=== PATIENT | female | born 1935 | race Caucasian/White ===

== ENCOUNTER 2016-10-23 17:04 | Inpatient (IN) | payer OTHER, BC ==
[~2016-10-23] VITALS: Ht 170.2 cm; Wt 78.0 kg
[~2016-10-23 17:04] MED LIST: ASPCH81 PO; LEVO50TA6 PO; LISI-729 PO; LPR100 PO; LPT40 PO; MULT-190 PO; POLYSOL4 OP; TRIA37.5 PO; WARF2TAB8 PO
[2016-10-23] MEDS ORDERED: SODIUM CHLORIDE 0.9% 1000ML 1,000 ML IV SCH (17:12)
--- NOTE | 2016-10-23 17:23 | EMERGENCY ROOM VISIT NOTE ---
History Report prepared by Ginny: Isaias Melton Under the Supervision of: Dr. Ha Sanchez D.O. First contact with patient: 17:05 Chief Complaint: NEURO SYMPTOMS Stated Complaint: POSS. STROKE/ LF SIDED WEAKNESS History of Present Illness The patient is a 81 year old female who presents to the Emergency Room with complaints of an episode of neuro symptoms beginning about 2 hours ago. Per EMS , she tried to get up to use the bathroom when she began to have left sided tingling and weakness in her left arm and left leg. She has a history of TIA, the last 1 year ago, and she is currently on Warfarin. Per the patient, she denies having any headache, chest pain, or shortness of breath. She had a cough about 15 days ago which resolved on its own. She reports having a history of strokes, and that her left sided weakness is new. The patient notes she is reported to have a lesion behind the cornea of her right eye. She has been unable to walk at the onset of her symptoms, but is now able to. She has a history of 2 valve replacements, atrial fibrillation, CHF, hypertension, and high cholesterol. Source of History: patient, EMS Onset: about 2 hours ago Position: other (left sided of body) Quality: tingling, other (neuro symptoms; eakness) Timing: other (episode) Associated Symptoms: + weakness (left sided), No SOB, No chest pain, No cough, No headache Review of Systems See HPI for pertinent positives & negatives. A total of 10 systems reviewed and were otherwise negative. Past Medical & Surgical Medical Problems: (1) Atrial Fibrillation (2) Cerebrovascular accident (CVA) (3) Chronic atrial fibrillation with RVR (4) Congestive Heart Failure Nos (5) Demand ischemia of myocardium (6) Hyperlipidemia Nec/Nos (7) Hypertension Nos (8) TIA (transient ischemic attack) Surgical Problems: (1) Mitral valve replaced (2) Status post heart valve replacement with mechanical valve Family History FHx: heart disease Social History Smoking Status: Never Smoker Alcohol Use: none Drug Use: none Marital Status: Housing Status: lives with family Occupation Status: retired Current/Historical Medications Scheduled Aspirin (Aspirin Chewable), 81 MG PO Q2D Atorvastatin (Atorvastatin Calcium), 40 MG PO QPM B Complex W/ C (Vitamin B Complex-C), 1 TAB PO DAILY Levothyroxine Sodium (Levothyroxine Sodium), 50 MCG PO DAILY Lisinopril (Prinivil), 5 MG PO BID Metoprolol Tartrate (Metoprolol Tartrate), 100 MG PO BID Ocuvite Preservision (Ocuvite Preservision), 1 TAB PO prn Polyethylene Glycol-Propylene (Systane), 1 DROPS OP prn Triamterene/Hctz (Dyazide 37.5MG/25MG), 1 TAB PO 2XWK Warfarin Sod (Jantoven), 2 MG PO QPM Allergies Coded Allergies: Codeine (Verified Allergy, Intermediate, RASH, 10/23/16) Physical Exam Vital Signs Date Time Temp Pulse Resp B/P Pulse Ox O2 Delivery O2 Flow Rate FiO2 10/23/16 19:04 66 20 171/90 96 Room Air 10/23/16 17:25 64 10/23/16 17:20 97 Room Air 10/23/16 17:07 36.5 72 12 173/84 97 Room Air Physical Exam GENERAL: Patient is awake alert, mildly anxious but appears to be in no pain. EYES: The conjunctivae are clear. The pupils are round and reactive. EARS, NOSE, MOUTH AND THROAT: The nose is without any evidence of any deformity. Mucous membranes are moist tongue is midline NECK: No bruit noted on auscultation. RESPIRATORY: Normal respiratory effort is noted there is no evidence of wheezing rhonchi or rales CARDIOVASCULAR: Regular rate and rhythm on auscultation. Metallic click noted on auscultation. GASTROINTESTINAL: The abdomen is soft. Bowel sounds are present in all quadrants. Abdomen is nontender MUSCULOSKELETAL/EXTREMITIES: There is no evidence of gross deformity full range of motion is noted in the hips and shoulders SKIN: Trace pedal edema bilaterally. NEUROLOGIC: Patient is awake alert and oriented x3. No drift in upper extremities. Patient is able to hold each leg off the bed for greater than 5 seconds, but strength is diminished in left leg mildly to confrontation. Patient is able to ambulate to bathroom with minimal assistance. Medical Decision & Procedures ER Provider Diagnostic Interpretation: Radiology results as stated below per my review and radiologist interpretation: HEAD CT NONCONTRAST Findings: The paranasal sinuses and mastoid air cells are clear. Moderate atrophy. Mild chronic small vessel change. No new or interval finding. No acute intracranial hemorrhage. Impression: Atrophy and chronic small vessel change of aging. No acute process. Electronically signed by: Ke Hdz M.D. 10/23/2016 5:53 PM Dictated Date/Time: 10/23/2016 5:52 PM CHEST ONE VIEW PORTABLE FINDINGS: Mild stable cardiomegaly. Mild prominence pulmonary vasculature. Platelike atelectasis left base considered chronic. IMPRESSION: Mild pulmonary venous congestion Electronically signed by: Ke Hdz M.D. 10/23/2016 5:29 PM Dictated Date/Time: 10/23/2016 5:29 PM Laboratory Results 10/23/16 18:35 Red Blood Count 3.92, Mean Corpuscular Volume 91.6, Mean Corpuscular Hemoglobin 31.1, Mean Corpuscular Hemoglobin Concent 34.0, Mean Platelet Volume 13.3, Neutrophils (%) (Auto) 72.9, Lymphocytes (%) (Auto) 15.5, Monocytes (%) (Auto) 7.9, Eosinophils (%) (Auto) 3.2, Basophils (%) (Auto) 0.3, Neutrophils # (Auto) 4.34, Lymphocytes # (Auto) 0.92, Monocytes # (Auto) 0.47, Eosinophils # (Auto) 0.19, Basophils # (Auto) 0.02 10/23/16 18:35 Test 10/23/16 17:20 10/23/16 18:35 Urine Color YELLOW Urine Appearance CLOUDY (CLEAR) Urine pH 8.0 (4.5-7.5) Urine Specific [place] 1.007 (1.000-1.030) Urine Protein NEG (NEG) Urine Glucose (UA) NEG (NEG) Urine Ketones NEG (NEG) Urine Occult Blood NEG (NEG) Urine Nitrite NEG (NEG) Urine Bilirubin NEG (NEG) Urine Urobilinogen NEG (NEG) Urine Leukocyte Esterase SMALL (NEG) Urine WBC (Auto) 5-10 /hpf (0-5) Urine RBC (Auto) 10-30 /hpf (0-4) Urine Hyaline Casts (Auto) 1-5 /lpf (0-5) Urine Epithelial Cells (Auto) 5-10 /lpf (0-5) Urine Bacteria (Auto) 1+ (NEG) Urine Opiates Screen NEG (NEG) Urine Methadone, Qualitative NEG (NEG) Urine Barbiturates NEG (NEG) Urine Phencyclidine (PCP) Level NEG (NEG) Ur Amphetamine/Methamphetamine NEG (NEG) MDMA (Ecstasy) Screen NEG (NEG) Urine Benzodiazepines Screen NEG (NEG) Urine Cocaine Metabolite NEG (NEG) Urine Marijuana (THC) NEG (NEG) White Blood Count 5.95 K/uL (4.8-10.8) Red Blood Count 3.92 M/uL (4.2-5.4) Hemoglobin 12.2 g/dL (12.0-16.0) Hematocrit 35.9 % (37-47) Mean Corpuscular Volume 91.6 fL (80-100) Mean Corpuscular Hemoglobin 31.1 pg (25-34) Mean Corpuscular Hemoglobin Concent 34.0 g/dl (32-36) Platelet Count 127 K/uL (130-400) Mean Platelet Volume 13.3 fL (7.4-10.4) Neutrophils (%) (Auto) 72.9 % Lymphocytes (%) (Auto) 15.5 % Monocytes (%) (Auto) 7.9 % Eosinophils (%) (Auto) 3.2 % Basophils (%) (Auto) 0.3 % Neutrophils # (Auto) 4.34 K/uL (1.4-6.5) Lymphocytes # (Auto) 0.92 K/uL (1.2-3.4) Monocytes # (Auto) 0.47 K/uL (0.11-0.59) Eosinophils # (Auto) 0.19 K/uL (0-0.5) Basophils # (Auto) 0.02 K/uL (0-0.2) RDW Standard Deviation 48.3 fL (36.4-46.3) RDW Coefficient of Variation 14.4 % (11.5-14.5) Immature Granulocyte % (Auto) 0.2 % Immature Granulocyte # (Auto) 0.01 K/uL (0.00-0.02) Platelet Estimate DECREASED Red Blood Cell Morphology Unremarkable Prothrombin Time 40.6 SECONDS (9.0-12.0) Prothromb Time International Ratio 3.6 (0.9-1.1) Activated Partial Thromboplast Time 43.2 SECONDS (21.0-31.0) Partial Thromboplastin Ratio 1.7 Anion Gap 11.0 mmol/L (3-11) Est Creatinine Clear Calc Drug Dose 43.0 ml/min Estimated GFR () 54.5 Estimated GFR (Non- 47.0 BUN/Creatinine Ratio 12.9 (10-20) Calcium Level 9.1 mg/dl (8.5-10.1) Total Creatine Kinase 77 U/L (26-192) Creatine Kinase MB 1.2 ng/ml (0.5-3.6) Creatine Kinase MB Ratio 1.6 (0-3.0) Troponin I 0.336 ng/ml (0-0.045) Laboratory results per my review. Medications Administered Medications (Trade) Dose Ordered Sig/Elsi Route Start Time Stop Time Status Last Admin Dose Admin Sodium Chloride (Nss 1000ml) 1,000 ml @ 50 mls/hr Q20H IV 10/23/16 17:12 11/22/16 17:11 10/23/16 17:23 50 MLS/HR ECG Indication: other (neuro symptoms) Rate (beats per minute): 60 Rhythm: normal sinus Findings: LBBB, no ectopy Comparison ECG Date: July 12, 2016 Change: no significant change ED Course 1705: The patient was evaluated in room B3B. A complete history and physical examination were performed. 1711: Ordered NSS 1,000 ml @ 50 mls/hr IV. 1914: I discussed the patient's case with Dr. Humphrey. The patient will be evaluated for further management. Medical Decision Differential diagnosis: Etiologies such as metabolic, infection, hypo/hyperglycemia, electrolyte abnormalities, cardiac sources, intracerebral event, toxicologic, neurologic, as well as others were entertained. Nursing notes reviewed. The patient is an 81-year-old female who presented to the emergency department for an evaluation of left-sided weakness. The patient has a history of a valve replacement surgery in the past. She is currently taking Coumadin. Her symptoms began within 3 hours of her arrival in the emergency department but she is taking Coumadin and her symptoms were quickly resolving so she was not made a stroke alert initially. The patient did not appear to have any acute changes on CT. Her INR was therapeutic and would be a contraindication to TPA at this time. The patient's condition continued to improve. She was able to ambulate but still had complained of weakness in her left leg. I discussed the patient's laboratory and radiographic studies with her. I also discussed her case with the on-call [facility] hospitalist group. They've agreed to evaluate the patient in the emergency apartment for further management and disposition. Consults Time Called: 1909 Consulting Physician: Dr. Humphrey, [facility] [place] Returned Call: 1914 I discussed the patient's case with Dr. Humphrey. The patient will be evaluated for further management. 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 I confirm that the note above accurately reflects all work, treatment, procedures, and medical decision making performed by me. Departure Information Dispostion Being Evaluated By Hospitalist Referrals Mary Hardwick M.D. (PCP) Patient Instructions [facility] Problem Qualifiers
--- NOTE | 2016-10-23 17:31 | DIAGNOSTIC IMAGING REPORT ---
CHEST ONE VIEW PORTABLE CLINICAL HISTORY: Stroke dyspnea COMPARISON STUDY: 07/11/2016 FINDINGS: Mild stable cardiomegaly. Mild prominence pulmonary vasculature. Platelike atelectasis left base considered chronic. IMPRESSION: Mild pulmonary venous congestion Electronically signed by: Ke Hdz M.D. 10/23/2016 5:29 PM Dictated Date/Time: 10/23/2016 5:29 PM
--- NOTE | 2016-10-23 17:54 | DIAGNOSTIC IMAGING REPORT ---
HEAD CT NONCONTRAST CT DOSE: 537.48 mGy.cm HISTORY: Mental status change Stroke TECHNIQUE: Multiaxial CT images of the head were performed without the use of intravenous contrast. Comparison: 06/29/2015 Findings: The paranasal sinuses and mastoid air cells are clear. Moderate atrophy. Mild chronic small vessel change. No new or interval finding. No acute intracranial hemorrhage. Impression: Atrophy and chronic small vessel change of aging. No acute process. Electronically signed by: Ke Hdz M.D. 10/23/2016 5:53 PM Dictated Date/Time: 10/23/2016 5:52 PM
[2016-10-23 18:00] LABS: URINE APPEARANCE CLOUDY (CLEAR); URINE BILIRUBIN NEG (NEG); URINE COLOR YELLOW; URINE NITRITE NEG (NEG); URINE SPECIFIC GRAVITY 1.007 (1.000-1.030); UROBILINOGEN NEG (NEG)
[2016-10-23] MEDS ORDERED: ASPCH81X PO (18:03)
[2016-10-23] MEDS ORDERED: B COCAP3 PO (18:05)
[2016-10-23 18:07] LABS: MANUAL MICROSCOPIC REQUIRED? NO; REVIEW REQ? NO
[2016-10-23 18:24] LABS: BENZODIAZEPINE, URINE NEG (NEG); COCAINE,URINE NEG (NEG); PHENCYCLIDINE, URINE NEG (NEG)
[2016-10-23 19:03] LABS: PARTIAL THROMBOPLASTIN RATIO 1.7; PROTHROMBIN TIME (PATIENT) 40.6 SECONDS (9.0-12.0)
[2016-10-23 19:07] LABS: BUN/CREATININE RATIO 12.9 (10-20); CALCIUM 9.1 mg/dl (8.5-10.1); CREATININE 1.1 mg/dl (0.60-1.20); POTASSIUM 4.2 mmol/L (3.5-5.1)
[2016-10-23 19:09] LABS: INR 3.6 (0.9-1.1)
[2016-10-23 19:14] LABS: HEMATOCRIT 35.9 % (37-47); MEAN CELL VOLUME 91.6 fL (80-100); MEAN CORPUSCULAR HEMOGLOBIN 31.1 pg (25-34); MEAN PLATELET VOLUME 13.3 fL (7.4-10.4); PLATELET COUNT 127 K/uL (130-400); RED BLOOD COUNT 3.92 M/uL (4.2-5.4); WHITE BLOOD COUNT 5.95 K/uL (4.8-10.8)
[2016-10-23 19:15] LABS: BASO % 0.3 %; BASO ABS # 0.02 K/uL (0-0.2); COMPLETE YES; EOS % 3.2 %; IG% 0.2 %; LYMPH % 15.5 %; LYMPH ABS # 0.92 K/uL (1.2-3.4); MONO % 7.9 %; NEUT % 72.9 %; PLT ESTIMATE DECREASED
[2016-10-23 19:35] LABS: CKMB/CK RATIO 1.6 (0-3.0)
--- NOTE | 2016-10-23 20:27 | Medical Student: [facility] ---
Med Student History & Physical Date & Time of Service: Oct 23, 2016 at 19:47 Chief Complaint: Left Sided Weakness Primary Care Physician: Mary Hardwick M.D. History of Present Illness Source: patient, family 81y/o female with a history of TIA and mechanical heart valve replacement x2 on Warfarin was at her home this morning and was getting up to walk, when she describes not being able to move her left foot forward. She states that she felt like she was physically unable to move her left leg. Additionally, the patient had left arm weakness. This inability to move lasted about 20 minutes, but began to slightly improve following this period of time. She was able to call her daughter and talk to her during this time. The patient denies any SOB, Chest pain, lightheadedness, dizziness, fever/chills, increased visual problems , difficulty concentrating, facial droop, or slurred speech at any point today. The patient was brought to the hospital where she continues to have left leg and arm weakness and states that she feels like her left arm is not attached to her body. Per family and the patient, the patient has had increased weakness for a couple months now, where she has been more tired and has been having more difficulty walking around. Additionally, she states that she has been having balance problems for a few months now. The patient recently had a cough and was feeling sick earlier this month, but has not had any symptoms for the past few days. Past Medical/Surgical History Medical Problems: (1) Atrial fibrillation 2. CHF 3. HTN 4. High cholesterol 5. Hypothyroid Surgical History 1. Mitral valve and aortic valve replaced Family History heart disease Social History Smoking Status: Never Smoker Alcohol Use: none Drug Use: none Marital Status: Housing status: lives alone Occupational Status: retired Immunizations History of Influenza Vaccine: Yes Influenza Vaccine Date: Jul 09, 2010 History of Tetanus Vaccine?: No History of Pneumococcal: Yes Pneumococcal Date: Jul 09, 2010 History of Hepatitis B Vaccine: No Allergies Coded Allergies: Codeine (Verified Allergy, Intermediate, RASH, 10/23/16) Medications Aspirin (Aspirin Chewable), 81 MG PO Q2D Atorvastatin (Atorvastatin Calcium), 40 MG PO QPM B Complex W/ C (Vitamin B Complex-C), 1 TAB PO DAILY Levothyroxine Sodium (Levothyroxine Sodium), 50 MCG PO DAILY Lisinopril (Prinivil), 5 MG PO BID Metoprolol Tartrate (Metoprolol Tartrate), 100 MG PO BID Ocuvite Preservision (Ocuvite Preservision), 1 TAB PO prn Polyethylene Glycol-Propylene (Systane), 1 DROPS OP prn Triamterene/Hctz (Dyazide 37.5MG/25MG), 1 TAB PO 2XWK Warfarin Sod (Jantoven), 2 MG PO QPM Review of Systems Constitutional: + weakness, No chills, No fever, No sweats Eyes: No discharge, No redness, No worsening of vision ENT: No hearing loss, No nasal symptoms, No sore throat Respiratory: No cough, No dyspnea at rest, No dyspnea on exertion, No shortness of breath, No sputum, No wheezing Cardiovascular: No chest pain, No edema, No palpitations Abdomen: No constipation, No diarrhea, No nausea, No pain, No vomiting Musculoskeletal: + problem reported (back pain), No calf pain, No swelling Neurologic: + balance problems, + weakness, No memory loss, No vertigo Integumentary: No itch, No new/changing skin lesions, No rash Physical Exam Vital Signs (24 Hours) Date Time Temp Pulse Resp B/P Pulse Ox O2 Delivery O2 Flow Rate FiO2 10/23/16 19:04 66 20 171/90 96 Room Air 10/23/16 17:25 64 10/23/16 17:20 97 Room Air 10/23/16 17:07 36.5 72 12 173/84 97 Room Air General Appearance: WD/WN, no apparent distress Head: normocephalic, atraumatic Eyes: normal inspection, EOMI ENT: normal ENT inspection, hearing grossly normal Neck: supple, trachea midline Respiratory/Chest: chest non-tender, lungs clear, no respiratory distress, no accessory muscle use, + decreased breath sounds Cardiovascular: regular rate, rhythm, no edema, no gallop, no murmur Abdomen/GI: normal bowel sounds, non tender, soft Back: normal inspection, no muscle spasm Extremities/Musculoskelatal: normal inspection, no pedal edema, non-tender 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, alert, normal mood/affect, oriented x 3, + pertinent finding (5/5 strength right upper and lower extremity , 4/5 strength right upper and lower extremity) Skin: normal color, warm/dry, no rash Diagnostics Laboratory Results Results Past 24 Hours Test 10/23/16 17:20 10/23/16 18:35 Range/Units Urine Color YELLOW Urine Appearance CLOUDY CLEAR Urine pH 8.0 4.5-7.5 Urine Specific [place] 1.007 1.000-1.030 Urine Protein NEG NEG Urine Glucose (UA) NEG NEG Urine Ketones NEG NEG Urine Occult Blood NEG NEG Urine Nitrite NEG NEG Urine Bilirubin NEG NEG Urine Urobilinogen NEG NEG Urine Leukocyte Esterase SMALL NEG Urine WBC (Auto) 5-10 0-5 /hpf Urine RBC (Auto) 10-30 0-4 /hpf Urine Hyaline Casts (Auto) 1-5 0-5 /lpf Urine Epithelial Cells (Auto) 5-10 0-5 /lpf Urine Bacteria (Auto) 1+ NEG Urine Opiates Screen NEG NEG Urine Methadone, Qualitative NEG NEG Urine Barbiturates NEG NEG Urine Phencyclidine (PCP) Level NEG NEG Ur Amphetamine/Methamphetamine NEG NEG MDMA (Ecstasy) Screen NEG NEG Urine Benzodiazepines Screen NEG NEG Urine Cocaine Metabolite NEG NEG Urine Marijuana (THC) NEG NEG White Blood Count 5.95 4.8-10.8 K/uL Red Blood Count 3.92 4.2-5.4 M/uL Hemoglobin 12.2 12.0-16.0 g/dL Hematocrit 35.9 37-47 % Mean Corpuscular Volume 91.6 80-100 fL Mean Corpuscular Hemoglobin 31.1 25-34 pg Mean Corpuscular Hemoglobin Concent 34.0 32-36 g/dl Platelet Count 127 130-400 K/uL Mean Platelet Volume 13.3 7.4-10.4 fL Neutrophils (%) (Auto) 72.9 % Lymphocytes (%) (Auto) 15.5 % Monocytes (%) (Auto) 7.9 % Eosinophils (%) (Auto) 3.2 % Basophils (%) (Auto) 0.3 % Neutrophils # (Auto) 4.34 1.4-6.5 K/uL Lymphocytes # (Auto) 0.92 1.2-3.4 K/uL Monocytes # (Auto) 0.47 0.11-0.59 K/uL Eosinophils # (Auto) 0.19 0-0.5 K/uL Basophils # (Auto) 0.02 0-0.2 K/uL RDW Standard Deviation 48.3 36.4-46.3 fL RDW Coefficient of Variation 14.4 11.5-14.5 % Immature Granulocyte % (Auto) 0.2 % Immature Granulocyte # (Auto) 0.01 0.00-0.02 K/uL Platelet Estimate DECREASED Red Blood Cell Morphology Unremarkable Prothrombin Time 40.6 9.0-12.0 SECONDS Prothromb Time International Ratio 3.6 0.9-1.1 Activated Partial Thromboplast Time 43.2 21.0-31.0 SECONDS Partial Thromboplastin Ratio 1.7 Sodium Level 142 136-145 mmol/L Potassium Level 4.2 3.5-5.1 mmol/L Chloride Level 108 98-107 mmol/L Carbon Dioxide Level 23 21-32 mmol/L Anion Gap 11.0 3-11 mmol/L Blood Urea Nitrogen 14 7-18 mg/dl Creatinine 1.10 0.60-1.20 mg/dl Est Creatinine Clear Calc Drug Dose 43.0 ml/min Estimated GFR () 54.5 Estimated GFR (Non- 47.0 BUN/Creatinine Ratio 12.9 10-20 Random Glucose 111 70-99 mg/dl Calcium Level 9.1 8.5-10.1 mg/dl Total Creatine Kinase 77 26-192 U/L Creatine Kinase MB 1.2 0.5-3.6 ng/ml Creatine Kinase MB Ratio 1.6 0-3.0 Troponin I 0.336 0-0.045 ng/ml Diagnostic Radiology CXR: IMPRESSION: Mild pulmonary venous congestion HEAD CT: Impression: Atrophy and chronic small vessel change of aging. No acute process. EKG 67bpm, LBBB. Compared to previous ecg, increased pr interval. Impression Assessment and Plan 81y/o female with a history of TIA and mechanical heart valve replacements with continued weakness of left arm and left leg. The initial CT was negative for acute process. Will further attempt to rule out CVA with CT angiogram of brain. Consider Brain MRI but will confirm ability to perform this test given the patients history of heart valve replacement. Given the patient's history of mechanical heart valve replacement, consider endocarditis as a potential etiology causing clots leading to stroke. Will order blood cultures as well as consider a MICHAEL to further examine. Cardiology and neurology will be consulted. Left sided weakness/potential stroke- CTA of brain has been ordered. Deny/ Confirm ability to perform an MRI. Neurology has been consulted. Continue to monitor the patient's symptoms. Mechanical Heart Valves- Cardiology has been consulted. Echo has been ordered. Blood cultures will be drawn. INR slightly supratherapeutic at 3.6 (target goal for mitral valve replacement is 2.5-3.5). Atrial Fibrillation- INR slightly supratherapeutic at 3.6 (target goal for mitral valve replacement is 2.5-3.5). Continue to monitor INR and administer Warfarin 2mg PO QPM. CHF/HTN- Administer Triamterene/HCTZ 1 TAB PO 2xweek, Lisinopril 5mg PO BID, Metoprolol Tartrate 100mg PO BID, and ASA 81mg PO Q2D High cholesterol- Administer Atorvastatin 40mg PO QPM. Hypothyroid- Administer Levothyroxine 50mcg PO daily. Vitamin Supplementation- Administer Vitamin B complex 1 tab PO daily and Multivitamin 1 tab PO prn.
[2016-10-23] MEDS ORDERED: METOPROLOL TARTRATE 1 MG/ML VIAL IV PRN (21:00)
[2016-10-23] MEDS ORDERED: METOPROLOL TARTRATE 100 MG TAB PO SCH (21:00)
[2016-10-23] MEDS ORDERED: ZOLPIDEM TARTRATE 5 MG TAB PO PRN (21:00)
[2016-10-23] MEDS ORDERED: ACETAMINOPHEN IV 100 ML IV PRN (21:00)
[2016-10-23] MEDS ORDERED: ONDANSETRON INJ 2 MG/ML 2 ML VIAL IV PRN (21:00)
[2016-10-23] MEDS ORDERED: NITROGLYCERIN 0.4 MG SL PER TAB CHARGE SL PRN (21:00)
[2016-10-23] MEDS ORDERED: CEROVITE ADV FORMULA TAB PO PRN (21:00)
[2016-10-23 23:00] LABS: CKMB/CK RATIO 3.1 (0-3.0)
[2016-10-24] VITALS (8 sets, daily range): BP systolic 106–162; BP diastolic 65–89; PULSE 58–65; TEMP 36.4–36.7; O2SAT 94–100; Ht 170.2 cm; Wt 78.0 kg
[2016-10-24] MEDS: METOPROLOL TARTRATE 100 MG TAB PO SCH ×3 (01:54→20:35)
[2016-10-24] MEDS: SYSTANE~ORDER AWAITING ACTION SCH ×4 (01:55→22:23)
[2016-10-24] MEDS: ATORVASTATIN 40 MG TAB PO SCH ×2 (01:55→20:35)
[2016-10-24] MEDS ORDERED: MAGNEVIST IV PRN (02:00)
--- NOTE | 2016-10-24 03:39 | History and Physical ---
History & Physical Date & Time of Service: Oct 24, 2016 at 03:23 Chief Complaint: Elevated Troponin, Tia Primary Care Physician: Mary Hardwick M.D. History of Present Illness Source: patient, family The patient is knee 1-year-old female presents emergency department with complaint of left arm and leg weakness and tingling that began prior to arrival. She has a previous history of TIA about one year ago, and is on warfarin chronically due to mechanical aortic and mitral valves and atrial fibrillation. She did have some improvement in her symptoms, but did still have some left-sided weakness. Past Medical/Surgical History Medical Problems: (1) Cerebrovascular accident (CVA) Status: Resolved Surgical Problems: (1) Mitral valve replaced Status: Resolved (2) Status post heart valve replacement with mechanical valve Status: Resolved Family History FHx: heart disease Social History Smoking Status: Never Smoker Alcohol Use: none Drug Use: none Marital Status: Housing status: lives alone Occupational Status: retired Immunizations History of Influenza Vaccine: Yes Influenza Vaccine Date: Jul 09, 2010 History of Tetanus Vaccine?: No History of Pneumococcal: Yes Pneumococcal Date: Jul 09, 2010 History of Hepatitis B Vaccine: No Multi-Drug Resistant Organisms History of MDRO: No Allergies Coded Allergies: Codeine (Verified Allergy, Intermediate, RASH, 10/23/16) Home Medications Scheduled Aspirin (Aspirin Chewable), 81 MG PO Q2D Atorvastatin (Atorvastatin Calcium), 40 MG PO QPM B Complex W/ C (Vitamin B Complex-C), 1 TAB PO DAILY Levothyroxine Sodium (Levothyroxine Sodium), 50 MCG PO DAILY Lisinopril (Prinivil), 5 MG PO BID Metoprolol Tartrate (Metoprolol Tartrate), 100 MG PO BID Ocuvite Preservision (Ocuvite Preservision), 1 TAB PO prn Polyethylene Glycol-Propylene (Systane), 1 DROPS OP prn Triamterene/Hctz (Dyazide 37.5MG/25MG), 1 TAB PO 2XWK Warfarin Sod (Jantoven), 2 MG PO QPM Review of Systems The patient denies chest pain, palpitations, shortness of breath, cough, lower extremity swelling, vision change, hearing change, sore throat, fevers, chills, sweats, weight change, fatigue, nausea, vomiting, abdominal pain, pelvic pain, blood in urine or stool, dysuria, urinary frequency or urgency, lightheadedness , dizziness, headache, memory loss, rash, abnormal bruising or bleeding, generalized weakness, arthralgias or myalgias, back or neck pain, night sweats, or allergy symptoms. The review of systems is otherwise negative other than for that already noted above, and at least 10 systems have been reviewed. Physical Exam Vital Signs Date Time Temp Pulse Resp B/P Pulse Ox O2 Delivery O2 Flow Rate FiO2 10/24/16 02:32 36.7 61 16 162/89 95 Room Air 10/23/16 23:08 65 20 164/69 95 Room Air 10/23/16 21:23 61 20 153/68 95 Room Air 10/23/16 19:04 66 20 171/90 96 Room Air 10/23/16 17:25 64 10/23/16 17:20 97 Room Air 10/23/16 17:07 36.5 72 12 173/84 97 Room Air The patient is awake, well-developed and adequately nourished, alert and oriented 3, normocephalic and atraumatic, lying in bed and in no acute distress. HEENT--PERRL, EOMI, mucous membranes and oropharynx dry. Neck--supple, no JVD or bruits, thyroid normal, trachea midline, no adenopathy. Heart--normal S1 and S2, no extra beats, no murmurs, rubs or gallops. Lungs--clear bilaterally with good air movement, no respiratory distress, no accessory muscle use. Abdomen--normal bowel sounds and soft, nontender and nondistended, no hernias or masses, no organomegaly. Extremities--no cyanosis, clubbing or edema. There are good distal pulses b/l. Dermatologic--normal skin turgor, normal color, warm and dry, no abnormal lymph nodes, no rash. Neurologic--cranial nerves II through XII grossly intact, left upper and lower extremity with strength 4+ out of 5, with normal sensation. Psychiatric--normal affect. Diagnostics Laboratory Results Results Past 24 Hours Test 10/23/16 17:20 10/23/16 18:35 10/23/16 22:00 Range/Units Urine Color YELLOW Urine Appearance CLOUDY CLEAR Urine pH 8.0 4.5-7.5 Urine Specific [place] 1.007 1.000-1.030 Urine Protein NEG NEG Urine Glucose (UA) NEG NEG Urine Ketones NEG NEG Urine Occult Blood NEG NEG Urine Nitrite NEG NEG Urine Bilirubin NEG NEG Urine Urobilinogen NEG NEG Urine Leukocyte Esterase SMALL NEG Urine WBC (Auto) 5-10 0-5 /hpf Urine RBC (Auto) 10-30 0-4 /hpf Urine Hyaline Casts (Auto) 1-5 0-5 /lpf Urine Epithelial Cells (Auto) 5-10 0-5 /lpf Urine Bacteria (Auto) 1+ NEG Urine Opiates Screen NEG NEG Urine Methadone, Qualitative NEG NEG Urine Barbiturates NEG NEG Urine Phencyclidine (PCP) Level NEG NEG Ur Amphetamine/Methamphetamine NEG NEG MDMA (Ecstasy) Screen NEG NEG Urine Benzodiazepines Screen NEG NEG Urine Cocaine Metabolite NEG NEG Urine Marijuana (THC) NEG NEG White Blood Count 5.95 4.8-10.8 K/uL Red Blood Count 3.92 4.2-5.4 M/uL Hemoglobin 12.2 12.0-16.0 g/dL Hematocrit 35.9 37-47 % Mean Corpuscular Volume 91.6 80-100 fL Mean Corpuscular Hemoglobin 31.1 25-34 pg Mean Corpuscular Hemoglobin Concent 34.0 32-36 g/dl Platelet Count 127 130-400 K/uL Mean Platelet Volume 13.3 7.4-10.4 fL Neutrophils (%) (Auto) 72.9 % Lymphocytes (%) (Auto) 15.5 % Monocytes (%) (Auto) 7.9 % Eosinophils (%) (Auto) 3.2 % Basophils (%) (Auto) 0.3 % Neutrophils # (Auto) 4.34 1.4-6.5 K/uL Lymphocytes # (Auto) 0.92 1.2-3.4 K/uL Monocytes # (Auto) 0.47 0.11-0.59 K/uL Eosinophils # (Auto) 0.19 0-0.5 K/uL Basophils # (Auto) 0.02 0-0.2 K/uL RDW Standard Deviation 48.3 36.4-46.3 fL RDW Coefficient of Variation 14.4 11.5-14.5 % Immature Granulocyte % (Auto) 0.2 % Immature Granulocyte # (Auto) 0.01 0.00-0.02 K/uL Platelet Estimate DECREASED Red Blood Cell Morphology Unremarkable Prothrombin Time 40.6 9.0-12.0 SECONDS Prothromb Time International Ratio 3.6 0.9-1.1 Activated Partial Thromboplast Time 43.2 21.0-31.0 SECONDS Partial Thromboplastin Ratio 1.7 Sodium Level 142 136-145 mmol/L Potassium Level 4.2 3.5-5.1 mmol/L Chloride Level 108 98-107 mmol/L Carbon Dioxide Level 23 21-32 mmol/L Anion Gap 11.0 3-11 mmol/L Blood Urea Nitrogen 14 7-18 mg/dl Creatinine 1.10 0.60-1.20 mg/dl Est Creatinine Clear Calc Drug Dose 43.0 ml/min Estimated GFR () 54.5 Estimated GFR (Non- 47.0 BUN/Creatinine Ratio 12.9 10-20 Random Glucose 111 70-99 mg/dl Calcium Level 9.1 8.5-10.1 mg/dl Total Creatine Kinase 77 29 26-192 U/L Creatine Kinase MB 1.2 0.9 0.5-3.6 ng/ml Creatine Kinase MB Ratio 1.6 3.1 0-3.0 Troponin I 0.336 0.280 0-0.045 ng/ml Total Bilirubin 0.5 0.2-1 mg/dl Direct Bilirubin 0.1 0-0.2 mg/dl Aspartate Amino Transf (AST/SGOT) 39 15-37 U/L Alanine Aminotransferase (ALT/SGPT) 26 12-78 U/L Alkaline Phosphatase 131 45-117 U/L Total Protein 7.4 6.4-8.2 gm/dl Albumin 3.4 3.4-5.0 gm/dl Diagnostic Radiology Patient Name: BRANDY AZUL Unit Number: [id number] Dictated: 10/23/161751 Transcribed: 10/23/161751 MS Printed Date/Time: [~ rep prt dt]/[~ rep prt tm] [~ rep ct labl] - [~ rep ct ivnm] [facility] [place] [place] [address] Dictated: 10/23/161751 Transcribed: 10/23/161751 MS Printed Date/Time: [~ rep prt dt]/[~ rep prt tm] [~ rep ct labl] - [~ rep ct ivnm] [~ rep ct add3]] HEAD CT NONCONTRAST CT DOSE: 537.48 mGy.cm HISTORY: Mental status change Stroke TECHNIQUE: Multiaxial CT images of the head were performed without the use of intravenous contrast. Comparison: 06/29/2015 Findings: The paranasal sinuses and mastoid air cells are clear. Moderate atrophy. Mild chronic small vessel change. No new or interval finding. No acute intracranial hemorrhage. Impression: Atrophy and chronic small vessel change of aging. No acute process. Electronically signed by: Ke Hdz M.D. 10/23/2016 5:53 PM Dictated Date/Time: 10/23/2016 5:52 PM The status of this report is Signed. Draft = Not yet reviewed or approved by Radiologist. Signed = Reviewed and approved by Radiologist. <AttendingPhy></AttendingPhy> <FamilyPhy>Mary Hardwick M.D.</FamilyPhy > <PrimaryPhy>Mary Hardwick M.D.</PrimaryPhy> <UnitNumber>[id number]</ UnitNumber> <VisitNumber>[id number]</VisitNumber> <PatientName>BRANDY AZUL</ PatientName> <DateOfBirth>1935</DateOfBirth> <Location>[facility]</Location> < ServiceDate>10/23/16</ServiceDate> <MNE>ESINDI</MNE> <OrderingPhy>Ha Sanchez D.O.</OrderingPhy> <OrderingPhyMNE>f rep ord dr diaz</OrderingPhyMNE> <DictatingPhyMNE>f rep dict dr diaz</DictatingPhyMNE> <CCListMNE>f rep ct mne</ CCListMNE> <AdmittingPhyMNE>f pt admit dr diaz</AdmittingPhyMNE> <AttendingPhyMNE >f pt attend dr diaz</AttendingPhyMNE> <ConsultingPhyMNE>f pt consult dr diaz</ConsultingPhyMNE> <FamilyPhyMNE>f pt fam dr diaz</FamilyPhyMNE> <OtherPhyMNE>f pt other dr diaz</OtherPhyMNE> < PrimaryPhyMNE>f pt prim care dr diaz</PrimaryPhyMNE> <ReferringPhyMNE>f pt referring dr diaz</ReferringPhyMNE> Patient Name: BRANDY AZUL Unit Number: [id number] Dictated: 10/23/161728 Transcribed: 10/23/161728 MS Printed Date/Time: [~ rep prt dt]/[~ rep prt tm] [~ rep ct labl] - [~ rep ct ivnm] [facility] Radiology Department [place] [id number] Dictated: 10/23/161728 Transcribed: 10/23/161728 MS Printed Date/Time: [~ rep prt dt]/[~ rep prt tm] [~ rep ct labl] - [~ rep ct ivnm] [~ rep ct add3]] CHEST ONE VIEW PORTABLE CLINICAL HISTORY: Stroke dyspnea COMPARISON STUDY: 07/11/2016 FINDINGS: Mild stable cardiomegaly. Mild prominence pulmonary vasculature. Platelike atelectasis left base considered chronic. IMPRESSION: Mild pulmonary venous congestion Electronically signed by: Ke Hdz M.D. 10/23/2016 5:29 PM Dictated Date/Time: 10/23/2016 5:29 PM The status of this report is Signed. Draft = Not yet reviewed or approved by Radiologist. Signed = Reviewed and approved by Radiologist. <AttendingPhy></AttendingPhy> <FamilyPhy>Mary Hardwick M.D.</FamilyPhy > <PrimaryPhy>Mary Hardwick M.D.</PrimaryPhy> <UnitNumber>[id number]</ UnitNumber> <VisitNumber>[id number]</VisitNumber> <PatientName>BRANDY AZUL</ PatientName> <DateOfBirth>1935</DateOfBirth> <Location>[facility]</Location> < ServiceDate>10/23/16</ServiceDate> <MNE>ESINDI</MNE> <OrderingPhy>Ha Sanchez D.O.</OrderingPhy> <OrderingPhyMNE>f rep ord dr diaz</OrderingPhyMNE> <DictatingPhyMNE>f rep dict dr diaz</DictatingPhyMNE> <CCListMNE>f rep ct joe</ CCListMNE> <AdmittingPhyMNE>f pt admit dr diaz</AdmittingPhyMNE> <AttendingPhyMNE >f pt attend dr diaz</AttendingPhyMNE> <ConsultingPhyMNE>f pt consult dr diaz</ConsultingPhyMNE> <FamilyPhyMNE>f pt fam dr diaz</FamilyPhyMNE> <OtherPhyMNE>f pt other dr diaz</OtherPhyMNE> < PrimaryPhyMNE>f pt prim care dr diaz</PrimaryPhyMNE> <ReferringPhyMNE>f pt referring dr diaz</ReferringPhyMNE> EKG EKG shows normal sinus rhythm at 67 bpm, left bundle branch block, no acute ST- T changes. Impression Assessment and Plan TIA versus CVA, with improving left arm and left leg weakness, with resolved tingling--CT of the head does not show any acute finding,. We'll order an MRI of the brain combo, MRA of the head without contrast, and MRA of the neck combo. She is therapeutic on her warfarin dosing, with an INR 3.6. We'll continue aspirin 81 mg by mouth every 2 days. Atrial fibrillation/status post aortic and mitral mechanical valves/hypertension /elevated troponin of 0.336--she will be admitted to the telemetry unit, for serial cardiac enzymes, cardiac rhythm monitoring and a 2-D echocardiogram with Dopplers. Continue metoprolol tartrate 100 mg by mouth twice a day starting in the a.m. tomorrow, and hold triamterene hydrochlorothiazide and lisinopril 5 mg by mouth twice a day. Her INR is therapeutic at 3.6, and will resume warfarin at 2 mg by mouth daily starting tomorrow. We'll place her on Lopressor 5 mg IV every 4 hours when necessary systolic blood pressure greater than 160. We would typically allow for permissive hypertension however, her elevated troponin may also suggest an ischemic cardiac event. Therefore, we will select an in between systolic blood pressure target of 150-160. Of note, with her INR being therapeutic to mildly supratherapeutic, if she has had a CVA, and MRA of the head and neck are normal, she may require a MICHAEL. Hypothyroidism--continue levothyroxine sodium 50 g by mouth daily. Hypercholesterolemia--continue atorvastatin 40 mg by mouth every afternoon. We'll consult cardiology and neurology for their opinions. Level of Care Telemetry Advanced Directives Existing Advance Directive: No Existing Living Will: No Existing Power of Aircraft Maintenance Engineer: No Resuscitation Status FULL RESUSCITATION VTE Prophylaxis VTE Risk Assessment Done? Y/N: Yes Risk Level: Moderate Given or contraindicated: Warfarin (Coumadin)
[2016-10-24 05:33] LABS: MEAN CORPUSCULAR HGB CONC 32.9 g/dl (32-36)
[2016-10-24 05:44] LABS: HEMATOCRIT 38.3 % (37-47); MEAN CELL VOLUME 91.4 fL (80-100); MEAN CORPUSCULAR HEMOGLOBIN 30.1 pg (25-34); RED BLOOD COUNT 4.19 M/uL (4.2-5.4); WHITE BLOOD COUNT 7.77 K/uL (4.8-10.8)
[2016-10-24 05:46] LABS: INR 3.1 (0.9-1.1); PROTHROMBIN TIME (PATIENT) 34.8 SECONDS (9.0-12.0)
[2016-10-24 05:53] LABS: MEAN PLATELET VOLUME 13.3 fL (7.4-10.4); PLATELET COUNT 146 K/uL (130-400)
[2016-10-24 05:57] LABS: BUN/CREATININE RATIO 14.3 (10-20); CALCIUM 8.7 mg/dl (8.5-10.1); MAGNESIUM 2.2 mg/dl (1.8-2.4); POTASSIUM 3.7 mmol/L (3.5-5.1)
[2016-10-24 06:02] LABS: BASO % 0.5 %; BASO ABS # 0.04 K/uL (0-0.2); COMPLETE YES; IG% 0.3 %; LYMPH % 16.9 %; LYMPH ABS # 1.31 K/uL (1.2-3.4); MONO % 8.8 %; NEUT % 70.5 %; PLT ESTIMATE DECREASED
[2016-10-24 06:04] LABS: CKMB/CK RATIO 1.8 (0-3.0)
[2016-10-24] MEDS: LEVOTHYROXINE 50 MCG TAB PO SCH (06:15)
--- NOTE | 2016-10-24 07:21 | DIAGNOSTIC IMAGING REPORT ---
MRI OF THE BRAIN WITHOUT AND WITH IV CONTRAST CLINICAL HISTORY: Left-sided weakness. Possible stroke. COMPARISON STUDY: MRI the brain June 30, [address] October 23, 2016. TECHNIQUE: Utilizing a 1.5 Agnes magnet and dedicated coil, multiplanar, multiecho imaging of the brain was performed pre and postcontrast administration. IV administration of 20 mL of Magnevist contrast was uneventful. FINDINGS: There is a 1.2 cm focus of restricted diffusion within the periventricular white matter of the right frontal lobe shown on axial image 15. No additional acute infarcts are present. There are multiple old lacunar infarcts within the bilateral cerebellar hemispheres, the brainstem and the periventricular right frontal lobe. Ventricular system is stable. Basilar cisterns are patent. There are no extra-axial collections. There are no intracranial masses or areas of pathologic enhancement. Calvarial signal is maintained. Orbits and sinuses are unremarkable. IMPRESSION: 1. Small acute infarct within the periventricular right frontal lobe. 2. No intracranial masses or pathologic enhancement. 3. 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 Electronically signed by: Gildardo Malik M.D. 10/24/2016 7:20 AM Dictated Date/Time: 10/24/2016 7:13 AM
--- NOTE | 2016-10-24 07:25 | DIAGNOSTIC IMAGING REPORT ---
MRA OF THE NECK WITH AND WITHOUT CONTRAST CLINICAL HISTORY: Left-sided weakness. COMPARISON STUDY: Carotid ultrasound June 29, 2015. TECHNIQUE: Unenhanced and contrast-enhanced MRA of the neck was performed. Injection of 20 mL of Magnevist IV was uneventful. NASCET criteria were utilized to estimate the degree of carotid stenosis. FINDINGS: The bilateral common carotid and internal carotid arteries are patent. There is mild irregularity due to atherosclerosis within the proximal right internal carotid artery without significant stenosis. There is no dissection within the bilateral common carotid or internal carotid arteries. Both vertebral arteries are diminutive. This represents a chronic finding. The anterior circulation supplies a large portion the posterior fossa, as depicted on MRA of the intracranial circulation. IMPRESSION: 1. No significant stenosis within the bilateral common carotid and internal carotid arteries. 2. Diminutive bilateral vertebral arteries. Electronically signed by: Gildardo Malik M.D. 10/24/2016 7:24 AM Dictated Date/Time: 10/24/2016 7:20 AM
--- NOTE | 2016-10-24 07:32 | DIAGNOSTIC IMAGING REPORT ---
MR ANGIOGRAM OF THE BRAIN CLINICAL HISTORY: Transient ischemic attack. COMPARISON STUDY: MRI of the brain performed concurrently on 10/23/2016. MR angiogram of the brain dated 11/26/2007. TECHNIQUE: 3-D [id number] MR angiography of the intracranial circulation is performed. 3-D tumble views are created and assessed. IV contrast was not administered for this examination. FINDINGS: There are large posterior communicating arteries with origin of the posterior cerebral arteries bilaterally. The posterior cerebral arteries are patent. No significant flow is identified within the basilar artery, and this is unchanged from previous. The vertebral arteries are diminutive and both appear to terminate as the PICA. The internal carotid arteries are widely patent bilaterally, as are the anterior and middle cerebral arteries. There is no aneurysm or high-grade stenosis identified. IMPRESSION: 1. There are large posterior communicating arteries with origin of both posterior cerebral arteries. These vessels are widely patent. 2. No significant flow is identified within the basilar artery. This is similar to the 2007 examination and could be on a congenital basis or may represent chronic occlusion. The vertebral arteries are diminutive and appear to terminate as the PICA bilaterally. 3. The anterior circulation is normal in appearance. There is no aneurysm or high-grade stenosis identified. Electronically signed by: Eric Ross M.D. 10/24/2016 7:30 AM Dictated Date/Time: 10/24/2016 7:26 AM
--- NOTE | 2016-10-24 09:01 | Neurology Consultation ---
Neurology Consultation Date of Consultation: Oct 24, 2016. Attending Physician: Anders Humphrey M.D. Primary Care Physician: Mary Hardwick M.D. Reason for Consultation: Patient is an 81-year-old, who was asked to see at the request of Dr. Humphrey, for neurologic consultation regarding TIA versus stroke. History of Present Illness Source: patient, caregiver, hospital records I first saw this patient in June 2015. At that time she had had the acute onset of a right partial, painless, pupil sparing, third nerve palsy with acute vertigo. MRI showed 2 punctate lesions on opposite sides of the head consistent with embolic phenomenon. She also had a small enhancing lesion behind her right globe. She was on Coumadin because of atrial fibrillation and aspirin was added 81 mg daily. She has been on that since and was doing well until recently. Patient has a history of atrial fibrillation and 2 valves replaced, congestive heart failure, hypertension, dyslipidemia, hypothyroidism. Yesterday the patient was up reading and noted blurry vision around 1600 hours. She sat there for about 45 minutes there when she got up she noted that her left side was weak and tingling. She could not walk and was dragging her left foot. She arrived in the emergency room on August 22 at 1/7/07 hours with a temperature is 36.5, pulse 72, history 12, blood pressure 170 through 64, and O2 saturation 97%. She had left-sided weakness CT scan of the head showed no acute changes but showed old atrophy and small vessel ischemia chest x-ray was unremarkable. Since her symptoms were improving in the emergency room as well as the fact that she was already on Coumadin, she was felt not to be a TPA candidate. MRI of the brain showed a small right periventricular, posterior frontal, acute stroke. There was old small vessel ischemic disease and atrophy noted also. MR angiography of the neck was unremarkable with no significant stenoses. 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 She has good collateral circulation otherwise. Laboratory studies including chem profile and CBC were unremarkable. This morning, she feels a little bit better fact that she couldn't move her left hand a little better and can stand and pivot better. She has no headache or pain in the limbs. She does have some neck and low back pain. There is some no dizziness or double vision. She has no right-sided symptoms. 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 Her first of Kearney's disease. Social History Patient never smoked cigarettes. She does not drink alcohol. 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 Smoking Status: Never smoker Smokeless Tobacco Use: No Alcohol Use: none Drug Use: none Marital Status: Housing Status: lives with family Occupation Status: retired Allergies Coded Allergies: Codeine (Verified Allergy, Intermediate, RASH, 10/23/16) Current Inpatient Medications Current Inpatient Medications Medications (Trade) Dose Ordered Sig/Elsi Route Start Time Stop Time Status Last Admin Dose Admin Acetaminophen (Tylenol Tab) 650 mg Q4H PRN PO 10/23/16 21:00 11/22/16 20:59 Zolpidem Tartrate (Ambien Tab) 5 mg HSZ PRN PO 10/23/16 21:00 11/22/16 20:59 Nitroglycerin 0.4 mg 0.4 mg UD PRN SL 10/23/16 21:00 11/22/16 20:59 Acetaminophen (Ofirmev Iv) 100 ml @ 400 mls/hr Q8H PRN IV 10/23/16 21:00 11/22/16 20:59 Ondansetron HCl (Zofran Inj) 4 mg Q6H PRN IV 10/23/16 21:00 11/22/16 20:59 Aspirin (Ecotrin Tab) 81 mg Q2D@0900 PO 10/24/16 09:00 11/23/16 08:59 Atorvastatin Calcium (Lipitor Tab) 40 mg QPM PO 10/23/16 21:00 11/22/16 20:59 10/24/16 01:55 40 MG Levothyroxine Sodium (Synthroid Tab) 50 mcg DAILYBB PO 10/24/16 06:30 11/23/16 06:59 10/24/16 06:15 50 MCG Multivitamins/ Minerals (Multivitamin W/ Minerals Tab) 1 tab DAILY PRN PO 10/23/16 21:00 11/22/16 20:59 Warfarin Sodium (Coumadin Tab) 2 mg DAILY@1600 PO 10/24/16 16:00 11/23/16 15:59 Miscellaneous Information (Order Awaiting Action) 1 ea QS N/A 10/24/16 00:00 11/23/16 00:00 Vitamin B Complex (Vitamin B Complex) 1 tab QAM PO 10/24/16 09:00 11/23/16 08:59 Metoprolol Tartrate (Lopressor Tab) 100 mg BID PO 10/24/16 00:30 11/23/16 00:29 10/24/16 01:54 100 MG Metoprolol Tartrate (Lopressor Iv) 5 mg Q4 PRN IV 10/23/16 21:00 11/22/16 20:59 Gadopentetate Dimeglumine (Magnevist) 20 ml UD PRN IV 10/24/16 02:00 10/28/16 01:59 Review of Systems Constitutional: + fatigue, + weakness Eyes: No diplopia, No worsening of vision ENT: No hearing loss, No tinnitus Respiratory: No cough, No shortness of breath Cardiovascular: No chest pain, No palpitations Abdomen: No nausea, No pain Musculoskeletal: + joint pain, No muscle pain Genitourinary - Female: No dysuria, No urinary incontinence Neurologic: + balance problems, + numbness/tingling, + weakness, No memory loss , No vertigo Psychiatric: No anxiety, No depression symptoms Endocrine: + fatigue Hematologic / Lymphatic: + abnormal bleeding/bruising Integumentary: No rash Allergic / Immunologic: No hives Physical Exam Vital Signs (Past 24 Hrs): Date Time Temp Pulse Resp B/P Pulse Ox O2 Delivery O2 Flow Rate FiO2 10/24/16 08:02 36.4 58 16 127/77 95 Room Air 10/24/16 05:17 36.5 59 16 106/65 94 Room Air 10/24/16 04:00 Room Air 10/24/16 02:32 36.7 61 16 162/89 95 Room Air 10/23/16 23:08 65 20 164/69 95 Room Air 10/23/16 21:23 61 20 153/68 95 Room Air 10/23/16 19:04 66 20 171/90 96 Room Air 10/23/16 17:25 64 10/23/16 17:20 97 Room Air 10/23/16 17:07 36.5 72 12 173/84 97 Room Air The patient is right-handed. The patient is awake and alert. Speech is without obvious aphasia or dysarthria. Mentation and thought processes are reasonable with orientation and normal fund of knowledge. Mood and affect are normal and appropriate. Appearance and grooming are normal. The discs are sharp with positive venous pulsations. Pupils are 4mm bilaterally and reactive to light. Extraocular eye muscles are intact without nystagmus. Visual acuity and visual pinon seem normal grossly to confrontation. There are no deficits to sensation of the face bilaterally. Corneal reflexes are positive bilaterally. There is a mild left facial droop at the corner of the mouth. It can move some. Hearing seems intact grossly to voice and finger rub. Palate moves well without asymmetry. There is normal sternocleidomastoid and trapezius strength bilaterally. Tongue is midline with good strength bilaterally. Neck has a limited range of motion and discomfort. There are no cervical bruits. There are no cranial or ocular bruits. Heart is without murmur. Cervical, thoracic, and lumbar spine are tender to palpation. She has upper spine kyphosis Gait is is not tested but stance sitting in a wheelchair is reasonable With outstretched arms there is drift on the left.. There are no resting, postural, or action tremors. There is no ataxia with [id number] testing. There is decreased facility in the left hand.. There are no abnormal involuntary movements noted. Motor strength is 5/5 diffusely in the right arm and right leg both proximally and distally. Left upper extremity is 4/5 diffusely. Left leg is 4/5 but not quite as weak as the arm. The limbs have good tone without rigidity or spasticity, and there is no atrophy noted. Muscle bulk is normal, there is no tenderness, no myotonia noted to percussion, and no fasciculations seen. Sensory examination is intact to pin and touch throughout all four limbs. Reflexes are 1/4 in the biceps, triceps, brachioradialis, and quadriceps tendons bilaterally. Achilles tendon reflexes are absent bilaterally. Toes are downgoing with plantar stimulation bilaterally. Peripheral pulses are present and of normal quality distally in all four limbs. There is no peripheral edema noted. Laboratory Results Past 24 Hours: 10/24/16 05:09 Red Blood Count 4.19, Mean Corpuscular Volume 91.4, Mean Corpuscular Hemoglobin 30.1, Mean Corpuscular Hemoglobin Concent 32.9, Mean Platelet Volume 13.3, Neutrophils (%) (Auto) 70.5, Lymphocytes (%) (Auto) 16.9, Monocytes (%) (Auto) 8.8, Eosinophils (%) (Auto) 3.0, Basophils (%) (Auto) 0.5, Neutrophils # (Auto) 5.49, Lymphocytes # (Auto) 1.31, Monocytes # (Auto) 0.68, Eosinophils # (Auto) 0.23, Basophils # (Auto) 0.04 10/24/16 05:09 Test 10/23/16 17:20 10/23/16 18:35 10/23/16 22:00 10/24/16 05:09 Urine Color YELLOW Urine Appearance CLOUDY (CLEAR) Urine pH 8.0 (4.5-7.5) Urine Specific [place] 1.007 (1.000-1.030) Urine Protein NEG (NEG) Urine Glucose (UA) NEG (NEG) Urine Ketones NEG (NEG) Urine Occult Blood NEG (NEG) Urine Nitrite NEG (NEG) Urine Bilirubin NEG (NEG) Urine Urobilinogen NEG (NEG) Urine Leukocyte Esterase SMALL (NEG) Urine WBC (Auto) 5-10 /hpf (0-5) Urine RBC (Auto) 10-30 /hpf (0-4) Urine Hyaline Casts (Auto) 1-5 /lpf (0-5) Urine Epithelial Cells (Auto) 5-10 /lpf (0-5) Urine Bacteria (Auto) 1+ (NEG) Urine Opiates Screen NEG (NEG) Urine Methadone, Qualitative NEG (NEG) Urine Barbiturates NEG (NEG) Urine Phencyclidine (PCP) Level NEG (NEG) Ur Amphetamine/Methamphetamine NEG (NEG) MDMA (Ecstasy) Screen NEG (NEG) Urine Benzodiazepines Screen NEG (NEG) Urine Cocaine Metabolite NEG (NEG) Urine Marijuana (THC) NEG (NEG) Red Blood Cell Morphology Unremarkable Activated Partial Thromboplast Time 43.2 SECONDS (21.0-31.0) Partial Thromboplastin Ratio 1.7 Total Bilirubin 0.5 mg/dl (0.2-1) Direct Bilirubin 0.1 mg/dl (0-0.2) Aspartate Amino Transf (AST/SGOT) 39 U/L (15-37) Alanine Aminotransferase (ALT/SGPT) 26 U/L (12-78) Alkaline Phosphatase 131 U/L (45-117) Total Protein 7.4 gm/dl (6.4-8.2) Albumin 3.4 gm/dl (3.4-5.0) White Blood Count 7.77 K/uL (4.8-10.8) Red Blood Count 4.19 M/uL (4.2-5.4) Hemoglobin 12.6 g/dL (12.0-16.0) Hematocrit 38.3 % (37-47) Mean Corpuscular Volume 91.4 fL (80-100) Mean Corpuscular Hemoglobin 30.1 pg (25-34) Mean Corpuscular Hemoglobin Concent 32.9 g/dl (32-36) Platelet Count 146 K/uL (130-400) Mean Platelet Volume 13.3 fL (7.4-10.4) Neutrophils (%) (Auto) 70.5 % Lymphocytes (%) (Auto) 16.9 % Monocytes (%) (Auto) 8.8 % Eosinophils (%) (Auto) 3.0 % Basophils (%) (Auto) 0.5 % Neutrophils # (Auto) 5.49 K/uL (1.4-6.5) Lymphocytes # (Auto) 1.31 K/uL (1.2-3.4) Monocytes # (Auto) 0.68 K/uL (0.11-0.59) Eosinophils # (Auto) 0.23 K/uL (0-0.5) Basophils # (Auto) 0.04 K/uL (0-0.2) RDW Standard Deviation 48.0 fL (36.4-46.3) RDW Coefficient of Variation 14.2 % (11.5-14.5) Immature Granulocyte % (Auto) 0.3 % Immature Granulocyte # (Auto) 0.02 K/uL (0.00-0.02) Platelet Estimate DECREASED Prothrombin Time 34.8 SECONDS (9.0-12.0) Prothromb Time International Ratio 3.1 (0.9-1.1) Anion Gap 7.0 mmol/L (3-11) Est Creatinine Clear Calc Drug Dose 47.6 ml/min Estimated GFR () 61.2 Estimated GFR (Non- 52.8 BUN/Creatinine Ratio 14.3 (10-20) Calcium Level 8.7 mg/dl (8.5-10.1) Magnesium Level 2.2 mg/dl (1.8-2.4) Total Creatine Kinase 90 U/L (26-192) Creatine Kinase MB 1.6 ng/ml (0.5-3.6) Creatine Kinase MB Ratio 1.8 (0-3.0) Troponin I 0.372 ng/ml (0-0.045) Imaging MRI OF THE BRAIN WITHOUT AND WITH IV CONTRAST CLINICAL HISTORY: Left-sided weakness. Possible stroke. COMPARISON STUDY: MRI the brain June 30, [address] October 23, 2016. TECHNIQUE: Utilizing a 1.5 Agnes magnet and dedicated coil, multiplanar, multiecho imaging of the brain was performed pre and postcontrast administration. IV administration of 20 mL of Magnevist contrast was uneventful. FINDINGS: There is a 1.2 cm focus of restricted diffusion within the periventricular white matter of the right frontal lobe shown on axial image 15. No additional acute infarcts are present. There are multiple old lacunar infarcts within the bilateral cerebellar hemispheres, the brainstem and the periventricular right frontal lobe. Ventricular system is stable. Basilar cisterns are patent. There are no extra-axial collections. There are no intracranial masses or areas of pathologic enhancement. Calvarial signal is maintained. Orbits and sinuses are unremarkable. IMPRESSION: 1. Small acute infarct within the periventricular right frontal lobe. 2. No intracranial masses or pathologic enhancement. 3. 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 Electronically signed by: Gildardo Malik M.D. 10/24/2016 7:20 AM Dictated Date/Time: 10/24/2016 7:13 AM MRA OF THE NECK WITH AND WITHOUT CONTRAST CLINICAL HISTORY: Left-sided weakness. COMPARISON STUDY: Carotid ultrasound June 29, 2015. TECHNIQUE: Unenhanced and contrast-enhanced MRA of the neck was performed. Injection of 20 mL of Magnevist IV was uneventful. NASCET criteria were utilized to estimate the degree of carotid stenosis. FINDINGS: The bilateral common carotid and internal carotid arteries are patent. There is mild irregularity due to atherosclerosis within the proximal right internal carotid artery without significant stenosis. There is no dissection within the bilateral common carotid or internal carotid arteries. Both vertebral arteries are diminutive. This represents a chronic finding. The anterior circulation supplies a large portion the posterior fossa, as depicted on MRA of the intracranial circulation. IMPRESSION: 1. No significant stenosis within the bilateral common carotid and internal carotid arteries. 2. Diminutive bilateral vertebral arteries. Electronically signed by: Gildardo Malik M.D. 10/24/2016 7:24 AM Dictated Date/Time: 10/24/2016 7:20 AM MR ANGIOGRAM OF THE BRAIN CLINICAL HISTORY: Transient ischemic attack. COMPARISON STUDY: MRI of the brain performed concurrently on 10/23/2016. MR angiogram of the brain dated 11/26/2007. TECHNIQUE: 3-D [id number] MR angiography of the intracranial circulation is performed. 3-D tumble views are created and assessed. IV contrast was not administered for this examination. FINDINGS: There are large posterior communicating arteries with origin of the posterior cerebral arteries bilaterally. The posterior cerebral arteries are patent. No significant flow is identified within the basilar artery, and this is unchanged from previous. The vertebral arteries are diminutive and both appear to terminate as the PICA. The internal carotid arteries are widely patent bilaterally, as are the anterior and middle cerebral arteries. There is no aneurysm or high-grade stenosis identified. IMPRESSION: 1. There are large posterior communicating arteries with origin of both posterior cerebral arteries. These vessels are widely patent. 2. No significant flow is identified within the basilar artery. This is similar to the 2007 examination and could be on a congenital basis or may represent chronic occlusion. The vertebral arteries are diminutive and appear to terminate as the PICA bilaterally. 3. The anterior circulation is normal in appearance. There is no aneurysm or high-grade stenosis identified. Electronically signed by: Eric Ross M.D. 10/24/2016 7:30 AM Dictated Date/Time: 10/24/2016 7:26 AM Impression 1. Small, acute, posterior frontal periventricular stroke. This is likely from small vessel ischemic disease. Her risk factors for small vessel ischemic disease include hypertension and dyslipidemia. She does have a history of atrial fibrillation on anticoagulation this is likely not embolic. She has left hemiparesis arm greater than leg. There is a slight left facial droop. NIH stroke scale of 3 2. History of embolic stroke in June 2015 with resolved symptomatology from that event 3. Chronic atrial fibrillation on anticoagulation. Multiple compounding factors including congestive heart failure, cardiomegaly, and mitral and aortic valve replacements 4. History of hypertension 5. Mild to moderate chronic cerebral ischemia seen on MRI 6. 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 Physical and occupational therapy 2. Evaluate echocardiogram 3. Continue anticoagulation with optimal INR 4. Since anticoagulation with Coumadin cannot prevent small vessel ischemic disease, I recommend switching her 81 mg aspirin to 75 mg Plavix daily. 5. Control lipids and blood pressure as you are doing.
[2016-10-24] MEDS ORDERED: PERFLUTREN LIPID MICROSPHERE (DEFINITY) IV ONE (09:52)
--- NOTE | 2016-10-24 11:38 | Medical Student: [facility] ---
Med Student History & Physical Date & Time of Service: Oct 24, 2016 at 07:25 Chief Complaint: Elevated Troponin, Tia Primary Care Physician: Mary Hardwick M.D. History of Present Illness Source: patient, hospital records This is an 81 year-old female with history of mini-stroke (2014), Afib, CHF, HTN , high cholesterol, hypothyroidism presented yesterday with left leg and left arm weakness. Patient states that she was reading around 4:00PM yesterday and suddenly developed blurry vision, which resolved with turning the book to the right towards the light. She stayed in that position and continued reading for 45-60min before trying to get up to go to the bathroom. She said that getting up was difficulty and when she walked, she could not lift her left foot and the whole left leg felt weak. Right leg and foot were normal, and she was able to walk and "drag left foot" to make a call to her daughter. She was brought to the hospital. During that time, she does not have any other symptoms including headache, dizziness, vision/hearing changes, N/V, chest pain, SOB, or urinary/ bowel incontinence. In June 2015, patient had a mini-stroke presenting with double vision and right pupil-sparing third nerve palsy. No weakness, numbness/tingling at the time. She recovered completely with double vision resolved afterwards. Patient has a strong history of Afib currently on Aspirin and Warfarin, HTN on lisinopril and metoprolol, and hypercholesterolemia on atorvastatin, and two valves replacements. Today, patient states that she feels about the same. Left hand and left leg are felt as weak as yesterday. left hand is still numb. Patient has neck pain and back pain but contribute that to arthritis and old age. Patient denies headache , dizziness, vision/hearing changes, N/V, chest pain, SOB, or urinary/bowel problems. Past Medical/Surgical History Past medical history AFib Mini-stroke 2014 CHF HTN Hypercholesterolemia Hypothyroidism Surgery Mitral valve and aortic valve replacement Family History Mother - Seizure, HTN ( at age 92) Father - Heart disease ( at age 62) Brother - CHF Uncle - Heart disease, HTN Social History Smoking Status: Never Smoker Smokeless Tobacco Use: No Alcohol Use: none Drug Use: none Marital Status: Housing status: lives alone Occupational Status: retired Immunizations History of Influenza Vaccine: Yes Influenza Vaccine Date: Jul 09, 2010 History of Tetanus Vaccine?: No History of Pneumococcal: Yes Pneumococcal Date: Jul 09, 2010 History of Hepatitis B Vaccine: No Allergies Coded Allergies: Codeine (Verified Allergy, Intermediate, RASH, 10/23/16) Medications Aspirin (Aspirin Chewable), 81 MG PO Q2D Atorvastatin (Atorvastatin Calcium), 40 MG PO QPM B Complex W/ C (Vitamin B Complex-C), 1 TAB PO DAILY Levothyroxine Sodium (Levothyroxine Sodium), 50 MCG PO DAILY Lisinopril (Prinivil), 5 MG PO BID Metoprolol Tartrate (Metoprolol Tartrate), 100 MG PO BID Ocuvite Preservision (Ocuvite Preservision), 1 TAB PO prn Polyethylene Glycol-Propylene (Systane), 1 DROPS OP prn Triamterene/Hctz (Dyazide 37.5MG/25MG), 1 TAB PO 2XWK Warfarin Sod (Jantoven), 2 MG PO QPM Review of Systems Constitutional: No fever Eyes: No worsening of vision ENT: No hearing loss Respiratory: No cough, No shortness of breath Cardiovascular: No chest pain, No edema Abdomen: No nausea, No pain Musculoskeletal: + muscle pain (neck and back) Genitourinary - Female: No dysuria, No urinary frequency Neurologic: + numbness/tingling (left hand), + weakness (left leg and left arm) Physical Exam Vital Signs (24 Hours) Date Time Temp Pulse Resp B/P Pulse Ox O2 Delivery O2 Flow Rate FiO2 10/24/16 05:17 36.5 59 16 106/65 94 Room Air 10/24/16 04:00 Room Air 10/24/16 02:32 36.7 61 16 162/89 95 Room Air 10/23/16 23:08 65 20 164/69 95 Room Air 10/23/16 21:23 61 20 153/68 95 Room Air 10/23/16 19:04 66 20 171/90 96 Room Air 10/23/16 17:25 64 10/23/16 17:20 97 Room Air 10/23/16 17:07 36.5 72 12 173/84 97 Room Air General Appearance: + mild distress Head: atraumatic Eyes: normal inspection, PERRL, EOMI ENT: hearing grossly normal Neck: supple Respiratory/Chest: chest non-tender, lungs clear Cardiovascular: regular rate, rhythm, no edema Extremities/Musculoskelatal: normal inspection, no calf tenderness Neurologic/Psych: alert, normal mood/affect, oriented x 3 Neurological exam Alert and oriented x3 Cranial nerves: CNI: not tested CNII: PERRL, no vision change, visual field is intact CNIII, IV, : no abnormalities in oculomotor movement, normal horizontal and vertical gaze CNV: normal facial sensation to light touch bilaterally CNVII: normal strength in raising eyebrow and closing eye, mild left side droopiness CNVIII: intact CN IX,X: no uvea deviation, normal palate elevation CNXI: normal strength to shoulder shrug bilaterally CNXII: no tongue deviation Sensory: Normal sensation to light touch bilaterally in UE and LE (both distal and proximal) Normal proprioception to finger position bilaterally Normal vibration bilaterally in UE and LE Reflex: 2+ right brachioradialis, right biceps, right triceps, 1+ right knee, 1 + right Achilles. 3+ left biceps, 2+ left brachioradialis, 2+ left triceps, 1+ left knee, 1+ left Achilles Motor Strength UE: Right - biceps 5/5, right triceps 5/5, deltoid 5/5, finger flexors 5/5, left biceps 4-/5. Left - triceps 4-/5, deltoid 4/5, finger flexors 3/5 LE: Right - hip flexors 5/5, knee flexor 5/5, foot flexor 5/5, foot extensor 5/ 5, foot inversion 5/5, foot eversion 5/5. Left - hip flexors 4/5, knee flexor 4- /5, foot flexor 4/5, foot extensor 4/5, foot inversion 4/5, foot eversion 4/5. Diagnostics Laboratory Results Results Past 24 Hours Test 10/23/16 17:20 10/23/16 18:35 10/23/16 22:00 10/24/16 05:09 Range/Units Urine Color YELLOW Urine Appearance CLOUDY CLEAR Urine pH 8.0 4.5-7.5 Urine Specific [place] 1.007 1.000-1.030 Urine Protein NEG NEG Urine Glucose (UA) NEG NEG Urine Ketones NEG NEG Urine Occult Blood NEG NEG Urine Nitrite NEG NEG Urine Bilirubin NEG NEG Urine Urobilinogen NEG NEG Urine Leukocyte Esterase SMALL NEG Urine WBC (Auto) 5-10 0-5 /hpf Urine RBC (Auto) 10-30 0-4 /hpf Urine Hyaline Casts (Auto) 1-5 0-5 /lpf Urine Epithelial Cells (Auto) 5-10 0-5 /lpf Urine Bacteria (Auto) 1+ NEG Urine Opiates Screen NEG NEG Urine Methadone, Qualitative NEG NEG Urine Barbiturates NEG NEG Urine Phencyclidine (PCP) Level NEG NEG Ur Amphetamine/Methamphetamine NEG NEG MDMA (Ecstasy) Screen NEG NEG Urine Benzodiazepines Screen NEG NEG Urine Cocaine Metabolite NEG NEG Urine Marijuana (THC) NEG NEG White Blood Count 5.95 7.77 4.8-10.8 K/uL Red Blood Count 3.92 4.19 4.2-5.4 M/uL Hemoglobin 12.2 12.6 12.0-16.0 g/dL Hematocrit 35.9 38.3 37-47 % Mean Corpuscular Volume 91.6 91.4 80-100 fL Mean Corpuscular Hemoglobin 31.1 30.1 25-34 pg Mean Corpuscular Hemoglobin Concent 34.0 32.9 32-36 g/dl Platelet Count 127 146 130-400 K/uL Mean Platelet Volume 13.3 13.3 7.4-10.4 fL Neutrophils (%) (Auto) 72.9 70.5 % Lymphocytes (%) (Auto) 15.5 16.9 % Monocytes (%) (Auto) 7.9 8.8 % Eosinophils (%) (Auto) 3.2 3.0 % Basophils (%) (Auto) 0.3 0.5 % Neutrophils # (Auto) 4.34 5.49 1.4-6.5 K/uL Lymphocytes # (Auto) 0.92 1.31 1.2-3.4 K/uL Monocytes # (Auto) 0.47 0.68 0.11-0.59 K/uL Eosinophils # (Auto) 0.19 0.23 0-0.5 K/uL Basophils # (Auto) 0.02 0.04 0-0.2 K/uL RDW Standard Deviation 48.3 48.0 36.4-46.3 fL RDW Coefficient of Variation 14.4 14.2 11.5-14.5 % Immature Granulocyte % (Auto) 0.2 0.3 % Immature Granulocyte # (Auto) 0.01 0.02 0.00-0.02 K/uL Platelet Estimate DECREASED DECREASED Red Blood Cell Morphology Unremarkable Prothrombin Time 40.6 34.8 9.0-12.0 SECONDS Prothromb Time International Ratio 3.6 3.1 0.9-1.1 Activated Partial Thromboplast Time 43.2 21.0-31.0 SECONDS Partial Thromboplastin Ratio 1.7 Sodium Level 142 143 136-145 mmol/L Potassium Level 4.2 3.7 3.5-5.1 mmol/L Chloride Level 108 107 98-107 mmol/L Carbon Dioxide Level 23 29 21-32 mmol/L Anion Gap 11.0 7.0 3-11 mmol/L Blood Urea Nitrogen 14 14 7-18 mg/dl Creatinine 1.10 1.00 0.60-1.20 mg/dl Est Creatinine Clear Calc Drug Dose 43.0 47.6 ml/min Estimated GFR () 54.5 61.2 Estimated GFR (Non- 47.0 52.8 BUN/Creatinine Ratio 12.9 14.3 10-20 Random Glucose 111 105 70-99 mg/dl Calcium Level 9.1 8.7 8.5-10.1 mg/dl Total Creatine Kinase 77 29 90 26-192 U/L Creatine Kinase MB 1.2 0.9 1.6 0.5-3.6 ng/ml Creatine Kinase MB Ratio 1.6 3.1 1.8 0-3.0 Troponin I 0.336 0.280 0.372 0-0.045 ng/ml Total Bilirubin 0.5 0.2-1 mg/dl Direct Bilirubin 0.1 0-0.2 mg/dl Aspartate Amino Transf (AST/SGOT) 39 15-37 U/L Alanine Aminotransferase (ALT/SGPT) 26 12-78 U/L Alkaline Phosphatase 131 45-117 U/L Total Protein 7.4 6.4-8.2 gm/dl Albumin 3.4 3.4-5.0 gm/dl Magnesium Level 2.2 1.8-2.4 mg/dl Diagnostic Radiology Head CT - atrophy and small vessel changes Chest X-ray - mild pulmonary venous congestion Brain MRI: Small acute infarct (1.2cm focus) within the periventricular in the right frontal lobe, old lacunar infarcts MRA - no significant stenosis in common carotid and ICA. Impression Assessment and Plan This is an 81 year-old female with history of mini-stroke (2015), Afib, CHF, HTN , high cholesterol, hypothyroidism presented yesterday with left leg and left arm weakness. MRI shows that she has a small acute infarct within the periventricular in the right frontal lobe along with old lacunar infarcts. Patient has an extensive past medical history that put her at risk for developing stroke, such as Afib, HTN, high cholesterol due to cerebrovascular changes. She is currently on Warfarin and aspirin 81mg. Warfarin helps with protecting large blood vessels and preventing embolic stroke. Plavix would help with protecting small blood vessels. Plan 1. Switch from Aspirin to Plavix. Continue Warfarin. Monitor for risk of bleeding and optimal INR. 2. PT/OT 3. Continue monitor for AFib, HTN and cholesterol. Advanced Directives Existing Advance Directive: No Existing Living Will: No Existing Power of Vice President Network Development: No Resuscitation Status FULL RESUSCITATION DVT Prophylaxis warfarin (Coumadin)
--- NOTE | 2016-10-24 12:48 | Cardiology Consultation ---
Cardiology Consultation Date of Consultation: Oct 24, 2016. Requesting Physician: Dr. Humphrey Attending Physician: Dr. Doss Reason for Consultation: TIA, elevated troponin Pt evaluation today including: conversation w/ patient, physical exam, chart review, lab review, review of studies, review of inpatient medication list, conversation w/ attending History of Present Illness Janelle Cloud is an 81-year-old female status post remote mechanical mitral valve replacement (1994), more recent mechanical aortic valve replacement ( April 2014), nonischemic cardiomyopathy (pre-op cath with normal coronaries, EF =25-30%), atrial dysrhythmias (atrial fibrillation/flutter with ablation 2008), and hx of embolic stroke in 06/2105 who presented to the ED yesterday with complaints of left arm and leg weakness. Head CT showed no acute process, however, brain MRI showed a small acute infarct within the periventricular frontal lobe. There was old small vessel ischemic disease and atrophy noted as well. She is chronically anticoagulated with Coumadin for her hx of mechanical mitral and aortic valve replacement as well as her atrial dysrhythmias. Her INR was therapeutic at 3.6 upon initial presentation. Her most recent INR in the clinic on 10/14/16 was also therapeutic at 3.4. ECG shows normal sinus rhythm and left bundle branch block. Her Troponin has been elevated up to 0.372. Her total creatine kinase has been normal. She was seen at bedside this morning. She continues to note left hand and leg weakness. From a cardiovascular standpoint, she has been feeling well. She denies any chest discomfort, other anginal symptoms, or shortness of breath. She further denies orthopnea, PND, edema, palpitations, lightheadedness, dizziness, syncope, presyncope, or abnormal bleeding. Review of systems: As noted in HPI. All other 10 point review of systems otherwise negative. Family History FHx: heart disease Social History Smoking Status: Never Smoker History of Alcohol Use: No Review of Systems Cardiac: + palpitations, + see HPI Allergies Coded Allergies: Codeine (Verified Allergy, Intermediate, RASH, 10/23/16) Medications Current Inpatient Medications Medications (Trade) Dose Ordered Sig/Elsi Route Start Time Stop Time Status Last Admin Dose Admin Acetaminophen (Tylenol Tab) 650 mg Q4H PRN PO 10/23/16 21:00 11/22/16 20:59 Zolpidem Tartrate (Ambien Tab) 5 mg HSZ PRN PO 10/23/16 21:00 11/22/16 20:59 Nitroglycerin 0.4 mg 0.4 mg UD PRN SL 10/23/16 21:00 11/22/16 20:59 Acetaminophen (Ofirmev Iv) 100 ml @ 400 mls/hr Q8H PRN IV 10/23/16 21:00 11/22/16 20:59 Ondansetron HCl (Zofran Inj) 4 mg Q6H PRN IV 10/23/16 21:00 11/22/16 20:59 Aspirin (Ecotrin Tab) 81 mg Q2D@0900 PO 10/24/16 09:00 11/23/16 08:59 Atorvastatin Calcium (Lipitor Tab) 40 mg QPM PO 10/23/16 21:00 11/22/16 20:59 10/24/16 01:55 40 MG Levothyroxine Sodium (Synthroid Tab) 50 mcg DAILYBB PO 10/24/16 06:30 11/23/16 06:59 10/24/16 06:15 50 MCG Multivitamins/ Minerals (Multivitamin W/ Minerals Tab) 1 tab DAILY PRN PO 10/23/16 21:00 11/22/16 20:59 Warfarin Sodium (Coumadin Tab) 2 mg DAILY@1600 PO 10/24/16 16:00 11/23/16 15:59 Miscellaneous Information (Order Awaiting Action) 1 ea QS N/A 10/24/16 00:00 11/23/16 00:00 Vitamin B Complex (Vitamin B Complex) 1 tab QAM PO 10/24/16 09:00 11/23/16 08:59 Metoprolol Tartrate (Lopressor Tab) 100 mg BID PO 10/24/16 00:30 11/23/16 00:29 10/24/16 01:54 100 MG Metoprolol Tartrate (Lopressor Iv) 5 mg Q4 PRN IV 10/23/16 21:00 11/22/16 20:59 Gadopentetate Dime[place]umine (Magnevist) 20 ml UD PRN IV 10/24/16 02:00 10/28/16 01:59 Physical Exam Vital Signs Past 12 Hours Date Time Temp Pulse Resp B/P Pulse Ox O2 Delivery O2 Flow Rate FiO2 10/24/16 12:00 36.5 63 16 138/80 10/24/16 08:02 36.4 58 16 127/77 95 Room Air 10/24/16 05:17 36.5 59 16 106/65 94 Room Air 10/24/16 04:00 Room Air 10/24/16 02:32 36.7 61 16 162/89 95 Room Air Constitutional: Alert, oriented, in no acute distress HEENT: Head is atraumatic and normocephalic. EOMs intact. Sclera anicteric. Face is symmetric. No perioral cyanosis. Mucous membranes moist. Neck: Supple, no JVD Pulmonary: Normal respiratory effort, clear to auscultation bilaterally Cardiac: Regular rate and rhythm, prosthetic S1 and S2, no gallops, no rubs, 2/ 6 apical holosystolic murmur Extremities: No clubbing, cyanosis, or edema. Varicose veins of bilateral lower extremities. Pulses intact. Abdomen: Normal bowel sounds, soft, non-tender, no abdominal mass palpated Skin: Normal skin color, turgor, and pigmentation, no rash. Neurological: Oriented to person, place, and time Data Laboratory Results: Last 24 Hours Test 10/23/16 17:20 10/23/16 18:35 10/23/16 22:00 10/24/16 05:09 Urine Color YELLOW Urine Appearance CLOUDY Urine pH 8.0 Urine Specific [place] 1.007 Urine Protein NEG Urine Glucose (UA) NEG Urine Ketones NEG Urine Occult Blood NEG Urine Nitrite NEG Urine Bilirubin NEG Urine Urobilinogen NEG Urine Leukocyte Esterase SMALL Urine WBC (Auto) 5-10 /hpf Urine RBC (Auto) 10-30 /hpf Urine Hyaline Casts (Auto) 1-5 /lpf Urine Epithelial Cells (Auto) 5-10 /lpf Urine Bacteria (Auto) 1+ Urine Opiates Screen NEG Urine Methadone, Qualitative NEG Urine Barbiturates NEG Urine Phencyclidine (PCP) Level NEG Ur Amphetamine/Methamphetamine NEG MDMA (Ecstasy) Screen NEG Urine Benzodiazepines Screen NEG Urine Cocaine Metabolite NEG Urine Marijuana (THC) NEG White Blood Count 5.95 K/uL 7.77 K/uL Red Blood Count 3.92 M/uL 4.19 M/uL Hemoglobin 12.2 g/dL 12.6 g/dL Hematocrit 35.9 % 38.3 % Mean Corpuscular Volume 91.6 fL 91.4 fL Mean Corpuscular Hemoglobin 31.1 pg 30.1 pg Mean Corpuscular Hemoglobin Concent 34.0 g/dl 32.9 g/dl Platelet Count 127 K/uL 146 K/uL Mean Platelet Volume 13.3 fL 13.3 fL Neutrophils (%) (Auto) 72.9 % 70.5 % Lymphocytes (%) (Auto) 15.5 % 16.9 % Monocytes (%) (Auto) 7.9 % 8.8 % Eosinophils (%) (Auto) 3.2 % 3.0 % Basophils (%) (Auto) 0.3 % 0.5 % Neutrophils # (Auto) 4.34 K/uL 5.49 K/uL Lymphocytes # (Auto) 0.92 K/uL 1.31 K/uL Monocytes # (Auto) 0.47 K/uL 0.68 K/uL Eosinophils # (Auto) 0.19 K/uL 0.23 K/uL Basophils # (Auto) 0.02 K/uL 0.04 K/uL RDW Standard Deviation 48.3 fL 48.0 fL RDW Coefficient of Variation 14.4 % 14.2 % Immature Granulocyte % (Auto) 0.2 % 0.3 % Immature Granulocyte # (Auto) 0.01 K/uL 0.02 K/uL Platelet Estimate DECREASED DECREASED Red Blood Cell Morphology Unremarkable Prothrombin Time 40.6 SECONDS 34.8 SECONDS Prothromb Time International Ratio 3.6 3.1 Activated Partial Thromboplast Time 43.2 SECONDS Partial Thromboplastin Ratio 1.7 Sodium Level 142 mmol/L 143 mmol/L Potassium Level 4.2 mmol/L 3.7 mmol/L Chloride Level 108 mmol/L 107 mmol/L Carbon Dioxide Level 23 mmol/L 29 mmol/L Anion Gap 11.0 mmol/L 7.0 mmol/L Blood Urea Nitrogen 14 mg/dl 14 mg/dl Creatinine 1.10 mg/dl 1.00 mg/dl Est Creatinine Clear Calc Drug Dose 43.0 ml/min 47.6 ml/min Estimated GFR () 54.5 61.2 Estimated GFR (Non- 47.0 52.8 BUN/Creatinine Ratio 12.9 14.3 Random Glucose 111 mg/dl 105 mg/dl Calcium Level 9.1 mg/dl 8.7 mg/dl Total Creatine Kinase 77 U/L 29 U/L 90 U/L Creatine Kinase MB 1.2 ng/ml 0.9 ng/ml 1.6 ng/ml Creatine Kinase MB Ratio 1.6 3.1 1.8 Troponin I 0.336 ng/ml 0.280 ng/ml 0.372 ng/ml Total Bilirubin 0.5 mg/dl Direct Bilirubin 0.1 mg/dl Aspartate Amino Transf (AST/SGOT) 39 U/L Alanine Aminotransferase (ALT/SGPT) 26 U/L Alkaline Phosphatase 131 U/L Total Protein 7.4 gm/dl Albumin 3.4 gm/dl Magnesium Level 2.2 mg/dl EKG: Normal sinus rhythm. Left bundle-branch block. Telemetry reviewed: Sinus rhythm and sinus bradycardia in the 50's. A short run of atrial tachycardia noted. Echocardiogram pending. Assessment & Plan ASSESSMENT/PLAN: 1. Acute stroke: Patient presented with left sided weakness and was found to have a small acute infarct within the periventricular right frontal lobe. She is chronically anticoagulated with Coumadin given her history of mechanical AVR and MVR as well as a history of atrial arrhythmias. Her INR was therapeutic at 3.6 upon initial presentation. Neurology concluded that her event was likely secondary to small vessel ischemic disease rather than embolic etiology. Agree with switching aspirin to Plavix for this reason. Continue statin therapy. Her echocardiogram is still pending. Regardless, she will need to remain on Coumadin with goal INR 2.5-3.5 given her mechanical MVR. 2. Mild Troponin elevation: The etiology is uncertain. She did undergo cardiac cath prior to AVR in 2013, which showed normal coronary arteries. She remains asymptomatic with no anginal symptoms reported. Recommend treating conservatively. 3. Mechanical AVR/MVR: Continue anticoagulation therapy with goal INR 2.5-3.5. 4. Atrial fibrillation/flutter: She has remained in sinus rhythm throughout hospital admission. Continue rate control strategy with beta-ricardo. Continue anticoagulation therapy as noted above. Thank you for allowing us to see this patient in consultation. Patient was discussed Dr. Doss, and the plan was made in collaboration with him.
[2016-10-24 13:46] LABS: CKMB/CK RATIO 1.4 (0-3.0)
[2016-10-24] MEDS ORDERED: PHARMACIST DISCHARGE MED REC CONSULT PRN (15:30)
[2016-10-24] MEDS: ASPIRIN 81 MG ECTAB PO SCH (15:41)
[2016-10-24] MEDS: VITAMIN B COMPLEX TAB PO SCH (15:42)
[2016-10-24] MEDS: WARFARIN SOD 2 MG TAB PO SCH (15:44)
--- NOTE | 2016-10-24 17:54 | Progress Note ---
Subjective Date of Service: Oct 24, 2016. 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 Status: Acute (4) Left-sided weakness Status: Acute (5) Pneumonia Status: Acute (6) Weakness Status: Acute (7) Wide-complex tachycardia Status: Acute Review of Systems Constitutional: + fatigue, + weakness, No chills, No fever, No problem reported , No sweats, No weight loss Eyes: No diplopia, No discharge, No eye pain, No redness, No worsening of vision ENT: No dental problems, No hearing loss, No nasal symptoms, No sore throat, No tinnitus, No trouble swallowing, No unusual epistaxis Respiratory: No cough, No dyspnea at rest, No dyspnea on exertion, No hemoptysis, No shortness of breath, No sputum, No wheezing Cardiac: No PND, No chest pain, No claudication, No edema, No orthopnea, No palpitations Abdomen: No constipation, No diarrhea, No nausea, No pain, No vomiting Musculoskeletal: No calf pain, No joint pain, No muscle pain, No swelling Female : No abnormal vaginal bleeding, No dysuria, No hematuria, No incontinence, No urinary frequency, No vaginal discharge Neurologic: + weakness, No balance problems, No memory loss, No numbness/ tingling, No paralysis, No vertigo Psychiatric: No anhedonism, No anxiety, No depression symptoms, No insomnia, No substance abuse Heme: No abnormal bleeding/bruising, No clotting problems, No night sweats, No swollen lymph nodes Endo: No excessive thirst, No excessive urination, No fatigue Skin: No bleeding, No color change, No itch, No new/changing skin lesions, No rash Objective Vital Signs Date Time Temp Pulse Resp B/P Pulse Ox O2 Delivery O2 Flow Rate FiO2 10/24/16 16:09 36.4 59 18 148/79 100 Room Air 10/24/16 16:00 Room Air 10/24/16 12:00 Room Air 10/24/16 12:00 36.5 63 16 138/80 10/24/16 08:02 36.4 58 16 127/77 95 Room Air 10/24/16 08:00 94 Room Air 10/24/16 05:17 36.5 59 16 106/65 94 Room Air 10/24/16 04:00 Room Air 10/24/16 02:32 36.7 61 16 162/89 95 Room Air 10/23/16 23:08 65 20 164/69 95 Room Air 10/23/16 21:23 61 20 153/68 95 Room Air 10/23/16 19:04 66 20 171/90 96 Room Air Physical Exam General Appearance: WD/WN, no apparent distress, + thin, + pertinent finding ( looks frail, chronically ill-looking) Eyes: normal inspection, PERRL, EOMI, sclerae normal ENT: normal ENT inspection, hearing grossly normal, pharynx normal Neck: supple, no adenopathy, thyroid normal, no JVD, no carotid bruits, trachea midline Respiratory/Chest: chest non-tender, normal breath sounds, no respiratory distress, no accessory muscle use, + decreased breath sounds Cardiovascular: regular rate, rhythm, no edema, no gallop, no JVD, no murmur, + pertinent finding (medical clicks) Abdomen: normal bowel sounds, non tender, soft, no organomegaly, no pulsatile mass Extremities: normal range of motion, non-tender, normal inspection, no pedal edema, no calf tenderness, normal capillary refill, pelvis stable Neurologic/Psychiatric: car spotter II-XII nml as tested, no motor/sensory deficits, alert, normal mood/affect, oriented x 3, + motor weakness (left upper extremity weakness) Skin: normal color, warm/dry, no rash Lymphatic: no adenopathy Laboratory Results Last 24 Hours Test 10/23/16 18:35 10/23/16 22:00 10/24/16 05:09 10/24/16 13:01 White Blood Count 5.95 K/uL 7.77 K/uL Red Blood Count 3.92 M/uL 4.19 M/uL Hemoglobin 12.2 g/dL 12.6 g/dL Hematocrit 35.9 % 38.3 % Mean Corpuscular Volume 91.6 fL 91.4 fL Mean Corpuscular Hemoglobin 31.1 pg 30.1 pg Mean Corpuscular Hemoglobin Concent 34.0 g/dl 32.9 g/dl Platelet Count 127 K/uL 146 K/uL Mean Platelet Volume 13.3 fL 13.3 fL Neutrophils (%) (Auto) 72.9 % 70.5 % Lymphocytes (%) (Auto) 15.5 % 16.9 % Monocytes (%) (Auto) 7.9 % 8.8 % Eosinophils (%) (Auto) 3.2 % 3.0 % Basophils (%) (Auto) 0.3 % 0.5 % Neutrophils # (Auto) 4.34 K/uL 5.49 K/uL Lymphocytes # (Auto) 0.92 K/uL 1.31 K/uL Monocytes # (Auto) 0.47 K/uL 0.68 K/uL Eosinophils # (Auto) 0.19 K/uL 0.23 K/uL Basophils # (Auto) 0.02 K/uL 0.04 K/uL RDW Standard Deviation 48.3 fL 48.0 fL RDW Coefficient of Variation 14.4 % 14.2 % Immature Granulocyte % (Auto) 0.2 % 0.3 % Immature Granulocyte # (Auto) 0.01 K/uL 0.02 K/uL Platelet Estimate DECREASED DECREASED Red Blood Cell Morphology Unremarkable Prothrombin Time 40.6 SECONDS 34.8 SECONDS Prothromb Time International Ratio 3.6 3.1 Activated Partial Thromboplast Time 43.2 SECONDS Partial Thromboplastin Ratio 1.7 Sodium Level 142 mmol/L 143 mmol/L Potassium Level 4.2 mmol/L 3.7 mmol/L Chloride Level 108 mmol/L 107 mmol/L Carbon Dioxide Level 23 mmol/L 29 mmol/L Anion Gap 11.0 mmol/L 7.0 mmol/L Blood Urea Nitrogen 14 mg/dl 14 mg/dl Creatinine 1.10 mg/dl 1.00 mg/dl Est Creatinine Clear Calc Drug Dose 43.0 ml/min 47.6 ml/min Estimated GFR () 54.5 61.2 Estimated GFR (Non- 47.0 52.8 BUN/Creatinine Ratio 12.9 14.3 Random Glucose 111 mg/dl 105 mg/dl Calcium Level 9.1 mg/dl 8.7 mg/dl Total Creatine Kinase 77 U/L 29 U/L 90 U/L 98 U/L Creatine Kinase MB 1.2 ng/ml 0.9 ng/ml 1.6 ng/ml 1.4 ng/ml Creatine Kinase MB Ratio 1.6 3.1 1.8 1.4 Troponin I 0.336 ng/ml 0.280 ng/ml 0.372 ng/ml 0.350 ng/ml Total Bilirubin 0.5 mg/dl Direct Bilirubin 0.1 mg/dl Aspartate Amino Transf (AST/SGOT) 39 U/L Alanine Aminotransferase (ALT/SGPT) 26 U/L Alkaline Phosphatase 131 U/L Total Protein 7.4 gm/dl Albumin 3.4 gm/dl Magnesium Level 2.2 mg/dl Assessment and Plan 81-year-old white female admitted on 10/23/2016 because of acute CVA left arm and left leg weakness, with resolved tingling CT of the head does not show any acute finding: Brain MRI results in Below: 1. Small acute infarct within the periventricular right frontal lobe. 2. No intracranial masses or pathologic enhancement. 3. 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 MRA of the head without contrast, and MRA of the neck combo: Were unremarkable Stroke risk factor modifications: normotensive blood pressure, BP<130/80 Avoid dehydration and hypotension Total cholesterol goal less than 200 and LDL goal less than 100, is checking fasting lipid panel Hemoglobin A1c goal less than 7 (currently at goal), HbA1c level sent Patient is on warfarin dosing, with an INR 3.6. continue aspirin 81 mg by mouth every 2 days. Atrial fibrillation/status post aortic and mitral mechanical valves/hypertension /elevated troponin of 0.336 2-D echocardiogram with Doppler was ordered Continue metoprolol tartrate 100 mg by mouth twice a day s INR will be targeted to the level 2.5-3.5 Cardiology input appreciated Hypothyroidism Hypercholesterolemia continue atorvastatin 40 mg by mouth every afternoon., Daughter report pt has an elevated liver enzyme from statin, PCP decreased to half dose recent GI and DVT prophylaxis discussed with patient about a care plan and daughter in the bedside, answered all the questions Continued [facility] stay due to: multiple IV medications needed Discharge planning: home
--- NOTE | 2016-10-24 19:16 | ECHOCARDIOGRAM REPORT ---
*NOTICE TO RECEIVING LIBERTARIAN AGENCY This information is strictly Confidential and protected under [place] law. [place] law prohibits you from making any further disclosure of this information unless further disclosure is expressly permitted by the written consent of the person to whom it pertains or is authorized by law. A general authorization for the release of medical or other information is not sufficient for this purpose. Hospital accepts no responsibility if the information is made available to any other person, INCLUDING THE PATIENT. Interpretation Summary * Name: BRANDY AZUL Study Date: 10/24/2016 08:28 AM BP: 106/65 mmHg * Patient Location: [facility]\S\N288\S\1 HR: 58 * : 1935 (M/d/yyy) Gender: Female Height: 67 in * Age: 81 yrs Ethnicity: [place] Weight: 170 lb * Ordering Physician: Anders Humphrey * Performed By: Tiffani Connor RDCS * * Reason For Study: Elevated troponin, TIA, Mechanical MV, TAVR * BSA: 1.9 m2 * -- Conclusions -- * 1. Normal LV size. Normal LV wall thickness. * 2. Mildly reduced global LV systolic function. LVEF 40-45%. * 3. Normal RV size, mild RV dysfunction. * 4. Well-seated mechanical aortic valve with expected transvalvular gradients. Mild aortic regurgitation. * 5. Well-seated mechanical mitral valve with normal transvalvular gradients. No MR * 5. Normal estimated PA and RA pressures. * 6. Compared with prior study on 05/12/2014: No significant change. Procedure Details * A complete two-dimensional transthoracic echocardiogram was performed (2D, M-mode, Doppler and color flow Doppler). * A contrast injection of Definity was performed to improve assessment of LV function. * Contrast was injected into an intravenous site in the left arm. * One vial of Definity ultrasound contrast was diluted in normal saline to a total volume of 10 ml. A total of '2' ml of solution was administered during imaging. * Lot # [id number] of Definity utilized for procedure. * Expiration date 1 OCT 24. * The attending nurse who injected the contrast agent was Evangelina Peguero RN. Left Ventricle * The left ventricle is grossly normal size. * There is normal left ventricular wall thickness. * Ejection Fraction = 40-45%. * Septal motion is consistent with post-operative state. Right Ventricle * The right ventricle is grossly normal size. * The right ventricular systolic function is mildly reduced. Atria * The left atrium is moderately dilated. * The right atrium is mildly dilated. * No ASD detected; PFO is not assessed. Mitral Valve * The mitral valve is not well visualized. * No significant mitral valve stenosis. * Significant mitral regurgitation is absent. * There is a mechanical mitral valve. * The prosthetic mitral valve appears to open well. Tricuspid Valve * The tricuspid valve is not well visualized, but is grossly normal. * There is trace tricuspid regurgitation. Aortic Valve * Mild aortic regurgitation. * The prosthetic aortic valve appears to open well. * There is a mechanical aortic valve. Pulmonic Valve * The pulmonary valve is inadequately visualized, but the Doppler data is adequate for interpretation. * There is no pulmonic valvular stenosis. * Mild pulmonic valvular regurgitation. Great Vessels * The aortic root and proximal ascending aorta are normal sized. Pericardium/Pleural * There is no pericardial effusion. Great Vessels * Normal inferior vena cava size and collapsability with sniff indicates a normal right atrial pressure of 3 mmHg MMode 2D Measurements and Calculations IVSd 1.1 cm LVIDd 4.7 cm LVIDs 3.7 cm LVPWd 1.2 cm IVS/LVPW 0.87 FS 20.1 % EDV(Teich) 100.7 ml ESV(Teich) 59.2 ml EF(Teich) 41.2 % EDV(cubed) 101.7 ml ESV(cubed) 51.8 ml EF(cubed) 49.0 % LV mass(C)d 200.1 grams LV mass(C)dI 106.0 grams/m\S\2 CO(Teich) 2.2 l/min CI(Teich) 1.2 l/min/m\S\2 SV(Teich) 41.5 ml SI(Teich) 22.0 ml/m\S\2 CO(cubed) 2.7 l/min CI(cubed) 1.4 l/min/m\S\2 SV(cubed) 49.9 ml SI(cubed) 26.4 ml/m\S\2 LVAd ap4 29.2 cm\S\2 LVLd ap4 7.3 cm EDV(MOD-sp4) 94.7 ml LVAs ap4 21.2 cm\S\2 LVLs ap4 7.1 cm ESV(MOD-sp4) 54.1 ml EF(MOD-sp4) 42.9 % LVAd ap2 32.6 cm\S\2 LVLd ap2 7.6 cm EDV(MOD-sp2) 118.0 ml LVAs ap2 23.5 cm\S\2 LVLs ap2 7.2 cm ESV(MOD-sp2) 66.1 ml EF(MOD-sp2) 44.0 % CO(MOD-sp4) 2.2 l/min CI(MOD-sp4) 1.2 l/min/m\S\2 SV(MOD-sp4) 40.6 ml SI(MOD-sp4) 21.5 ml/m\S\2 CO(MOD-sp2) 2.8 l/min CI(MOD-sp2) 1.5 l/min/m\S\2 SV(MOD-sp2) 51.9 ml SI(MOD-sp2) 27.5 ml/m\S\2 Doppler Measurements and Calculations MV E max grzegorz 119.3 cm/sec MV V2 max 125.6 cm/sec MV max PG 6.3 mmHg MV V2 mean 47.4 cm/sec MV mean PG 1.3 mmHg MV V2 VTI 25.4 cm MV dec time 0.20 sec Ao V2 max 150.2 cm/sec Ao max PG 9.1 mmHg Ao max PG (full) 7.2 mmHg Ao V2 mean 104.3 cm/sec Ao mean PG 4.9 mmHg Ao V2 VTI 26.1 cm LV V1 max PG 1.9 mmHg LV V1 max 68.4 cm/sec PA V2 max 99.1 cm/sec PA max PG 3.9 mmHg PA acc slope 462.2 cm/sec\S\2 PA acc time 0.11 sec PI max grzegorz 180.5 cm/sec PI max PG 13.0 mmHg PI dec slope 88.7 cm/sec\S\2 PI P1/2t 595.8 msec TR max grzegorz 230.8 cm/sec PA pr(Accel) 29.9 mmHg
[2016-10-24] MEDS ORDERED: NURSING DECISION MEDICATION ORDER SCH (20:00)
[2016-10-24] MEDS ORDERED: COUGH DROP (SUGAR FREE) LOZ 24 LOZ/1 BOX PO PRN (20:30)
[2016-10-24] MEDS: ACETAMINOPHEN 325 MG TAB PO PRN (20:36)
[2016-10-25] VITALS (7 sets, daily range): BP systolic 109–167; BP diastolic 60–92; PULSE 56–78; TEMP 36.3–36.6; O2SAT 93–98
[2016-10-25] MEDS: LEVOTHYROXINE 50 MCG TAB PO SCH (06:01)
[2016-10-25 06:45] LABS: HEMATOCRIT 38.2 % (37-47); MEAN CELL VOLUME 89.7 fL (80-100); MEAN CORPUSCULAR HEMOGLOBIN 30.5 pg (25-34); RED BLOOD COUNT 4.26 M/uL (4.2-5.4); WHITE BLOOD COUNT 9.25 K/uL (4.8-10.8)
[2016-10-25 06:50] LABS: INR 2.4 (0.9-1.1); PROTHROMBIN TIME (PATIENT) 26.6 SECONDS (9.0-12.0)
[2016-10-25 07:02] LABS: BUN/CREATININE RATIO 12.9 (10-20); CALCIUM 9.8 mg/dl (8.5-10.1); CREATININE 1.2 mg/dl (0.60-1.20); MAGNESIUM 2.3 mg/dl (1.8-2.4); POTASSIUM 3.9 mmol/L (3.5-5.1)
[2016-10-25 07:07] LABS: CHOLESTEROL/HDL RATIO 2.7
[2016-10-25 07:13] LABS: BASO % 0.2 %; BASO ABS # 0.02 K/uL (0-0.2); COMPLETE YES; EOS % 2.7 %; IG% 0.2 %; LYMPH % 13.1 %; LYMPH ABS # 1.21 K/uL (1.2-3.4); MEAN PLATELET VOLUME 13.2 fL (7.4-10.4); MONO % 6.9 %; NEUT % 76.9 %; PLATELET COUNT 141 K/uL (130-400)
--- NOTE | 2016-10-25 07:43 | Neurology Progress Notes ---
Neurology Progress Note Date of Service Oct 25, 2016. Subjective The patient feels that she is much better today compared to admission. She feels that the left upper extremity is stronger and she can move around better. She has no complaint of headache or pain. She is not dizzy and has no new vision issues. She has no symptoms on the right side. She is swallowing well. Echocardiogram revealed an ejection fraction of 40-45% but otherwise no significant change from the previous study of May 2014. She has mechanical aortic and mitral valves in place. Objective Date Time Temp Pulse Resp B/P Pulse Ox O2 Delivery O2 Flow Rate FiO2 10/25/16 04:00 Room Air 10/25/16 04:00 36.5 56 17 146/74 98 Room Air 10/25/16 00:05 Room Air 10/24/16 23:39 36.5 61 16 128/85 95 Room Air 10/24/16 20:15 Room Air 10/24/16 19:46 36.7 65 18 162/80 97 Room Air 10/24/16 16:09 36.4 59 18 148/79 100 Room Air 10/24/16 16:00 Room Air 10/24/16 12:00 Room Air 10/24/16 12:00 36.5 63 16 138/80 10/24/16 08:02 36.4 58 16 127/77 95 Room Air 10/24/16 08:00 94 Room Air Last 24 Hours Test 10/24/16 13:01 10/25/16 06:20 Total Creatine Kinase 98 U/L Creatine Kinase MB 1.4 ng/ml Creatine Kinase MB Ratio 1.4 Troponin I 0.350 ng/ml White Blood Count 9.25 K/uL Red Blood Count 4.26 M/uL Hemoglobin 13.0 g/dL Hematocrit 38.2 % Mean Corpuscular Volume 89.7 fL Mean Corpuscular Hemoglobin 30.5 pg Mean Corpuscular Hemoglobin Concent 34.0 g/dl Platelet Count 141 K/uL Mean Platelet Volume 13.2 fL Neutrophils (%) (Auto) 76.9 % Lymphocytes (%) (Auto) 13.1 % Monocytes (%) (Auto) 6.9 % Eosinophils (%) (Auto) 2.7 % Basophils (%) (Auto) 0.2 % Neutrophils # (Auto) 7.11 K/uL Lymphocytes # (Auto) 1.21 K/uL Monocytes # (Auto) 0.64 K/uL Eosinophils # (Auto) 0.25 K/uL Basophils # (Auto) 0.02 K/uL RDW Standard Deviation 46.7 fL RDW Coefficient of Variation 14.3 % Immature Granulocyte % (Auto) 0.2 % Immature Granulocyte # (Auto) 0.02 K/uL Prothrombin Time 26.6 SECONDS Prothromb Time International Ratio 2.4 Sodium Level 141 mmol/L Potassium Level 3.9 mmol/L Chloride Level 105 mmol/L Carbon Dioxide Level 26 mmol/L Anion Gap 10.0 mmol/L Blood Urea Nitrogen 16 mg/dl Creatinine 1.20 mg/dl Est Creatinine Clear Calc Drug Dose 39.7 ml/min Estimated GFR () 49.1 Estimated GFR (Non- 42.4 BUN/Creatinine Ratio 12.9 Random Glucose 99 mg/dl Calcium Level 9.8 mg/dl Magnesium Level 2.3 mg/dl Total Bilirubin 0.8 mg/dl Direct Bilirubin 0.1 mg/dl Aspartate Amino Transf (AST/SGOT) 38 U/L Alanine Aminotransferase (ALT/SGPT) 29 U/L Alkaline Phosphatase 146 U/L Total Protein 7.9 gm/dl Albumin 3.6 gm/dl Triglycerides Level 94 mg/dl Cholesterol Level 162 mg/dl HDL Cholesterol 59 mg/dl LDL Cholesterol, Calculated 84 mg/dl VLDL Cholesterol, Calculated 19 mg/dl Cholesterol/HDL Ratio 2.7 Exam: She is awake and alert. Speech is without aphasia or dysarthria. Mood and affect are normal and appropriate. Thought processes seem intact. Extraocular eye muscles are intact without nystagmus. Pupils are 4 mm bilaterally and reactive to light. There is a slight facial droop at the corner of the mouth on the left but she does move it voluntarily. She has drift and clumsiness of the left hand but this is improved compared to 2 days ago. Strength is 4/5 in the arm on the left diffusely and 5/5 in the right arm and leg. The left leg has 5/5 strength proximally and 4/5 strength distally. The leg is not as weak as the arm. Current Inpatient Medications Medications (Trade) Dose Ordered Sig/Elsi Route Start Time Stop Time Status Last Admin Dose Admin Acetaminophen (Tylenol Tab) 650 mg Q4H PRN PO 10/23/16 21:00 11/22/16 20:59 10/24/16 20:36 650 MG Zolpidem Tartrate (Ambien Tab) 5 mg HSZ PRN PO 10/23/16 21:00 11/22/16 20:59 Nitroglycerin 0.4 mg 0.4 mg UD PRN SL 10/23/16 21:00 11/22/16 20:59 Acetaminophen (Ofirmev Iv) 100 ml @ 400 mls/hr Q8H PRN IV 10/23/16 21:00 11/22/16 20:59 Ondansetron HCl (Zofran Inj) 4 mg Q6H PRN IV 10/23/16 21:00 11/22/16 20:59 Aspirin (Ecotrin Tab) 81 mg Q2D@0900 PO 10/24/16 09:00 11/23/16 08:59 10/24/16 15:41 81 MG Atorvastatin Calcium (Lipitor Tab) 40 mg QPM PO 10/23/16 21:00 11/22/16 20:59 10/24/16 20:35 40 MG Levothyroxine Sodium (Synthroid Tab) 50 mcg DAILYBB PO 10/24/16 06:30 11/23/16 06:59 10/25/16 06:01 50 MCG Multivitamins/ Minerals (Multivitamin W/ Minerals Tab) 1 tab DAILY PRN PO 10/23/16 21:00 11/22/16 20:59 Warfarin Sodium (Coumadin Tab) 2 mg DAILY@1600 PO 10/24/16 16:00 11/23/16 15:59 10/24/16 15:44 2 MG Miscellaneous Information (Order Awaiting Action) 1 ea QS N/A 10/24/16 00:00 11/23/16 00:00 Vitamin B Complex (Vitamin B Complex) 1 tab QAM PO 10/24/16 09:00 11/23/16 08:59 10/24/16 15:42 1 TAB Metoprolol Tartrate (Lopressor Tab) 100 mg BID PO 10/24/16 00:30 11/23/16 00:29 10/24/16 20:35 100 MG Metoprolol Tartrate (Lopressor Iv) 5 mg Q4 PRN IV 10/23/16 21:00 11/22/16 20:59 Gadopentetate Dimeglumine (Magnevist) 20 ml UD PRN IV 10/24/16 02:00 10/28/16 01:59 Miscellaneous Information (Pharmacist Discharge Med Rec Consult) 1 ea UD PRN N/A 10/24/16 15:30 11/23/16 15:29 Menthol (Nice María) 1 maría PRN PRN PO 10/24/16 20:30 11/23/16 20:29 Impression 1. Small, acute, posterior frontal periventricular stroke 10-23-2016 . This is likely from small vessel ischemic disease. Her risk factors for small vessel ischemic disease include hypertension and dyslipidemia. She does have a history of atrial fibrillation on anticoagulation, although this stroke this is likely not embolic. She has left hemiparesis arm greater than leg. There is a slight left facial droop. today NIH stroke scale of 2 2. History of embolic stroke in June 2015 with resolved symptomatology from that event 3. Chronic atrial fibrillation on anticoagulation. Multiple compounding factors including congestive heart failure, cardiomegaly, and mitral and aortic valve replacements 4. History of hypertension 5. Mild to moderate chronic cerebral ischemia seen on MRI 6. 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 Physical and occupational therapy, increasing activity as able. She may be a candidate for rehabilitation hospital 2. Continue anticoagulation with optimal INR 3. Initiate clopidogrel 75 mg daily, as she had this stroke on 81 mg aspirin. 4. Discontinue aspirin 5. Control lipids and blood pressure as you are doing. I have no further neurologic testing or treatment recommendations to make at this time Please contact me if I can be of further assistance.
[2016-10-25] MEDS: SYSTANE~ORDER AWAITING ACTION SCH ×2 (07:53→16:00)
[2016-10-25] MEDS: METOPROLOL TARTRATE 100 MG TAB PO SCH ×2 (08:32→21:19)
[2016-10-25] MEDS: VITAMIN B COMPLEX TAB PO SCH (08:33)
[2016-10-25 10:29] LABS: ESTIMATED AVERAGE GLUCOSE 103 mg/dl; HA1C FLAG Normal (Normal)
--- NOTE | 2016-10-25 11:05 | Progress Note ---
Subjective Date of Service: Oct 25, 2016. 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 Status: Acute (4) Left-sided weakness Status: Acute (5) Pneumonia Status: Acute (6) Weakness Status: Acute (7) Wide-complex tachycardia Status: Acute Review of Systems Constitutional: + fatigue, + weakness, No chills, No fever, No problem reported , No sweats, No weight loss Eyes: No diplopia, No discharge, No eye pain, No redness, No worsening of vision ENT: No dental problems, No hearing loss, No nasal symptoms, No sore throat, No tinnitus, No trouble swallowing, No unusual epistaxis Respiratory: No cough, No dyspnea at rest, No dyspnea on exertion, No hemoptysis, No shortness of breath, No sputum, No wheezing Cardiac: No PND, No chest pain, No claudication, No edema, No orthopnea, No palpitations Abdomen: No constipation, No diarrhea, No nausea, No pain, No vomiting Musculoskeletal: No calf pain, No joint pain, No muscle pain, No swelling Female : No abnormal vaginal bleeding, No dysuria, No hematuria, No incontinence, No urinary frequency, No vaginal discharge Neurologic: No balance problems, No memory loss, No numbness/tingling, No paralysis, No vertigo, No weakness Psychiatric: No anhedonism, No anxiety, No depression symptoms, No insomnia, No substance abuse Heme: No abnormal bleeding/bruising, No clotting problems, No night sweats, No swollen lymph nodes Endo: No excessive thirst, No excessive urination, No fatigue Skin: No bleeding, No color change, No itch, No new/changing skin lesions, No rash Objective Vital Signs Date Time Temp Pulse Resp B/P Pulse Ox O2 Delivery O2 Flow Rate FiO2 10/25/16 08:00 98 Room Air 10/25/16 08:00 Room Air 10/25/16 07:44 36.3 57 18 145/92 98 Room Air 10/25/16 04:00 Room Air 10/25/16 04:00 36.5 56 17 146/74 98 Room Air 10/25/16 00:05 Room Air 10/24/16 23:39 36.5 61 16 128/85 95 Room Air 10/24/16 20:15 Room Air 10/24/16 19:46 36.7 65 18 162/80 97 Room Air 10/24/16 16:09 36.4 59 18 148/79 100 Room Air 10/24/16 16:00 Room Air 10/24/16 12:00 Room Air 10/24/16 12:00 36.5 63 16 138/80 Physical Exam General Appearance: WD/WN, no apparent distress, + thin, + pertinent finding ( frail, chronically ill-looking,) Eyes: normal inspection, PERRL, EOMI, sclerae normal ENT: normal ENT inspection, hearing grossly normal, pharynx normal Neck: supple, no adenopathy, thyroid normal, no JVD, no carotid bruits, trachea midline Respiratory/Chest: chest non-tender, normal breath sounds, no respiratory distress, no accessory muscle use, + decreased breath sounds Cardiovascular: regular rate, rhythm, no edema, no gallop, no JVD, no murmur, + pertinent finding (metal click) Abdomen: normal bowel sounds, non tender, soft, no organomegaly, no pulsatile mass Extremities: normal range of motion, non-tender, normal inspection, no pedal edema, no calf tenderness, normal capillary refill, pelvis stable 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, no motor/sensory deficits, alert, normal mood/affect, oriented x 3, + motor weakness (left upper extremity mild weakness, 5-/5) Skin: normal color, warm/dry, no rash Lymphatic: no adenopathy Laboratory Results Last 24 Hours Test 10/24/16 13:01 10/25/16 06:20 Total Creatine Kinase 98 U/L Creatine Kinase MB 1.4 ng/ml Creatine Kinase MB Ratio 1.4 Troponin I 0.350 ng/ml White Blood Count 9.25 K/uL Red Blood Count 4.26 M/uL Hemoglobin 13.0 g/dL Hematocrit 38.2 % Mean Corpuscular Volume 89.7 fL Mean Corpuscular Hemoglobin 30.5 pg Mean Corpuscular Hemoglobin Concent 34.0 g/dl Platelet Count 141 K/uL Mean Platelet Volume 13.2 fL Neutrophils (%) (Auto) 76.9 % Lymphocytes (%) (Auto) 13.1 % Monocytes (%) (Auto) 6.9 % Eosinophils (%) (Auto) 2.7 % Basophils (%) (Auto) 0.2 % Neutrophils # (Auto) 7.11 K/uL Lymphocytes # (Auto) 1.21 K/uL Monocytes # (Auto) 0.64 K/uL Eosinophils # (Auto) 0.25 K/uL Basophils # (Auto) 0.02 K/uL RDW Standard Deviation 46.7 fL RDW Coefficient of Variation 14.3 % Immature Granulocyte % (Auto) 0.2 % Immature Granulocyte # (Auto) 0.02 K/uL Prothrombin Time 26.6 SECONDS Prothromb Time International Ratio 2.4 Sodium Level 141 mmol/L Potassium Level 3.9 mmol/L Chloride Level 105 mmol/L Carbon Dioxide Level 26 mmol/L Anion Gap 10.0 mmol/L Blood Urea Nitrogen 16 mg/dl Creatinine 1.20 mg/dl Est Creatinine Clear Calc Drug Dose 39.7 ml/min Estimated GFR () 49.1 Estimated GFR (Non- 42.4 BUN/Creatinine Ratio 12.9 Random Glucose 99 mg/dl Estimated Average Glucose 103 mg/dl Hemoglobin A1c 5.2 % Calcium Level 9.8 mg/dl Magnesium Level 2.3 mg/dl Total Bilirubin 0.8 mg/dl Direct Bilirubin 0.1 mg/dl Aspartate Amino Transf (AST/SGOT) 38 U/L Alanine Aminotransferase (ALT/SGPT) 29 U/L Alkaline Phosphatase 146 U/L Total Protein 7.9 gm/dl Albumin 3.6 gm/dl Triglycerides Level 94 mg/dl Cholesterol Level 162 mg/dl HDL Cholesterol 59 mg/dl LDL Cholesterol, Calculated 84 mg/dl VLDL Cholesterol, Calculated 19 mg/dl Cholesterol/HDL Ratio 2.7 Assessment and Plan 81-year-old white female admitted on 10/23/2016 because of acute CVA with left arm and left leg weakness, with resolved tingling acute Small acute infarct within the periventricular right frontal lobe: Stable and improving, CT of the head does not show any acute finding: Brain MRI results in Below: 1. Small acute infarct within the periventricular right frontal lobe. 2. No intracranial masses or pathologic enhancement. 3. 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 MRA of the head without contrast, and MRA of the neck combo: Were unremarkable Stroke risk factor modifications: normotensive blood pressure, BP<130/80, we'll continue adjust medication Avoid dehydration and hypotension Total cholesterol goal less than 200 and LDL goal less than 100, currently LDL less than 100, total cholesterol less than 200, will continue current dose of medicine continue atorvastatin 40 mg by mouth every afternoon., Daughter report pt has an elevated liver enzyme from statin, PCP decreased to half dose recently Hemoglobin A1c goal less than 7 (currently at goal), HbA1c was checked less than 7 Neuro has start clopidogrel 75 mg daily, as she had this stroke on 81 mg aspirin , agreed Diet recommendation per speech 1. Regular diet 2. Aspiration precautions, NO straws. Fully upright for meals. 3. Small bites, small sips, alternate solids and liquids. 4. Speech does not plan to follow up directly, but will monitor in the EMR for any changes and follow up as needed. Patient is on warfarin dosing, with an INR 3.6 today is 2.4 Atrial fibrillation/status post aortic and mitral mechanical valves/hypertension /elevated troponin of 0.336 2-D echocardiogram with Doppler was ordered , Continue metoprolol tartrate 100 mg by mouth twice a day s Hypothyroidism Hypercholesterolemia GI and DVT prophylaxis discussed with patient about a care plan and daughter in the bedside, answered all the questions Talked to nurse to make sure PT OT see patient related today Patient reported if needed she is willing to go to the rehabilitation Continued [facility] stay due to: multiple IV medications needed Discharge planning: home
[2016-10-25] MEDS: WARFARIN SOD 2 MG TAB PO SCH (16:22)
[2016-10-25] MEDS: ATORVASTATIN 40 MG TAB PO SCH (21:19)
[2016-10-26] VITALS (7 sets, daily range): BP systolic 120–142; BP diastolic 76–84; PULSE 58–62; TEMP 36.4–36.6; O2SAT 92–95
[2016-10-26] MEDS: LEVOTHYROXINE 50 MCG TAB PO SCH (06:08)
[2016-10-26 06:16] LABS: BASO % 0.4 %; BASO ABS # 0.03 K/uL (0-0.2); COMPLETE YES; EOS % 4.3 %; HEMATOCRIT 40.7 % (37-47); IG% 0.3 %; LYMPH % 23.7 %; LYMPH ABS # 1.65 K/uL (1.2-3.4); MEAN CELL VOLUME 91.7 fL (80-100); MEAN CORPUSCULAR HEMOGLOBIN 30.6 pg (25-34); MEAN CORPUSCULAR HGB CONC 33.4 g/dl (32-36); MEAN PLATELET VOLUME 13.8 fL (7.4-10.4); MONO % 9.1 %; NEUT % 62.2 %; PLATELET COUNT 155 K/uL (130-400); RED BLOOD COUNT 4.44 M/uL (4.2-5.4); WHITE BLOOD COUNT 6.95 K/uL (4.8-10.8)
[2016-10-26 06:36] LABS: INR 2.3 (0.9-1.1)
[2016-10-26 06:53] LABS: BUN/CREATININE RATIO 18.3 (10-20); CALCIUM 9.4 mg/dl (8.5-10.1); CREATININE 1.2 mg/dl (0.60-1.20); MAGNESIUM 2.3 mg/dl (1.8-2.4); POTASSIUM 3.7 mmol/L (3.5-5.1)
[2016-10-26] MEDS: SYSTANE~ORDER AWAITING ACTION SCH ×4 (07:46→23:37)
[2016-10-26] MEDS: METOPROLOL TARTRATE 100 MG TAB PO SCH ×2 (08:06→21:04)
[2016-10-26] MEDS: ASPIRIN 81 MG ECTAB PO SCH (08:06)
[2016-10-26] MEDS: VITAMIN B COMPLEX TAB PO SCH (08:06)
[2016-10-26] MEDS: ACETAMINOPHEN 325 MG TAB PO PRN ×2 (10:09→21:05)
[2016-10-26] MEDS ORDERED: WARFARIN SOD 1 MG TAB PO ONE (11:00)
--- NOTE | 2016-10-26 11:32 | Progress Note ---
Subjective Date of Service: Oct 26, 2016. 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 Status: Acute (4) Left-sided weakness Status: Acute (5) Pneumonia Status: Acute (6) Weakness Status: Acute (7) Wide-complex tachycardia Status: Acute Review of Systems Constitutional: + fatigue, + weakness, No chills, No fever, No problem reported , No sweats, No weight loss Eyes: No diplopia, No discharge, No eye pain, No redness, No worsening of vision ENT: No dental problems, No hearing loss, No nasal symptoms, No sore throat, No tinnitus, No trouble swallowing, No unusual epistaxis Respiratory: No cough, No dyspnea at rest, No dyspnea on exertion, No hemoptysis, No shortness of breath, No sputum, No wheezing Cardiac: No PND, No chest pain, No claudication, No edema, No orthopnea, No palpitations Abdomen: No constipation, No diarrhea, No nausea, No pain, No vomiting Musculoskeletal: No calf pain, No joint pain, No muscle pain, No swelling Female : No abnormal vaginal bleeding, No dysuria, No hematuria, No incontinence, No urinary frequency, No vaginal discharge Neurologic: + weakness (Weakness in left arm mild is not new), No balance problems, No memory loss, No numbness/tingling, No paralysis, No vertigo Psychiatric: No anhedonism, No anxiety, No depression symptoms, No insomnia, No substance abuse Heme: No abnormal bleeding/bruising, No clotting problems, No night sweats, No swollen lymph nodes Endo: No excessive thirst, No excessive urination, No fatigue Skin: No bleeding, No color change, No itch, No new/changing skin lesions, No rash Objective Vital Signs Date Time Temp Pulse Resp B/P Pulse Ox O2 Delivery O2 Flow Rate FiO2 10/26/16 08:15 Room Air 10/26/16 08:15 95 Room Air 10/26/16 07:55 36.5 60 18 125/80 95 Room Air 10/26/16 05:10 36.5 58 20 138/84 95 Room Air 10/26/16 04:00 Room Air 10/26/16 00:23 36.5 62 20 128/83 95 Room Air 10/26/16 00:00 Room Air 10/25/16 21:18 69 145/81 10/25/16 20:00 Room Air 10/25/16 19:51 36.5 78 20 109/60 96 Room Air 10/25/16 16:00 Room Air 10/25/16 15:46 36.6 71 20 153/85 93 Room Air 10/25/16 12:30 Room Air 10/25/16 12:21 36.4 64 18 167/88 97 Room Air Physical Exam General Appearance: WD/WN, no apparent distress, + thin, + pertinent finding ( frail, chronically ill looking,) Eyes: normal inspection, PERRL, EOMI, sclerae normal ENT: normal ENT inspection, hearing grossly normal, pharynx normal Neck: supple, no adenopathy, thyroid normal, no JVD, no carotid bruits, trachea midline Respiratory/Chest: chest non-tender, normal breath sounds, no respiratory distress, no accessory muscle use, + decreased breath sounds Cardiovascular: regular rate, rhythm, no edema, no gallop, no JVD, no murmur Abdomen: normal bowel sounds, non tender, soft, no organomegaly, no pulsatile mass Extremities: normal range of motion, non-tender, normal inspection, no pedal edema, no calf tenderness, normal capillary refill, pelvis stable 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, no motor/sensory deficits, alert, normal mood/affect, oriented x 3, + motor weakness (mild weakness in left arm 5-/5) Skin: normal color, warm/dry, no rash Lymphatic: no adenopathy Laboratory Results Last 24 Hours Test 10/26/16 05:19 White Blood Count 6.95 K/uL Red Blood Count 4.44 M/uL Hemoglobin 13.6 g/dL Hematocrit 40.7 % Mean Corpuscular Volume 91.7 fL Mean Corpuscular Hemoglobin 30.6 pg Mean Corpuscular Hemoglobin Concent 33.4 g/dl Platelet Count 155 K/uL Mean Platelet Volume 13.8 fL Neutrophils (%) (Auto) 62.2 % Lymphocytes (%) (Auto) 23.7 % Monocytes (%) (Auto) 9.1 % Eosinophils (%) (Auto) 4.3 % Basophils (%) (Auto) 0.4 % Neutrophils # (Auto) 4.32 K/uL Lymphocytes # (Auto) 1.65 K/uL Monocytes # (Auto) 0.63 K/uL Eosinophils # (Auto) 0.30 K/uL Basophils # (Auto) 0.03 K/uL RDW Standard Deviation 48.1 fL RDW Coefficient of Variation 14.3 % Immature Granulocyte % (Auto) 0.3 % Immature Granulocyte # (Auto) 0.02 K/uL Prothrombin Time 26.0 SECONDS Prothromb Time International Ratio 2.3 Sodium Level 142 mmol/L Potassium Level 3.7 mmol/L Chloride Level 106 mmol/L Carbon Dioxide Level 26 mmol/L Anion Gap 10.0 mmol/L Blood Urea Nitrogen 22 mg/dl Creatinine 1.20 mg/dl Est Creatinine Clear Calc Drug Dose 39.3 ml/min Estimated GFR () 49.1 Estimated GFR (Non- 42.4 BUN/Creatinine Ratio 18.3 Random Glucose 90 mg/dl Calcium Level 9.4 mg/dl Magnesium Level 2.3 mg/dl Assessment and Plan 81-year-old white female admitted on 10/23/2016 because of acute CVA with left arm and left leg weakness, stable and improving acute Small acute infarct within the periventricular right frontal lobe: Continue Stable and improving, CT of the head does not show any acute finding: Brain MRI results in Below: 1. Small acute infarct within the periventricular right frontal lobe. 2. No intracranial masses or pathologic enhancement. 3. 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 MRA of the head without contrast, and MRA of the neck combo: Were unremarkable Stroke risk factor modifications: normotensive blood pressure, BP<130/80, we'll continue adjust medication Avoid dehydration and hypotension Total cholesterol goal less than 200 and LDL goal less than 100, currently LDL less than 100, total cholesterol less than 200, will continue current dose of medicine continue atorvastatin 40 mg by mouth every afternoon., Daughter report pt has an elevated liver enzyme from statin, PCP decreased to half dose recently Hemoglobin A1c goal less than 7 (currently at goal), HbA1c was checked less than 7 Neuro has start clopidogrel 75 mg daily, as she had this stroke on 81 mg aspirin , agreed Diet recommendation per speech 1. Regular diet 2. Aspiration precautions, NO straws. Fully upright for meals. 3. Small bites, small sips, alternate solids and liquids. 4. Speech does not plan to follow up directly, but will monitor in the EMR for any changes and follow up as needed. Patient is on warfarin dosing, with an INR 2.3, I give additional 1 mg Coumadin today, PT/INR tomorrow, she has mechanical valve need to target PT/INR level 2.5 -3.5 Atrial fibrillation/status post aortic and mitral mechanical valves/hypertension /elevated troponin of 0.336 2-D echocardiogram with Doppler was ordered , Continue metoprolol tartrate 100 mg by mouth twice a day Hypothyroidism Hypercholesterolemia GI and DVT prophylaxis discussed with patient about a care plan and daughter in the bedside, answered all the questions Per recommendation of PT OT patient need acute rehabilitation, Today was sent to [facility] floor, waiting for rehabilitation placement Continued [facility] stay due to: multiple IV medications needed Discharge planning: home
[2016-10-26] MEDS ORDERED: POLYETHYLENE (MIRALAX) 17 GM PACK PO PRN (11:45)
[2016-10-26] MEDS ORDERED: POLYETHYLENE (MIRALAX) 17 GM PACK PO ONE (12:15)
[2016-10-26] MEDS: WARFARIN SOD 2 MG TAB PO SCH (17:51)
[2016-10-26] MEDS: ATORVASTATIN 40 MG TAB PO SCH (21:04)
[2016-10-27] VITALS (8 sets, daily range): BP systolic 99–152; BP diastolic 74–113; PULSE 61–150; TEMP 36.1–36.7; O2SAT 93–100
[2016-10-27 05:56] LABS: INR 2.9 (0.9-1.1); PROTHROMBIN TIME (PATIENT) 32.3 SECONDS (9.0-12.0)
[2016-10-27 06:10] LABS: BUN/CREATININE RATIO 21.3 (10-20); CALCIUM 8.8 mg/dl (8.5-10.1); CREATININE 1.1 mg/dl (0.60-1.20); MAGNESIUM 2.3 mg/dl (1.8-2.4)
[2016-10-27] MEDS: LEVOTHYROXINE 50 MCG TAB PO SCH (06:27)
[2016-10-27] MEDS: SYSTANE~ORDER AWAITING ACTION SCH ×3 (08:00→23:17)
[2016-10-27] MEDS: VITAMIN B COMPLEX TAB PO SCH (08:05)
[2016-10-27] MEDS: METOPROLOL TARTRATE 100 MG TAB PO SCH ×2 (08:10→20:00)
--- NOTE | 2016-10-27 13:31 | Hospitalist Progress Note ---
Hospitalist Progress Note Date of Service Oct 27, 2016. Subjective Pt evaluation today including: conversation w/ patient, physical exam, chart review, lab review, review of studies, review of inpatient medication list Pain: none PO Intake: Fair Voiding: no voiding problems The patient was seen and examined this morning. Pt reports feeling ok. She requires having someone help her up and move around the room so she doesn't fall. The patient is from home, lives alone by herself. is a resident of [facility]. She reports her left hand "feels like its not part of my body". She also notes her leg is working better every day. She continues to work with PT/OT. Pt reports her last BM was last thursday, and feels like she needs to move her bowels; at home uses a fiber agent. All Other Systems: Reviewed and Negative (other than listed in HPI) Objective Vital Signs Date Time Temp Pulse Resp B/P Pulse Ox O2 Delivery O2 Flow Rate FiO2 10/27/16 08:07 36.7 61 16 141/83 93 Room Air 10/27/16 00:00 Room Air 10/26/16 22:55 36.6 60 14 142/79 95 Room Air 10/26/16 20:00 Room Air 10/26/16 16:00 92 Room Air 10/26/16 15:44 36.4 59 18 120/76 92 Room Air Physical Exam General Appearance: WD/WN, no apparent distress, + pertinent finding (flat affect, slow movements, downward cast gaze throughout the exam with minimal eye contact. ) Eyes: PERRL, EOMI ENT: hearing grossly normal, pharynx normal Neck: supple, no JVD Respiratory/Chest: chest non-tender, lungs clear, no respiratory distress, no accessory muscle use Cardiovascular: no murmur, + irregularly irregular, + normal peripheral pulses , + pertinent finding Abdomen: normal bowel sounds, non tender, + pertinent finding (hard and mildly distended) Extremities: non-tender, no pedal edema, no calf tenderness Neurologic/Psychiatric: alert, oriented x 3, + pertinent finding (flat affect. ) Skin: normal color, warm/dry Laboratory Results Last 24 Hours Test 10/27/16 05:25 Prothrombin Time 32.3 SECONDS Prothromb Time International Ratio 2.9 Sodium Level 141 mmol/L Potassium Level 4.0 mmol/L Chloride Level 106 mmol/L Carbon Dioxide Level 24 mmol/L Anion Gap 11.0 mmol/L Blood Urea Nitrogen 23 mg/dl Creatinine 1.10 mg/dl Est Creatinine Clear Calc Drug Dose 42.9 ml/min Estimated GFR () 54.5 Estimated GFR (Non- 47.0 BUN/Creatinine Ratio 21.3 Random Glucose 96 mg/dl Calcium Level 8.8 mg/dl Magnesium Level 2.3 mg/dl Assessment and Plan 81-year-old white female admitted on 10/23/2016 for acute CVA with left arm and left leg weakness, stable and improving Small acute infarct of the periventricular right frontal lobe - Causing left arm and leg weakness. - CT of the head did not show any acute findings - Brain MRI results in Below: 1. Small acute infarct within the periventricular right frontal lobe. 2. No intracranial masses or pathologic enhancement. 3. 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 - MRA of the head without contrast, and MRA of the neck combo: Were unremarkable - Neuro has start clopidogrel 75 mg daily, as she had this stroke on 81 mg aspirin- appreciate neuro recs Stroke risk factor modifications: - normotensive blood pressure, BP<130/80, we'll continue adjust medication - Avoid dehydration and hypotension - Total cholesterol goal less than 200 and LDL goal less than 100, currently LDL less than 100, total cholesterol less than 200, will continue current dose of medicine - continue atorvastatin 40 mg by mouth every afternoon, Daughter report pt has an elevated liver enzyme from statin, PCP decreased to half dose recently - Hemoglobin A1c goal less than 7 - pt is at goal Diet recommendation per speech 1. Regular diet 2. Aspiration precautions, NO straws. Fully upright for meals. 3. Small bites, small sips, alternate solids and liquids. 4. Speech does not plan to follow up directly, but will monitor in the EMR for any changes and follow up as needed. - PT is being seen by PT/OT and will continue for now. PT does not want to go to acute rehab if she's able to go home with home health services. She plans to speak with her daughter regarding this later today. - Patient is on warfarin dosing, with an INR 2.3, I give additional 1 mg Coumadin today, PT/INR tomorrow, she has mechanical valve need to target PT/INR level 2.5-3.5 Atrial fibrillation s/p aortic and mitral mechanical valves hypertension elevated troponin of 0.336 - 2-D echocardiogram with Doppler on 10/24 completed with LV systolic dysfunction , LVEF = 40-45% - Continue metoprolol tartrate 100 mg by mouth twice a day Hypothyroidism - cont levothyroxine Hypercholesterolemia- cont atorvastatin 40 mg BID as above. GI and DVT prophylaxis CODE STATUS: FULL CODE Disposition: From home, PT/OT on board, recommending acute rehab vs home health.
[2016-10-27] MEDS ORDERED: METOPROLOL TARTRATE 50 MG TAB PO STA (16:43)
--- NOTE | 2016-10-27 16:49 | Progress Note ---
Subjective Date of Service: Oct 27, 2016. 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 Status: Acute (4) Left-sided weakness Status: Acute (5) Pneumonia Status: Acute (6) Weakness Status: Acute (7) Wide-complex tachycardia Status: Acute Review of Systems Constitutional: + weakness, No chills, No fever Respiratory: No cough, No shortness of breath Cardiac: No chest pain, No edema Abdomen: No diarrhea, No nausea, No pain, No vomiting Female : No dysuria, No urinary frequency Neurologic: No memory loss, No paralysis Objective Vital Signs Date Time Temp Pulse Resp B/P Pulse Ox O2 Delivery O2 Flow Rate FiO2 10/27/16 08:07 36.7 61 16 141/83 93 Room Air 10/27/16 00:00 Room Air 10/26/16 22:55 36.6 60 14 142/79 95 Room Air 10/26/16 20:00 Room Air 10/26/16 16:00 92 Room Air 10/26/16 15:44 36.4 59 18 120/76 92 Room Air Physical Exam General Appearance: WD/WN, + mild distress Eyes: PERRL, EOMI ENT: hearing grossly normal, pharynx normal Neck: supple, thyroid normal Respiratory/Chest: chest non-tender, lungs clear, normal breath sounds Cardiovascular: + tachycardia, + irregularly irregular Abdomen: normal bowel sounds, non tender, soft Extremities: no pedal edema, no calf tenderness Neurologic/Psychiatric: alert, oriented x 3 Laboratory Results Last 24 Hours Test 10/27/16 05:25 Prothrombin Time 32.3 SECONDS Prothromb Time International Ratio 2.9 Sodium Level 141 mmol/L Potassium Level 4.0 mmol/L Chloride Level 106 mmol/L Carbon Dioxide Level 24 mmol/L Anion Gap 11.0 mmol/L Blood Urea Nitrogen 23 mg/dl Creatinine 1.10 mg/dl Est Creatinine Clear Calc Drug Dose 42.9 ml/min Estimated GFR () 54.5 Estimated GFR (Non- 47.0 BUN/Creatinine Ratio 21.3 Random Glucose 96 mg/dl Calcium Level 8.8 mg/dl Magnesium Level 2.3 mg/dl Assessment and Plan 81-year-old white female admitted on 10/23/2016 because of acute CVA with left hemiparesis( left arm and left leg weakness) CT of the head does not show any acute finding: Brain MRI results Small acute infarct within the periventricular right frontal lobe. Numerous old lacunar infarcts MRA of the head without contrast, and MRA of the neck combo: Were unremarkable Clopidogrel 75 mg daily, as she had this stroke on 81 mg aspirin, atorvastatin 40 mg by mouth Daughter reported to previous doctor that pt has had elevated liver enzyme from statin, PCP decreased to half dose recently regular Diet recommendation per speech Atrial fibrillation/status post aortic and mitral mechanical valves/hypertension /elevated troponin of 0.336 Patient is on warfarin evening has rapid rate, no complaints or awareness of tachycardia, ECG shows wide complex tachy, will move to [facility], use digoxin and prn metorpolol and continue metoprolol tartrate 100 mg by mouth twice a day, continue to have cardiology eval PT OT patient need acute rehabilitation, fall this evening, be aware as is no coumadin, no initial apparent injury Continued [facility] stay due to: multiple IV medications needed Discharge planning: home
[2016-10-27] MEDS: WARFARIN SOD 2 MG TAB PO SCH (17:23)
[2016-10-27 17:59] LABS: HEMATOCRIT 39.4 % (37-47); MEAN CELL VOLUME 89.5 fL (80-100); MEAN CORPUSCULAR HEMOGLOBIN 30.5 pg (25-34); MEAN PLATELET VOLUME 13.2 fL (7.4-10.4); PLATELET COUNT 193 K/uL (130-400); WHITE BLOOD COUNT 10.41 K/uL (4.8-10.8)
[2016-10-27 18:34] LABS: BUN/CREATININE RATIO 14.5 (10-20); CALCIUM 9.2 mg/dl (8.5-10.1); CREATININE 1.6 mg/dl (0.60-1.20); MAGNESIUM 2.3 mg/dl (1.8-2.4); POTASSIUM 4.3 mmol/L (3.5-5.1)
[2016-10-27] MEDS ORDERED: ACETAMINOPHEN 325 MG TAB PO PRN (19:15)
[2016-10-27] MEDS ORDERED: METOPROLOL TARTRATE 1 MG/ML VIAL IV. PRN (19:15)
[2016-10-27] MEDS ORDERED: ONDANSETRON INJ 2 MG/ML 2 ML VIAL IV PRN (19:15)
[2016-10-27] MEDS ORDERED: NITROGLYCERIN 0.4 MG SL PER TAB CHARGE SL PRN (19:15)
[2016-10-27] MEDS ORDERED: SODIUM CHLORIDE 0.9% 1000ML 1,000 ML IV SCH (19:30)
[2016-10-27] MEDS ORDERED: DIGOXIN IV 250 MCG in SYRINGE 9 ML IV ONE (19:45)
[2016-10-27] MEDS: ATORVASTATIN 40 MG TAB PO SCH (20:12)
[2016-10-27] MEDS: ACETAMINOPHEN 325 MG TAB PO PRN (23:24)
[2016-10-28] VITALS (7 sets, daily range): BP systolic 128–151; BP diastolic 71–83; PULSE 64–84; TEMP 36.3–37.1; O2SAT 97–99
[2016-10-28] MEDS: DIGOXIN IV 250 MCG in SYRINGE 9 ML IV SCH ×2 (01:00→15:18)
[2016-10-28] MEDS: LEVOTHYROXINE 50 MCG TAB PO SCH (06:07)
[2016-10-28 07:15] LABS: INR 3.3 (0.9-1.1); PROTHROMBIN TIME (PATIENT) 37.5 SECONDS (9.0-12.0)
[2016-10-28] MEDS: SYSTANE~ORDER AWAITING ACTION SCH ×3 (08:00→23:10)
[2016-10-28] MEDS: METOPROLOL TARTRATE 100 MG TAB PO SCH ×2 (08:09→22:00)
[2016-10-28] MEDS: ASPIRIN 81 MG ECTAB PO SCH (08:09)
[2016-10-28] MEDS: VITAMIN B COMPLEX TAB PO SCH (08:10)
--- NOTE | 2016-10-28 11:24 | Hospitalist Progress Note ---
Hospitalist Progress Note Date of Service Oct 28, 2016. (Jossie Lovett PA-C) Subjective Pt evaluation today including: conversation w/ patient, physical exam, chart review, lab review, review of studies, review of inpatient medication list Pain: None PO Intake: fair Voiding: no voiding problems The patient was seen and examined this morning. Last evening around 7pm the patient had to go to the bathroom, and nursing hadn't come to help her walk yet , so the patient decided that she would try to get up and walk there herself- so this is when she fell due to loss of balance. Pt went into [facility] yesterday after fall, she is also on coumadin for afib/ mechanical valves. She did sustain minor head trauma, but doesn't feel a bump on her head anymore, and today doesn't note any bruising. She converted to NSR around 12:50am today. Denies chest pain, sob, palpitations, abd pain. Pt moved her bowels a little yesterday. She's requesting laxative again today. All Other Systems: Reviewed and Negative (Other than listed in HPI) (Jossie Lovett, SANGEETA) Objective Vital Signs Date Time Temp Pulse Resp B/P Pulse Ox O2 Delivery O2 Flow Rate FiO2 10/28/16 08:26 37.0 69 18 128/71 97 10/28/16 08:00 Room Air 10/28/16 04:04 Room Air 10/28/16 04:01 37.1 67 17 151/77 97 Room Air 10/28/16 01:00 60 10/28/16 00:00 Room Air 10/27/16 23:15 36.6 96 18 146/81 96 Room Air 10/27/16 20:48 36.1 142 20 97 10/27/16 20:12 142 10/27/16 20:05 142 20 99/74 97 Room Air 10/27/16 18:51 150 120/86 97 Room Air 10/27/16 17:29 133 24 123/88 95 Room Air 10/27/16 16:00 100 Room Air 10/27/16 14:58 36.1 121 18 152/113 100 (Jossie Lovett PA-C) Physical Exam General Appearance: WD/WN, no apparent distress Eyes: PERRL, EOMI ENT: hearing grossly normal, pharynx normal Neck: supple, no JVD Respiratory/Chest: chest non-tender, lungs clear, no accessory muscle use Cardiovascular: regular rate, rhythm, + pertinent finding (valve click) Abdomen: non tender, soft, + pertinent finding (hypoactive bowel sounds) Extremities: non-tender, no pedal edema, no calf tenderness, + pertinent finding Neurologic/Psychiatric: alert, oriented x 3, + pertinent finding (Strength of the LLE =4/5, RLE with 4/5. RUE with hand contracture with relaxation. ) Skin: normal color, warm/dry (Jossie Lovett PA-C) Laboratory Results Last 24 Hours Test 10/27/16 17:25 10/28/16 06:55 White Blood Count 10.41 K/uL Red Blood Count 4.40 M/uL Hemoglobin 13.4 g/dL Hematocrit 39.4 % Mean Corpuscular Volume 89.5 fL Mean Corpuscular Hemoglobin 30.5 pg Mean Corpuscular Hemoglobin Concent 34.0 g/dl RDW Standard Deviation 46.9 fL RDW Coefficient of Variation 14.4 % Platelet Count 193 K/uL Mean Platelet Volume 13.2 fL Sodium Level 140 mmol/L Potassium Level 4.3 mmol/L Chloride Level 106 mmol/L Carbon Dioxide Level 23 mmol/L Anion Gap 11.0 mmol/L Blood Urea Nitrogen 23 mg/dl Creatinine 1.60 mg/dl Est Creatinine Clear Calc Drug Dose 29.5 ml/min Estimated GFR () 34.7 Estimated GFR (Non- 29.9 BUN/Creatinine Ratio 14.5 Random Glucose 160 mg/dl Calcium Level 9.2 mg/dl Magnesium Level 2.3 mg/dl Prothrombin Time 37.5 SECONDS Prothromb Time International Ratio 3.3 (Jossie Lovett PA-C) Assessment and Plan 81-year-old white female admitted on 10/23/2016 for acute CVA with left arm and left leg weakness, stable. s/p Fall - pt sustained a fall on 10/27 with minor head trauma and went into [facility] with afib/flutter on the monitor afterwards. She denies feeling palpitations, racing heart yesterday during this episode. EKG showing wide complex tachycardia. She converted into NSR around 12:50 am. The patient is on coumadin for afib and aortic valves. Since being moved to [facility] the patient has not had recurrent sx or changes on monitor. - Cont digoxin and prn metoprolol - continue metoprolol tartrate 100 mg by mouth twice a day - Cards on board - appreciate Small acute infarct of the periventricular right frontal lobe - Causing left arm and leg weakness. - CT of the head did not show any acute findings - Brain MRI results in Below: 1. Small acute infarct within the periventricular right frontal lobe. 2. No intracranial masses or pathologic enhancement. 3. 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 - MRA of the head without contrast, and MRA of the neck combo: Were unremarkable - Neuro has start clopidogrel 75 mg daily, as she had this stroke on 81 mg aspirin- appreciate neuro recs - currently normotensive blood pressure, BP<130/80, - Avoid dehydration and hypotension - Total cholesterol goal less than 200 and LDL goal less than 100, currently LDL less than 100, total cholesterol less than 200, will continue current dose of medicine - continue atorvastatin 40 mg by mouth every afternoon, Daughter report pt has an elevated liver enzyme from statin, PCP decreased to half dose recently - Hemoglobin A1c goal less than 7 - pt is at goal - Passed speech eval cont reg diet with aspiration precautions, no straws - PT is being seen by PT/OT and will continue for now. PT does not want to go to acute rehab if she's able to go home with home health services. Daughter has voluneteered to live with the patient, also has a neighbor who is willing to provide home health services. Will ask CM to assist with d/c planning. Pt [facility] not want [facility] from prior experience. Atrial fibrillation s/p aortic and mitral mechanical valves hypertension elevated troponin of 0.336 trended downward - 2-D echocardiogram with Doppler on 10/24 completed with LV systolic dysfunction , LVEF = 40-45% - Continue metoprolol tartrate 100 mg by mouth twice a day - Patient is on warfarin dosing, with an INR 3.3 - target PT/INR level 2.5-3.5 Hypothyroidism - cont levothyroxine Hypercholesterolemia- cont atorvastatin 40 mg BID as above. GI and DVT prophylaxis CODE STATUS: FULL CODE Disposition: From home, PT/OT on board, pt refusing rehab, will need home health services - pt likely ready for discharge in 1-2 days. (Jossie Lovett, SANGEETA) PA Physician Supervision Note: I interviewed and examined the patient. Discussed with Jossie Lovett PAC and agree with findings and plan as documented in the note. Any exceptions or clarifications are listed here: None This pt is doing well now after converting to nsr, will continue digoxin po and discuss with Cardiology vss now, no issues from fall, did see PT recommending home health will continue B ricardo and dig, will follow cautiously as we approach discharge as family wants pt to return to home and with recent fall in hospital not sure if event CVA now may be from PAF, continue full AC with coumadin Documented By: Miguel Driver (Miguel Driver M.D.)
[2016-10-28] MEDS ORDERED: NURSING VERBAL MED ORDER ONE ×2 (11:30→15:30)
[2016-10-28] MEDS: ACETAMINOPHEN 325 MG TAB PO PRN ×2 (13:06→22:03)
[2016-10-28] MEDS ORDERED: DIGOXIN 0.125 MG TAB PO SCH (16:00)
[2016-10-28] MEDS: WARFARIN SOD 2 MG TAB PO SCH (16:01)
--- NOTE | 2016-10-28 21:21 | Cardiology Follow-Up ---
Subjective Date of Service: Oct 28, 2016. Pt evaluation today including: conversation w/ patient, physical exam, lab review, review of studies, review of inpatient medication list History of Present Illness She had a fall last evening, and then afterwards was tachycardic. Reported to be ventricular tachycardia although I think it was atrial flutter with a rapid heart rate. She does not recall the arrhythmia. Today she has no complaints. Social History Smoking Status: Never Smoker History of Alcohol Use: No Review of Systems Respiratory: No cough, No shortness of breath Cardiac: No chest pain, No edema Medications Cardiovascular: Item Value Date Time Digoxin 0.125 mg 10/28/16 1600 (Lanoxin Tab) DAILY@16/PO 10/28/16 1602 Warfarin Sodium 2 mg 10/24/16 1600 (Coumadin Tab) DAILY@1600/PO 10/28/16 1601 Aspirin 81 mg 10/24/16 0900 (Ecotrin Tab) Q2D@0900/PO 10/28/16 0809 Metoprolol 100 mg 10/24/16 0030 Tartrate BID/PO 10/28/16 0809 (Lopressor Tab) Objective Vital Signs Past 12 Hours Date Time Temp Pulse Resp B/P Pulse Ox O2 Delivery O2 Flow Rate FiO2 10/28/16 20:12 36.3 75 18 148/81 99 Room Air 10/28/16 16:02 72 10/28/16 16:00 Room Air 10/28/16 15:56 36.9 75 18 146/83 98 Room Air 10/28/16 15:18 73 10/28/16 13:48 Room Air 10/28/16 12:00 Room Air 10/28/16 11:25 36.7 84 18 128/80 97 10/28/16 09:15 64 Last Recorded Weight-Kilograms: 78.600 Intake & Output 8-Hour Column 10/27/16 10/28/16 10/28/16 16:00 00:00 08:00 Intake Total 400 ml 1038 ml Output Total 250 ml 175 ml Balance 150 ml 863 ml 24-Hour Column 10/28/16 08:00 Intake Total 1438 ml Output Total 425 ml Balance 1013 ml Physical Exam Constitutional: Level of Distress: NAD Lungs: Auscultation: breath sounds normal Cardiovascular: Heart Auscultation: RRR Extremities: no edema Constitutional: Alert, oriented, in no acute distress HEENT: Head is atraumatic and normocephalic. EOMs intact. Sclera anicteric. Face is symmetric. No perioral cyanosis. Mucous membranes moist. Neck: Supple, no JVD Pulmonary: Normal respiratory effort, clear to auscultation bilaterally Cardiac: Regular rate and rhythm, prosthetic S1 and S2, no gallops, no rubs, 2/ 6 apical holosystolic murmur Extremities: No clubbing, cyanosis, or edema. Varicose veins of bilateral lower extremities. Pulses intact. Abdomen: Normal bowel sounds, soft, non-tender, no abdominal mass palpated Skin: Normal skin color, turgor, and pigmentation, no rash. Neurological: Oriented to person, place, and time Data Laboratory Results: Last 24 Hours Test 10/28/16 06:55 Prothrombin Time 37.5 SECONDS Prothromb Time International Ratio 3.3 EKG: An electrocardiogram from 10/27/2016 at 1908 shows some sort of supraventricular tachycardia at 140 bpm, it could be a reentrant rhythm but I think it is probably atrial flutter with 2-1 AV conduction. Ventricular complex is wide but similar to her intrinsic. Another electrocardiogram done 10/28/2016 at 6:23 AM shows sinus rhythm with a left bundle branch block pattern, QRS is similar to the prior tachycardia. Telemetry reviewed: A rapid supraventricular rhythm is present for about 3-1/2 hours before terminating into sinus rhythm Assessment and Plan #1. Wide complex tachycardia: Her tachycardia morphology is the same as her trend 6, although was read as possibly ventricular tachycardia it looks as though it is supraventricular in origin. Based on subsequent telemetry records it appears that it is some sort of atrial arrhythmia, I suspect atrial flutter although I can't tell from the electrocardiogram. She has a known history of atrial fibrillation and this would be consistent.I would continue with her current treatment and watch her on telemetry for now. #2. Mechanical valves: Her mechanical valves require warfarin anticoagulation which needs to be continued. Thank you for allowing me to participate in her care.
[2016-10-28] MEDS: ATORVASTATIN 40 MG TAB PO SCH (22:00)
[2016-10-29] MEDS ORDERED: DICLOFENAC SOD 1% GEL 100 GM TUBE EXT STA (00:33)
[2016-10-29 03:40] VITALS: BP 166/91; PULSE 76; TEMP 36.5; O2SAT 99
[2016-10-29 04:33] VITALS: BP 157/95
[2016-10-29] MEDS: ACETAMINOPHEN 325 MG TAB PO PRN (06:01)
[2016-10-29] MEDS: LEVOTHYROXINE 50 MCG TAB PO SCH (06:01)
--- NOTE | 2016-10-29 07:33 | Discharge Instructions ---
Discharge Instructions Admission Reason for Admission: Elevated Troponin, Tia Discharge Discharge Diagnosis / Problem: Acute stroke Discharge Goals Goal(s): Decrease discomfort, Improve function, Increase independence Activity Recommendations Activity Limitations: per Instructions/Follow-up section Lifting Limitations: no more than 10 pounds, gradually increase as tolerated Exercise/Sports Limitations: gradually increase as tolerated (continue to do physical therapy with home health services) Shower/Bathe: no limitations (please have caregiver assist you to decrease the risk of fall) Driving or Machine Use: Do NOT drive! . Instructions / Follow-Up Instructions / Follow-Up You were admitted to [facility] with left arm and leg weakness and diagnosed with acute stroke causing these symptoms. - Imaging studies which were completed include MRI of the brain, and were abnormal showing an acute infarct of the periventricular right frontal lobe. - During your stay here you were treated with intravenous fluids, medical management, and watched carefully. While you were in the hospital you sustained a fall due to leg weakness after the stroke, you did not have any trauma from this fall. You were maintained on coumadin for mechanical valves while here. - Cardiology was consulted as you went into afib with rapid ventricular rate and required being monitored on telemetry. You were started on a medication - Digoxin. Please continue taking this as prescribed. Physical therapy recommended that you be discharge to acute rehab but you refused, so home health services have been set up for you. Continue taking all medication as directed, please note the changes made on this list. Follow up with PCP within 1 week. Follow up with neurology within 2-4 weeks. Follow up with cardiology within 1-2 weeks. . Current Hospital Diet Patient's current hospital diet: AHA Diet (Heart Healthy) Discharge Diet Recommended Diet: AHA Diet (Heart Healthy) (sit up when eating, do not use straws, chew your food completely. ) Pending Studies Studies pending at discharge: no Laboratory Results Hemoglobin A1c Test 10/25/16 06:20 Range/Units Estimated Average Glucose 103 mg/dl Hemoglobin A1c 5.2 4.5-5.6 % Lipid Panel Test 10/25/16 06:20 Range/Units Triglycerides Level 94 0-150 mg/dl Cholesterol Level 162 0-200 mg/dl HDL Cholesterol 59 mg/dl Cholesterol/HDL Ratio 2.7 LDL Cholesterol, Calculated 84 mg/dl Medical Emergencies . Who to Call and When: Medical Emergencies: If at any time you feel your situation is an emergency, please call 911 immediately. . Non-Emergent Contact Non-Emergency issues call your: Primary Care Provider Call Non-Emergent contact if: you have a fever, temperature is above 100.5 You develop worsening weakness, slurred speech, confusion, fatigue, chest pain, shortness of breath, lightheadedness or dizziness, or if you have other concerns with your health. . Past History Medical & Surgical History: (1) Cerebrovascular accident (CVA) (2) Chronic atrial fibrillation with RVR (3) Left-sided weakness (4) Hypertension Nos (5) Hyperlipidemia Nec/Nos (6) Elevated troponin . "Provider Documentation" section prepared by Jodie Lovett. VTE Core Measure Inpt VTE Proph given/why not?: Warfarin (Coumadin)
--- NOTE | 2016-10-29 07:47 | Discharge Summary ---
Discharge Summary Date of Service Oct 29, 2016. (Jossie Lovett PA-C) Discharge Summary Admission Date: Oct 23, 2016 at 20:46 Discharge Date: Oct 29, 2016 Discharge Disposition: Home with services Principal Diagnosis: Acute right frontal lobe periventricular stroke Problems/Secondary Diagnoses: Chronic afib, mechanical and aortic valve on coumadin, HTN, hypothyroidism, hyperlipidemia, hx multiple lacunar CVA, hx CHF nos. Immunizations: Have You Had Influenza Vaccine: Yes Influenza Vaccine Date: Jul 09, 2010 History of Tetanus Vaccine?: No History of Pneumococcal: Yes Pneumococcal Date: Jul 09, 2010 History of Hepatitis B Vaccine: No Procedures: HEAD CT NONCONTRAST CT DOSE: 537.48 mGy.cm HISTORY: Mental status change Stroke TECHNIQUE: Multiaxial CT images of the head were performed without the use of intravenous contrast. Comparison: 06/29/2015 Findings: The paranasal sinuses and mastoid air cells are clear. Moderate atrophy. Mild chronic small vessel change. No new or interval finding. No acute intracranial hemorrhage. Impression: Atrophy and chronic small vessel change of aging. No acute process. Electronically signed by: Ke Hdz M.D. 10/23/2016 5:53 PM Dictated Date/Time: 10/23/2016 5:52 PM The status of this report is Signed. CHEST ONE VIEW PORTABLE CLINICAL HISTORY: Stroke dyspnea COMPARISON STUDY: 07/11/2016 FINDINGS: Mild stable cardiomegaly. Mild prominence pulmonary vasculature. Platelike atelectasis left base considered chronic. IMPRESSION: Mild pulmonary venous congestion Electronically signed by: Ke Hdz M.D. 10/23/2016 5:29 PM Dictated Date/Time: 10/23/2016 5:29 PM The status of this report is Signed. MRA OF THE NECK WITH AND WITHOUT CONTRAST CLINICAL HISTORY: Left-sided weakness. COMPARISON STUDY: Carotid ultrasound June 29, 2015. TECHNIQUE: Unenhanced and contrast-enhanced MRA of the neck was performed. Injection of 20 mL of Magnevist IV was uneventful. NASCET criteria were utilized to estimate the degree of carotid stenosis. FINDINGS: The bilateral common carotid and internal carotid arteries are patent. There is mild irregularity due to atherosclerosis within the proximal right internal carotid artery without significant stenosis. There is no dissection within the bilateral common carotid or internal carotid arteries. Both vertebral arteries are diminutive. This represents a chronic finding. The anterior circulation supplies a large portion the posterior fossa, as depicted on MRA of the intracranial circulation. IMPRESSION: 1. No significant stenosis within the bilateral common carotid and internal carotid arteries. 2. Diminutive bilateral vertebral arteries. Electronically signed by: Gildardo Malik M.D. 10/24/2016 7:24 AM Dictated Date/Time: 10/24/2016 7:20 AM The status of this report is Signed. MR ANGIOGRAM OF THE BRAIN CLINICAL HISTORY: Transient ischemic attack. COMPARISON STUDY: MRI of the brain performed concurrently on 10/23/2016. MR angiogram of the brain dated 11/26/2007. TECHNIQUE: 3-D [id number] MR angiography of the intracranial circulation is performed. 3-D tumble views are created and assessed. IV contrast was not administered for this examination. FINDINGS: There are large posterior communicating arteries with origin of the posterior cerebral arteries bilaterally. The posterior cerebral arteries are patent. No significant flow is identified within the basilar artery, and this is unchanged from previous. The vertebral arteries are diminutive and both appear to terminate as the PICA. The internal carotid arteries are widely patent bilaterally, as are the anterior and middle cerebral arteries. There is no aneurysm or high-grade stenosis identified. IMPRESSION: 1. There are large posterior communicating arteries with origin of both posterior cerebral arteries. These vessels are widely patent. 2. No significant flow is identified within the basilar artery. This is similar to the 2007 examination and could be on a congenital basis or may represent chronic occlusion. The vertebral arteries are diminutive and appear to terminate as the PICA bilaterally. 3. The anterior circulation is normal in appearance. There is no aneurysm or high-grade stenosis identified. Electronically signed by: Eric Ross M.D. 10/24/2016 7:30 AM Dictated Date/Time: 10/24/2016 7:26 AM The status of this report is Signed. MRI OF THE BRAIN WITHOUT AND WITH IV CONTRAST CLINICAL HISTORY: Left-sided weakness. Possible stroke. COMPARISON STUDY: MRI the brain June 30, [address] October 23, 2016. TECHNIQUE: Utilizing a 1.5 Agnes magnet and dedicated coil, multiplanar, multiecho imaging of the brain was performed pre and postcontrast administration. IV administration of 20 mL of Magnevist contrast was uneventful. FINDINGS: There is a 1.2 cm focus of restricted diffusion within the periventricular white matter of the right frontal lobe shown on axial image 15. No additional acute infarcts are present. There are multiple old lacunar infarcts within the bilateral cerebellar hemispheres, the brainstem and the periventricular right frontal lobe. Ventricular system is stable. Basilar cisterns are patent. There are no extra-axial collections. There are no intracranial masses or areas of pathologic enhancement. Calvarial signal is maintained. Orbits and sinuses are unremarkable. IMPRESSION: 1. Small acute infarct within the periventricular right frontal lobe. 2. No intracranial masses or pathologic enhancement. 3. 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 Electronically signed by: Gildardo Malik M.D. 10/24/2016 7:20 AM Dictated Date/Time: 10/24/2016 7:13 AM The status of this report is Signed. Consultations: Neurology Cardiology (Jossie Lovett, SANGEETA) Medication Reconciliation New Medications: Digoxin (Digoxin) 0.125 Mg Tab 0.125 MG PO DAILY@16 for 30 Days, #30 TAB Continued Medications: Aspirin (Aspirin Chewable) 81 Mg Chew 81 MG PO Q2D Atorvastatin (Atorvastatin Calcium) 40 Mg Tab 40 MG PO QPM for 30 Days, TAB B Complex W/ C (Vitamin B Complex-C) 1 Cap Cap 1 TAB PO DAILY Levothyroxine Sodium (Levothyroxine Sodium) 50 Mcg Tab 50 MCG PO DAILY Lisinopril (Prinivil) 5 Mg Tab 5 MG PO BID, TAB Metoprolol Tartrate (Metoprolol Tartrate) 100 Mg Tab 100 MG PO BID, #60 TAB Ocuvite Preservision (Ocuvite Preservision) 1 Tab Tab 1 TAB PO prn, TAB Polyethylene Glycol-Propylene (Systane) 1 Malina Malina 1 DROPS OP prn Triamterene/Hctz (Dyazide 37.5MG/25MG) Cap 1 TAB PO 2XWK, CAP THURSDAY AND THURSDAY Warfarin Sod (Jantoven) 2 Mg Tab 2 MG PO QPM, TAB Discharge Exam The patient was seen and examined this morning. Pt reports getting something stuck in her left shoulder last night which was extremely painful, but cannot recall what it was. Nursing reports she had a new IV placed in the right forearm , but this wouldn't explain her complaint. No new reports of falls. Pt denies pain with touch or specific movements. She had a BM last night. Pt denies chest pain or sob, abd pain, n/v/d/c. No fever, chills or sweats. She reports her daughter is planning to see her today. Discussion regarding my recommendation for her to go to acute rehab was held again. She is very adamant that she doesn't want this, and prefers to go home with home health services. Fall risk is high and pt understands this. Review of Systems: Constitutional: No chills, No fatigue, No fever, No sweats Eyes: No diplopia ENT: No problem reported, No trouble swallowing Respiratory: No dyspnea at rest, No dyspnea on exertion, No shortness of breath Cardiovascular: No chest pain, No palpitations Abdomen: No constipation, No diarrhea, No nausea, No pain, No vomiting Musculoskeletal: + joint pain (L shoulder ), No calf pain, No swelling Genitourinary - Female: No dysuria Neurologic: + balance problems, + weakness, No numbness/tingling Endocrine: No fatigue Integumentary: No itch, No rash Physical Exam: General Appearance: WD/WN, no apparent distress, + pertinent finding (has difficulty repositioning herself in bed, slow movements) Eyes: PERRL, EOMI ENT: hearing grossly normal, pharynx normal Neck: supple, no adenopathy, no JVD Respiratory/Chest: chest non-tender, lungs clear, no respiratory distress, no accessory muscle use Cardiovascular: regular rate, rhythm, no murmur, normal peripheral pulses Abdomen / GI: normal bowel sounds, non tender, soft Extremities: no calf tenderness, no pedal edema, normal range of motion Neurologic/Psychiatric: alert, oriented x 3, + pertinent finding (slow clear speech, + weakness of the left LE 4/5, + contracture of left hand at rest. ) Skin: normal color, warm/dry (Jossie Lovett PA-C) Hospital Course H&P per Dr. Anders Humphrey History of Present Illness Source: patient, family The patient is knee 1-year-old female presents emergency department with complaint of left arm and leg weakness and tingling that began prior to arrival. She has a previous history of TIA about one year ago, and is on warfarin chronically due to mechanical aortic and mitral valves and atrial fibrillation. She did have some improvement in her symptoms, but did still have some left-sided weakness. Vital Signs Date Time Temp Pulse Resp B/P Pulse Ox O2 Delivery O2 Flow Rate FiO2 10/24/16 02:32 36.7 61 16 162/89 95 Room Air 10/23/16 23:08 65 20 164/69 95 Room Air 10/23/16 21:23 61 20 153/68 95 Room Air 10/23/16 19:04 66 20 171/90 96 Room Air 10/23/16 17:25 64 10/23/16 17:20 97 Room Air 10/23/16 17:07 36.5 72 12 173/84 97 Room Air The patient is awake, well-developed and adequately nourished, alert and oriented 3, normocephalic and atraumatic, lying in bed and in no acute distress. HEENT--PERRL, EOMI, mucous membranes and oropharynx dry. Neck--supple, no JVD or bruits, thyroid normal, trachea midline, no adenopathy. Heart--normal S1 and S2, no extra beats, no murmurs, rubs or gallops. Lungs--clear bilaterally with good air movement, no respiratory distress, no accessory muscle use. Abdomen--normal bowel sounds and soft, nontender and nondistended, no hernias or masses, no organomegaly. Extremities--no cyanosis, clubbing or edema. There are good distal pulses b/l. Dermatologic--normal skin turgor, normal color, warm and dry, no abnormal lymph nodes, no rash. Neurologic--cranial nerves II through XII grossly intact, left upper and lower extremity with strength 4+ out of 5, with normal sensation. Hospital Course 81-year-old white female admitted on 10/23/2016 for acute CVA with left arm and left leg weakness, found to have a periventricular right frontal lobe acute infact on MRI, CT findings did not identify the stroke. Neurology and cardiology were consulted. Small acute infarct of the periventricular right frontal lobe - Causing left arm and leg weakness. - CT of the head did not show any acute findings - Brain MRI results below: 1. Small acute infarct within the periventricular right frontal lobe. 2. No intracranial masses or pathologic enhancement. 3. 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 - MRA of the head without contrast, and MRA of the neck combo: Were unremarkable - Neuro has start clopidogrel 75 mg daily, as she had this stroke on 81 mg aspirin - currently normotensive blood pressure, BP<130/80, - Avoid dehydration and hypotension - Total cholesterol goal less than 200 and LDL goal less than 100, currently LDL less than 100, total cholesterol less than 200, will continue current dose of medicine - continue atorvastatin 40 mg by mouth every afternoon, Daughter report pt has an elevated liver enzyme from statin, PCP decreased to half dose recently - Hemoglobin A1c goal less than 7 - pt is at goal - Passed speech eval cont reg diet with aspiration precautions, no straws - PT is being seen by PT/OT and will continue for now. Pt [facility] not [facility]. PT did not want to go to acute rehab so she was discharged home with home health services. Pt has been informed of the risks of fall and encouraged to utilized rehab at least short term but she still refuses. Pt's daughter has volunteered to live with the patient, also has a neighbor who is willing to provide home health services. - CM to assist with d/c planning: have planned office of aging to visit the patient in house within next 1-2 days. s/p Fall - pt sustained a fall on 10/27 with minor head trauma and went into [facility] with afib/flutter on the monitor afterwards. She denies feeling palpitations, racing heart yesterday during this episode. EKG showing wide complex tachycardia. IV digoxin was started at that time, she converted into NSR around 12:50 am. The patient is on coumadin for afib and aortic valves. Since being moved to [facility] the patient has not had recurrent sx or changes on monitor. - PO digoxin was continued at time of discharge. - continue metoprolol tartrate 100 mg by mouth twice a day - Cards on board - appreciate Atrial fibrillation s/p aortic and mitral mechanical valves hypertension elevated troponin of 0.336 trended downward Systolic CHF, chronic - 2-D echocardiogram with Doppler on 10/24 completed with LV systolic dysfunction , LVEF = 40-45% - Continue metoprolol tartrate 100 mg by mouth twice a day - Patient is on warfarin dosing, with an INR 3.3 - target PT/INR level 2.5-3.5 Hypothyroidism - cont levothyroxine Hypercholesterolemia- cont atorvastatin 40 mg BID as above. GI and DVT prophylaxis CODE STATUS: FULL CODE Disposition: From home, PT/OT on board, pt refusing rehab, d/c home with health services today. Office of aging to visit patient within 1-2 days. Total Time Spent: Greater than 30 minutes This includes examination of the patient, discharge planning, medication reconciliation, and communication with other providers. (Jossie Lovett PA-C) [place] Physician Supervision Note: I interviewed and examined the patient. Discussed with Jossie Lovett PAC and agree with findings and plan as documented in the note. Any exceptions or clarifications are listed here: None This pt is doing well now after converting to nsr, will continue digoxin po after discussion with Cardiology vss now, no issues from fall, did see PT recommending home health, family is aware and will continue to care will continue B ricardo and digoxin CVA now may be from PAF, continue full AC with coumadin Documented By: Miguel Driver Total Time Spent: Less than 30 minutes (Miguel Driver M.D.) Discharge Instructions Please refer to the electronic Patient Visit Report (Discharge Instructions) for additional information. (Jossie Lovett PA-C) Follow-Up With PCP within 1 week With neurology within 1-2 weeks. Follow up with Cardiology within 1-2 weeks. (Jossie Lovett PA-C)
[2016-10-29] MEDS: SYSTANE~ORDER AWAITING ACTION SCH (08:00)
[2016-10-29 08:35] LABS: BUN/CREATININE RATIO 18.8 (10-20); CALCIUM 8.8 mg/dl (8.5-10.1); POTASSIUM 4.3 mmol/L (3.5-5.1)
[2016-10-29] MEDS: VITAMIN B COMPLEX TAB PO SCH (09:17)
[2016-10-29] MEDS: METOPROLOL TARTRATE 100 MG TAB PO SCH (09:17)
[2016-10-29 09:59] VITALS: BP 157/95; PULSE 76; TEMP 36.5; O2SAT 99
[2016-10-29 10:30] VITALS: BP 139/80; PULSE 59; TEMP 36.2; O2SAT 91
--- NOTE | 2016-10-29 12:09 | Hospitalist Progress Note ---
Hospitalist Progress Note Date of Service Oct 29, 2016. Subjective Pt evaluation today including: conversation w/ patient, physical exam, chart review, lab review, review of studies, review of inpatient medication list Pain: Left shoulder pain PO Intake: Good Voiding: no voiding problems The patient was seen and examined this morning. Pt reports getting something stuck in her left shoulder last night which was extremely painful, but cannot recall what it was. Nursing reports she had a new IV placed in the right forearm , but this wouldn't explain her complaint. No new reports of falls. Pt denies pain with touch or specific movements. She had a BM last night. Pt denies chest pain or sob, abd pain, n/v/d/c. No fever, chills or sweats. She reports her daughter is planning to see her today. Discussion regarding my recommendation for her to go to acute rehab was held again. She is very adamant that she doesn't want this, and prefers to go home with home health services. Fall risk is high and pt understands this. All Other Systems: Reviewed and Negative (other than HPI) Objective Vital Signs Date Time Temp Pulse Resp B/P Pulse Ox O2 Delivery O2 Flow Rate FiO2 10/29/16 10:30 Room Air 10/29/16 10:30 36.2 59 18 139/80 91 Room Air 10/29/16 09:59 36.5 76 18 99 10/29/16 08:00 Room Air 10/29/16 04:33 157/95 10/29/16 04:00 Room Air 10/29/16 03:40 36.5 76 18 166/91 99 Room Air 10/28/16 23:59 Room Air 10/28/16 23:05 36.5 76 18 148/81 98 Room Air 10/28/16 20:12 36.3 75 18 148/81 99 Room Air 10/28/16 20:00 Room Air 10/28/16 16:02 72 10/28/16 16:00 Room Air 10/28/16 15:56 36.9 75 18 146/83 98 Room Air 10/28/16 15:18 73 10/28/16 13:48 Room Air 10/28/16 12:00 Room Air Physical Exam General Appearance: WD/WN, no apparent distress, + pertinent finding ( movements are slow, she has trouble repositioning herself in bed) Eyes: PERRL, EOMI ENT: hearing grossly normal, pharynx normal Neck: supple, no JVD Respiratory/Chest: chest non-tender, lungs clear, no respiratory distress, no accessory muscle use Cardiovascular: regular rate, rhythm, no murmur Abdomen: normal bowel sounds, non tender, soft Extremities: no pedal edema, no calf tenderness, + pertinent finding (Left shoulder is nontender to palpation, no point tenderness, decreased active ROM. ) Neurologic/Psychiatric: alert, oriented x 3, + pertinent finding (slow clear speech, movements are very slow, pt with difficulty moving herself,) Skin: normal color, warm/dry Laboratory Results Last 24 Hours Test 10/29/16 07:50 Sodium Level 142 mmol/L Potassium Level 4.3 mmol/L Chloride Level 110 mmol/L Carbon Dioxide Level 23 mmol/L Anion Gap 9.0 mmol/L Blood Urea Nitrogen 19 mg/dl Creatinine 1.00 mg/dl Est Creatinine Clear Calc Drug Dose 47.5 ml/min Estimated GFR () 61.2 Estimated GFR (Non- 52.8 BUN/Creatinine Ratio 18.8 Random Glucose 94 mg/dl Calcium Level 8.8 mg/dl Assessment and Plan 81-year-old white female admitted on 10/23/2016 for acute CVA with left arm and left leg weakness, found to have a pericentricular right frontal lobe acute infact on MRI, CT findings did not identify the stroke. Neurology and cardiology were consulted. Small acute infarct of the periventricular right frontal lobe - Causing left arm and leg weakness. - CT of the head did not show any acute findings - Brain MRI results below: 1. Small acute infarct within the periventricular right frontal lobe. 2. No intracranial masses or pathologic enhancement. 3. 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 - MRA of the head without contrast, and MRA of the neck combo: Were unremarkable - Neuro has start clopidogrel 75 mg daily, as she had this stroke on 81 mg aspirin - currently normotensive blood pressure, BP<130/80, - Avoid dehydration and hypotension - Total cholesterol goal less than 200 and LDL goal less than 100, currently LDL less than 100, total cholesterol less than 200, will continue current dose of medicine - continue atorvastatin 40 mg by mouth every afternoon, Daughter report pt has an elevated liver enzyme from statin, PCP decreased to half dose recently - Hemoglobin A1c goal less than 7 - pt is at goal - Passed speech eval cont reg diet with aspiration precautions, no straws - PT is being seen by PT/OT and will continue for now. Pt [facility] not [facility]. Plan to have PT re-eval today and determine if she 's safe enough for home health services. Pt has been informed of the risks of fall and encouraged to utilized rehab at least short term but she still refuses. Pt's daughter has volunteered to live with the patient, also has a neighbor who is willing to provide home health services. - CM spoken with and plan to have office of aging go to the patients house if she does goes home. s/p Fall - pt sustained a fall on 10/27 with minor head trauma and went into [facility] with afib/flutter on the monitor afterwards. She denies feeling palpitations, racing heart yesterday during this episode. EKG showing wide complex tachycardia. She converted into NSR around 12:50 am. The patient is on coumadin for afib and aortic valves. Since being moved to [place] the patient has not had recurrent sx or changes on monitor. - Move to med/surg today - Cont digoxin and prn metoprolol - continue metoprolol tartrate 100 mg by mouth twice a day - Cards on board - appreciate Atrial fibrillation s/p aortic and mitral mechanical valves hypertension elevated troponin of 0.336 trended downward Systolic CHF, chronic - 2-D echocardiogram with Doppler on 10/24 completed with LV systolic dysfunction , LVEF = 40-45% - Continue metoprolol tartrate 100 mg by mouth twice a day - Continue digoxin 0.125 mg PO daily - Patient is on warfarin dosing, with an INR 3.3 on 10/28 - target PT/INR level 2.5-3.5 Hypothyroidism - cont levothyroxine Hypercholesterolemia- cont atorvastatin 40 mg BID as above. GI and DVT prophylaxis CODE STATUS: FULL CODE Disposition: From home, PT/OT on board, pt refusing rehab, d/c home with health services likely within 24 hours.
[2016-10-29] MEDS ORDERED: LNX125 PO (12:12)
[2016-10-29 14:04] VITALS: BP 139/80; PULSE 59; TEMP 36.2; O2SAT 91
--- NOTE | 2016-10-29 14:36 | Pharmacy Progress Note ---
Pharmacist Stroke Counseling Date of Service Oct 29, 2016. Scope Pharmacy has been consulted to provide medication discharge counseling for this patient admitted with ischemic stroke as per the Pharmacist Discharge Counseling for Stroke Patients Protocol. Medications on Discharge New Medications: Digoxin (Digoxin) 0.125 Mg Tab 0.125 MG PO DAILY@16 for 30 Days, #30 TAB Continued Medications: Aspirin (Aspirin Chewable) 81 Mg Chew 81 MG PO Q2D Atorvastatin (Atorvastatin Calcium) 40 Mg Tab 40 MG PO QPM for 30 Days, TAB B Complex W/ C (Vitamin B Complex-C) 1 Cap Cap 1 TAB PO DAILY Levothyroxine Sodium (Levothyroxine Sodium) 50 Mcg Tab 50 MCG PO DAILY Lisinopril (Prinivil) 5 Mg Tab 5 MG PO BID, TAB Metoprolol Tartrate (Metoprolol Tartrate) 100 Mg Tab 100 MG PO BID, #60 TAB Ocuvite Preservision (Ocuvite Preservision) 1 Tab Tab 1 TAB PO prn, TAB Polyethylene Glycol-Propylene (Systane) 1 Malina Malina 1 DROPS OP prn Triamterene/Hctz (Dyazide 37.5MG/25MG) Cap 1 TAB PO 2XWK, CAP THURSDAY AND THURSDAY Warfarin Sod (Jantoven) 2 Mg Tab 2 MG PO QPM, TAB Action The above medications, specifically ones for stroke treatment/prophylaxis, have been reviewed in detail with the patient and/or patient quality audit representative(s) prior to discharge. This includes indication, common adverse reactions, drug interactions, and medication administration. Medication counseling has been employed using the teach-back method to ensure understanding. Outcome The patient and patient quality audit representative have demonstrated understanding of the medications. Please note, they are aware that the pharmacist will call them within 72 hours post-discharge to confirm that the appropriate medications are being taken and answer any further medication related questions the patient might have at that time. Contact information Individual to be contacted: Janelle (patient) Phone number: [phone] (OK to leave message per patient) Best time to call: noon Additional comments: - Spoke w Janelle and her daughter (Flor). Flor and her sister Mildred are planning on being with Janelle 30/03 and will also receive help from home services. - Providers are concerned about Janelle's safety at home, particularly with respect to falls, but patient and family have insisted on going home instead of acute rehab - Discussed need to urgently seek care if Janelle were to fall and hit head while on warfarin - Aspirin, warfarin, and atorvastatin are all previous home meds for Janelle. Only new medication is digoxin. - For medication administration, Janelle utilizes the following: - Colored tags on prescription bottles to indicate time of day to take (AM vs PM) - Lists out medications to take daily - Creates a chart to help with every other day, twice weekly, or once every other week medications. - While her method of medication administration seems complicated, Janelle insists that it's a system what works for her. I therefore did not recommend a change at this time but mentioned that if things got overwhelming that a weekly medication box can be useful Thank you for allowing pharmacy to be involved in the care of this patient. Please call [phone] or [phone] with any additional questions
--- NOTE | 2016-10-30 14:26 | Pharmacy Progress Note ---
Pharmacist Post D/C Phone Note Date of phone call: Oct 30, 2016. Individual with whom pharmacist spoke to: Patient, and patient's daughter, Flor. The following questions were reviewed during the phone call with responses listed below each: Can you tell me the medications that you are currently taking as well as when and how you take each medication? - Patient was able to repeat back to me how she takes each of her medications , in addition to taking her aspirin every other day, warfarin in the evening, and triamterene/HCTZ twice weekly. When have you missed any doses of your medications? - She has not missed any doses. What side effects are you having from your medications? - She is not having any side effects. What questions do you have about your medications? - She and her daughter did not have any questions. What problems are you having obtaining your medications? - None- new Rx for Digoxin was ready for patient at the pharmacy yesterday and she picked it up yesterday. When is your next appointment with your primary care doctor? - Thursday 10am Dr Alba at [facility] Additional comments: - Patient said she is doing really well, just had help from her daughter to shower and wash her hair. She was very pleasant to speak with and has a great support system. As per the Pharmacist Discharge Counseling for Stroke Patients Protocol, this phone call has been completed within 72 hours of discharge. Thank you for allowing us to be involved in the care of this patient.
== END 2016-10-29 14:36 | disposition home health service (06) | DRG 65 ==
LOC: ENRESERVTM → ENRESERVDT → CANRESERV → C.EDB 17:04 → EDBD 17:04 → C.MED 20:46 → C.MS4W 10-27 07:32 → C.2T 10-27 21:21 → C.MS2W 10-29 10:46
PROVIDERS: ADMIT Hospitalist; ATTEND Internal Medicine
DX: I63.9 Cerebral infarction, unspecified (principal); G81.94 Hemiplegia, unspecified affecting left nondominant side; I50.22 Chronic systolic (congestive) heart failure; I48.92 Unspecified atrial flutter; I47.2 Ventricular tachycardia; R29.810 Facial weakness; S09.90XA Unspecified injury of head, initial encounter; R78.89 Finding of other specified substances, not normally found in blood; R29.702 NIHSS score 2; I48.2 Chronic atrial fibrillation; E03.9 Hypothyroidism, unspecified; I11.0 Hypertensive heart disease with heart failure; E78.00 Pure hypercholesterolemia, unspecified; Z79.899 Other long term (current) drug therapy; Z79.01 Long term (current) use of anticoagulants; Z79.82 Long term (current) use of aspirin; Z86.73 Personal history of transient ischemic attack (TIA), and cerebral infarction without residual deficits; Z95.2 Presence of prosthetic heart valve; Z82.49 Family history of ischemic heart disease and other diseases of the circulatory system; W18.39XA Other fall on same level, initial encounter; Y93.K1 Activity, walking an animal; Y92.230 Patient room in hospital as the place of occurrence of the external cause; Y99.8 Other external cause status

== ENCOUNTER → 2016-11-06 | Outpatient (CLI) | payer OTHER, BC ==
[~2016-11-06] MED LIST changes: +ACET-1175 PO; -ASPCH81 PO; +ASPCH81X PO; +B COCAP3 PO; +CEPH-571 PO; +CEPH500C2 PO; +DLC5 PO; +FRRG PO; +LNX125 PO; +LPT/20 PO; +LVNIS40 SQ; +LXP10 PO; +MELA1TAB5 PO; +METO100T14 PO; +METO1TAB69 PO; +MRLP17 PO; +PLV75 PO; +VLTG EXT; +WARF1TAB6 PO; +WARF4TAB43 PO; +ZFRI4 IV
== END | disposition home or self-care (01) ==
LOC: C.LABPVFM 11:08
PROVIDERS: ATTEND Nurse Practitioner Family
DX: N39.0 Urinary tract infection, site not specified (principal)

== ENCOUNTER 2017-01-01 18:42 | Emergency (ER) | payer OTHER, BC ==
[~2017-01-01] VITALS: Ht 170.2 cm; Wt 77.1 kg
[~2017-01-01 18:42] MED LIST changes: -ACET-1175 PO; -CEPH-571 PO; -CEPH500C2 PO; -DLC5 PO; -FRRG PO; -LPT/20 PO; -LVNIS40 SQ; -LXP10 PO; -MELA1TAB5 PO; -METO100T14 PO; -METO1TAB69 PO; -MRLP17 PO; -PLV75 PO; -VLTG EXT; -WARF1TAB6 PO; -WARF4TAB43 PO; -ZFRI4 IV
[2017-01-01 18:46] VITALS: TEMP 36.6; Ht 170.2 cm; Wt 77.1 kg
[2017-01-01] MEDS ORDERED: WARF1TAB6 PO (20:19)
[2017-01-01] MEDS ORDERED: MELA1TAB5 PO (20:20)
[2017-01-01 20:44] VITALS: BP 110/74; PULSE 68; O2SAT 96
--- NOTE | 2017-01-01 20:45 | DIAGNOSTIC IMAGING REPORT ---
CT HEAD WITHOUT CONTRAST (CT) CLINICAL HISTORY: Head trauma. Patient on blood thinners. COMPARISON STUDY: 10/23/2016 TECHNIQUE: Axial CT of the brain is performed from the vertex to the skull base. IV contrast was not administered for this examination. CT DOSE: 537.48 mGy.cm FINDINGS: No intra or extra-axial mass lesions are visualized. There is no CT evidence of acute cortical infarction. There is no evidence of midline shift. There is no acute hemorrhage. No calvarial fractures are visualized. There are patchy white matter hypodensities likely on a small vessel basis. There is an old lacunar infarct in the right caudate, and right periventricular frontal white matter. There is no evidence of pathologic ventricular dilatation. There is no evidence of acute sinusitis IMPRESSION: No acute intracranial findings Electronically signed by: Konrad Edgar M.D. 01/01/2017 8:43 PM Dictated Date/Time: 01/01/2017 8:42 PM
--- NOTE | 2017-01-01 21:03 | EMERGENCY ROOM VISIT NOTE ---
ED Visit Note First contact with patient: 18:53 CHIEF COMPLAINT: Head injury HISTORY OF PRESENT ILLNESS: This 81-year-old female patient presented to the emergency department ambulatory after receiving a head injury approximately 3 hours ago. The patient states that she tripped over a throw rug and she was coming inside from the porch. She states that she landed and hit the left side of her head. There was no loss of consciousness. There has been no vomiting. The patient has no complaints at this time, but states she thought she should be evaluated due to anticoagulant use. The patient reports she takes both Coumadin and Plavix due to a stroke. The patient denies confusion, blurred vision, slurred speech, numbness or weakness. The patient denies neck pain. The patient denies bowel or bladder dysfunction. The patient denies any other injuries. REVIEW OF SYSTEMS: A review of systems was performed with positives and pertinent negatives listed in the history of present illness. All other systems were reviewed and are negative. ALLERGIES: Codeine MEDICATIONS: See med list PMH: Stroke, heart disease SOCIAL HISTORY: The patient lives locally by herself. PHYSICAL EXAM: Vital Signs: Reviewed Nurse's notes, vital signs stable. GENERAL: This is an 81-year-old female, in no acute distress, well-developed, well-nourished. NEURO: GCS 15. The patient is alert, oriented to person place and time, and coherent. Normal mini mental status exam. Negative Romberg and pronator drift. Cerebellar function intact. SKIN: There is a small, crusted non-gaping laceration above the left eyebrow. There is no active bleeding. HEAD: Normocephalic. EYES: Pupils are equal round and reactive to light and accommodation. EOMs are full and optic discs and fundi are normal. There is no swelling or discoloration of the tissue surrounding the eyes. EARS: External auditory canals clear without blood. NOSE: Patent without tenderness. No septal hematoma. FACE: No facial bone tenderness. NECK: Supple. There is no cervical spine tenderness. The patient does not have pain with movement of the neck. RADIOGRAPHIC FINDINGS: CT HEAD WITHOUT CONTRAST (CT) CLINICAL HISTORY: Head trauma. Patient on blood thinners. COMPARISON STUDY: 10/23/2016 TECHNIQUE: Axial CT of the brain is performed from the vertex to the skull base. IV contrast was not administered for this examination. CT DOSE: 537.48 mGy.cm FINDINGS: No intra or extra-axial mass lesions are visualized. There is no CT evidence of acute cortical infarction. There is no evidence of midline shift. There is no acute hemorrhage. No calvarial fractures are visualized. There are patchy white matter hypodensities likely on a small vessel basis. There is an old lacunar infarct in the right caudate, and right periventricular frontal white matter. There is no evidence of pathologic ventricular dilatation. There is no evidence of acute sinusitis IMPRESSION: No acute intracranial findings ED COURSE: I examined the patient. A CT scan of the patient's head was performed and showed no acute intracranial findings. The patient was informed of these findings. She has no complaints at this time. I did speak with the patient and her daughter, the daughter agrees to stay with the patient this evening and monitor her for any worsening symptoms. They understand to return immediately if the patient develops any concerning symptoms, otherwise will follow-up with her primary care provider. The patient was independently evaluated by Dr. Ni, ED attending physician, who agreed with my assessment and treatment plan. The patient was discharged home in good condition ambulatory. DIAGNOSIS: Head injury Problem List Medical Problems: (1) Cerebrovascular accident (CVA) Status: Resolved Surgical Problems: (1) Mitral valve replaced Status: Resolved (2) Status post heart valve replacement with mechanical valve Status: Resolved Current/Historical Medications Scheduled Atorvastatin (Atorvastatin Calcium), 40 MG PO QPM B Complex W/ C (Vitamin B Complex-C), 1 TAB PO DAILY Digoxin (Digoxin), 0.125 MG PO DAILY@16 Levothyroxine Sodium (Levothyroxine Sodium), 50 MCG PO DAILY Lisinopril (Prinivil), 5 MG PO BID Melatonin (Kp Melatonin), 1 TAB PO HS Metoprolol Tartrate (Metoprolol Tartrate), 100 MG PO BID Polyethylene Glycol-Propylene (Systane), 1 DROPS OP prn Triamterene/Hctz (Dyazide 37.5MG/25MG), 1 TAB PO 2XWK Warfarin Sod (Jantoven), 2 MG PO 6XWK Warfarin Sod (Jantoven), 1 MG PO THURSDAY Allergies Coded Allergies: Codeine (Verified Allergy, Intermediate, RASH, 01/01/17) Vital Signs Date Time Temp Pulse Resp B/P Pulse Ox O2 Delivery O2 Flow Rate FiO2 01/01/17 20:44 68 20 110/74 96 Room Air 01/01/17 18:46 36.6 56 18 161/85 98 Room Air Departure Information Impression Primary Impression: Closed head injury Dispostion Home / Self-Care Condition GOOD Referrals Mayr Hardwick M.D. (PCP) Patient Instructions My [facility] Additional Instructions You have been treated in the Emergency Department for a Closed Head Injury. CT Scan of your head/brain demonstrated no acute bleeding or other abnormalities. This does not completely rule out the risk for future damage to the brain. For pain control, you can use the following [id number]-[id number] medicines (if >12 yo): - Regular strength (325mg/tab) Tylenol (acetaminophen) 2 tabs every 4-6 hours as needed. Do not exceed 12 tablets in a 24 hour period. Avoid taking more than 4 grams (4000 mg) of Tylenol per day. This includes any other sources of acetaminophen you may take on a regular basis. You should relax in a quiet, dark place for the rest of the day. Avoid any possible triggers including: cigarette smoke, caffeine, nicotine, chocolate, wine, beer, loud noises or music, or bright lights. Call your primary care provider tomorrow to schedule follow-up. Return to the Emergency Department if your current symptoms worsen despite treatment course outlined above, or if you develop any of the following symptoms : intractable pain despite aforementioned treatment course, visual disturbances , loss of vision, unilateral weakness or facial drooping, slurring of speech, loss of coordination, or loss of consciousness. Problem Qualifiers Primary Impression: Closed head injury Encounter type: initial encounter Qualified Codes: S09.90XA - Unspecified injury of head, initial encounter
[2017-03-16] MEDS ORDERED: METO100T44 PO (09:30)
[2017-07-31] MEDS ORDERED: KFL500 PO (09:03)
[2017-07-31] MEDS ORDERED: RXC5 PO (09:03)
[2017-07-31] MEDS ORDERED: ULT50X PO (09:03)
[2017-07-31] MEDS ORDERED: VLTG EXT (09:03)
[2017-07-31] MEDS ORDERED: LVNIS80 SQ (09:03)
== END 2017-01-01 21:10 | disposition home or self-care (01) ==
LOC: C.EDB 18:44 → C.EDC 21:10
DX: S09.90XA Unspecified injury of head, initial encounter (principal); W01.0XXA Fall on same level from slipping, tripping and stumbling without subsequent striking against object, initial encounter; Y92.019 Unspecified place in single-family (private) house as the place of occurrence of the external cause; I51.9 Heart disease, unspecified; Z86.73 Personal history of transient ischemic attack (TIA), and cerebral infarction without residual deficits; Z95.2 Presence of prosthetic heart valve; Z79.899 Other long term (current) drug therapy; Z79.01 Long term (current) use of anticoagulants

== ENCOUNTER → 2017-01-20 | Outpatient (CLI) | payer OTHER, BC ==
[~2017-01-20] MED LIST changes: +ACET-1175 PO; -ASPCH81X PO; +CEPH-571 PO; +CEPH500C2 PO; +DLC5 PO; +FRRG PO; +KFL500 PO; +LPT/20 PO; +LVNIS40 SQ; +LVNIS80 SQ; +LXP10 PO; +MELA1TAB5 PO; +METO100T14 PO; +METO100T44 PO; +MRLP17 PO; +MRLP17X PO; -MULT-190 PO; +PLV75 PO; +RXC5 PO; +TPRSR/100 PO; +ULT50X PO; +VLTG EXT; +WARF1TAB6 PO; +WARF4TAB43 PO; +ZFRI4 IV
[2017-01-20 12:34] LABS: ALT/SGPT 29 U/L (12-78); AST/SGOT 41 U/L (15-37); BLOOD UREA NITROGEN 17 mg/dl (7-18); BUN/CREATININE RATIO 14.1 (10-20); CALCIUM 9.1 mg/dl (8.5-10.1); CARBON DIOXIDE 28 mmol/L (21-32); CHLORIDE 108 mmol/L (98-107); GLUCOSE 101 mg/dl (70-99); MAGNESIUM 2.4 mg/dl (1.8-2.4); POTASSIUM 4.3 mmol/L (3.5-5.1); SODIUM 142 mmol/L (136-145)
--- NOTE | 2017-01-20 12:39 | DIAGNOSTIC IMAGING REPORT ---
RIGHT HIP UNILATERAL 2 VIEWS CLINICAL HISTORY: HIP PAIN R Right COMPARISON: None. DISCUSSION: Mild/moderate degenerative change right hip. No evidence for acetabular protrusion. Main osseous structures are unremarkable. There is no evidence for soft tissue swelling. IMPRESSION: Mild degenerative change. No acute process. Instill note is made of a punctate calcification lateral right soft tissue pelvis. This may be vascular, although a distal right ureteral calculus is not excluded Electronically signed by: Ke Hdz M.D. 01/20/2017 12:38 PM Dictated Date/Time: 01/20/2017 12:37 PM
[2017-01-20 12:43] LABS: ALB/GLOB RATIO 0.9 (0.9-2); ALKALINE PHOSPHATASE 155 U/L (45-117); CHOLESTEROL 156 mg/dl (0-200); CHOLESTEROL/HDL RATIO 2.9; HDL CHOLESTEROL 53 mg/dl; LDL CHOLESTEROL CALCULATED 66 mg/dl; TRIGLYCERIDES 185 mg/dl (0-150); VERY LOW DENSITY LIPOPROT CALC 37 mg/dl
== END | disposition home or self-care (01) ==
LOC: C.LABPVFM 10:07
PROVIDERS: ATTEND Family Medicine
DX: M25.559 Pain in unspecified hip (principal); I48.92 Unspecified atrial flutter; I48.91 Unspecified atrial fibrillation; R06.00 Dyspnea, unspecified; R42 Dizziness and giddiness; R74.8 Abnormal levels of other serum enzymes; E03.9 Hypothyroidism, unspecified

== ENCOUNTER 2017-02-26 02:45 | Emergency (ER) | payer OTHER, BC ==
[~2017-02-26] VITALS: Ht 170.2 cm; Wt 78.6 kg
[~2017-02-26 02:45] MED LIST changes: -ACET-1175 PO; -CEPH-571 PO; -CEPH500C2 PO; -DLC5 PO; -FRRG PO; -KFL500 PO; -LPT/20 PO; -LVNIS40 SQ; -LVNIS80 SQ; -LXP10 PO; -METO100T14 PO; -METO100T44 PO; -MRLP17 PO; -MRLP17X PO; -PLV75 PO; -RXC5 PO; -TPRSR/100 PO; -ULT50X PO; -VLTG EXT; -WARF4TAB43 PO; -ZFRI4 IV
[2017-02-26 02:55] VITALS: TEMP 36.6; Ht 170.2 cm; Wt 78.6 kg
[2017-02-26] MEDS ORDERED: PLV75 PO (03:07)
[2017-02-26] MEDS ORDERED: LPT/20 PO (03:07)
[2017-02-26] MEDS ORDERED: WARF4TAB43 PO (03:09)
--- NOTE | 2017-02-26 03:12 | EMERGENCY ROOM VISIT NOTE ---
History Report prepared by Ginny: Parrish Vasquez Under the Supervision of: Dr. Sandrine Melgar D.O. First contact with patient: 02:48 Chief Complaint: FALL Stated Complaint: FALL History of Present Illness The patient is a 81 year old female who presents to the Emergency Room via EMS with complaints of right sided head injury secondary to a fall occurring about 2 hours ago. She was at baseline earlier today. The patient got up from a chair when she tripped over and fell onto an end table. She complains of a large hematoma and laceration on the right side of the forehead. She also reports nose pain. She currently rates a pain intensity of 6/10. The patient denies loss of consciousness, dizziness, chest pain, shortness of breath, nausea, abdominal pain, back pain, upper/lower extremity pain, or any other complaints. She is on Plavix for a history of a stroke. She is also on Coumadin for a history of valve replacement. The patient's last INR level was 2.3. Source of History: patient Onset: about 2 hours ago Position: head (right sided) Symptom Intensity: 6/10 Quality: other (hematoma and laceration) Associated Symptoms: No LOC, No chest pain, No SOB, No nausea, No abdominal pain, No back pain Review of Systems See HPI for pertinent positives & negatives. A total of 10 systems reviewed and were otherwise negative. Past Medical & Surgical Medical Problems: (1) Atrial Fibrillation (2) Cerebrovascular accident (CVA) (3) Chronic atrial fibrillation with RVR (4) Congestive Heart Failure Nos (5) Demand ischemia of myocardium (6) Hyperlipidemia Nec/Nos (7) Hypertension Nos (8) TIA (transient ischemic attack) Surgical Problems: (1) Mitral valve replaced (2) Status post heart valve replacement with mechanical valve Family History FHx: heart disease Social History Smoking Status: Never Smoker Alcohol Use: none Drug Use: none Marital Status: Housing Status: lives with family Occupation Status: retired Current/Historical Medications Scheduled Atorvastatin (Atorvastatin Calcium), 20 MG PO DAILY B Complex W/ C (Vitamin B Complex-C), 1 TAB PO DAILY Cephalexin (Keflex), 1 CAP PO TID Clopidogrel Bisulfate (Clopidogrel), 75 MG PO DAILY Digoxin (Digoxin), 0.125 MG PO DAILY@16 Levothyroxine Sodium (Levothyroxine Sodium), 50 MCG PO DAILY Lisinopril (Prinivil), 5 MG PO BID Melatonin (Kp Melatonin), 1 TAB PO HS Metoprolol Tartrate (Metoprolol Tartrate), 100 MG PO BID Polyethylene Glycol-Propylene (Systane), 1 DROPS OP prn Triamterene/Hctz (Dyazide 37.5MG/25MG), 1 TAB PO 2XWK Warfarin Sodium (Warfarin Sodium), 2-4 MG PO UD Allergies Coded Allergies: Codeine (Verified Allergy, Intermediate, RASH, 02/26/17) Physical Exam Vital Signs Date Time Temp Pulse Resp B/P (MAP) Pulse Ox O2 Delivery O2 Flow Rate FiO2 02/26/17 06:22 144/61 02/26/17 06:07 60 02/26/17 06:06 61 13 95 Room Air 02/26/17 06:00 144/61 02/26/17 05:36 59 14 95 Room Air 02/26/17 05:31 144/75 02/26/17 05:30 60 15 94 Room Air 02/26/17 05:01 64 18 160/84 94 Room Air 02/26/17 02:58 64 02/26/17 02:55 36.6 68 18 169/81 97 Room Air Physical Exam General: Alert, oriented, and easily following commands. HEENT: Head - normocephalic. Very large hematoma over the right eye with a 3 cm laceration to the forehead. Left pupil reactive to light, could not pry open the right eye. Nose - moist nasal mucosa without evidence of trauma or discharge. Mouth - moist buccal mucosa with no trauma to the teeth or signs of malocclusion. Neck: The neck is supple and there is no pain to palpation over the posterior cervical spine and no obvious step-offs or deformities. There is no JVD or tracheal deviation. Chest: There are no signs of deformities, contusions or abrasions to the chest wall. There is no obvious crepitus or paradoxical chest rise. Heart: Regular, rate, and rhythm. There is a normal S1 and S2 with no murmurs, clicks, or gallops appreciated. Lungs: Clear to auscultation bilaterally with no wheezes, rales, or rhonchi. Abdomen: Soft, completely nontender, nondistended, with good bowel sounds. There is no sign of trauma such as contusions, abrasions or penetrations. There are no palpable pulsatile masses or hepatosplenomegaly. There is no guarding, rigidity, or rebound noted. Pelvis: Stable to rock and compression. Extremities: The patient has contusions noted to both forearms and elbows. Neuro: The patient is awake and alert and easily able to follow commands. Muscle strength is 5 out of 5 in all 4 extremities. Otherwise, neuro exam is unremarkable. GCS: 15. Back: The entire thoracic, lumbar, and sacral spine were palpated. There are no obvious step-offs or deformities noted. There are no obvious signs of trauma such as contusions abrasions penetrations noted to the back. Medical Decision & Procedures ER Provider Diagnostic Interpretation: CT results as stated below per my review and radiologist interpretation: CT C SPINE No evidence of acute fracture or subluxation. Radiologist: Bobbi Deluca MD CT HEAD Compared to CT head 12/29/2016 No ICH, mass effect or edema. No skull fracture. Radiologist: Bobbi Deluca MD CT FACIAL Bilateral nasal bone fractures. Possible fracture of the nasal septum. Mild sinus disease. Radiologist: Bobbi Deluca MD Laboratory Results 02/26/17 03:20 02/26/17 03:20 Test 02/26/17 03:20 Red Blood Count 4.16 M/uL (4.2-5.4) Mean Corpuscular Volume 90.6 fL (80-100) Mean Corpuscular Hemoglobin 28.4 pg (25-34) Mean Corpuscular Hemoglobin Concent 31.3 g/dl (32-36) RDW Standard Deviation 49.2 fL (36.4-46.3) RDW Coefficient of Variation 14.8 % (11.5-14.5) Mean Platelet Volume 13.3 fL (7.4-10.4) Prothrombin Time 32.0 SECONDS (9.0-12.0) Prothromb Time International Ratio 2.9 (0.9-1.1) Activated Partial Thromboplast Time 38.7 SECONDS (21.0-31.0) Partial Thromboplastin Ratio 1.5 Anion Gap 9.0 mmol/L (3-11) Est Creatinine Clear Calc Drug Dose 36.7 ml/min Estimated GFR () 44.6 Estimated GFR (Non- 38.4 BUN/Creatinine Ratio 20.2 (10-20) Calcium Level 8.9 mg/dl (8.5-10.1) Laboratory results per my review. Medications Administered Medications (Trade) Dose Ordered Sig/Elsi Route Start Time Stop Time Status Last Admin Dose Admin Ondansetron HCl (Zofran Inj) 4 mg NOW STAT IV 02/26/17 04:02 02/26/17 04:04 DC 02/26/17 04:02 4 MG Fentanyl Citrate (Fentanyl Inj) 50 mcg NOW STAT IV 02/26/17 04:54 02/26/17 04:55 DC 02/26/17 04:58 50 MCG Sodium Chloride 500 ml @ 999 mls/hr Q31M STAT IV 02/26/17 05:16 02/26/17 05:46 DC 02/26/17 05:16 999 MLS/HR Cephalexin Monohydrate (Keflex Cap) 500 mg NOW ONCE PO 02/26/17 06:00 02/26/17 06:03 DC 02/26/17 06:00 500 MG Procedure Zofran Inj 4 mg IV, Fentanyl Inj 50 mcg IV, Sodium Chloride 500 ml @ 999 mls/hr IV, Keflex Cap 500 mg PO ECG Indication: other (Fall) Rate (beats per minute): 65 Rhythm: normal sinus Findings: 1st degree AV block, LBBB Comparison ECG Date: October 29, 2016 Change: no significant change ED Course 0248: Past medical records reviewed. The patient was evaluated in room B06. A complete history and physical exam was performed. A trauma evaluation was performed. The patient will go for CT scan of her brain, cervical spine, and facial bones. 0400: I reevaluated the patient. She is complaining of nausea and pain. 0402: Zofran Inj 4 mg IV 0454: Fentanyl Inj 50 mcg IV 0516: Sodium Chloride 500 ml @ 999 mls/hr IV 0518: Laceration repair was performed by Isabel Matias PA-C. Refer to her procedure note for further details. 0600: Keflex Cap 500 mg PO. Upon reevaluation, the patient is resting comfortably. I discussed findings and results with her. She verbalized agreement of the treatment plan. She was discharged home. Medical Decision The patient presents to the Emergency Room with complaints of a head injury. Differential diagnosis includes but is not limited to orbital fracture, skull fracture, intracranial hemorrhage, facial hematoma, facial laceration, C-spine fracture. Her labs showed no leucocytosis, mild anemia with hemoglobin of 11.8, INR of 2.9, normal white count, BUN 26, creatinine 1.3, glucose 122. I attest that I have personally reviewed the patient's current medication list. Blood Pressure Screening: Patient was found to have a slightly elevated blood pressure due to circumstances. I do not believe that the patient requires hypertension monitoring. The patient suffered a mechanical fall this morning striking her right face on a table. The patient had no loss of consciousness. She was able to press a medic alert button. She was transported here by EMS. She has a large hematoma to the right side of her forehead and eye. Ice was applied to this. She went for CT scan of her brain, facial bones, and cervical spine as described above. The wound was repaired and the patient was given an oral dose of Keflex. She was encouraged to rest with her head elevated and apply ice to her forehead. The sutures will need removed in 5-7 days. I've asked her to skip her Coumadin dose this morning. The patient will be started on Keflex 3 times a day. I've encouraged her to follow-up with facial surgery. Impression Primary Impression: Nasal bone fracture Additional Impressions: Facial laceration Fall Scribe Attestation The scribe's documentation has been prepared under my direction and personally reviewed by me in its entirety. I confirm that the note above accurately reflects all work, treatment, procedures, and medical decision making performed by me. Departure Information Dispostion Home / Self-Care Prescriptions Cephalexin (KEFLEX) 500 Mg Cap 1 CAP PO TID for 7 Days, #21 CAP Prov: Sandrine Melgar D.O. 02/26/17 Referrals Mary Hardwick M.D. (PCP) Forms HOME CARE DOCUMENTATION FORM, IMPORTANT VISIT INFORMATION Patient Instructions Falls Preventing, Falls Risks Prevent, My [facility] Additional Instructions Rest with your head elevated. Have the sutures removed in 5-7 days. Follow-up with facial surgery. Keflex -1 tab every 8 hours. Use tylenol for pain Ice to the face. Problem Qualifiers Primary Impression: Nasal bone fracture Encounter type: initial encounter Fracture type: closed Qualified Codes: S02.2XXA - Fracture of nasal bones, initial encounter for closed fracture Additional Impressions: Facial laceration Encounter type: initial encounter Qualified Codes: S01.81XA - Laceration without foreign body of other part of head, initial encounter
[2017-02-26] MEDS ORDERED: ONDANSETRON INJ 2 MG/ML 2 ML VIAL IV STA (04:02)
[2017-02-26 04:31] LABS: HEMATOCRIT 37.7 % (37-47); MEAN CELL VOLUME 90.6 fL (80-100); MEAN CORPUSCULAR HEMOGLOBIN 28.4 pg (25-34); MEAN CORPUSCULAR HGB CONC 31.3 g/dl (32-36); MEAN PLATELET VOLUME 13.3 fL (7.4-10.4); PLATELET COUNT 164 K/uL (130-400); RED BLOOD COUNT 4.16 M/uL (4.2-5.4); WHITE BLOOD COUNT 9.13 K/uL (4.8-10.8)
[2017-02-26 04:39] LABS: INR 2.9 (0.9-1.1); PARTIAL THROMBOPLASTIN RATIO 1.5
[2017-02-26] MEDS ORDERED: FENTANYL CITRATE INJ 50 MCG/1 ML 2 ML VIAL IV STA (04:54)
[2017-02-26] MEDS ORDERED: LIDOCAINE/EPINEPHRINE 1% 20 ML VIAL INFIL ONE (05:00)
[2017-02-26 05:02] LABS: BUN/CREATININE RATIO 20.2 (10-20); CALCIUM 8.9 mg/dl (8.5-10.1); CREATININE 1.3 mg/dl (0.60-1.20)
[2017-02-26] MEDS ORDERED: SODIUM CHLORIDE 0.9% 500ML 500 ML IV STA (05:16)
--- NOTE | 2017-02-26 05:49 | EMERGENCY ROOM VISIT NOTE ---
ED Visit Note I was asked by Dr. Melgar to perform laceration repair on this patient. Exam reveals a 3 cm curvilinear laceration to the right forehead. There is a small amount of active bleeding from a small vessel in the middle of the wound. Verbal consent was obtained to perform the procedure. Using sterile technique the wound was cleaned with Betadine. The area was sterilely draped. 2 ml of 1 % buffered lidocaine with epinephrine was used to anesthetize the laceration. Once the patient was anesthetized, the wound was copiously irrigated under pressure with sterile saline. The wound was explored and there were no deep structures injured such as tendons, bone, or significant blood vessels. The laceration was repaired using 7 simple interrupted 5-0 nylon sutures with the wound edges being well approximated. The patient tolerated the procedure well. Hemostasis was achieved. The area was cleaned with sterile saline and dressed with bacitracin ointment.
[2017-02-26] MEDS ORDERED: CEPHALEXIN MONOHYDRATE 250 MG CAP PO ONE (06:00)
[2017-02-26 06:06] VITALS: O2SAT 95
[2017-02-26 06:07] VITALS: PULSE 60
[2017-02-26] MEDS ORDERED: CEPH-571 PO (06:08)
[2017-02-26 06:22] VITALS: BP 144/61
--- NOTE | 2017-02-26 07:02 | DIAGNOSTIC IMAGING REPORT ---
MAXILLOFACIAL CT CT DOSE: HISTORY: Trauma. Pain. eval for trauma - fall TECHNIQUE: Multiaxial CT images of the maxillofacial region were performed and reformatted in the coronal plane without the use of contrast. COMPARISON: None. FINDINGS: Considerable prefrontal soft tissue edema. Right preorbital soft tissue edema. Nondisplaced fracture nasal bones. Considerable edematous change nasal turbinates. The orbital margins appear to be intact. The orbital floor and infraorbital margins are intact. IMPRESSION: 1. Fracture nasal bones. 2. Considerable soft tissue edema. 3. No additional fracture. Electronically signed by: Ke Hdz M.D. 02/26/2017 7:01 AM Dictated Date/Time: 02/26/2017 6:58 AM
--- NOTE | 2017-02-26 07:05 | DIAGNOSTIC IMAGING REPORT ---
HEAD CT NONCONTRAST CT DOSE: 952.60 mGy.cm HISTORY: Trauma eval for trauma - fall TECHNIQUE: Multiaxial CT images of the head were performed without the use of intravenous contrast. Comparison: None. Findings: Fracture nasal bones. Considerable prefrontal and right periorbital soft tissue edema. The calvarium and skull base are intact. The ventricles and sulci are within normal limits. There is no mass, hematoma, midline shift, or acute infarct. Impression: No acute intracranial abnormality. Fracture nasal bones. Extracranial soft tissue edema Electronically signed by: Ke Hdz M.D. 02/26/2017 7:04 AM Dictated Date/Time: 02/26/2017 7:03 AM
--- NOTE | 2017-02-26 07:13 | DIAGNOSTIC IMAGING REPORT ---
CERVICAL SPINE CT CT DOSE: HISTORY: Neck pain. eval for trauma - fall TECHNIQUE: Multiaxial CT images of the cervical spine were performed and reformatted in the sagittal and coronal plane without the use of contrast. COMPARISON: None. FINDINGS: No fractures. No subluxation. Prevertebral soft tissues and the C1-C2 interval are intact. No pneumothorax. IMPRESSION: No fractures within the cervical spine. Electronically signed by: Tony Medina M.D. 02/26/2017 7:12 AM Dictated Date/Time: 02/26/2017 7:09 AM
[2017-03-16] MEDS ORDERED: METO100T44 PO (09:30)
[2017-07-31] MEDS ORDERED: RXC5 PO (09:03)
[2017-07-31] MEDS ORDERED: LVNIS80 SQ (09:03)
[2017-07-31] MEDS ORDERED: ULT50X PO (09:03)
[2017-07-31] MEDS ORDERED: VLTG EXT (09:03)
[2017-07-31] MEDS ORDERED: KFL500 PO (09:03)
== END 2017-02-26 06:36 | disposition home or self-care (01) ==
LOC: EDBD 02:45 → C.EDB 02:47
DX: S02.2XXA Fracture of nasal bones, initial encounter for closed fracture (principal); S01.81XA Laceration without foreign body of other part of head, initial encounter; W18.09XA Striking against other object with subsequent fall, initial encounter; Z79.01 Long term (current) use of anticoagulants; Z86.73 Personal history of transient ischemic attack (TIA), and cerebral infarction without residual deficits; Z95.2 Presence of prosthetic heart valve; I48.2 Chronic atrial fibrillation; I50.9 Heart failure, unspecified; E78.5 Hyperlipidemia, unspecified; I10 Essential (primary) hypertension; Z79.899 Other long term (current) drug therapy; D64.9 Anemia, unspecified

== ENCOUNTER 2017-03-05 14:50 | Inpatient (IN) | payer OTHER, BC ==
[~2017-03-05] VITALS: Ht 170.2 cm; Wt 69.7 kg
[~2017-03-05 14:50] MED LIST changes: +CEPH-571 PO; +LPT/20 PO; -LPT40 PO; +PLV75 PO; -WARF1TAB6 PO; -WARF2TAB8 PO; +WARF4TAB43 PO
[2017-03-05] MEDS: SODIUM CHLORIDE 0.9% 1000ML 1,000 ML IV SCH ×2 (15:06→19:20)
--- NOTE | 2017-03-05 15:28 | DIAGNOSTIC IMAGING REPORT ---
CT SCAN OF THE BRAIN WITHOUT IV CONTRAST CLINICAL HISTORY: Strokelike symptoms. COMPARISON STUDY: CT of the brain dated 02/26/2017. TECHNIQUE: Unenhanced axial CT scan of the brain is performed from the vertex to the skull base. CT DOSE: 537.48 mGy.cm FINDINGS: Brain parenchyma: There are age-related involutional changes noting mild to moderate subcortical and periventricular microangiopathic change. There is asymmetrically increased cerebellar atrophy. A chronic lacunar infarct is seen in the left cerebellar hemisphere. There is no hemorrhage, mass effect, or evidence of acute territorial ischemia by CT criteria. Vazquez-white matter is preserved. No extra-axial fluid collection is seen. Ventricles, sulci, cisterns: Prominent secondary to involutional change. Intracranial vasculature: There is atherosclerotic calcification of the cavernous carotid arteries. Calvarium: The skeletal structures osteopenic. There is no depressed femoral fracture. Soft tissues: A frontal scalp hematoma is again seen. This is decreased in size from 02/26/2017. Sinuses and mastoids: The visualized paranasal sinuses are clear. The mastoid air cells are well pneumatized. Orbits: The bony orbits are grossly intact. IMPRESSION: There is no hemorrhage, mass effect, or evidence of acute territorial ischemia by CT criteria. Electronically signed by: Eric Ross M.D. 03/05/2017 3:26 PM Dictated Date/Time: 03/05/2017 3:22 PM
--- NOTE | 2017-03-05 15:29 | DIAGNOSTIC IMAGING REPORT ---
MAXILLOFACIAL CT CT DOSE: 602.21 mGy.cm HISTORY: Trauma. Pain. TECHNIQUE: Multiaxial CT images of the maxillofacial region were performed and reformatted in the coronal plane without the use of contrast. COMPARISON: 02/26/2017 FINDINGS: Moderate right prefrontal soft tissue edema. This is improved in the prior exam. Orbital margins are intact. Globes are symmetric. Orbital floors are intact. Segment courses appear unremarkable. Nondisplaced fractures of the nasal bones are present. Minimal scattered mucosal thickening in the maxillary sinuses. Orbital floors as well as orbital margins appear to be intact. IMPRESSION: 1. Moderate right prefrontal soft tissue edema slightly improved in the prior exam.. 2. No additional acute bony abnormality. 3. Nonspecific fractures of the nasal bones unchanged in the prior study. Electronically signed by: Ke Hdz M.D. 03/05/2017 3:28 PM Dictated Date/Time: 03/05/2017 3:23 PM
[2017-03-05] MEDS ORDERED: CEPH500C2 PO (15:41)
[2017-03-05] MEDS ORDERED: METO100T14 PO (15:41)
[2017-03-05] MEDS ORDERED: LNX125 PO (15:41)
[2017-03-05] MEDS ORDERED: ACET-1175 PO (15:41)
[2017-03-05 15:49] LABS: BASO % 0.2 %; BASO ABS # 0.02 K/uL (0-0.2); COMPLETE YES; EOS % 0.7 %; HEMATOCRIT 36.5 % (37-47); IG% 0.2 %; LYMPH % 13.7 %; LYMPH ABS # 1.16 K/uL (1.2-3.4); MEAN CELL VOLUME 89.7 fL (80-100); MEAN CORPUSCULAR HEMOGLOBIN 28.7 pg (25-34); MEAN CORPUSCULAR HGB CONC 32.1 g/dl (32-36); MEAN PLATELET VOLUME 12.8 fL (7.4-10.4); MONO % 7.1 %; NEUT % 78.1 %; PLATELET COUNT 171 K/uL (130-400); RED BLOOD COUNT 4.07 M/uL (4.2-5.4); WHITE BLOOD COUNT 8.47 K/uL (4.8-10.8)
--- NOTE | 2017-03-05 15:55 | DIAGNOSTIC IMAGING REPORT ---
CHEST ONE VIEW PORTABLE CLINICAL HISTORY: Stroke mental status change COMPARISON STUDY: 10/23/2016 FINDINGS: Mild stable cardiomegaly. Slight chronic hilar fullness. Prior median sternotomy. Lungs are clear. IMPRESSION: Chronic and postoperative change. No acute process. Electronically signed by: Ke Hdz M.D. 03/05/2017 3:53 PM Dictated Date/Time: 03/05/2017 3:53 PM
[2017-03-05 16:00] LABS: INR 2.7 (0.9-1.1); PARTIAL THROMBOPLASTIN RATIO 1.4; PROTHROMBIN TIME (PATIENT) 30.5 SECONDS (9.0-12.0)
[2017-03-05 16:36] LABS: POTASSIUM 4.1 mmol/L (3.5-5.1)
[2017-03-05 16:55] LABS: CALCIUM 9.5 mg/dl (8.5-10.1); CREATININE 1.2 mg/dl (0.60-1.20)
--- NOTE | 2017-03-05 17:00 | EMERGENCY ROOM VISIT NOTE ---
History Report prepared by Ginny: Greta Valdez Under the Supervision of: Dr. Eddie Ni D.O. First contact with patient: 14:55 Chief Complaint: CVA SYMPTOMS Stated Complaint: POSS. STROKE History of Present Illness The patient is an 81 year old female who presents to the Emergency Room with complaints of constant generalized weakness beginning 3 hours ago at 12pm. The patient states that she was taking a shower today when she began to have double vision and was seeing two things next to each other. She reports that closing one eye improves her double vision and she notes that she still has the double vision now if both of her eyes are open. The patient states that she has had double vision before when she had a TIA. She notes that her symptoms today feel similar to her TIA symptoms and she also notes a history of CVA and reports that she had left sided weakness. The patient complains of blurry vision, difficulty looking to the left, and left arm weakness that is new. She denies any numbness in the arms or legs, trouble speaking, fall, chest pain, shortness of breath, hip pain, knee pain, ankle pain, nausea, vomiting, and diarrhea. The patient reports that she fell 1 week ago and was seen here at the ED. She notes that since her fall she has been doing okay. She notes that after her previous stroke she had rehab and was back to normal with resolution of her symptoms. The patient reports a history of atrial fibrillation and artificial heart valves. She notes that she is on Warfarin and Plavix. The patient's son and law reports that prior to today the patient had no weakness and was able to look in all directions. Source of History: patient, family Onset: 3 hours ago Position: other (global) Quality: other (weakness) Timing: constant Modifying Factors (Relieving): other (closing one eye) Associated Symptoms: + weakness, No chest pain, No SOB, No nausea, No vomiting, No diarrhea, No numbness Note: The patient complains of blurry vision, difficulty looking to the left, and left arm weakness. She denies any trouble speaking, fall, hip pain, knee pain, ankle pain. Review of Systems See HPI for pertinent positives & negatives. A total of 10 systems reviewed and were otherwise negative. Past Medical & Surgical Medical Problems: (1) Atrial Fibrillation (2) Cerebrovascular accident (CVA) (3) Chronic atrial fibrillation with RVR (4) Congestive Heart Failure Nos (5) Demand ischemia of myocardium (6) Diplopia (7) Hyperlipidemia Nec/Nos (8) Hypertension Nos (9) Stroke-like symptoms (10) TIA (transient ischemic attack) Surgical Problems: (1) Mitral valve replaced (2) Status post heart valve replacement with mechanical valve Family History FHx: heart disease Social History Smoking Status: Never Smoker Alcohol Use: none Drug Use: none Marital Status: Housing Status: lives with family Occupation Status: retired Current/Historical Medications Scheduled Atorvastatin (Atorvastatin Calcium), 20 MG PO DAILY B Complex W/ C (Vitamin B Complex-C), 1 TAB PO DAILY Cephalexin Monohydrate (Keflex), 500 MG PO TID Clopidogrel Bisulfate (Clopidogrel), 75 MG PO DAILY Digoxin (Digoxin), 0.125 MG PO Q2D AT 1600 Levothyroxine Sodium (Levothyroxine Sodium), 50 MCG PO QAM Lisinopril (Prinivil), 5 MG PO BID Melatonin (Kp Melatonin), 1 TAB PO HS Metoprolol Tartrate (Lopressor) (Lopressor), 100 MG PO BID Polyethylene Glycol-Propylene (Systane), 1 DROPS OP prn Triamterene/Hctz (Dyazide 37.5MG/25MG), 1 TAB PO 2XWK Warfarin Sodium (Warfarin Sodium), 2 MG PO DAILY Scheduled PRN Acetaminophen (Tylenol), 650 MG PO DIRECTED PRN for Pain or Fever Allergies Coded Allergies: Codeine (Verified Allergy, Intermediate, RASH, 03/05/17) Physical Exam Vital Signs Date Time Temp Pulse Resp B/P (MAP) Pulse Ox O2 Delivery O2 Flow Rate FiO2 03/05/17 17:35 92 16 140/83 95 Room Air 03/05/17 16:54 92 16 150/96 97 Room Air 03/05/17 16:16 76 16 141/119 98 Room Air 03/05/17 15:49 98 Room Air 03/05/17 15:24 96 03/05/17 15:18 37.1 92 18 155/108 98 Room Air Physical Exam GENERAL: Sitting up in bed, disheveled, ill appearing HEAD: Diffuse bruising over forehead, bilateral eyes, healing laceration above right orbit EYE EXAM: normal conjunctiva, PERRL and unable to gaze to the left OROPHARYNX: no exudate, no erythema, lips, buccal mucosa, and tongue normal and mucous membranes are moist NECK: supple, no nuchal rigidity, no adenopathy, non-tender CHEST: Stable to compression anterior and posteriorly LUNGS: Clear to auscultation. Normal chest wall mechanics HEART: systolic ejection murmur with audible click, S1 normal and S2 normal ABDOMEN: abdomen soft, non-tender, normo-active bowel sounds, no masses, no rebound or guarding. BACK: Back is symmetrical on inspection and there is no deformity, no midline tenderness, no CVA tenderness. PELVIS: Stable to compression anterior and posteriorly SKIN: no rashes and no bruising UPPER EXTREMITIES: upper extremities are grossly normal. LOWER EXTREMITIES: Bruising on both knees full active and passive ROM without tenderness NEURO EXAM: Normal sensorium, cranial nerves II-XII intact with the exception of unable to gaze to the left, normal speech, LUE is weaker than the right with grasp and flexion and extension of the elbow. Lower extremities have no weakness. Medical Decision & Procedures ER Provider Diagnostic Interpretation: Radiology results as stated below per my review and the radiologist's interpretation: CT SCAN OF THE BRAIN WITHOUT IV CONTRAST FINDINGS: Brain parenchyma: There are age-related involutional changes noting mild to moderate subcortical and periventricular microangiopathic change. There is asymmetrically increased cerebellar atrophy. A chronic lacunar infarct is seen in the left cerebellar hemisphere. There is no hemorrhage, mass effect, or evidence of acute territorial ischemia by CT criteria. Vazquez-white matter is preserved. No extra-axial fluid collection is seen. Ventricles, sulci, cisterns: Prominent secondary to involutional change. Intracranial vasculature: There is atherosclerotic calcification of the cavernous carotid arteries. Calvarium: The skeletal structures osteopenic. There is no depressed femoral fracture. Soft tissues: A frontal scalp hematoma is again seen. This is decreased in size from 02/26/2017. Sinuses and mastoids: The visualized paranasal sinuses are clear. The mastoid air cells are well pneumatized. Orbits: The bony orbits are grossly intact. IMPRESSION: There is no hemorrhage, mass effect, or evidence of acute territorial ischemia by CT criteria. Electronically signed by: Eric Ross M.D. 03/05/2017 3:26 PM Dictated Date/Time: 03/05/2017 3:[address] FINDINGS: Moderate right prefrontal soft tissue edema. This is improved in the prior exam. Orbital margins are intact. Globes are symmetric. Orbital floors are intact. Segment courses appear unremarkable. Nondisplaced fractures of the nasal bones are present. Minimal scattered mucosal thickening in the maxillary sinuses. Orbital floors as well as orbital margins appear to be intact. IMPRESSION: 1. Moderate right prefrontal soft tissue edema slightly improved in the prior exam.. 2. No additional acute bony abnormality. 3. Nonspecific fractures of the nasal bones unchanged in the prior study. Electronically signed by: Ke Hdz M.D. 03/05/2017 3:28 PM Dictated Date/Time: 03/05/2017 3:23 PM CHEST ONE VIEW PORTABLE FINDINGS: Mild stable cardiomegaly. Slight chronic hilar fullness. Prior median sternotomy. Lungs are clear. IMPRESSION: Chronic and postoperative change. No acute process. Electronically signed by: Ke Hdz M.D. 03/05/2017 3:53 PM Dictated Date/Time: 03/05/2017 3:53 PM Laboratory Results 03/05/17 15:31 Red Blood Count 4.07, Mean Corpuscular Volume 89.7, Mean Corpuscular Hemoglobin 28.7, Mean Corpuscular Hemoglobin Concent 32.1, Mean Platelet Volume 12.8, Neutrophils (%) (Auto) 78.1, Lymphocytes (%) (Auto) 13.7, Monocytes (%) (Auto) 7.1, Eosinophils (%) (Auto) 0.7, Basophils (%) (Auto) 0.2, Neutrophils # (Auto) 6.61, Lymphocytes # (Auto) 1.16, Monocytes # (Auto) 0.60, Eosinophils # (Auto) 0.06, Basophils # (Auto) 0.02 03/05/17 15:31 Test 03/05/17 15:08 03/05/17 15:31 03/05/17 15:34 Bedside Prothrombin Time INR 3.2 (0.9-1.1) White Blood Count 8.47 K/uL (4.8-10.8) Red Blood Count 4.07 M/uL (4.2-5.4) Hemoglobin 11.7 g/dL (12.0-16.0) Hematocrit 36.5 % (37-47) Mean Corpuscular Volume 89.7 fL (80-100) Mean Corpuscular Hemoglobin 28.7 pg (25-34) Mean Corpuscular Hemoglobin Concent 32.1 g/dl (32-36) Platelet Count 171 K/uL (130-400) Mean Platelet Volume 12.8 fL (7.4-10.4) Neutrophils (%) (Auto) 78.1 % Lymphocytes (%) (Auto) 13.7 % Monocytes (%) (Auto) 7.1 % Eosinophils (%) (Auto) 0.7 % Basophils (%) (Auto) 0.2 % Neutrophils # (Auto) 6.61 K/uL (1.4-6.5) Lymphocytes # (Auto) 1.16 K/uL (1.2-3.4) Monocytes # (Auto) 0.60 K/uL (0.11-0.59) Eosinophils # (Auto) 0.06 K/uL (0-0.5) Basophils # (Auto) 0.02 K/uL (0-0.2) RDW Standard Deviation 48.9 fL (36.4-46.3) RDW Coefficient of Variation 15.0 % (11.5-14.5) Immature Granulocyte % (Auto) 0.2 % Immature Granulocyte # (Auto) 0.02 K/uL (0.00-0.02) Prothrombin Time 30.5 SECONDS (9.0-12.0) Prothromb Time International Ratio 2.7 (0.9-1.1) Activated Partial Thromboplast Time 36.7 SECONDS (21.0-31.0) Partial Thromboplastin Ratio 1.4 Anion Gap 10.0 mmol/L (3-11) Est Creatinine Clear Calc Drug Dose 38.9 ml/min Estimated GFR () 49.1 Estimated GFR (Non- 42.4 BUN/Creatinine Ratio 14.9 (10-20) Calcium Level 9.5 mg/dl (8.5-10.1) Total Bilirubin 0.6 mg/dl (0.2-1) Direct Bilirubin 0.2 mg/dl (0-0.2) Aspartate Amino Transf (AST/SGOT) 38 U/L (15-37) Alanine Aminotransferase (ALT/SGPT) 26 U/L (12-78) Alkaline Phosphatase 138 U/L (45-117) Total Creatine Kinase 75 U/L (26-192) Creatine Kinase MB 2.0 ng/ml (0.5-3.6) Creatine Kinase MB Ratio 2.7 (0-3.0) Troponin I 0.355 ng/ml (0-0.045) Total Protein 7.2 gm/dl (6.4-8.2) Albumin 3.7 gm/dl (3.4-5.0) Lipase 232 U/L (73-393) Digoxin Level 0.8 ng/ml (0.8-2.0) Bedside Glucose 101 mg/dl (70-90) Laboratory results per my review. Medications Administered Medications (Trade) Dose Ordered Sig/Elsi Route Start Time Stop Time Status Last Admin Dose Admin Sodium Chloride 1,000 ml @ 50 mls/hr Q20H IV 03/05/17 15:06 03/05/17 19:50 DC 03/05/17 19:20 50 MLS/HR ECG Indication: weakness Rate (beats per minute): 100 Rhythm: atrial fibrillation (RVR) Findings: LBBB, ST depression (Lateral and inferior), other (normal axis) Comparison ECG Date: 26-FEB-2017 Change: Increased ST depressions. ED Course ED COURSE: Vital signs were reviewed and showed hypertensive The patients medical record was reviewed The above diagnostic studies were performed and reviewed. ED treatments and interventions as stated above. 1455: The patient was evaluated in room A3. A complete history and physical examination was performed. 1502: The patient's INR is 2.2. 1506: Sodium Chloride 1000 ml @ 50 mls/hr IV. 1548: I reevaluated the patient and updated her family. 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 1645: I reevaluated the patient and updated the family. 1649: I reviewed the patient's case [place] Villa [place] [facility] [place] will evaluate the patient for further management. 1654: Upon reevaluation, the patient is doing well. I discussed my findings with the patient and she understands and agrees with the treatment plan. Based on the patients age, coexisting illnesses, exam and lab findings the decision to treat as an inpatient was made. The patient remained stable while under my care. The patient will be evaluated for further management. Medical Decision Differential Diagnosis includes but is not limited to ischemic Stroke, hemorrhagic stroke, bells palsy, mass, neoplasm, migraine headache, seizure, subarachnoid hemorrhage, TIA, and transient global amnesia. Blood pressure screening: Patient was found to have an elevated blood pressure was admitted to internal medicine Medication Reconciliation: I attest that I have personally reviewed the patient' s current medication list. Patient is an 81-year-old female who presents the ER for double vision and diffuse weakness associated with weakness of her left upper extremity which started around 12 PM today. She presented at 3 PM. She does take Coumadin and Plavix. INR was therapeutic at 3 as she has a past medical history of multiple CVAs, chronic A. fib and a mechanical aortic valve. With this result stroke alert was not called. She was taken to CT of the head and face show no acute pathology. Extensive bruising of the face secondary to fall last week. EKG does show ST changes. Patient denies chest pain/shortness of breath. Labs remarkable for elevated troponin at 0.355 which consistent with her previous troponins. INR was therapeutic. Patient was updated bedside admitted to internal medicine for stroke. Consults Time Called: 1644 Consulting Physician: Dr. Villa AGUIRRE Returned Call: 1648 I reviewed the patient's case with Dr. Villa AGUIRRE. He will evaluate the patient for further management. Impression Primary Impression: Cerebrovascular accident (CVA) Additional Impressions: Gaze palsy LUE weakness Acute electrocardiogram changes Scribe Attestation The scribe's documentation has been prepared under my direction and personally reviewed by me in its entirety. I confirm that the note above accurately reflects all work, treatment, procedures, and medical decision making performed by me. Departure Information Dispostion Being Evaluated By Hospitalist Referrals Mary Hardwick M.D. (PCP) Patient Instructions My [facility] Stroke History Time Last Known Well 1200 Stroke t-PA Criteria Reviewed Does NOT meet criteria for t-PA Reason t-PA Not Given Treatment not indicated Strict Exclusion Criteria INR greater than 1.7 Problem Qualifiers Primary Impression: Cerebrovascular accident (CVA) CVA mechanism: unspecified Qualified Codes: I63.9 - Cerebral infarction, unspecified
--- NOTE | 2017-03-05 17:02 | History and Physical ---
History & Physical Date & Time of Service: Mar 05, 2017 at 16:59 Chief Complaint: Poss. Stroke Primary Care Physician: Mary Hardwick M.D. History of Present Illness Source: patient This is an 81 yo F with PMHx Chronic afib, mechanical and aortic valve on coumadin, HTN, hypothyroidism, hyperlipidemia, hx multiple lacunar CVA, hx chronic systolic CHF with most recent Echo showing LVEF of 40-45%, who was admitted on 10/23/2016 for acute CVA with left arm and left leg weakness, found to have a periventricular right frontal lobe acute infact on MRI now presenting to the ER for diplopia and blurred vision. She is accompanied by her daughter, Melly, and son-in-law . Pt presents today with new onset of diplopia and blurred vision which started at approximately 12:30 today. This occurred while the patient was getting out of the shower at home. She does report feeling weak earlier this morning when she was up and walking, although she cannot determine if she felt significantly weak on one side versus the other either in her upper or lower extremities. The patient has complaints of photophobia currently. She denies that symptoms such as these occurred prior to her previous strokes. She reports taking all her prior to admission medications routinely. She did have her INR checked last week which she reports that 3.0, at least was told "level was good". The patient denies any sort of nausea, vomiting, abdominal pain. The patient typically ambulates with assistance of a walker, although reports that she fell one week ago. Here in the ER, a CT of the brain was completed which was negative for any acute hemorrhage/stroke. Her initial troponin is positive at 0.355. A maxillofacial CT was completed due to the patient's fall 1 week ago and amount of ecchymosis, showing nonspecific fractures of the nasal bones which are unchanged in the prior study. A chest x-ray was also completed and is negative for any acute findings. Past Medical/Surgical History Medical Problems: (1) Cerebrovascular accident (CVA) Status: Resolved Surgical Problems: (1) Mitral valve replaced Status: Resolved (2) Status post heart valve replacement with mechanical valve Status: Resolved Chronic afib mechanical and aortic valve on coumadin HTN hypothyroidism hyperlipidemia hx multiple lacunar CVA hx chronic systolic CHF with most recent Echo showing LVEF of 40-45%, 10/23/2016 for acute CVA with left arm and left leg weakness, found to have a periventricular right frontal lobe acute infarct on MRI Family History FHx: heart disease Social History Smoking Status: Never Smoker Smokeless Tobacco Use: No Alcohol Use: none Drug Use: none Marital Status: Housing status: lives alone Occupational Status: retired Immunizations History of Influenza Vaccine: Yes Influenza Vaccine Date: Jul 09, 2010 History of Tetanus Vaccine?: No History of Pneumococcal: Yes Pneumococcal Date: Jul 09, 2010 History of Hepatitis B Vaccine: No Multi-Drug Resistant Organisms History of MDRO: No Allergies Coded Allergies: Codeine (Verified Allergy, Intermediate, RASH, 03/05/17) Home Medications Scheduled Atorvastatin (Atorvastatin Calcium), 20 MG PO DAILY B Complex W/ C (Vitamin B Complex-C), 1 TAB PO DAILY Cephalexin Monohydrate (Keflex), 500 MG PO TID Clopidogrel Bisulfate (Clopidogrel), 75 MG PO DAILY Digoxin (Digoxin), 0.125 MG PO Q2D AT 1600 Levothyroxine Sodium (Levothyroxine Sodium), 50 MCG PO QAM Lisinopril (Prinivil), 5 MG PO BID Melatonin (Kp Melatonin), 1 TAB PO HS Metoprolol Tartrate (Lopressor) (Lopressor), 100 MG PO BID Polyethylene Glycol-Propylene (Systane), 1 DROPS OP prn Triamterene/Hctz (Dyazide 37.5MG/25MG), 1 TAB PO 2XWK Warfarin Sodium (Warfarin Sodium), 2 MG PO DAILY Scheduled PRN Acetaminophen (Tylenol), 650 MG PO DIRECTED PRN for Pain or Fever Review of Systems Constitutional: No fever, sweats or chills Eyes: + R sided diplopia, + blurred vision ENT: normal hearing, no trouble swallowing Respiratory: No cough, sputum, dyspnea at rest or on exertion Cardiovascular: No chest pain, tightness or palpitations Abdomen: No pain, nausea, vomiting, diarrhea or constipation Musculoskeletal: No joint pain, calf pain, swelling Neurologic: + weakness with walking which pt states is chronic, No numbness/ tingling, or balance problems Psychiatric: No anxiety or depression Skin: No rash or itch Physical Exam Vital Signs Date Time Temp Pulse Resp B/P (MAP) Pulse Ox O2 Delivery O2 Flow Rate FiO2 03/05/17 16:16 76 16 141/119 98 Room Air 03/05/17 15:49 98 Room Air 03/05/17 15:24 96 03/05/17 15:18 37.1 92 18 155/108 98 Room Air General: awake, alert, no apparent distress Head: Normocephalic, +trauma + ecchymosis overlying the right side of the face involving the forehead ENT: PERRL, EOMI, no pharyngeal exudate, mucous membranes moist Chest: Diminished breath sounds bilaterally, on room air, no adventitious breath sounds Cardiac: Irregularly irregular, +valvular click, no murmur, no JVD, + peripheral pulses, good capillary refill Abdominal: NABS x 4 quadrants, + mild distension, soft, nontender to palpation, no rebound, guarding or tenderness Extremities: + Ecchymosis overlying bilateral knees, no peripheral edema or erythema, calfs nontender to palpation Psych: Normal mood and affect Neuro: AAO x 3, visual pinon are intact bilaterally, + inability to count number of fingers with the R eye alone, has difficulty with rapid alternating movements, able to perform [id number] testing bilaterally, negative pronator drift, strength is equal bilaterally in the upper and lower extremities. Patient does have some left-sided neglect and she does not turn to that side during my interview, speech is slow but clear, no peripheral sensory deficits Diagnostics Laboratory Results Results Past 24 Hours Test 03/05/17 15:06 03/05/17 15:08 03/05/17 15:31 03/05/17 15:34 Range/Units Creatine Kinase MB Ratio 0-3.0 Bedside Prothrombin Time INR 3.2 0.9-1.1 White Blood Count 8.47 4.8-10.8 K/uL Red Blood Count 4.07 4.2-5.4 M/uL Hemoglobin 11.7 12.0-16.0 g/dL Hematocrit 36.5 37-47 % Mean Corpuscular Volume 89.7 80-100 fL Mean Corpuscular Hemoglobin 28.7 25-34 pg Mean Corpuscular Hemoglobin Concent 32.1 32-36 g/dl Platelet Count 171 130-400 K/uL Mean Platelet Volume 12.8 7.4-10.4 fL Neutrophils (%) (Auto) 78.1 % Lymphocytes (%) (Auto) 13.7 % Monocytes (%) (Auto) 7.1 % Eosinophils (%) (Auto) 0.7 % Basophils (%) (Auto) 0.2 % Neutrophils # (Auto) 6.61 1.4-6.5 K/uL Lymphocytes # (Auto) 1.16 1.2-3.4 K/uL Monocytes # (Auto) 0.60 0.11-0.59 K/uL Eosinophils # (Auto) 0.06 0-0.5 K/uL Basophils # (Auto) 0.02 0-0.2 K/uL RDW Standard Deviation 48.9 36.4-46.3 fL RDW Coefficient of Variation 15.0 11.5-14.5 % Immature Granulocyte % (Auto) 0.2 % Immature Granulocyte # (Auto) 0.02 0.00-0.02 K/uL Prothrombin Time 30.5 9.0-12.0 SECONDS Prothromb Time International Ratio 2.7 0.9-1.1 Activated Partial Thromboplast Time 36.7 21.0-31.0 SECONDS Partial Thromboplastin Ratio 1.4 Sodium Level 142 136-145 mmol/L Potassium Level 4.1 3.5-5.1 mmol/L Chloride Level 109 98-107 mmol/L Anion Gap 3-11 mmol/L Creatinine 1.20 0.60-1.20 mg/dl Est Creatinine Clear Calc Drug Dose 38.9 ml/min Estimated GFR () 49.1 Estimated GFR (Non- 42.4 BUN/Creatinine Ratio 10-20 Random Glucose 105 70-99 mg/dl Calcium Level 9.5 8.5-10.1 mg/dl Direct Bilirubin 0.2 0-0.2 mg/dl Aspartate Amino Transf (AST/SGOT) 38 15-37 U/L Lipase 232 73-393 U/L Bedside Glucose 101 70-90 mg/dl Diagnostic Radiology CT SCAN OF THE BRAIN WITHOUT IV CONTRAST CLINICAL HISTORY: Strokelike symptoms. COMPARISON STUDY: CT of the brain dated 02/26/2017. TECHNIQUE: Unenhanced axial CT scan of the brain is performed from the vertex to the skull base. CT DOSE: 537.48 mGy.cm FINDINGS: Brain parenchyma: There are age-related involutional changes noting mild to moderate subcortical and periventricular microangiopathic change. There is asymmetrically increased cerebellar atrophy. A chronic lacunar infarct is seen in the left cerebellar hemisphere. There is no hemorrhage, mass effect, or evidence of acute territorial ischemia by CT criteria. Vazquez-white matter is preserved. No extra-axial fluid collection is seen. Ventricles, sulci, cisterns: Prominent secondary to involutional change. Intracranial vasculature: There is atherosclerotic calcification of the cavernous carotid arteries. Calvarium: The skeletal structures osteopenic. There is no depressed femoral fracture. Soft tissues: A frontal scalp hematoma is again seen. This is decreased in size from 02/26/2017. Sinuses and mastoids: The visualized paranasal sinuses are clear. The mastoid air cells are well pneumatized. Orbits: The bony orbits are grossly intact. IMPRESSION: There is no hemorrhage, mass effect, or evidence of acute territorial ischemia by CT criteria. Electronically signed by: Eric Ross M.D. 03/05/2017 3:26 PM Dictated Date/Time: 03/05/2017 3:22 PM The status of this report is Signed. CHEST ONE VIEW PORTABLE CLINICAL HISTORY: Stroke mental status change COMPARISON STUDY: 10/23/2016 FINDINGS: Mild stable cardiomegaly. Slight chronic hilar fullness. Prior median sternotomy. Lungs are clear. IMPRESSION: Chronic and postoperative change. No acute process. Electronically signed by: Ke Hdz M.D. 03/05/2017 3:53 PM Dictated Date/Time: 03/05/2017 3:53 PM The status of this report is Signed. MAXILLOFACIAL CT CT DOSE: 602.21 mGy.cm HISTORY: Trauma. Pain. TECHNIQUE: Multiaxial CT images of the maxillofacial region were performed and reformatted in the coronal plane without the use of contrast. COMPARISON: 02/26/2017 FINDINGS: Moderate right prefrontal soft tissue edema. This is improved in the prior exam. Orbital margins are intact. Globes are symmetric. Orbital floors are intact. Segment courses appear unremarkable. Nondisplaced fractures of the nasal bones are present. Minimal scattered mucosal thickening in the maxillary sinuses. Orbital floors as well as orbital margins appear to be intact. IMPRESSION: 1. Moderate right prefrontal soft tissue edema slightly improved in the prior exam.. 2. No additional acute bony abnormality. 3. Nonspecific fractures of the nasal bones unchanged in the prior study. Electronically signed by: Ke Hdz M.D. 03/05/2017 3:28 PM Dictated Date/Time: 03/05/2017 3:23 PM The status of this report is Signed. EKG Vent. rate 100 BPM ND interval * ms QRS duration 160 ms QT/QTc 388/500 ms P-R-T axes * 41 -86 Poor data quality, interpretation may be adversely affected Atrial fibrillation Left bundle branch block Abnormal ECG When compared with ECG of 26-FEB-2017 03:20, Atrial fibrillation has replaced Sinus rhythm Vent. rate has increased BY 35 BPM T wave inversion now evident in Inferior leads T wave inversion less evident in Lateral leads Impression Assessment and Plan This is an 81 yo F with PMHx Chronic afib, mechanical and aortic valve on coumadin, HTN, hypothyroidism, hyperlipidemia, hx multiple lacunar CVA, hx chronic systolic CHF with most recent Echo showing LVEF of 40-45%, who was admitted on 10/23/2016 for acute CVA with left arm and left leg weakness, found to have a periventricular right frontal lobe acute infarct on MRI, presenting to the ER for diplopia and blurred vision. TIA/possible stroke - Admit the patient under stroke protocol to telemetry unit - CT of the head was reviewed and is negative for any acute findings - Check MRI of the brain, MRA of the head and neck, no need for carotid Dopplers that she just had this done in October and is on intensive statin therapy. - Neurology consulted, patient has followed with Dr. Bagley in the outpatient setting. - Her initial troponin is positive at 0.355, so will trend 2 more sets - Allow for permissive hypertension: holding lisinopril, will reduce metoprolol tartrate from 100 mg BID to 50 mg BID, continue digoxin 0.125 mg daily - NPO until speech evaluation- poor ability to complete rapid alternating movements and slight left-sided neglect. If the patient passes she can have a soft mechanical diet and advance it as tolerated. - PT/OT evals - Anticoagulated with Plavix and Coumadin, will hold both of these for now. During last admission patient had a stroke while on aspirin therapy. Will allow neurology make recommendations - Greatly appreciated. -Checking a lipid panel and a hemoglobin A1c s/p Fall - The patient has unfortunately fallen several times since her last admission, most recently being one week ago where she sustained a large ecchymotic lesion over the right side of her face. CT of maxillofacial region is also showing prior nasal bone fractures. The patient is known to me from her last admission , the specific recommendations were made for her to go to acute rehabilitation although she adamantly refused. The patient lives at home alone in her own apartment. - PT/OT: I would not recommend that the patient goes home after this admission for her own safety - Analgesia with Tylenol 650 mg Q4H prn Hypertension - Reduce metoprolol tartrate 100 mg by mouth BID to 50 mg BID for now to allow for permissive hypertension, can be re-increased if nothing found on MRI and otherwise stable - Cardiology consulted- follows with Dr. Guevara as an outpatient Atrial fibrillation - s/p aortic and mitral mechanical valves - Patient INR equal to 2.7, will hold warfarin and Plavix for now and await neuro recs Chronic systolic CHF - 2-D echocardiogram with Doppler on 10/24 completed with LV systolic dysfunction , LVEF = 40-45% - metoprolol and digoxin as above, holding lisinopril Hypothyroidism - cont levothyroxine Hypercholesterolemia - cont atorvastatin 40 mg BID DVT prophylaxis: Teds, SCDs, no chemical anticoagulation CODE STATUS: DO NOT RESUSCITATE Disposition: Patient from home, lives alone, await PT/OT evaluation, CM to assist with discharge planning, likely will need placement but pt may refuse. PA Physician Supervision Note: I interviewed and examined the patient. Discussed with Jossie Lovett PAC and agree with findings and plan as documented in the note. Any exceptions or clarifications are listed here: None This patient is here with profound weakness double vision and more weakness in the right side, she'll be brought in with the stroke protocol her initial CT is negative Her vital signs are stable. She is marked facial bruising from recent fall at home Her heart is irregular but rate controlled Her lungs are clear To me she has bilateral weakness still difficult to tell which side is worse regarding her leg she can lift them against gravity but not much more than that 81-year-old female with recent stroke on aspirin changed to Plavix now with worsening weakness Plans. Perform MRI MRA to evaluate for additional stroke concern would be that preventive medication to use after this potential Plavix failure, will also use for other metabolic encephalopathy problems such as urinary tract infection present on admission, neurology consultation undertaken. Documented By: Miguel Driver Level of Care Telemetry Resuscitation Status DO NOT RESUSCITATE VTE Prophylaxis VTE Risk Assessment Done? Y/N: Yes Risk Level: Very Low Given or contraindicated: Other Anticoagulation, T.E.D. Stockings, SCD's
[2017-03-05 17:26] LABS: BUN/CREATININE RATIO 14.9 (10-20)
[2017-03-05] MEDS ORDERED: PHARMACIST DISCHARGE MED REC CONSULT PRN (17:30)
[2017-03-05] MEDS ORDERED: POLYETHYLENE (MIRALAX) 17 GM PACK PO PRN (17:30)
[2017-03-05] MEDS ORDERED: ONDANSETRON INJ 2 MG/ML 2 ML VIAL IV PRN (17:30)
[2017-03-05 17:31] LABS: CKMB/CK RATIO 2.7 (0-3.0)
[2017-03-05 19:00] VITALS: BP 123/77; PULSE 68; TEMP 36.9; O2SAT 94
[2017-03-05 20:00] VITALS: O2SAT 95
[2017-03-05 20:30] VITALS: BP 123/77; PULSE 68; TEMP 36.9; O2SAT 95; Ht 170.2 cm; Wt 69.7 kg
[2017-03-05] MEDS: ATORVASTATIN 40 MG TAB PO SCH (21:15)
[2017-03-05] MEDS: METOPROLOL TARTRATE 50 MG TAB PO SCH (21:15)
[2017-03-05 23:19] VITALS: BP 130/73; PULSE 56; TEMP 36.9; O2SAT 95
[2017-03-05 23:59] VITALS: O2SAT 96
[2017-03-06] VITALS (10 sets, daily range): BP systolic 129–167; BP diastolic 68–94; PULSE 54–132; TEMP 36.4–37; O2SAT 93–100
[2017-03-06] MEDS: ACETAMINOPHEN 325 MG TAB PO PRN (03:43)
[2017-03-06] MEDS ORDERED: GADAVIST IV PRN (04:15)
[2017-03-06] MEDS: LEVOTHYROXINE 50 MCG TAB PO SCH (05:37)
[2017-03-06 06:08] LABS: ESTIMATED AVERAGE GLUCOSE 114 mg/dl; HA1C FLAG Normal (Normal)
--- NOTE | 2017-03-06 07:11 | DIAGNOSTIC IMAGING REPORT ---
Brain MRA HISTORY: Mental status change Stroke - Attention to [place] TECHNIQUE: 3-D [id number] MRA of the brain was performed without contrast. COMPARISON STUDY: None. FINDINGS: Visualized intracranial internal carotid arteries, distal vertebral arteries, and basilar artery are widely patent. There is no significant stenosis, occlusion, or aneurysm seen within the bilateral ACAs, MCAs, or softwood faller. IMPRESSION: No significant stenosis, occlusion, or aneurysm within the [place]. Electronically signed by: Ke Hdz M.D. 03/06/2017 7:10 AM Dictated Date/Time: 03/06/2017 7:04 AM
--- NOTE | 2017-03-06 07:15 | DIAGNOSTIC IMAGING REPORT ---
NECK MRA HISTORY: Mental status change Stroke TECHNIQUE: [id number] and gadolinium-enhanced MRA of the neck was performed both before and after the intravenous administration of contrast. All measurements were calculated based on NASCET criteria. COMPARISON STUDY: None. FINDINGS: The aortic arch and proximal great vessels are widely patent. , Mass effect exam due to patient motion. Repeat images appear to be low-level diagnostic in terms caliber. Mild plaque dimension of the carotid bifurcations. No evidence for major stenotic process. No evidence for major stenotic process of the vertebral basilar system. IMPRESSION: Minimal/mild plaque dimension bilaterally. No major stenotic process. Somewhat limited exam due to patient motion Electronically signed by: Ke Hdz M.D. 03/06/2017 7:13 AM Dictated Date/Time: 03/06/2017 7:10 AM
--- NOTE | 2017-03-06 07:24 | DIAGNOSTIC IMAGING REPORT ---
Brain MRI WITH AND WITHOUT CONTRAST HISTORY: Fall. Double vision. Weakness. Stroke TECHNIQUE: Multiplanar multisequence MRI of the brain was performed both before and after the intravenous administration of contrast. COMPARISON STUDY: Head CT 03/05/2017. Brain MRI 10/23/2016. FINDINGS: Questionable punctate focus of restricted diffusion seen within the posterior aspect of the heide is likely artifactual. No definite restricted diffusion to suggest acute infarction read the midline structures are intact. The major vascular flow voids at the skull base are maintained. No fluid levels within the paranasal sinuses. Right frontal scalp hematoma. Old lacunar infarcts seen within the bilateral basal ganglia, heide, and cerebellar hemispheres. There is no mass, hematoma, or midline shift. Periventricular white matter T2 hyperintensity is nonspecific but suggestive of microvascular ischemic change. This is not significantly changed. Hyperostosis frontalis is again noted. No abnormal enhancement. IMPRESSION: No acute intracranial abnormality. Old infarcts as described above. Small right frontal scalp hematoma. Electronically signed by: Tony Medina M.D. 03/06/2017 7:23 AM Dictated Date/Time: 03/06/2017 7:16 AM
[2017-03-06 07:37] LABS: BASO % 0.4 %; BASO ABS # 0.03 K/uL (0-0.2); COMPLETE YES; EOS % 2.4 %; HEMATOCRIT 38.1 % (37-47); IG% 0.3 %; LYMPH % 15.7 %; LYMPH ABS # 1.22 K/uL (1.2-3.4); MEAN CELL VOLUME 89.6 fL (80-100); MEAN CORPUSCULAR HEMOGLOBIN 28.5 pg (25-34); MEAN CORPUSCULAR HGB CONC 31.8 g/dl (32-36); MEAN PLATELET VOLUME 12.7 fL (7.4-10.4); NEUT % 73.2 %; PLATELET COUNT 163 K/uL (130-400); RED BLOOD COUNT 4.25 M/uL (4.2-5.4); WHITE BLOOD COUNT 7.78 K/uL (4.8-10.8)
[2017-03-06] MEDS: METOPROLOL TARTRATE 50 MG TAB PO SCH (07:54)
[2017-03-06] MEDS: ATORVASTATIN 40 MG TAB PO SCH (07:54)
[2017-03-06 08:11] LABS: BUN/CREATININE RATIO 13.5 (10-20); CREATININE 1.1 mg/dl (0.60-1.20); POTASSIUM 3.8 mmol/L (3.5-5.1)
[2017-03-06 08:26] LABS: CHOLESTEROL/HDL RATIO 3.3
[2017-03-06] MEDS ORDERED: ATORVASTATIN 20 MG TAB PO SCH (09:00)
--- NOTE | 2017-03-06 10:20 | Neurology Consultation ---
Neurology Consultation Date of Consultation: Mar 06, 2017. Attending Physician: Ericka Bryant M.D. Primary Care Physician: Mary Hardwick M.D. Reason for Consultation: Consultation for stroke like symptoms History of Present Illness Source: patient, hospital records This is a 81-year-old female who presents with complaints of worsening generalized weakness and blurred vision/diplopia. Patient has had a history of numerous strokes in the past including bilateral basal ganglia, pontine stroke, and cerebellar. History taking is somewhat difficult with the patient, but she reports that she has been feeling weak on and off for the last 2 years. She also reports that she's been having double vision since her last stroke. She reports tripping and falling when going to bed about a week ago. She denies any new weakness or visual changes with this event. She then reports that she went to go bath and was having generalized weakness getting in and out of the tub. At that point she presented to the emergency room for evaluation. Did not obtain any history of new focal neurological deficits. No specific illnesses. No urinary complaints. Patient was seen in October for a new ischemic lacunar stroke. At that time she had left hemiplegia. Digoxin level was within normal limits Troponin is mildly elevated 0.3. Hemoglobin A1c 5.6 Total cholesterol 144, LDL 65, HDL 43, triglycerides 180 MRA of head and neck was unremarkable MRI of the brain report and images were reviewed by myself and noted old strokes but no new strokes. 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 fib on Coumadin, hypothyroidism, dyslipidemia Social History Patient reports that she is independent in activities of daily living. She is no longer driving. Smoking Status: Never smoker Smokeless Tobacco Use: No Alcohol Use: none Drug Use: none Marital Status: Housing Status: lives with family Occupation Status: retired Allergies Coded Allergies: Codeine (Verified Allergy, Intermediate, RASH, 03/05/17) Current Inpatient Medications Current Inpatient Medications Medications (Trade) Dose Ordered Sig/Elsi Route Start Time Stop Time Status Last Admin Dose Admin Miscellaneous Information (Pharmacist Discharge Med Rec Consult) 1 ea UD PRN N/A 03/05/17 17:30 04/04/17 17:29 Acetaminophen (Tylenol Tab) 650 mg Q4H PRN PO 03/05/17 17:30 04/04/17 17:29 03/06/17 03:43 650 MG Ondansetron HCl (Zofran Inj) 4 mg Q6H PRN IV 03/05/17 17:30 04/04/17 17:29 Polyethylene (Miralax Powder Packet) 17 gm DAILY PRN PO 03/05/17 17:30 04/04/17 17:29 Digoxin (Lanoxin Tab) 0.125 mg Q2D@1600 PO 03/06/17 16:00 04/05/17 15:59 Levothyroxine Sodium (Synthroid Tab) 50 mcg DAILYBB PO 03/06/17 06:00 04/05/17 05:59 03/06/17 05:37 50 MCG Metoprolol Tartrate (Lopressor Tab) 50 mg BID PO 03/05/17 21:00 04/04/17 20:59 03/06/17 07:54 50 MG Atorvastatin Calcium (Lipitor Tab) 40 mg BID PO 03/05/17 21:00 04/05/17 08:59 03/06/17 07:54 40 MG Gadobutrol (Gadavist) 7.5 mmol UD PRN IV 03/06/17 04:15 03/10/17 04:14 Review of Systems Complete ROS otherwise normal except for the above noted in HPI Physical Exam Vital Signs (Past 24 Hrs): Date Time Temp Pulse Resp B/P (MAP) Pulse Ox O2 Delivery O2 Flow Rate FiO2 03/06/17 08:22 36.8 59 20 160/78 (105) 96 Room Air 03/06/17 08:10 Room Air 03/06/17 08:03 36.8 59 18 96 Room Air 03/06/17 04:10 36.7 54 20 137/78 (97) 96 Room Air 03/06/17 04:00 96 Room Air 03/05/17 23:59 96 Room Air 03/05/17 23:19 36.9 56 20 130/73 (92) 95 Room Air 03/05/17 20:30 36.9 68 20 123/77 95 Room Air 03/05/17 20:00 95 Room Air 03/05/17 19:00 62 16 95 03/05/17 19:00 36.9 68 20 123/77 (92) 94 Room Air 03/05/17 17:35 92 16 140/83 95 Room Air 03/05/17 16:54 92 16 150/96 97 Room Air 03/05/17 16:16 76 16 141/119 98 Room Air 03/05/17 15:49 98 Room Air 03/05/17 15:24 96 03/05/17 15:18 37.1 92 18 155/108 98 Room Air Gen.: Patient is alert and sitting in bed, in no acute distress. HEENT: Normocephalic, no scleral icterus. Extensive facial bruising Heart: Regular rate and rhythm Extremities: No gross deformities or rashes noted Neurological examination: Mental status: Patient is alert and oriented to person and place. Attention and concentration normal for the situation. Able to give her own history. Speech is fluent without any dysarthria or aphasia noted Cranial nerve: Funduscopic examination was difficult to visualize. No papilledema. Pupils equally round and reactive to light. Extraocular muscles intact without nystagmus with the exception of the patient had difficulty abducting her right eye. No facial asymmetry noted. Facial sensation intact. Tongue is midline. Good palatal elevation. Good shoulder shrug bilaterally. Hearing grossly intact to voice. Strength: 5/5 both proximal and distally in all extremities with the exception of 4+/5 in left upper and lower extremity more proximal compared to distal. There is no arm drift. Tone is normal. Sensation: Grossly intact to light touch in all extremities. No sensory extinction Deep tendon reflexes: +1 in bilateral biceps, brachioradialis and patellar. Coordination: Patient had good finger to nose without dysmetria Station within the bed was normal Laboratory Results Past 24 Hours: 03/06/17 07:08 Red Blood Count 4.25, Mean Corpuscular Volume 89.6, Mean Corpuscular Hemoglobin 28.5, Mean Corpuscular Hemoglobin Concent 31.8, Mean Platelet Volume 12.7, Neutrophils (%) (Auto) 73.2, Lymphocytes (%) (Auto) 15.7, Monocytes (%) (Auto) 8.0, Eosinophils (%) (Auto) 2.4, Basophils (%) (Auto) 0.4, Neutrophils # (Auto) 5.70, Lymphocytes # (Auto) 1.22, Monocytes # (Auto) 0.62, Eosinophils # (Auto) 0.19, Basophils # (Auto) 0.03 03/06/17 07:08 Test 03/05/17 15:08 03/05/17 15:31 03/05/17 15:34 03/06/17 07:08 Bedside Prothrombin Time INR 3.2 (0.9-1.1) Prothrombin Time 30.5 SECONDS (9.0-12.0) Prothromb Time International Ratio 2.7 (0.9-1.1) Activated Partial Thromboplast Time 36.7 SECONDS (21.0-31.0) Partial Thromboplastin Ratio 1.4 Estimated Average Glucose 114 mg/dl Hemoglobin A1c 5.6 % (4.5-5.6) Total Bilirubin 0.6 mg/dl (0.2-1) Direct Bilirubin 0.2 mg/dl (0-0.2) Aspartate Amino Transf (AST/SGOT) 38 U/L (15-37) Alanine Aminotransferase (ALT/SGPT) 26 U/L (12-78) Alkaline Phosphatase 138 U/L (45-117) Total Creatine Kinase 75 U/L (26-192) Creatine Kinase MB 2.0 ng/ml (0.5-3.6) Creatine Kinase MB Ratio 2.7 (0-3.0) Total Protein 7.2 gm/dl (6.4-8.2) Albumin 3.7 gm/dl (3.4-5.0) Lipase 232 U/L (73-393) Digoxin Level 0.8 ng/ml (0.8-2.0) Bedside Glucose 101 mg/dl (70-90) White Blood Count 7.78 K/uL (4.8-10.8) Red Blood Count 4.25 M/uL (4.2-5.4) Hemoglobin 12.1 g/dL (12.0-16.0) Hematocrit 38.1 % (37-47) Mean Corpuscular Volume 89.6 fL (80-100) Mean Corpuscular Hemoglobin 28.5 pg (25-34) Mean Corpuscular Hemoglobin Concent 31.8 g/dl (32-36) Platelet Count 163 K/uL (130-400) Mean Platelet Volume 12.7 fL (7.4-10.4) Neutrophils (%) (Auto) 73.2 % Lymphocytes (%) (Auto) 15.7 % Monocytes (%) (Auto) 8.0 % Eosinophils (%) (Auto) 2.4 % Basophils (%) (Auto) 0.4 % Neutrophils # (Auto) 5.70 K/uL (1.4-6.5) Lymphocytes # (Auto) 1.22 K/uL (1.2-3.4) Monocytes # (Auto) 0.62 K/uL (0.11-0.59) Eosinophils # (Auto) 0.19 K/uL (0-0.5) Basophils # (Auto) 0.03 K/uL (0-0.2) RDW Standard Deviation 48.9 fL (36.4-46.3) RDW Coefficient of Variation 15.0 % (11.5-14.5) Immature Granulocyte % (Auto) 0.3 % Immature Granulocyte # (Auto) 0.02 K/uL (0.00-0.02) Anion Gap 7.0 mmol/L (3-11) Est Creatinine Clear Calc Drug Dose 39.0 ml/min Estimated GFR () 54.5 Estimated GFR (Non- 47.0 BUN/Creatinine Ratio 13.5 (10-20) Calcium Level 9.0 mg/dl (8.5-10.1) Troponin I 0.382 ng/ml (0-0.045) Triglycerides Level 180 mg/dl (0-150) Cholesterol Level 144 mg/dl (0-200) HDL Cholesterol 43 mg/dl LDL Cholesterol, Calculated 65 mg/dl VLDL Cholesterol, Calculated 36 mg/dl Cholesterol/HDL Ratio 3.3 Imaging As noted above in history of present illness Impression This is a 81-year-old female with ongoing diplopia and blurred vision. Patient reports that this is encouraging since her last stroke. In addition acute on chronic worsening generalized weakness. She patient reports this is been going on for the last 2 years. In addition the patient had a recent trip and fall with facial injury. She denies any syncopal event. No clear concussion symptoms. Plan Since the patient does not appear to have new acute stroke, and no additional neurological workup needed. No changes to her current medications. I would recommend considering getting a UA to rule out urinary tract infection as a cause for her complaints of worsening generalized weakness. 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 Would also recommend her PT/OT evaluation and treatment for discharge planning Thank you for allowing me to participate in this patient's care. If there is any questions or concerns, feel free to call/patient.
--- NOTE | 2017-03-06 10:24 | Cardiology Consultation ---
Cardiology Consultation Date of Consultation: Mar 06, 2017. Requesting Physician: Jodie Lovett PA-C Attending Physician: Dr. De La Cruz Pt evaluation today including: conversation w/ patient, physical exam, chart review, lab review, review of studies, review of inpatient medication list, conversation w/ attending History of Present Illness Janelle Cloud is an 81-year-old female status post remote mechanical mitral valve replacement (1994), more recent mechanical aortic valve replacement ( April 2014), nonischemic cardiomyopathy (pre-op cath with normal coronaries, EF 40-45%), atrial dysrhythmias (atrial fibrillation/flutter with ablation 2008) , and hx of embolic stroke in 06/2015 and 10/2016 who presented to the ED yesterday with complaints of new onset diplopia and blurred vision. Patient also noted numbness of her right hand. Her imaging studies including head/ maxillofacial CT, brain MRI, and head/neck MRA have been unrevealing thus far. She was in atrial fibrillation with controlled ventricular response rate on arrival, and she has gone in and out of the arrhythmia throughout the admission. While in sinus, her rate is in the 50s. Her Troponin has been mildly elevated with a peak of 0.382 this admission, but this has been a chronic finding for her. Chest x-ray shows no acute process. Her INR was 3.0 on and was 3.2 on arrival yesterday. Patient seen at bedside this morning. She reports that she is very tired/ fatigued and notes generalized weakness. She continues to note diplopia. She denies chest pain or other anginal type symptoms. She denies shortness of breath , orthopnea, PND, or edema. She denies palpitations, syncope, or presyncope. She denies abnormal bleeding such as melena, hematochezia, or hematuria. Of note, the patient sustained a mechanical fall on 02/26/2017. She was evaluated in the ED and CT scan showed fractured nasal bones. She was found to have a large hematoma over her right eye and a laceration of her forehead, which was sutured. Review of Systems: As noted in HPI. All other ROS otherwise negative. Family History FHx: heart disease Social History Smoking Status: Never Smoker History of Alcohol Use: No Allergies Coded Allergies: Codeine (Verified Allergy, Intermediate, RASH, 03/05/17) Medications Current Inpatient Medications Medications (Trade) Dose Ordered Sig/Elsi Route Start Time Stop Time Status Last Admin Dose Admin Miscellaneous Information (Pharmacist Discharge Med Rec Consult) 1 ea UD PRN N/A 03/05/17 17:30 04/04/17 17:29 Acetaminophen (Tylenol Tab) 650 mg Q4H PRN PO 03/05/17 17:30 04/04/17 17:29 03/06/17 03:43 650 MG Ondansetron HCl (Zofran Inj) 4 mg Q6H PRN IV 03/05/17 17:30 04/04/17 17:29 Polyethylene (Miralax Powder Packet) 17 gm DAILY PRN PO 03/05/17 17:30 04/04/17 17:29 Digoxin (Lanoxin Tab) 0.125 mg Q2D@1600 PO 03/06/17 16:00 04/05/17 15:59 Levothyroxine Sodium (Synthroid Tab) 50 mcg DAILYBB PO 03/06/17 06:00 04/05/17 05:59 03/06/17 05:37 50 MCG Metoprolol Tartrate (Lopressor Tab) 50 mg BID PO 03/05/17 21:00 04/04/17 20:59 03/06/17 07:54 50 MG Atorvastatin Calcium (Lipitor Tab) 40 mg BID PO 03/05/17 21:00 04/05/17 08:59 03/06/17 07:54 40 MG Gadobutrol (Gadavist) 7.5 mmol UD PRN IV 03/06/17 04:15 03/10/17 04:14 Physical Exam Vital Signs Past 12 Hours Date Time Temp Pulse Resp B/P (MAP) Pulse Ox O2 Delivery O2 Flow Rate FiO2 03/06/17 08:22 36.8 59 20 160/78 (105) 96 Room Air 03/06/17 08:10 Room Air 03/06/17 08:03 36.8 59 18 96 Room Air 03/06/17 04:10 36.7 54 20 137/78 (97) 96 Room Air 03/06/17 04:00 96 Room Air 03/05/17 23:59 96 Room Air 03/05/17 23:19 36.9 56 20 130/73 (92) 95 Room Air Constitutional: Alert, oriented, in no acute distress HEENT: Ecchymosis of the right side of the face and forehead. Healing laceration of the right eye. EOMs intact. Sclera anicteric. Face is symmetric. No perioral cyanosis. Mucous membranes moist. Neck: Supple, no JVD Pulmonary: Normal respiratory effort, diminished breath sounds bilaterally Cardiac: Regular rate and rhythm, prosthetic S1 and S2, no gallops, no rubs, no obvious murmur Extremities: No clubbing, cyanosis, or edema. Varicose veins of bilateral lower extremities. Pulses intact. Abdomen: Normal bowel sounds, soft, non-tender, no abdominal mass palpated Skin: Normal skin color, turgor, and pigmentation, no rash. Neurological: Oriented to person, place, and time Data Laboratory Results: Last 24 Hours Test 03/05/17 15:08 03/05/17 15:31 03/05/17 15:34 03/05/17 23:55 Bedside Prothrombin Time INR 3.2 White Blood Count 8.47 K/uL Red Blood Count 4.07 M/uL Hemoglobin 11.7 g/dL Hematocrit 36.5 % Mean Corpuscular Volume 89.7 fL Mean Corpuscular Hemoglobin 28.7 pg Mean Corpuscular Hemoglobin Concent 32.1 g/dl Platelet Count 171 K/uL Mean Platelet Volume 12.8 fL Neutrophils (%) (Auto) 78.1 % Lymphocytes (%) (Auto) 13.7 % Monocytes (%) (Auto) 7.1 % Eosinophils (%) (Auto) 0.7 % Basophils (%) (Auto) 0.2 % Neutrophils # (Auto) 6.61 K/uL Lymphocytes # (Auto) 1.16 K/uL Monocytes # (Auto) 0.60 K/uL Eosinophils # (Auto) 0.06 K/uL Basophils # (Auto) 0.02 K/uL RDW Standard Deviation 48.9 fL RDW Coefficient of Variation 15.0 % Immature Granulocyte % (Auto) 0.2 % Immature Granulocyte # (Auto) 0.02 K/uL Prothrombin Time 30.5 SECONDS Prothromb Time International Ratio 2.7 Activated Partial Thromboplast Time 36.7 SECONDS Partial Thromboplastin Ratio 1.4 Sodium Level 142 mmol/L Potassium Level 4.1 mmol/L Chloride Level 109 mmol/L Carbon Dioxide Level 23 mmol/L Anion Gap 10.0 mmol/L Blood Urea Nitrogen 18 mg/dl Creatinine 1.20 mg/dl Est Creatinine Clear Calc Drug Dose 38.9 ml/min Estimated GFR () 49.1 Estimated GFR (Non- 42.4 BUN/Creatinine Ratio 14.9 Random Glucose 105 mg/dl Estimated Average Glucose 114 mg/dl Hemoglobin A1c 5.6 % Calcium Level 9.5 mg/dl Total Bilirubin 0.6 mg/dl Direct Bilirubin 0.2 mg/dl Aspartate Amino Transf (AST/SGOT) 38 U/L Alanine Aminotransferase (ALT/SGPT) 26 U/L Alkaline Phosphatase 138 U/L Total Creatine Kinase 75 U/L Creatine Kinase MB 2.0 ng/ml Creatine Kinase MB Ratio 2.7 Troponin I 0.355 ng/ml 0.365 ng/ml Total Protein 7.2 gm/dl Albumin 3.7 gm/dl Lipase 232 U/L Digoxin Level 0.8 ng/ml Bedside Glucose 101 mg/dl Test 03/06/17 07:08 White Blood Count 7.78 K/uL Red Blood Count 4.25 M/uL Hemoglobin 12.1 g/dL Hematocrit 38.1 % Mean Corpuscular Volume 89.6 fL Mean Corpuscular Hemoglobin 28.5 pg Mean Corpuscular Hemoglobin Concent 31.8 g/dl Platelet Count 163 K/uL Mean Platelet Volume 12.7 fL Neutrophils (%) (Auto) 73.2 % Lymphocytes (%) (Auto) 15.7 % Monocytes (%) (Auto) 8.0 % Eosinophils (%) (Auto) 2.4 % Basophils (%) (Auto) 0.4 % Neutrophils # (Auto) 5.70 K/uL Lymphocytes # (Auto) 1.22 K/uL Monocytes # (Auto) 0.62 K/uL Eosinophils # (Auto) 0.19 K/uL Basophils # (Auto) 0.03 K/uL RDW Standard Deviation 48.9 fL RDW Coefficient of Variation 15.0 % Immature Granulocyte % (Auto) 0.3 % Immature Granulocyte # (Auto) 0.02 K/uL Sodium Level 141 mmol/L Potassium Level 3.8 mmol/L Chloride Level 110 mmol/L Carbon Dioxide Level 24 mmol/L Anion Gap 7.0 mmol/L Blood Urea Nitrogen 15 mg/dl Creatinine 1.10 mg/dl Est Creatinine Clear Calc Drug Dose 39.0 ml/min Estimated GFR () 54.5 Estimated GFR (Non- 47.0 BUN/Creatinine Ratio 13.5 Random Glucose 94 mg/dl Calcium Level 9.0 mg/dl Troponin I 0.382 ng/ml Triglycerides Level 180 mg/dl Cholesterol Level 144 mg/dl HDL Cholesterol 43 mg/dl LDL Cholesterol, Calculated 65 mg/dl VLDL Cholesterol, Calculated 36 mg/dl Cholesterol/HDL Ratio 3.3 EKG 03/05/2017: Atrial fibrillation with a ventricular response rate of 100 bpm. Left bundle branch block. EKG 03/06/2017: Sinus bradycardia with first degree AV block at 59 bpm. Left bundle branch block. Telemetry reviewed: Paroxysmal atrial fibrillation with rates in the low 100s. While in sinus, her heart rate is in the 50s. Echo 10/24/2016: 1. Normal LV size. Normal LV wall thickness. 2. Mildly reduced global LV systolic function. LVEF 40-45%. 3. Normal RV size, mild RV dysfunction. 4. Well-seated mechanical aortic valve with expected transvalvular gradients. Mild aortic regurgitation. 5. Well-seated mechanical mitral valve with normal transvalvular gradients. No MR 5. Normal estimated PA and RA pressures. 6. Compared with prior study on 05/12/2014: No significant change. Assessment & Plan ASSESSMENT/PLAN: 1. Possible stroke: Patient presented with blurred vision and diplopia. Neurological evaluation unremarkable thus far. She is chronically anticoagulated with Coumadin given her history of mechanical AVR/MVR as her atrial arrhythmias and prior CVAs. Her INR was therapeutic at 3.2 upon initial presentation. During her admission for a CVA in October of this year, her aspirin was switched to Plavix, and she has been maintained on the Plavix since that time. Recommend restarting these agents once safe from a neurological standpoint. Continue high intensity statin therapy. 2. Mild Troponin elevation: This is a chronic finding for her. She did undergo cardiac cath prior to AVR in 2013, which showed normal coronary arteries. She remains asymptomatic with no anginal symptoms reported. Recommend treating conservatively. 3. Mechanical AVR/MVR: Echo in October 2016 showed well-seated valves with expected transvalvular gradients. Restart Coumadin with goal INR 2.5-3.5 once safe from a neurological standpoint. 4. Atrial fibrillation/flutter: She has had paroxysmal atrial fibrillation during this admission, but her rate is controlled in the low 100s while in a fib. Her rate in sinus is also controlled in the 50s. She remains asymptomatic. Continue rate control strategy with metoprolol tartrate 50 mg BID and Digoxin 125 mcg every other day. Her Digoxin level was acceptable at 0.8. Restart anticoagulation therapy once safe from neurological standpoint as noted above. 5. Cardiomyopathy: Mildly reduced LV systolic function by echo in October 2016. She appears euvolemic on examination today. Continue current medical therapy. Thank you for allowing us to see this patient in consultation. The patient was discussed with Dr. De La Cruz, and the plan was made in collaboration with him.
[2017-03-06 11:57] LABS: URINE APPEARANCE CLEAR (CLEAR); URINE BILIRUBIN NEG (NEG); URINE COLOR YELLOW; URINE NITRITE NEG (NEG); URINE SPECIFIC GRAVITY 1.014 (1.000-1.030); UROBILINOGEN NEG (NEG)
[2017-03-06 11:59] LABS: MANUAL MICROSCOPIC REQUIRED? NO; REVIEW REQ? NO
--- NOTE | 2017-03-06 12:42 | Clinical Documentation Query ---
CLINICAL DOCUMENTATION QUERY Dr. BABCOCK, In your clinical opinion is this patient being managed for: ( ) Vision disturbance-- sequelae of previous CVA ( ) Other explanation of clinical findings (Please Explain) ( x ) Unable to determine (Please Define) ( ) Need to Discuss ( ) Not Agree The medical record reflects the following clinical findings, treatment, and risk factors. Clinical Indicators: 81 yo female presenting with vision changes and increasing weakness. Pt with recent (Oct 2016) hx of CVA. Neurology consult indicates pt has been having diplopia since her prior CVA. Treatment: MRI brain, MRA head, CT head, neurology consult Risk Factors: age, prior CVA, A fib, Please clarify and document your clinical opinion in the progress notes and discharge summary. Terms such as "probable", "suspected", "likely", "questionable", "possible", or "still to be ruled out" are acceptable. IF IN AGREEMENT, YOU MUST DOCUMENT ABOVE DIAGNOSTIC STATEMENT IN DAILY PROGRESS NOTES AND DISCHARGE SUMMARY. This document is not part of the patient's record. Thank You, Esperanza Chaudhary, RIGO [phone]
[2017-03-06] MEDS ORDERED: ESCITALOPRAM OXALATE 10 MG TAB PO ONE (14:15)
--- NOTE | 2017-03-06 15:33 | Hospitalist Progress Note ---
Hospitalist Progress Note Date of Service Mar 06, 2017. Subjective continues to have double vision. daughter at bed side- reports patient has been very tired through the day. doesn 't participates into different activities. concerned about her being depressed. has been on medication in past for depression. lives with her - has dementia. no headache. no fever Constitutional: No fever Respiratory: No shortness of breath Cardiovascular: No chest pain Abdomen: No pain, No nausea Objective Vital Signs Date Time Temp Pulse Resp B/P (MAP) Pulse Ox O2 Delivery O2 Flow Rate FiO2 03/06/17 12:10 Room Air 03/06/17 11:06 36.4 59 18 159/68 (98) 100 Room Air 03/06/17 08:22 36.8 59 20 160/78 (105) 96 Room Air 03/06/17 08:10 Room Air 03/06/17 08:03 36.8 59 18 96 Room Air 03/06/17 04:10 36.7 54 20 137/78 (97) 96 Room Air 03/06/17 04:00 96 Room Air 03/05/17 23:59 96 Room Air 03/05/17 23:19 36.9 56 20 130/73 (92) 95 Room Air 03/05/17 20:30 36.9 68 20 123/77 95 Room Air 03/05/17 20:00 95 Room Air 03/05/17 19:00 62 16 95 03/05/17 19:00 36.9 68 20 123/77 (92) 94 Room Air 03/05/17 17:35 92 16 140/83 95 Room Air 03/05/17 16:54 92 16 150/96 97 Room Air 03/05/17 16:16 76 16 141/119 98 Room Air 03/05/17 15:49 98 Room Air Physical Exam General Appearance: no apparent distress ENT: + pertinent finding (head - ecchymosis across the right face. ) Respiratory/Chest: lungs clear, no respiratory distress Cardiovascular: regular rate, rhythm, + pertinent finding (mechanical valve sound +) Abdomen: soft Neurologic/Psychiatric: alert, oriented x 3 Skin: warm/dry Laboratory Results Last 24 Hours Test 03/05/17 15:31 03/05/17 15:34 03/05/17 23:55 03/06/17 07:08 White Blood Count 8.47 K/uL 7.78 K/uL Red Blood Count 4.07 M/uL 4.25 M/uL Hemoglobin 11.7 g/dL 12.1 g/dL Hematocrit 36.5 % 38.1 % Mean Corpuscular Volume 89.7 fL 89.6 fL Mean Corpuscular Hemoglobin 28.7 pg 28.5 pg Mean Corpuscular Hemoglobin Concent 32.1 g/dl 31.8 g/dl Platelet Count 171 K/uL 163 K/uL Mean Platelet Volume 12.8 fL 12.7 fL Neutrophils (%) (Auto) 78.1 % 73.2 % Lymphocytes (%) (Auto) 13.7 % 15.7 % Monocytes (%) (Auto) 7.1 % 8.0 % Eosinophils (%) (Auto) 0.7 % 2.4 % Basophils (%) (Auto) 0.2 % 0.4 % Neutrophils # (Auto) 6.61 K/uL 5.70 K/uL Lymphocytes # (Auto) 1.16 K/uL 1.22 K/uL Monocytes # (Auto) 0.60 K/uL 0.62 K/uL Eosinophils # (Auto) 0.06 K/uL 0.19 K/uL Basophils # (Auto) 0.02 K/uL 0.03 K/uL RDW Standard Deviation 48.9 fL 48.9 fL RDW Coefficient of Variation 15.0 % 15.0 % Immature Granulocyte % (Auto) 0.2 % 0.3 % Immature Granulocyte # (Auto) 0.02 K/uL 0.02 K/uL Prothrombin Time 30.5 SECONDS Prothromb Time International Ratio 2.7 Activated Partial Thromboplast Time 36.7 SECONDS Partial Thromboplastin Ratio 1.4 Sodium Level 142 mmol/L 141 mmol/L Potassium Level 4.1 mmol/L 3.8 mmol/L Chloride Level 109 mmol/L 110 mmol/L Carbon Dioxide Level 23 mmol/L 24 mmol/L Anion Gap 10.0 mmol/L 7.0 mmol/L Blood Urea Nitrogen 18 mg/dl 15 mg/dl Creatinine 1.20 mg/dl 1.10 mg/dl Est Creatinine Clear Calc Drug Dose 38.9 ml/min 39.0 ml/min Estimated GFR () 49.1 54.5 Estimated GFR (Non- 42.4 47.0 BUN/Creatinine Ratio 14.9 13.5 Random Glucose 105 mg/dl 94 mg/dl Estimated Average Glucose 114 mg/dl Hemoglobin A1c 5.6 % Calcium Level 9.5 mg/dl 9.0 mg/dl Total Bilirubin 0.6 mg/dl Direct Bilirubin 0.2 mg/dl Aspartate Amino Transf (AST/SGOT) 38 U/L Alanine Aminotransferase (ALT/SGPT) 26 U/L Alkaline Phosphatase 138 U/L Total Creatine Kinase 75 U/L Creatine Kinase MB 2.0 ng/ml Creatine Kinase MB Ratio 2.7 Troponin I 0.355 ng/ml 0.365 ng/ml 0.382 ng/ml Total Protein 7.2 gm/dl Albumin 3.7 gm/dl Lipase 232 U/L Digoxin Level 0.8 ng/ml Bedside Glucose 101 mg/dl Triglycerides Level 180 mg/dl Cholesterol Level 144 mg/dl HDL Cholesterol 43 mg/dl LDL Cholesterol, Calculated 65 mg/dl VLDL Cholesterol, Calculated 36 mg/dl Cholesterol/HDL Ratio 3.3 Test 03/06/17 10:30 Urine Color YELLOW Urine Appearance CLEAR Urine pH 7.0 Urine Specific [place] 1.014 Urine Protein NEG Urine Glucose (UA) NEG Urine Ketones NEG Urine Occult Blood NEG Urine Nitrite NEG Urine Bilirubin NEG Urine Urobilinogen NEG Urine Leukocyte Esterase TRACE Urine WBC (Auto) 1-5 /hpf Urine RBC (Auto) 0-4 /hpf Urine Hyaline Casts (Auto) 0 /lpf Urine Epithelial Cells (Auto) 10-20 /lpf Urine Bacteria (Auto) NEG Assessment and Plan 81 yo F with PMHx Chronic afib, mechanical and aortic valve on coumadin, HTN, hypothyroidism, hyperlipidemia, hx multiple lacunar CVA, hx chronic systolic CHF with most recent Echo showing LVEF of 40-45%, who was admitted on 2016 for acute CVA with left arm and left leg weakness, found to have a periventricular right frontal lobe acute infarct on MRI, presenting to the ER for diplopia and blurred vision. Diplopia and blurred vision after fall and facial injury - CT, MRI, MRA - negative - Neurology recommends no further work up. To arrange prism glasses on discharge. - PT/OT evals - Resume Plavix and Coumadin. During last admission patient had a stroke while on aspirin therapy. Mild Troponin elevation - Likely nonspecific. Unchanged with 3 sets Sinus pause on monitor - decrease b ricardo. cardiology consult. Monitor on Tele s/p Fall - The patient has unfortunately fallen several times since her last admission, most recently being one week ago where she sustained a large ecchymotic lesion over the right side of her face. CT of maxillofacial region is also showing prior nasal bone fractures. The patient is known to me from her last admission , the specific recommendations were made for her to go to acute rehabilitation although she adamantly refused. The patient lives at home alone in her own apartment. - PT/OT - Analgesia with Tylenol 650 mg Q4H prn Depression - has been on meds in past - will start lexapro - melatonin at night s/p Mechanical MVR/AVR - Warfarin with INR goal 2.5-3.5 Atrial fibrillation - Currently in sinus - s/p aortic and mitral mechanical valves - continue coumadin Chronic systolic CHF - 2-D echocardiogram with Doppler on 10/24 completed with LV systolic dysfunction , LVEF = 40-45% - metoprolol and digoxin as above, holding lisinopril Hypertension - Metoprolol Hypothyroidism - cont levothyroxine Hypercholesterolemia - cont atorvastatin 40 mg BID DVT prophylaxis: Coumadin DNR Needs placement
[2017-03-06] MEDS: WARFARIN SOD 2 MG TAB PO SCH (16:16)
[2017-03-06] MEDS: DIGOXIN 0.125 MG TAB PO SCH (16:17)
[2017-03-06] MEDS ORDERED: METOPROLOL TARTRATE 1 MG/ML VIAL ONE (18:22)
[2017-03-06] MEDS ORDERED: NURSING VERBAL MED ORDER ONE (18:45)
[2017-03-06] MEDS ORDERED: METOPROLOL TARTRATE 1 MG/ML VIAL IV ONE (19:00)
[2017-03-06] MEDS: METOPROLOL TARTRATE 25 MG TAB PO SCH (21:23)
[2017-03-07 04:00] VITALS: O2SAT 97
[2017-03-07 04:03] VITALS: BP 154/85; PULSE 96; TEMP 36.7; O2SAT 96
[2017-03-07] MEDS: LEVOTHYROXINE 50 MCG TAB PO SCH (05:40)
[2017-03-07 06:09] LABS: BASO % 0.2 %; BASO ABS # 0.02 K/uL (0-0.2); COMPLETE YES; HEMATOCRIT 36.1 % (37-47); IG% 0.1 %; LYMPH % 13.8 %; LYMPH ABS # 1.34 K/uL (1.2-3.4); MEAN CELL VOLUME 88.5 fL (80-100); MEAN CORPUSCULAR HEMOGLOBIN 28.7 pg (25-34); MEAN CORPUSCULAR HGB CONC 32.4 g/dl (32-36); MEAN PLATELET VOLUME 12.8 fL (7.4-10.4); MONO % 6.1 %; NEUT % 78.8 %; PLATELET COUNT 189 K/uL (130-400); RED BLOOD COUNT 4.08 M/uL (4.2-5.4); WHITE BLOOD COUNT 9.71 K/uL (4.8-10.8)
[2017-03-07 06:22] LABS: BUN/CREATININE RATIO 16.3 (10-20); CALCIUM 8.9 mg/dl (8.5-10.1)
[2017-03-07 07:19] VITALS: BP 149/79; PULSE 99; TEMP 36.8; O2SAT 95
[2017-03-07] MEDS: ATORVASTATIN 40 MG TAB PO SCH (07:29)
[2017-03-07] MEDS: ESCITALOPRAM OXALATE 10 MG TAB PO SCH (07:30)
[2017-03-07] MEDS: METOPROLOL TARTRATE 25 MG TAB PO SCH ×2 (07:30→21:50)
[2017-03-07] MEDS: CLOPIDOGREL BISULFATE 75 MG TAB PO SCH (07:30)
[2017-03-07 11:33] VITALS: BP 151/73; PULSE 69; TEMP 36.5; O2SAT 94
--- NOTE | 2017-03-07 12:45 | Hospitalist Progress Note ---
Hospitalist Progress Note Date of Service Mar 07, 2017. Subjective "I feel good today" denies any concerns. Constitutional: No fever Respiratory: No shortness of breath Cardiovascular: No chest pain Abdomen: No pain Objective Vital Signs Date Time Temp Pulse Resp B/P (MAP) Pulse Ox O2 Delivery O2 Flow Rate FiO2 03/07/17 11:33 36.5 69 16 151/73 (99) 94 Room Air 03/07/17 08:00 Room Air 03/07/17 07:19 36.8 99 16 149/79 (102) 95 Room Air 03/07/17 04:03 36.7 96 19 154/85 (108) 96 Room Air 03/07/17 04:00 97 Room Air 03/06/17 23:49 36.7 102 18 131/89 (103) 93 Room Air 03/06/17 23:05 Room Air 03/06/17 20:35 36.9 107 18 145/90 (108) 95 Room Air 03/06/17 20:00 Room Air 03/06/17 18:50 135 197/64 03/06/17 18:20 37.0 132 24 167/94 (118) 97 Room Air 03/06/17 16:17 96 03/06/17 16:00 Room Air 03/06/17 15:29 36.7 58 18 138/80 (99) 95 Room Air 03/06/17 14:50 76 97 Physical Exam General Appearance: no apparent distress (sitting chair) Respiratory/Chest: lungs clear, no respiratory distress Cardiovascular: regular rate, rhythm, + pertinent finding (mechanical valve sound +) Abdomen: soft Neurologic/Psychiatric: alert Skin: warm/dry Laboratory Results Last 24 Hours Test 03/07/17 05:12 White Blood Count 9.71 K/uL Red Blood Count 4.08 M/uL Hemoglobin 11.7 g/dL Hematocrit 36.1 % Mean Corpuscular Volume 88.5 fL Mean Corpuscular Hemoglobin 28.7 pg Mean Corpuscular Hemoglobin Concent 32.4 g/dl Platelet Count 189 K/uL Mean Platelet Volume 12.8 fL Neutrophils (%) (Auto) 78.8 % Lymphocytes (%) (Auto) 13.8 % Monocytes (%) (Auto) 6.1 % Eosinophils (%) (Auto) 1.0 % Basophils (%) (Auto) 0.2 % Neutrophils # (Auto) 7.65 K/uL Lymphocytes # (Auto) 1.34 K/uL Monocytes # (Auto) 0.59 K/uL Eosinophils # (Auto) 0.10 K/uL Basophils # (Auto) 0.02 K/uL RDW Standard Deviation 47.5 fL RDW Coefficient of Variation 14.8 % Immature Granulocyte % (Auto) 0.1 % Immature Granulocyte # (Auto) 0.01 K/uL Sodium Level 140 mmol/L Potassium Level 4.0 mmol/L Chloride Level 110 mmol/L Carbon Dioxide Level 22 mmol/L Anion Gap 8.0 mmol/L Blood Urea Nitrogen 16 mg/dl Creatinine 1.00 mg/dl Est Creatinine Clear Calc Drug Dose 42.9 ml/min Estimated GFR () 61.2 Estimated GFR (Non- 52.8 BUN/Creatinine Ratio 16.3 Random Glucose 120 mg/dl Calcium Level 8.9 mg/dl Chemistry Specimen Hemolysis Assessment and Plan 81 yo F with PMHx Chronic afib, mechanical and aortic valve on coumadin, HTN, hypothyroidism, hyperlipidemia, hx multiple lacunar CVA, hx chronic systolic CHF with most recent Echo showing LVEF of 40-45%, who was admitted on 2016 for acute CVA with left arm and left leg weakness, found to have a periventricular right frontal lobe acute infarct on MRI, presenting to the ER for diplopia and blurred vision. Diplopia and blurred vision after fall and facial injury - CT, MRI, MRA - negative - Neurology recommends no further work up. To arrange prism glasses on discharge. - PT/OT evals - Continue Plavix and Coumadin. During last admission patient had a stroke while on aspirin therapy. Mild Troponin elevation - Likely nonspecific. Unchanged with 3 sets Sinus pause on monitor - decreased b ricardo. cardiology consult. Monitor on Tele s/p Fall - The patient has unfortunately fallen several times since her last admission, most recently being one week ago where she sustained a large ecchymotic lesion over the right side of her face. CT of maxillofacial region is also showing prior nasal bone fractures. The patient is known to me from her last admission , the specific recommendations were made for her to go to acute rehabilitation although she adamantly refused. The patient lives at home alone in her own apartment. - PT/OT - Analgesia with Tylenol 650 mg Q4H prn Depression - has been on meds in past - started on lexapro - melatonin at night s/p Mechanical MVR/AVR - Warfarin with INR goal 2.5-3.5 Atrial fibrillation - Currently in sinus - s/p aortic and mitral mechanical valves - continue coumadin Chronic systolic CHF - 2-D echocardiogram with Doppler on 10/24 completed with LV systolic dysfunction , LVEF = 40-45% - metoprolol and digoxin as above, holding lisinopril Hypertension - Metoprolol Hypothyroidism - cont levothyroxine Hypercholesterolemia - cont atorvastatin 40 mg BID DVT prophylaxis: Coumadin DNR Needs placement
[2017-03-07 13:56] LABS: INR 2.2 (0.9-1.1); PROTHROMBIN TIME (PATIENT) 24.8 SECONDS (9.0-12.0)
[2017-03-07 15:25] VITALS: BP 154/84; PULSE 76; TEMP 36.5; O2SAT 97
[2017-03-07] MEDS: WARFARIN SOD 2 MG TAB PO SCH (16:19)
[2017-03-07 19:56] VITALS: BP 145/79; PULSE 99; TEMP 36.8; O2SAT 95
[2017-03-07] MEDS ORDERED: NURSING VERBAL MED ORDER ONE ×2 (22:30→23:45)
[2017-03-07 22:57] LABS: POTASSIUM 3.7 mmol/L (3.5-5.1)
[2017-03-07 22:59] LABS: MAGNESIUM 2.2 mg/dl (1.8-2.4)
[2017-03-07] MEDS ORDERED: POTASSIUM CHLORIDE 20 MEQ TABCR PO ONE (23:45)
[2017-03-08] VITALS (7 sets, daily range): BP systolic 133–166; BP diastolic 65–90; PULSE 63–99; TEMP 36.3–36.9; O2SAT 95–100
[2017-03-08] MEDS: LEVOTHYROXINE 50 MCG TAB PO SCH (06:00)
[2017-03-08 06:12] LABS: BASO % 0.2 %; BASO ABS # 0.02 K/uL (0-0.2); COMPLETE YES; EOS % 1.4 %; HEMATOCRIT 37.7 % (37-47); IG% 0.2 %; LYMPH % 12.7 %; LYMPH ABS # 1.26 K/uL (1.2-3.4); MEAN CELL VOLUME 88.9 fL (80-100); MEAN CORPUSCULAR HEMOGLOBIN 29.2 pg (25-34); MEAN CORPUSCULAR HGB CONC 32.9 g/dl (32-36); MEAN PLATELET VOLUME 12.4 fL (7.4-10.4); MONO % 9.5 %; PLATELET COUNT 174 K/uL (130-400); RED BLOOD COUNT 4.24 M/uL (4.2-5.4); WHITE BLOOD COUNT 9.93 K/uL (4.8-10.8)
[2017-03-08 06:35] LABS: INR 2.2 (0.9-1.1); PROTHROMBIN TIME (PATIENT) 24.2 SECONDS (9.0-12.0)
[2017-03-08 06:59] LABS: BUN/CREATININE RATIO 16.1 (10-20); CALCIUM 8.9 mg/dl (8.5-10.1); CREATININE 0.99 mg/dl (0.60-1.20); POTASSIUM 4.5 mmol/L (3.5-5.1)
[2017-03-08] MEDS: ATORVASTATIN 40 MG TAB PO SCH (07:09)
[2017-03-08] MEDS: METOPROLOL TARTRATE 25 MG TAB PO SCH ×2 (07:09→16:04)
[2017-03-08] MEDS: CLOPIDOGREL BISULFATE 75 MG TAB PO SCH (07:09)
[2017-03-08] MEDS: ESCITALOPRAM OXALATE 10 MG TAB PO SCH (07:10)
[2017-03-08] MEDS: ACETAMINOPHEN 325 MG TAB PO PRN (07:17)
[2017-03-08] MEDS ORDERED: METOPROLOL TARTRATE 25 MG TAB PO SCH (09:00)
[2017-03-08] MEDS ORDERED: HEPARIN 25000 UNIT/500 ML D5W IV STA (11:53)
--- NOTE | 2017-03-08 12:01 | Hospitalist Progress Note ---
Hospitalist Progress Note Date of Service Mar 08, 2017. Subjective no new concerns overnight Constitutional: No fever Respiratory: No shortness of breath Cardiovascular: No chest pain Abdomen: No pain, No nausea Objective Vital Signs Date Time Temp Pulse Resp B/P (MAP) Pulse Ox O2 Delivery O2 Flow Rate FiO2 03/08/17 11:26 Room Air 03/08/17 07:22 Room Air 03/08/17 06:48 36.9 95 20 137/90 (106) 100 Room Air 03/08/17 04:00 Room Air 03/08/17 03:43 36.9 99 17 145/83 (103) 97 Room Air 03/08/17 00:00 36.4 73 17 157/69 (98) 97 Room Air 03/07/17 23:59 Room Air 03/07/17 20:00 Room Air 03/07/17 19:56 36.8 99 18 145/79 (101) 95 Room Air 03/07/17 16:00 Room Air 03/07/17 15:25 36.5 76 18 154/84 (107) 97 Room Air 03/07/17 12:00 Room Air Physical Exam General Appearance: no apparent distress ENT: + pertinent finding (right side face ecchymosis) Respiratory/Chest: lungs clear, no respiratory distress Cardiovascular: + irregularly irregular Abdomen: normal bowel sounds, non tender, soft Neurologic/Psychiatric: alert, oriented x 3 Skin: warm/dry Laboratory Results Last 24 Hours Test 03/07/17 12:46 03/07/17 22:35 03/08/17 05:45 Prothrombin Time 24.8 SECONDS 24.2 SECONDS Prothromb Time International Ratio 2.2 2.2 Potassium Level 3.7 mmol/L 4.5 mmol/L Magnesium Level 2.2 mg/dl White Blood Count 9.93 K/uL Red Blood Count 4.24 M/uL Hemoglobin 12.4 g/dL Hematocrit 37.7 % Mean Corpuscular Volume 88.9 fL Mean Corpuscular Hemoglobin 29.2 pg Mean Corpuscular Hemoglobin Concent 32.9 g/dl Platelet Count 174 K/uL Mean Platelet Volume 12.4 fL Neutrophils (%) (Auto) 76.0 % Lymphocytes (%) (Auto) 12.7 % Monocytes (%) (Auto) 9.5 % Eosinophils (%) (Auto) 1.4 % Basophils (%) (Auto) 0.2 % Neutrophils # (Auto) 7.55 K/uL Lymphocytes # (Auto) 1.26 K/uL Monocytes # (Auto) 0.94 K/uL Eosinophils # (Auto) 0.14 K/uL Basophils # (Auto) 0.02 K/uL RDW Standard Deviation 48.5 fL RDW Coefficient of Variation 15.0 % Immature Granulocyte % (Auto) 0.2 % Immature Granulocyte # (Auto) 0.02 K/uL Sodium Level 139 mmol/L Chloride Level 109 mmol/L Carbon Dioxide Level 24 mmol/L Anion Gap 6.0 mmol/L Blood Urea Nitrogen 16 mg/dl Creatinine 0.99 mg/dl Est Creatinine Clear Calc Drug Dose 43.4 ml/min Estimated GFR () 61.9 Estimated GFR (Non- 53.4 BUN/Creatinine Ratio 16.1 Random Glucose 103 mg/dl Calcium Level 8.9 mg/dl Assessment and Plan 81 yo F with PMHx Chronic afib, mechanical and aortic valve on coumadin, HTN, hypothyroidism, hyperlipidemia, hx multiple lacunar CVA, hx chronic systolic CHF with most recent Echo showing LVEF of 40-45%, who was admitted on 2016 for acute CVA with left arm and left leg weakness, found to have a periventricular right frontal lobe acute infarct on MRI, presenting to the ER for diplopia and blurred vision. Diplopia and blurred vision after fall and facial injury - CT, MRI, MRA - negative - Neurology recommends no further work up. To arrange prism glasses on discharge. - PT/OT evals - Continue Plavix and Coumadin. During last admission patient had a stroke while on aspirin therapy. Mild Troponin elevation - Likely nonspecific. Unchanged with 3 sets Sinus pause on monitor - b ricardo d/jamie. for possible PPM. cardiology consult. Monitor on Tele s/p Fall - The patient has unfortunately fallen several times since her last admission, most recently being one week ago where she sustained a large ecchymotic lesion over the right side of her face. CT of maxillofacial region is also showing prior nasal bone fractures. The patient is known to me from her last admission , the specific recommendations were made for her to go to acute rehabilitation although she adamantly refused. The patient lives at home alone in her own apartment. - PT/OT - Analgesia with Tylenol 650 mg Q4H prn Depression - has been on meds in past - started on lexapro - melatonin at night s/p Mechanical MVR/AVR - Warfarin with INR goal 2.5-3.5 - start heparin drip since INR subtherapeutic. Atrial fibrillation - Currently in sinus - s/p aortic and mitral mechanical valves - continue coumadin Chronic systolic CHF - 2-D echocardiogram with Doppler on 10/24 completed with LV systolic dysfunction , LVEF = 40-45% - metoprolol and digoxin as above, holding lisinopril Hypertension - Metoprolol Hypothyroidism - cont levothyroxine Hypercholesterolemia - cont atorvastatin 40 mg BID DVT prophylaxis: Coumadin DNR Will Needs placement
[2017-03-08 12:48] LABS: PARTIAL THROMBOPLASTIN RATIO 1.5
--- NOTE | 2017-03-08 13:30 | Cardiology Follow-Up ---
Subjective Date of Service: Mar 08, 2017. Pt evaluation today including: conversation w/ patient, physical exam, chart review, lab review, review of studies, review of inpatient medication list, conversation w/ attending History of Present Illness She denies chest pain, shortness of breath, syncope, near-syncope or palpitations. I was called due to issues of intermittent bradycardia, tachycardia, and pauses of up to 3.8 seconds on telemetry. It does not appear as though she was symptomatic with pauses. She states that she has been symptomatic with palpitations while in atrial fibrillation. She converted to sinus rhythm between 7 and 8:00 a.m. this morning as noted on telemetry. Telemetry was reviewed and pauses were noted up to approximately 3.8 seconds. She denies bleeding. Neurology consultation was reviewed. Neurology states that her symptoms are more chronic since her last stroke and that there is no evidence of acute stroke. Review of systems: As above. Social History Smoking Status: Never Smoker History of Alcohol Use: No Medications Current Inpatient Medications Medications (Trade) Dose Ordered Sig/Elsi Route Start Time Stop Time Status Last Admin Dose Admin Miscellaneous Information (Pharmacist Discharge Med Rec Consult) 1 ea UD PRN N/A 03/05/17 17:30 04/04/17 17:29 Acetaminophen (Tylenol Tab) 650 mg Q4H PRN PO 03/05/17 17:30 04/04/17 17:29 03/08/17 07:17 650 MG Ondansetron HCl (Zofran Inj) 4 mg Q6H PRN IV 03/05/17 17:30 04/04/17 17:29 Polyethylene (Miralax Powder Packet) 17 gm DAILY PRN PO 03/05/17 17:30 04/04/17 17:29 Digoxin (Lanoxin Tab) 0.125 mg Q2D@1600 PO 03/06/17 16:00 04/05/17 15:59 03/06/17 16:17 0.125 MG Levothyroxine Sodium (Synthroid Tab) 50 mcg DAILYBB PO 03/06/17 06:00 04/05/17 05:59 03/08/17 06:00 50 MCG Gadobutrol (Gadavist) 7.5 mmol UD PRN IV 03/06/17 04:15 03/10/17 04:14 Escitalopram Oxalate (Lexapro Tab) 10 mg QAM PO 03/07/17 09:00 04/06/17 08:59 03/08/17 07:10 10 MG Clopidogrel Bisulfate (plAVix TAB) 75 mg DAILY PO 03/07/17 09:00 04/06/17 08:59 03/08/17 07:09 75 MG Warfarin Sodium (Coumadin Tab) 2 mg DAILY@1600 PO 03/06/17 16:00 04/05/17 15:59 03/07/17 16:19 2 MG Atorvastatin Calcium (Lipitor Tab) 40 mg DAILY PO 03/07/17 09:00 04/06/17 08:59 03/08/17 07:09 40 MG Metoprolol Tartrate (Lopressor Iv) 5 mg Q4H PRN IV 03/06/17 19:00 04/05/17 18:59 Metoprolol Tartrate (Lopressor Tab) 12.5 mg Q8H PO 03/08/17 09:00 04/07/17 08:59 03/08/17 07:09 12.5 MG Heparin Sodium/ Dextrose 1 ea Q15M N/A 03/08/17 12:30 04/07/17 12:29 Objective Vital Signs Past 12 Hours Date Time Temp Pulse Resp B/P (MAP) Pulse Ox O2 Delivery O2 Flow Rate FiO2 03/08/17 11:38 36.9 68 20 136/81 (99) 97 Room Air 03/08/17 11:26 Room Air 03/08/17 07:22 Room Air 03/08/17 06:48 36.9 95 20 137/90 (106) 100 Room Air 03/08/17 04:00 Room Air 03/08/17 03:43 36.9 99 17 145/83 (103) 97 Room Air Last Recorded Weight-Kilograms: 72.300 Physical Exam Gen.: No acute distress. Alert and oriented. HEENT: Anicteric sclera. Large ecchymoses noted. Neck: No JVD. Cardiac: No ventricular heave. Regular rate and rhythm. [place] S1. Normal S2. No murmurs, rubs, or gallops. Pulmonary: Clear to auscultation bilaterally without wheezes, rales, or rhonchi. Abdomen: Soft, nontender, nondistended, with normoactive bowel sounds. No bruits noted. Extremities: 2+ radial pulses bilaterally. 2+ posterior tibialis pulses bilaterally. No edema or cyanosis. Psychiatric: Affect appears appropriate. Data Laboratory Results: Last 24 Hours Test 03/07/17 22:35 03/08/17 05:45 Potassium Level 3.7 mmol/L 4.5 mmol/L Magnesium Level 2.2 mg/dl White Blood Count 9.93 K/uL Red Blood Count 4.24 M/uL Hemoglobin 12.4 g/dL Hematocrit 37.7 % Mean Corpuscular Volume 88.9 fL Mean Corpuscular Hemoglobin 29.2 pg Mean Corpuscular Hemoglobin Concent 32.9 g/dl Platelet Count 174 K/uL Mean Platelet Volume 12.4 fL Neutrophils (%) (Auto) 76.0 % Lymphocytes (%) (Auto) 12.7 % Monocytes (%) (Auto) 9.5 % Eosinophils (%) (Auto) 1.4 % Basophils (%) (Auto) 0.2 % Neutrophils # (Auto) 7.55 K/uL Lymphocytes # (Auto) 1.26 K/uL Monocytes # (Auto) 0.94 K/uL Eosinophils # (Auto) 0.14 K/uL Basophils # (Auto) 0.02 K/uL RDW Standard Deviation 48.5 fL RDW Coefficient of Variation 15.0 % Immature Granulocyte % (Auto) 0.2 % Immature Granulocyte # (Auto) 0.02 K/uL Prothrombin Time 24.2 SECONDS Prothromb Time International Ratio 2.2 Activated Partial Thromboplast Time 37.8 SECONDS Partial Thromboplastin Ratio 1.5 Sodium Level 139 mmol/L Chloride Level 109 mmol/L Carbon Dioxide Level 24 mmol/L Anion Gap 6.0 mmol/L Blood Urea Nitrogen 16 mg/dl Creatinine 0.99 mg/dl Est Creatinine Clear Calc Drug Dose 43.4 ml/min Estimated GFR () 61.9 Estimated GFR (Non- 53.4 BUN/Creatinine Ratio 16.1 Random Glucose 103 mg/dl Calcium Level 8.9 mg/dl Imaging: ECGs personally reviewed: ECG 03/07/2017 at 7:13 a.m.: Atrial fibrillation at 95 bpm. LBBB. ECG 03/07/2017 at 10:06 p.m.: Sinus bradycardia at 38 bpm. LBBB Telemetry reviewed: Telemetry reviewed as noted above. Assessment and Plan ASSESSMENT/PLAN: 1. Tachy-mary anne syndrome: She has paroxysmal atrial fibrillation with tachycardia, and also has sinus pauses up to 3.8 seconds and has documented sinus bradycardia with a heart rate of 38 bpm on ECG. With reduction in beta- ricardo due to bradycardia, her heart rate has been more tachycardic while in atrial fibrillation. She is currently in sinus. She continued to have 3 second pauses yesterday despite lower beta-ricardo dose and heart rates greater than 110 when called by nursing staff. Consider permanent pacemaker placement. She is agreeable to this procedure. Would continue beta-ricardo at current dose for now. Will discuss with electrophysiology or Dr. De La Cruz, who was following her in the hospital prior to this weekend. They return tomorrow. No urgent indication for pacemaker placement today. 2. Paroxysmal atrial fibrillation: Currently in sinus. Heart rate issues as above with bradycardia and tachycardia and sinus pauses just shy of 4 seconds in duration. Continue anticoagulation for stroke risk reduction. Continue beta -ricardo at current dose. 3. Mechanical mitral valve: INR is subtherapeutic at 2.2. Recommend heparin drip while subtherapeutic. Chronically takes Coumadin. Goal INR is 2.5-3.5. 4. Disposition: Dr. De La Cruz will resume her care tomorrow. Considering electrophysiology consultation as above. Plan of care has been [facility] discussed with Dr. Bryant, primary hospitalist.
[2017-03-08] MEDS: HEPARIN 25,000 UNIT/500ML D5W 500 ML IV PRN (14:11)
[2017-03-08] MEDS: HEPARIN - STOP ORDER SCH (16:00)
[2017-03-08] MEDS: DIGOXIN 0.125 MG TAB PO SCH (16:04)
[2017-03-08 20:38] LABS: PARTIAL THROMBOPLASTIN RATIO 4.5
[2017-03-09] VITALS (8 sets, daily range): BP systolic 102–142; BP diastolic 51–82; PULSE 54–112; TEMP 36.4–37; O2SAT 93–98
[2017-03-09] MEDS: METOPROLOL TARTRATE 25 MG TAB PO SCH ×3 (01:06→16:22)
[2017-03-09 04:18] LABS: PARTIAL THROMBOPLASTIN RATIO 3.8; PROTHROMBIN TIME (PATIENT) 22.2 SECONDS (9.0-12.0)
[2017-03-09] MEDS: LEVOTHYROXINE 50 MCG TAB PO SCH (06:00)
[2017-03-09] MEDS: HEPARIN - STOP ORDER SCH ×3 (08:00→16:00)
[2017-03-09 08:14] LABS: PROTHROMBIN TIME (PATIENT) 21.7 SECONDS (9.0-12.0)
--- NOTE | 2017-03-09 08:39 | Family Medicine Progress Note ---
Progress Note Date of Service Mar 09, 2017. Subjective Pt evaluation today including: conversation w/ patient, conversation w/ family , physical exam, chart review, lab review, conversation w/ furniture sales consultant, review of inpatient medication list Pain: None reported by patient PO Intake: NPO today for potential pacemaker placement Voiding: no voiding problems (previous intermittent urinary retention resolved) Janelle feels well today aside from being fatigued. She states she did sleep well last night. No pain reported. NPO today for possible pacemaker placement. Awaiting visit from electrophysiology Constitutional: + fatigue Eyes: + diplopia, + problem reported (right eye remain shut) Cardiovascular: + palpitations Psychiatric: + depression symptoms Medications Current Inpatient Medications Medications (Trade) Dose Ordered Sig/Elsi Route Start Time Stop Time Status Last Admin Dose Admin Miscellaneous Information (Pharmacist Discharge Med Rec Consult) 1 ea UD PRN N/A 03/05/17 17:30 04/04/17 17:29 Acetaminophen (Tylenol Tab) 650 mg Q4H PRN PO 03/05/17 17:30 04/04/17 17:29 03/08/17 07:17 650 MG Ondansetron HCl (Zofran Inj) 4 mg Q6H PRN IV 03/05/17 17:30 04/04/17 17:29 Polyethylene (Miralax Powder Packet) 17 gm DAILY PRN PO 03/05/17 17:30 04/04/17 17:29 Digoxin (Lanoxin Tab) 0.125 mg Q2D@1600 PO 03/06/17 16:00 04/05/17 15:59 03/08/17 16:04 0.125 MG Levothyroxine Sodium (Synthroid Tab) 50 mcg DAILYBB PO 03/06/17 06:00 04/05/17 05:59 03/08/17 06:00 50 MCG Gadobutrol (Gadavist) 7.5 mmol UD PRN IV 03/06/17 04:15 03/10/17 04:14 Escitalopram Oxalate (Lexapro Tab) 10 mg QAM PO 03/07/17 09:00 04/06/17 08:59 03/08/17 07:10 10 MG Clopidogrel Bisulfate (plAVix TAB) 75 mg DAILY PO 03/07/17 09:00 04/06/17 08:59 03/08/17 07:09 75 MG Warfarin Sodium (Coumadin Tab) 2 mg DAILY@1600 PO 03/06/17 16:00 04/05/17 15:59 Future Hold 03/07/17 16:19 2 MG Atorvastatin Calcium (Lipitor Tab) 40 mg DAILY PO 03/07/17 09:00 04/06/17 08:59 03/08/17 07:09 40 MG Metoprolol Tartrate (Lopressor Iv) 5 mg Q4H PRN IV 03/06/17 19:00 04/05/17 18:59 Metoprolol Tartrate (Lopressor Tab) 12.5 mg Q8H PO 03/08/17 09:00 04/07/17 08:59 03/09/17 01:06 12.5 MG Heparin Sodium/ Dextrose 500 ml @ 17 mls/hr Q24H PRN IV 03/08/17 13:45 04/07/17 13:44 03/08/17 14:11 24 MLS/HR Miscellaneous (Stop Order) 1 ea QS N/A 03/08/17 16:00 04/07/17 15:59 Objective Vital Signs Date Time Temp Pulse Resp B/P (MAP) Pulse Ox O2 Delivery O2 Flow Rate FiO2 03/09/17 07:56 36.8 112 16 137/82 (100) 98 Room Air 03/09/17 04:00 Room Air 03/09/17 03:19 36.4 63 15 142/80 (100) 98 Room Air 03/09/17 00:00 Room Air 03/08/17 23:17 36.7 97 19 163/65 (97) 95 Room Air 03/08/17 21:36 36.6 99 18 166/73 (104) 98 Room Air 03/08/17 20:00 Room Air 03/08/17 16:04 72 03/08/17 15:33 Room Air 03/08/17 15:21 36.3 63 16 133/66 (88) 97 Room Air 03/08/17 11:38 36.9 68 20 136/81 (99) 97 Room Air 03/08/17 11:26 Room Air Physical Exam General Appearance: no apparent distress Eyes: sclerae normal, + abnormal EOM (bilateral CN issue; unable to abduct either eye), + pertinent finding (Left eye normal inspection, EOM; Right eye closed from recent fall--no swelling. ) ENT: hearing grossly normal Neck: no carotid bruits, trachea midline Respiratory/Chest: chest non-tender, lungs clear, normal breath sounds, no respiratory distress, no accessory muscle use Cardiovascular: no edema, + diastolic murmur (mechanical mitral valve), + irregularly irregular, + pertinent finding (rate controlled intermittent afib) Abdomen: non tender, soft Extremities: non-tender, normal inspection, no pedal edema, no calf tenderness Neurologic/Psychiatric: alert, oriented x 3, + depressed affect Skin: + pertinent finding (ecchymosis of right side of face, otherwise normal) Laboratory Results Test 03/09/17 03:40 03/09/17 07:44 Activated Partial Thromboplast Time 99.8 SECONDS (21.0-31.0) Partial Thromboplastin Ratio 3.8 Prothrombin Time 21.7 SECONDS (9.0-12.0) Prothromb Time International Ratio 2.0 (0.9-1.1) Currently on IV heparin; INR still subtherapeutic; will likely need to increase coumadin on discharge Assessment and Plan 81 yo female with H/O stroke initially presented with diplopia after a fall days prior; admitted to r/o stroke. Awaiting EP consult due to pauses on telemetry with aim of pacemaker placement. 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 Sinus mary anne also noted. Beta ricardo dose adjusted/lowered, now remains more tachycardic while in afib. Seen by EP team; echo performed to determine EF. Current EF is verbally reported to be less than 35% and therefore cardio team will go ahead with Bi-V AICD planned for . Continue to hold coumadin and continue IV Heparin Paroxysmal afib Managed with coumadin at home, will likely need to adjust dose on discharge to reach therapeutic 2.5-3.5 range for her mechanical valve Current INR of 2.0, unchanged since switching to IV heparin. Diplopia Will refer to optometry or ophthalmology at discharge for prism to correct double vision if still present upon discharge Improving diplopia with right eye opening throughout the day Mechanical Mitral valve Continuing heparin until procedure on . Will continue coumadin on discharge with therapeutic INR goal of 2.5-3.5 Code status: DNR Disposition: remains on telemetry due to frequent pauses; has procedure , 03/12 VTE: IV Heparin and SCD Resident Physician Supervision Note: I was present with PGY1 Dr. Arlin Almonte during the history and exam. I discussed the case with the resident and agree with the findings and plan as documented in the note. Any exceptions or clarifications are listed here: none. Pt with improved diplopia. Tele with frequent sinus pauses overnight. Patient tired but otherwise no dyspnea or chest pain. VSS no fever gen - nad skin - significant ecchymoses of right face; small laceration in area between eyes neck - no JVD eyes - extraocular movements - with leftward gaze unable to abduct with left eye and possibly right eye heart - RRR, s1, s2, mechanical valve closure sound lungs - CTA b/l abd - soft, NT ext - no edema labs - INR 2 echo pending A/P: 1. 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 plan for permanent pacemaker later this week by Dr. Doss. hold warfarin; cont heparin infusion. 2. mechanical MV - continue heparin infusion. 3. CKD stage 3 - Cr stable. 4. recent diplopia - due to dysconjugate gaze as see on exam? MRI brain w/o acute stroke. Overall improved. Agree with prism glasses after d/c. 5. memory loss per daughter - vascular? check "reversible" causes in am (b1, b12, TSH, etc) 6. chronic systolic CHF - by verbal report EF is worse this admission; await official reading. Appears compensated on exam. 7. frequent falls - could be cardiac related. 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 Check b12 level to be complete. 8. PT, OT. Documented By: Mati Belcher MD Resident Tracking Resident Involvement: Resident Care Provided Care Provided: Adult [facility] Medicine
[2017-03-09] MEDS ORDERED: PERFLUTREN LIPID MICROSPHERE (DEFINITY) IV ONE (11:10)
[2017-03-09 11:48] LABS: PARTIAL THROMBOPLASTIN RATIO 2.3
[2017-03-09] MEDS: CLOPIDOGREL BISULFATE 75 MG TAB PO SCH (13:59)
[2017-03-09] MEDS: ATORVASTATIN 40 MG TAB PO SCH (13:59)
[2017-03-09] MEDS: HEPARIN 25,000 UNIT/500ML D5W 500 ML IV PRN (16:21)
[2017-03-09] MEDS: ESCITALOPRAM OXALATE 10 MG TAB PO SCH (16:23)
--- NOTE | 2017-03-09 16:35 | Cardiology Follow-Up ---
Subjective Date of Service: Mar 09, 2017. Pt evaluation today including: conversation w/ patient, conversation w/ family , physical exam, lab review, review of studies, review of inpatient medication list, conversation w/ attending History of Present Illness This is a very pleasant 81-year-old woman who has a history of mitral valve replacement in 1994 and a subsequent aortic valve replacement 2013 (both mechanical valves) with normal coronary arteries. She has had a long history of atrial fibrillation and flutter for which she had ablation in 2008 and was on intravenous amiodarone. Her amiodarone was discontinued due to side effects, and she has been having difficulty with paroxysmal atrial fibrillation and sinus node dysfunction although she is not terribly symptomatic with it. She has also had several strokes, even while on anticoagulation. She also has a history of cardiomyopathy, since September 2013 her left ventricular ejection fraction has typically been around 35% although in April 2015 was reported as 25-30% and in October 2016 he was read as 40-45%. More recently she has been having a lot of difficulty with very poor stamina, having extreme difficulty with any kind of activity and having to use a walker which she does not like. She has also been having difficulty with falls and presented with a fall which she feels was due to tripping with facial injury. In the emergency room she was noted to have asked his atrial fibrillation with long pauses following termination of her atrial arrhythmia. This has however been asymptomatic and she has not had any symptoms of presyncope or syncope when she denies either of these as a cause of her fall at the time of her presentation. She also has a left bundle branch block, that appears to be relatively recent as on 03/01/2014 she had a narrow complex and on 10/23/2016 she had the left bundle pattern with a QRS duration of about 160 ms. That left bundle branch block has remained with a similar QRS duration. Today she feels about the same, she is still feeling very tired and fatigued and is pretty much keeping to bed. Social History Smoking Status: Never Smoker History of Alcohol Use: No Review of Systems Respiratory: + see HPI, No cough, No sputum, No wheezing, No shortness of breath, No dyspnea on exertion, No dyspnea at rest, No hemoptysis, No problem reported Cardiac: + see HPI, + palpitations, + problem reported Medications Cardiovascular: Item Value Date Time Metoprolol 12.5 mg 03/08/17 0900 Tartrate Q8H/PO (Lopressor Tab) Heparin Sodium/ 500 ml @ 17 mls/hr 03/08/17 1345 Dextrose .Q24H PRN/IV 03/08/17 1411 Clopidogrel 75 mg 03/07/17 0900 Bisulfate DAILY/PO 03/09/17 1359 (plAVix TAB) Atorvastatin 40 mg 03/07/17 0900 Calcium DAILY/PO 03/09/17 1359 (Lipitor Tab) Metoprolol 5 mg 03/06/17 1900 Tartrate Q4H PRN/IV (Lopressor Iv) Digoxin 0.125 mg 03/06/17 1600 (Lanoxin Tab) Q2D@1600/PO 03/08/17 1604 Objective Vital Signs Past 12 Hours Date Time Temp Pulse Resp B/P (MAP) Pulse Ox O2 Delivery O2 Flow Rate FiO2 03/09/17 15:36 37.0 90 18 113/51 (71) 94 Room Air 03/09/17 12:00 Room Air 03/09/17 11:50 36.8 73 16 142/68 (92) 97 Room Air 03/09/17 08:00 Room Air 03/09/17 07:56 36.8 112 16 137/82 (100) 98 Room Air Last Recorded Weight-Kilograms: 72.400 Intake & Output 8-Hour Column 03/09/17 03/10/17 03/10/17 16:00 00:00 08:00 Intake Total 126 ml Output Total 450 ml Balance -324 ml 24-Hour Column 03/10/17 08:00 Intake Total 126 ml Output Total 450 ml Balance -324 ml Physical Exam Constitutional: Level of Distress: moderate distress Lungs: Auscultation: breath sounds normal Cardiovascular: Heart Auscultation: tachycardia, II/ SHELLY, II/ WSM, irregular rate rhythm Extremities: no edema Gen.: No acute distress. Alert and oriented. HEENT: Anicteric sclera. Large ecchymoses noted. Neck: No JVD. Cardiac: No ventricular heave. Regular rate and rhythm. [place] S1. Normal S2. No murmurs, rubs, or gallops. Pulmonary: Clear to auscultation bilaterally without wheezes, rales, or rhonchi. Abdomen: Soft, nontender, nondistended, with normoactive bowel sounds. No bruits noted. Extremities: 2+ radial pulses bilaterally. 2+ posterior tibialis pulses bilaterally. No edema or cyanosis. Psychiatric: Affect appears appropriate. Data Laboratory Results: Last 24 Hours Test 03/08/17 19:45 03/09/17 03:40 03/09/17 07:44 03/09/17 11:13 Activated Partial Thromboplast Time 117.9 SECONDS 99.8 SECONDS 60.2 SECONDS Partial Thromboplastin Ratio 4.5 3.8 2.3 Prothrombin Time 22.2 SECONDS 21.7 SECONDS Prothromb Time International Ratio 2.0 2.0 Imaging: A limited echocardiogram was done today to look at her left ventricular function, the report is pending. Based on my review I think her ejection fraction is quite low, probably in the 20-25% range. EK03/07/2017 she has sinus bradycardia at 38 bpm with a left bundle branch block pattern. There is another electrocardiogram from that day showing atrial fibrillation with a heart rate of 85 bpm and a left bundle branch block pattern , QRS duration is 156 ms on this one. Another electrocardiogram from 03/07/2017 done earlier in the morning shows atrial fibrillation with a heart rate of 95 bpm, left bundle branch block with occurs duration 154 ms. Telemetry reviewed: Sinus rhythm with periods of atrial fibrillation, roughly estimating it she is in atrial fibrillation perhaps a third of the time. During atrial fibrillation or heart rate tends to be fast, with termination there tended to be pauses approaching 3 seconds in duration. During sinus rhythm her rate is relatively normal. Assessment and Plan #1. Sinus node dysfunction: She clearly has sinus node dysfunction with a very prolonged sinus node recovery time evident with termination of her atrial arrhythmia. This may be contributed to by her digoxin and her beta blockade, however she does need rate control when she is in atrial fibrillation. She should have a pacemaker for sinus node dysfunction. #2. Paroxysmal atrial fibrillation: She has a long history of atrial fibrillation, has had ablation and was on amiodarone but could not tolerate that. I don't think there is very much we can do to maintain rhythm control. Controlling rate is problematic with her severe sinus node dysfunction. We probably need to implant a pacemaker and then use rate control to try to control her overall heart rate. #3. Left bundle-branch block: The first elective cardiac documented left bundle branch block that I can see was in the early part of this year, prior to that she had a narrow complex. That may be part of the reason for her worsening left ventricular function and worsening symptoms. Resynchronization may well be indicated. #4. Cardiomyopathy: She has had a long history of cardiomyopathy but it has been fluctuating based on measurements, based on my review I think her current ejection fraction is quite low. I will wait for the official review and discuss this with her primary composite worker, Dr. Guevara, but I believe she has significant left ventricular dysfunction and I believe that may be part of her symptomatology. With her current left ventricular ejection fraction at think she is at risk for sudden cardiac ) left degree ejection fraction less than equal to 35%) and she may benefit from an ICD. #5. Fatigue, difficulty with exertion: I believe this may be due to a low cardiac output state, in part contributed by left ventricular dyssynchrony and mechanical inefficiency with her left bundle branch block. Additionally during sinus rhythm with rate control her heart rate is slow, without heart rate control she is often atrial fibrillation with a rapid heart rate. All of this can contribute to poor cardiac output. She would very much like to feel better, a dual-chamber pacemaker with rate control for her atrial fibrillation would not likely make her feel much better, although it may help a little bit. A defibrillator certainly wouldn't help with her symptoms but would protect her from dangerous arrhythmias. A biventricular ICD may well increase her mechanical efficiency, increase her cardiac output and allow use of medications which might be helpful long run for her cardiomyopathy (specifically beta- blockade). I have discussed options with her and her daughter at length. We discussed options of pacemaker implantation, ICD implantation, or biventricular ICD implantation. The only option that I think has a good chance of making her feel better is a biventricular ICD. I will review this with Dr. Guevara, but I will tentatively plan on doing this on 03/11/2017. In the meantime we will hold her warfarin but maintain heparin. I did discuss the surgical procedure with her and her daughter (which would apply to a pacemaker or a biventricular ICD), there will be increased risk of bleeding and likely bruising afterwards because we cannot leave her off of heparin for very long due to her history of stroke.
--- NOTE | 2017-03-09 17:19 | Cardiology Follow-Up ---
Subjective Date of Service: Mar 09, 2017. Pt evaluation today including: conversation w/ patient, physical exam, chart review, lab review, conversation w/ consultants intern, review of inpatient medication list History of Present Illness Ms. Cloud is being followed up by cardiology for a new onset of tachy-mary anne syndrome. She has a longstanding history of paroxysmal atrial fibrillation that is controlled on Metoprolol, however this weekend she has experienced her first episodes of intermittent bradycardia. She denies chest pain, shortness of breath , palpitations or syncope during these episodes, and is unable to tell when she is experiencing her bradycardic episodes. Over the weekend, she experienced runs of bradycardia, tachycardia, as well as pauses of up to 3.8 seconds. Social History Smoking Status: Never Smoker History of Alcohol Use: No Review of Systems Respiratory: No see HPI, No cough, No sputum, No wheezing, No shortness of breath, No dyspnea on exertion, No dyspnea at rest, No hemoptysis, No problem reported Cardiac: + see HPI, + palpitations, + problem reported Medications Current Inpatient Medications Medications (Trade) Dose Ordered Sig/Elsi Route Start Time Stop Time Status Last Admin Dose Admin Acetaminophen (Tylenol Tab) 650 mg Q4H PRN PO 03/05/17 17:30 04/04/17 17:29 03/08/17 07:17 650 MG Ondansetron HCl (Zofran Inj) 4 mg Q6H PRN IV 03/05/17 17:30 04/04/17 17:29 Polyethylene (Miralax Powder Packet) 17 gm DAILY PRN PO 03/05/17 17:30 04/04/17 17:29 Digoxin (Lanoxin Tab) 0.125 mg Q2D@1600 PO 03/06/17 16:00 04/05/17 15:59 03/08/17 16:04 0.125 MG Levothyroxine Sodium (Synthroid Tab) 50 mcg DAILYBB PO 03/06/17 06:00 04/05/17 05:59 03/08/17 06:00 50 MCG Gadobutrol (Gadavist) 7.5 mmol UD PRN IV 03/06/17 04:15 03/10/17 04:14 Escitalopram Oxalate (Lexapro Tab) 10 mg QAM PO 03/07/17 09:00 04/06/17 08:59 03/08/17 07:10 10 MG Clopidogrel Bisulfate (plAVix TAB) 75 mg DAILY PO 03/07/17 09:00 04/06/17 08:59 03/08/17 07:09 75 MG Warfarin Sodium (Coumadin Tab) 2 mg DAILY@1600 PO 03/06/17 16:00 04/05/17 15:59 Future Hold 03/07/17 16:19 2 MG Atorvastatin Calcium (Lipitor Tab) 40 mg DAILY PO 03/07/17 09:00 04/06/17 08:59 03/08/17 07:09 40 MG Metoprolol Tartrate (Lopressor Iv) 5 mg Q4H PRN IV 03/06/17 19:00 04/05/17 18:59 Metoprolol Tartrate (Lopressor Tab) 12.5 mg Q8H PO 03/08/17 09:00 04/07/17 08:59 03/09/17 01:06 12.5 MG Heparin Sodium/ Dextrose 500 ml @ 17 mls/hr Q24H PRN IV 03/08/17 13:45 04/07/17 13:44 03/08/17 14:11 24 MLS/HR Miscellaneous (Stop Order) 1 ea QS N/A 03/08/17 16:00 04/07/17 15:59 Objective Vital Signs Past 12 Hours Date Time Temp Pulse Resp B/P (MAP) Pulse Ox O2 Delivery O2 Flow Rate FiO2 03/09/17 08:00 Room Air 03/09/17 07:56 36.8 112 16 137/82 (100) 98 Room Air 03/09/17 04:00 Room Air 03/09/17 03:19 36.4 63 15 142/80 (100) 98 Room Air 03/09/17 00:00 Room Air 03/08/17 23:17 36.7 97 19 163/65 (97) 95 Room Air Last Recorded Weight-Kilograms: 72.400 Physical Exam Gen.: No acute distress. Alert and oriented. HEENT: Anicteric sclera. Large ecchymoses noted. Neck: No JVD. Cardiac: No ventricular heave. Regular rate and rhythm. [place] S1. Normal S2. No murmurs, rubs, or gallops. Pulmonary: Clear to auscultation bilaterally without wheezes, rales, or rhonchi. Abdomen: Soft, nontender, nondistended, with normoactive bowel sounds. No bruits noted. Extremities: 2+ radial pulses bilaterally. 2+ posterior tibialis pulses bilaterally. No edema or cyanosis. Psychiatric: Affect appears appropriate. Data Laboratory Results: Last 24 Hours Test 03/08/17 19:45 03/09/17 03:40 03/09/17 07:44 03/09/17 11:06 Activated Partial Thromboplast Time 117.9 SECONDS 99.8 SECONDS Partial Thromboplastin Ratio 4.5 3.8 Prothrombin Time 22.2 SECONDS 21.7 SECONDS Prothromb Time International Ratio 2.0 2.0 Imaging: EKG: Telemetry reviewed: Assessment and Plan 1. Tachy-mary anne Syndrome: She has paroxysmal atrial fibrillation, with new onset pauses of up to 3.8 seconds and intermittent bradycardia, as low as 38 bpm. The plan thus far is to do an ECHO, to determine if she will receive an ICD or pacemaker. Her last EF was in October 2016 and was 40-45%. Today, her EF is reported to be less than 35% and therefore a bi-ventricular AICD will be placed on . The risks and benefits of these have been explained to her and she has consented to this procedure. Will continue beta ricardo and plavix at current dose. Continue to hold warfarin and continue IV Heparin. Resident Tracking Resident Involvement: Resident Care Provided Care Provided: Adult [facility] Medicine
--- NOTE | 2017-03-09 20:35 | ECHOCARDIOGRAM REPORT ---
*NOTICE TO RECEIVING CONSTITUTION PARTY AGENCY This information is strictly Confidential and protected under [place] law. [place] law prohibits you from making any further disclosure of this information unless further disclosure is expressly permitted by the written consent of the person to whom it pertains or is authorized by law. A general authorization for the release of medical or other information is not sufficient for this purpose. Hospital accepts no responsibility if the information is made available to any other person, INCLUDING THE PATIENT. Interpretation Summary * Name: BRANDY AZUL Study Date: 03/09/2017 10:55 AM BP: 137/82 mmHg * Patient Location: C.2T\S\S241\S\2 HR: 63 * : 1935 (M/d/yyy) Gender: Female Height: 67 in * Age: 81 yrs Ethnicity: [place] Weight: 159 lb * Ordering Physician: Casey Doss * Referring Physician: Self, Referred * * BSA: 1.8 m2 * Only 2D imaging performed. No doppler or color flow exam. * Moderate to severe left ventricular systolic dysfunction. Mild concentric left ventricle hypertrophy. Biatrial dilatation. Compared to an echo of October 24, 2016 there has been a decrease in the left ventricular ejection fraction. * The study was technically limited. Procedure Details * A contrast injection of Definity was performed to improve assessment of LV function. * One vial of Definity ultrasound contrast was diluted in normal saline to a total volume of 10 ml. A total of '4' ml of solution was administered during imaging. * Lot # [id number] of Definity utilized for procedure. * Expiration date 1A. * Contrast IV Site in patient right leg. * The attending nurse who injected the contrast agent was Roslyn Valentine RN. Left Ventricle * The left ventricle is normal in size. * There is mild concentric left ventricular hypertrophy. * Ejection Fraction = 30-35%. * Left ventricular systolic function is moderate to severely reduced. * There is moderate to severe global hypokinesis of the left ventricle. Right Ventricle * The right ventricle is normal in size and function. Atria * The left atrium is moderately dilated. * The right atrium is mildly dilated. Mitral Valve * There is a mechanical mitral valve. * The prosthetic mitral valve is well-seated. Aortic Valve * There is a mechanical aortic valve. Pericardium/Pleural * There is no pericardial effusion. MMode 2D Measurements and Calculations IVSd 1.2 cm LVIDd 4.8 cm LVIDs 4.3 cm LVPWd 1.2 cm IVS/LVPW 0.97 FS 9.9 % EDV(Teich) 108.7 ml ESV(Teich) 85.2 ml EF(Teich) 21.7 % EDV(cubed) 112.2 ml ESV(cubed) 82.1 ml EF(cubed) 26.8 % LV mass(C)d 224.9 grams LV mass(C)dI 122.6 grams/m\S\2 SV(Teich) 23.6 ml SI(Teich) 12.8 ml/m\S\2 SV(cubed) 30.1 ml SI(cubed) 16.4 ml/m\S\2 LVAd ap4 28.3 cm\S\2 LVLd ap4 7.9 cm EDV(MOD-sp4) 80.8 ml EDV(sp4-el) 86.8 ml LVAs ap4 21.1 cm\S\2 LVLs ap4 7.0 cm ESV(MOD-sp4) 53.7 ml ESV(sp4-el) 54.3 ml EF(MOD-sp4) 33.5 % EF(sp4-el) 37.5 % LVAd ap2 23.0 cm\S\2 LVLd ap2 6.6 cm EDV(MOD-sp2) 64.2 ml EDV(sp2-el) 68.3 ml LVAs ap2 19.8 cm\S\2 LVLs ap2 6.4 cm ESV(MOD-sp2) 48.9 ml ESV(sp2-el) 51.8 ml EF(MOD-sp2) 23.8 % EF(sp2-el) 24.2 % LVLd %diff -19.74 % EDV(MOD-bp) 77.6 ml LVLs %diff -8.13 % ESV(MOD-bp) 52.0 ml EF(MOD-bp) 33.0 % SV(MOD-sp4) 27.1 ml SI(MOD-sp4) 14.8 ml/m\S\2 SV(MOD-sp2) 15.3 ml SI(MOD-sp2) 8.3 ml/m\S\2 SV(MOD-bp) 25.6 ml SI(MOD-bp) 14.0 ml/m\S\2 SV(sp4-el) 32.5 ml SI(sp4-el) 17.7 ml/m\S\2 SV(sp2-el) 16.5 ml SI(sp2-el) 9.0 ml/m\S\2
[2017-03-10] MEDS: HEPARIN - STOP ORDER SCH
[2017-03-10] MEDS: METOPROLOL TARTRATE 25 MG TAB PO SCH ×3 (01:00→16:54)
[2017-03-10 04:11] VITALS: BP 141/69; PULSE 96; TEMP 37.1; O2SAT 94
[2017-03-10] MEDS: LEVOTHYROXINE 50 MCG TAB PO SCH (06:08)
[2017-03-10] MEDS ORDERED: LACTATED RINGER'S 1000ML 1,000 ML IV ONE (07:36)
[2017-03-10 07:45] VITALS: BP 137/63; PULSE 69; TEMP 37.3; O2SAT 94
[2017-03-10 08:14] LABS: HEMATOCRIT 37.2 % (37-47); MEAN CELL VOLUME 88.6 fL (80-100); MEAN CORPUSCULAR HEMOGLOBIN 27.6 pg (25-34); MEAN CORPUSCULAR HGB CONC 31.2 g/dl (32-36); MEAN PLATELET VOLUME 12.9 fL (7.4-10.4); PLATELET COUNT 185 K/uL (130-400); WHITE BLOOD COUNT 7.44 K/uL (4.8-10.8)
[2017-03-10 08:27] LABS: PARTIAL THROMBOPLASTIN RATIO 2.5
--- NOTE | 2017-03-10 08:52 | Cardiology Follow-Up ---
Cardiology Follow-Up Date of Service Mar 10, 2017. 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 Neurology workup unrevealing. She complains of profound fatigue, difficult to even arise from her bed. She denies any lightheadedness, presyncope, syncope, or any other loss of consciousness. No chest pain or dyspnea. Telemetry monitoring overnight shows rhythm alternating between sinus and atrial fibrillation with pauses of up to 4.2 seconds (apparently asymptomatic). PHYSICAL EXAMINATION: No distress. Vitals: Afebrile. BP 137/63, pulse 60s to 90s and varying between regular with ectopy and completely irregular, respirations 16 and unlabored. Skin: Scattered ecchymoses. HEENT: Resolving ecchymoses of the facial region. Neck: Jugular venous pulse at the clavicle at 90, no carotid bruits. Lungs: Clear and equal breath sounds bilaterally. No wheezing or crackles. Cardiac: Rhythm vary between regular with ectopy and irregular, mechanical S1- S2, 2/6 apical holosystolic murmur radiating to the axilla. Abdomen: Benign. Extremities: Nontender without edema. Intact peripheral pulses. Neurologic: Normal affect, grossly nonfocal DATA: Echocardiogram showed moderate to severe global hypokinesis of left ventricle with ejection fraction 30-35 %, mild left ventricular hypertrophy. Study was technically limited but valves were apparently functioning appropriately. Compared with October 2016 study, decline in left ventricular systolic function. Telemetry monitoring showed sinus rhythm alternating with atrial fibrillation with reasonable rate, pauses of up to 4.2 seconds noted. Normal CBC today. PTT 66. IMPRESSION: 1. Paroxysmal atrial fibrillation with periods of sinus rhythm with sinus pauses (up to 4.2 seconds), no obvious related symptoms. 2. Longstanding cardiomyopathy with previously normal coronary arteries, current EF 30-35 %. 3. Mechanical aortic and mitral valves, chronic warfarin anticoagulation. 4. Frequent falls. 5. Recent CVA (October 2016). 6. Profound fatigue. 7. Left bundle branch block, relatively recent onset. DISCUSSION: As per Dr. Doss consultation, pacemaker/ICD placement planned given her profound fatigue, systolic dysfunction with left bundle branch block, and significant pauses. She is quite debilitated and likely will need significant physical and occupational therapy and perhaps placement in assisted living facility (which she has resisted in the past). Temporarily anticoagulated with heparin, resume warfarin after pacemaker/ICD placement. Would continue bed rest for now, since she is at risk for further falls with her periods of asystole.
--- NOTE | 2017-03-10 09:04 | Family Medicine Progress Note ---
Progress Note Date of Service Mar 10, 2017. Subjective Pt evaluation today including: conversation w/ patient Mrs Cloud felt very down today - reported feeling isolated, especially since she wasn't allowed to call her family last night, and tired, since she gets checked on so freuqently with her frequent pauses. Understands she won't get pacemaker until . Denies any other pain or concerns. Constitutional: + weakness, No fever, No sweats Eyes: No worsening of vision ENT: No hearing loss Cardiovascular: + palpitations, No chest pain All Other Systems: Reviewed and Negative Medications Current Inpatient Medications Medications (Trade) Dose Ordered Sig/Elsi Route Start Time Stop Time Status Last Admin Dose Admin Acetaminophen (Tylenol Tab) 650 mg Q4H PRN PO 03/05/17 17:30 04/04/17 17:29 03/08/17 07:17 650 MG Ondansetron HCl (Zofran Inj) 4 mg Q6H PRN IV 03/05/17 17:30 04/04/17 17:29 Polyethylene (Miralax Powder Packet) 17 gm DAILY PRN PO 03/05/17 17:30 04/04/17 17:29 Digoxin (Lanoxin Tab) 0.125 mg Q2D@1600 PO 03/06/17 16:00 04/05/17 15:59 03/08/17 16:04 0.125 MG Levothyroxine Sodium (Synthroid Tab) 50 mcg DAILYBB PO 03/06/17 06:00 04/05/17 05:59 03/10/17 06:08 50 MCG Escitalopram Oxalate (Lexapro Tab) 10 mg QAM PO 03/07/17 09:00 04/06/17 08:59 03/09/17 16:23 10 MG Clopidogrel Bisulfate (plAVix TAB) 75 mg DAILY PO 03/07/17 09:00 04/06/17 08:59 03/09/17 13:59 75 MG Warfarin Sodium (Coumadin Tab) 2 mg DAILY@1600 PO 03/06/17 16:00 04/05/17 15:59 Future Hold 03/07/17 16:19 2 MG Atorvastatin Calcium (Lipitor Tab) 40 mg DAILY PO 03/07/17 09:00 04/06/17 08:59 03/09/17 13:59 40 MG Metoprolol Tartrate (Lopressor Iv) 5 mg Q4H PRN IV 03/06/17 19:00 04/05/17 18:59 Metoprolol Tartrate (Lopressor Tab) 12.5 mg Q8H PO 03/08/17 09:00 04/07/17 08:59 03/09/17 01:06 12.5 MG Heparin Sodium/ Dextrose 500 ml @ 17 mls/hr Q24H PRN IV 03/08/17 13:45 03/11/17 08:00 03/09/17 16:21 17 MLS/HR Lactated Ringer's 1,000 ml @ 15 mls/hr Q24H ONCE IV 03/10/17 07:36 03/11/17 07:35 Miscellaneous (Stop Order) 1 ea TODAY@0800 N/A 03/11/17 08:00 03/11/17 08:01 Cefazolin Sodium 1000 mg/Dextrose 55 ml @ 110 mls/hr PREOP IV 03/11/17 06:00 03/11/17 13:59 Objective Vital Signs Date Time Temp Pulse Resp B/P (MAP) Pulse Ox O2 Delivery O2 Flow Rate FiO2 03/10/17 08:00 Room Air 03/10/17 07:45 37.3 69 16 137/63 (87) 94 Room Air 03/10/17 04:11 37.1 96 17 141/69 (93) 94 Room Air 03/10/17 04:00 Room Air 03/10/17 00:00 Room Air 03/09/17 23:57 37.0 96 17 131/64 (86) 95 Room Air 03/09/17 20:00 96 Room Air 03/09/17 19:57 36.8 54 18 138/61 (86) 96 Room Air 03/09/17 16:00 Room Air 03/09/17 15:36 37.0 90 18 113/51 (71) 94 Room Air 03/09/17 12:00 Room Air 03/09/17 11:50 36.8 73 16 142/68 (92) 97 Room Air Physical Exam General Appearance: WD/WN, + mild distress, + thin Eyes: normal inspection, PERRL ENT: hearing grossly normal Neck: supple, no JVD Respiratory/Chest: lungs clear Cardiovascular: regular rate, rhythm, + pertinent finding (mechanical click) Abdomen: normal bowel sounds, non tender, soft Extremities: non-tender, no pedal edema Neurologic/Psychiatric: alert, oriented x 3, + depressed affect Skin: warm/dry, no rash Lymphatic: no adenopathy Laboratory Results Last 24 Hours Test 03/09/17 11:13 03/10/17 07:39 Activated Partial Thromboplast Time 60.2 SECONDS 66.1 SECONDS Partial Thromboplastin Ratio 2.3 2.5 White Blood Count 7.44 K/uL Red Blood Count 4.20 M/uL Hemoglobin 11.6 g/dL Hematocrit 37.2 % Mean Corpuscular Volume 88.6 fL Mean Corpuscular Hemoglobin 27.6 pg Mean Corpuscular Hemoglobin Concent 31.2 g/dl RDW Standard Deviation 49.3 fL RDW Coefficient of Variation 15.3 % Platelet Count 185 K/uL Mean Platelet Volume 12.9 fL Vitamin B12 Level 438 pg/mL Thyroid Stimulating Hormone (TSH) 3.110 uIu/ml Assessment and Plan 81 yo F with prior stroke & mechanical mitral valve presented w/diplopia and stroke rule out, found to have frequent pauses - due for biventricular ICD placement on with Dr Doss, should be on bedrest & cardiac monitoring until then. Tachy mary anne syndrome Telemetry reviewed - continues to get pauses, all under 4 seconds. Due for ICD on Echo performed, results as above. Paroxysmal atrial fibrillation Takes Coumadin at home, with goal INR 2.5-3.5 due to mechanical mitral valve Switched to IV heparin prior to procedure Is rate controlled despite stop in BBlocker Diplopia Will refer to optometry or ophthalmology at discharge for prism to correct double vision if still present upon discharge Mechanical Mitral valve Continuing heparin until procedure Will restart coumadin on discharge with therapeutic INR goal of 2.5-3.5 Code status: DNR Disposition: Remains on telemetry due to frequent pauses; has ICD placement , 03/12 VTE: IV Heparin and SCDs Resident Physician Supervision Note: I was present with PGY1 Dr. Arlin Almonte and PGY3 Dr. Priya Gomez during the history and exam. I discussed the case with the resident and agree with the findings and plan as documented in the note. Any exceptions or clarifications are listed here: none. Pt with improved diplopia but blurry vision remains. Tele with frequent sinus pauses overnight once again. Patient tired; appetite fair. C/o lumbar spine pain - chronic, but worse in the hospital. VSS no fever gen - nad, looks depressed skin - significant ecchymoses of right face; small laceration in area between eyes neck - no JVD heart - RRR, s1, s2, mechanical valve closure sound lungs - CTA b/l - no rales abd - soft, NT ext - no edema back - tender over L-spine; no tenderness over t-spine labs - INR 1.8 echo - EF 30% - worse than previous echo A/P: 1. tachy-mary anne syndrome with sinus pauses / SSS - plan for permanent pacemaker later this week by Dr. Doss. holding warfarin; cont heparin infusion for bridge due to [facility] mitral/aortic valves. 2. mechanical MV / mechanical AV - continue heparin infusion. 3. CKD stage 3 - Cr stable. 4. recent diplopia - due to dysconjugate gaze as see on exam? MRI brain w/o acute stroke. Overall improved. Agree with prism glasses after d/c. 5. memory loss per daughter - vascular? b1 pending b12, TSH normal could be vascular dementia from prior strokes 6. chronic systolic CHF - compensated 7. frequent falls - could be cardiac related. 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 Checked b12 level to be complete - normal. 8. l-spine back pain - obtain x-rays, r/o l-spine compression fx's. 9. check u/a and urine cx - staff report urinary frequency and some malodorous urine. Documented By: Mati Belcher MD Resident Tracking Resident Involvement: Resident Care Provided Care Provided: Adult Hospital Medicine
[2017-03-10] MEDS: ATORVASTATIN 40 MG TAB PO SCH (09:41)
[2017-03-10] MEDS: ESCITALOPRAM OXALATE 10 MG TAB PO SCH (09:41)
[2017-03-10] MEDS: CLOPIDOGREL BISULFATE 75 MG TAB PO SCH (09:41)
[2017-03-10 11:57] VITALS: BP 134/80; PULSE 74; TEMP 36.8; O2SAT 94
[2017-03-10 13:19] LABS: INR 1.8 (0.9-1.1)
[2017-03-10 15:54] VITALS: BP 123/81; PULSE 96; TEMP 36.9; O2SAT 94
[2017-03-10] MEDS: DIGOXIN 0.125 MG TAB PO SCH (16:42)
[2017-03-10 20:14] VITALS: BP 129/87; PULSE 109; TEMP 36.9; O2SAT 95
[2017-03-11] VITALS (11 sets, daily range): BP systolic 111–160; BP diastolic 72–93; PULSE 61–139; TEMP 36.6–37; O2SAT 94–98
[2017-03-11] MEDS: METOPROLOL TARTRATE 1 MG/ML VIAL IV PRN (00:34)
[2017-03-11] MEDS: METOPROLOL TARTRATE 25 MG TAB PO SCH ×3 (01:00→17:06)
[2017-03-11] MEDS: LEVOTHYROXINE 50 MCG TAB PO SCH (05:38)
[2017-03-11] MEDS ORDERED: CEFAZOLIN IV 1,000 MG in DEXTROSE 5% 50ML 50 ML IV SCH (06:00)
[2017-03-11] MEDS ORDERED: CEFAZOLIN SOD 1000MG/55 ML D5W IV SCH (06:00)
--- NOTE | 2017-03-11 06:43 | DIAGNOSTIC IMAGING REPORT ---
L-SPINE MIN 4 VIEWS ROUTINE HISTORY: 81-year-old female presents with acute back pain status post fall. COMPARISON: Chest radiographs 03/05/2017, chest CT 03/12/2009 TECHNIQUE: 5 radiographic views of the lumbar spine. FINDINGS: The ribs at T12 are hypoplastic. The bones are osteopenic. There is convex-right curvature of the lumbar spine. The vertebral body heights are well aligned without compression deformity. Multilevel endplate spurring and facet arthropathy is present. There is atherosclerotic plaquing of the aorta. IMPRESSION: 1. No acute fracture or dislocation. 2. Multilevel facet arthropathy and endplate spurring with osteopenia. Electronically signed by: Dharmesh Grady 03/11/2017 6:42 AM Dictated Date/Time: 03/11/2017 6:27 AM
[2017-03-11 07:45] LABS: PARTIAL THROMBOPLASTIN RATIO 2.3
[2017-03-11] MEDS ORDERED: HEPARIN - STOP ORDER SCH (08:00)
[2017-03-11] MEDS: ATORVASTATIN 40 MG TAB PO SCH (08:14)
[2017-03-11] MEDS: ESCITALOPRAM OXALATE 10 MG TAB PO SCH (08:14)
[2017-03-11] MEDS: CLOPIDOGREL BISULFATE 75 MG TAB PO SCH (08:14)
[2017-03-11] MEDS ORDERED: NURSING VERBAL MED ORDER ONE (08:30)
[2017-03-11] MEDS ORDERED: HEPARIN 25,000 UNIT/500ML D5W 500 ML IV PRN (08:45)
--- NOTE | 2017-03-11 11:36 | Family Medicine Progress Note ---
Progress Note Date of Service Mar 11, 2017. 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 w/ design center consultant, review of inpatient medication list Pain: Back pain improved today PO Intake: Ok to eat PO today, NPO from midnight Voiding: voiding difficulty Janelle is declaring early this morning that she would not like to have her procedure tomorrow due to the "controversy" with the physician group. Complains of discomfort on hospital bed. She also states she is extremely tired. Constitutional: + weakness, + fatigue Eyes: + diplopia All Other Systems: Reviewed and Negative Medications Current Inpatient Medications Medications (Trade) Dose Ordered Sig/Elsi Route Start Time Stop Time Status Last Admin Dose Admin Acetaminophen (Tylenol Tab) 650 mg Q4H PRN PO 03/05/17 17:30 04/04/17 17:29 03/08/17 07:17 650 MG Ondansetron HCl (Zofran Inj) 4 mg Q6H PRN IV 03/05/17 17:30 04/04/17 17:29 Polyethylene (Miralax Powder Packet) 17 gm DAILY PRN PO 03/05/17 17:30 04/04/17 17:29 Digoxin (Lanoxin Tab) 0.125 mg Q2D@1600 PO 03/06/17 16:00 04/05/17 15:59 03/10/17 16:42 0.125 MG Levothyroxine Sodium (Synthroid Tab) 50 mcg DAILYBB PO 03/06/17 06:00 04/05/17 05:59 03/11/17 05:38 50 MCG Escitalopram Oxalate (Lexapro Tab) 10 mg QAM PO 03/07/17 09:00 04/06/17 08:59 03/11/17 08:14 10 MG Clopidogrel Bisulfate (plAVix TAB) 75 mg DAILY PO 03/07/17 09:00 04/06/17 08:59 03/11/17 08:14 75 MG Warfarin Sodium (Coumadin Tab) 2 mg DAILY@1600 PO 03/06/17 16:00 04/05/17 15:59 Future Hold 03/07/17 16:19 2 MG Atorvastatin Calcium (Lipitor Tab) 40 mg DAILY PO 03/07/17 09:00 04/06/17 08:59 03/11/17 08:14 40 MG Metoprolol Tartrate (Lopressor Iv) 5 mg Q4H PRN IV 03/06/17 19:00 04/05/17 18:59 03/11/17 00:34 5 MG Metoprolol Tartrate (Lopressor Tab) 12.5 mg Q8H PO 03/08/17 09:00 04/07/17 08:59 03/11/17 08:15 12.5 MG Cefazolin Sodium 1000 mg/Dextrose 55 ml @ 110 mls/hr PREOP IV 03/11/17 06:00 03/11/17 13:59 Heparin Sodium/ Dextrose 500 ml @ 17 mls/hr Q24H PRN IV 03/11/17 08:45 04/10/17 08:44 Objective Vital Signs Date Time Temp Pulse Resp B/P (MAP) Pulse Ox O2 Delivery O2 Flow Rate FiO2 03/11/17 08:00 98 Room Air 03/11/17 07:09 37.0 66 18 125/75 (92) 98 Room Air 03/11/17 04:16 36.9 106 21 159/76 (103) 95 Room Air 03/11/17 04:00 Room Air 03/11/17 00:34 138 03/11/17 00:23 36.6 139 18 160/93 (115) 96 Room Air 03/10/17 23:59 Room Air 03/10/17 20:14 36.9 109 16 129/87 (101) 95 Room Air 03/10/17 20:00 Room Air 03/10/17 16:42 105 03/10/17 16:00 Room Air 03/10/17 15:54 36.9 96 18 123/81 (95) 94 Room Air 03/10/17 12:00 Room Air 03/10/17 11:57 36.8 74 16 134/80 (98) 94 Room Air Physical Exam General Appearance: no apparent distress Eyes: PERRL, EOMI, sclerae normal, + pertinent finding (right eye remains disposed to be closed but is more prone to open on its own than earlier this week) ENT: hearing grossly normal Respiratory/Chest: chest non-tender, lungs clear, normal breath sounds, no respiratory distress, no accessory muscle use Cardiovascular: + diastolic murmur, + irregularly irregular Abdomen: normal bowel sounds, non tender, soft, no organomegaly, no pulsatile mass Extremities: non-tender, normal inspection, no pedal edema 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 States she does not want procedure done because of the "controversy amongst the physicians." When prompted for more info, she was unable to expand. When asked what procedure she was to be having, she described "an implant with lasers and a defibrillator in case i want to use that." Also states that she is "too old to have any surgery on her eyes." Laboratory Results Test 03/10/17 13:01 03/11/17 07:02 Prothrombin Time 20.0 SECONDS (9.0-12.0) Prothromb Time International Ratio 1.8 (0.9-1.1) Activated Partial Thromboplast Time 59.7 SECONDS (21.0-31.0) Partial Thromboplastin Ratio 2.3 Assessment and Plan This 81 year old lady awaiting ICD placement on ; active issues include mild delirium Acute Metabolic Encephalopathy Investigating for sources of infection, repeat urine was unremarkable Likely multifactorial, patient has background of dementia Continue to monitor Tachy mary anne syndrome Telemetry reviewed - continues to get pauses, most around 4 seconds. Due for ICD on Paroxysmal atrial fibrillation Takes Coumadin at home, with goal INR 2.5-3.5 due to mechanical mitral valve Switched to IV heparin prior to procedure Is rate controlled despite stop in BBlocker Diplopia Will refer to optometry or ophthalmology at discharge for prism to correct double vision if still present upon discharge Mechanical Mitral valve Continuing heparin until procedure Will restart coumadin on discharge with therapeutic INR goal of 2.5-3.5 Code: Level 5/DNR, stable Dispo: remains on telemetry VTE: IV heparin drip and SCD Resident Physician Supervision Note: I was present with PGY1 Dr. Arlin Almonte during the history and exam. I discussed the case with the resident and agree with the findings and plan as documented in the note. Any exceptions or clarifications are listed here: none. During bedside rounds she complains of fatigue and "uncertainty" about getting her pacemaker. She was confused during rounds. Tele overnight - pauses continue. VSS no fever gen - nad, looks depressed and tired skin - significant ecchymoses of right face - mild improvement today; small laceration in area between eyes healing nicely neck - no JVD heart - RRR, s1, s2, mechanical valve closure sound lungs - CTA b/l - no rales abd - soft, NT ext - no edema A/P: 1. 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 Doss. holding warfarin; cont heparin infusion for bridge due to mech mitral/aortic valves. INR in am. 2. mechanical MV / mechanical AV - continue heparin infusion. 3. CKD stage 3 - Cr stable. 4. recent diplopia - due to dysconjugate gaze as see on exam? MRI brain w/o acute stroke. Overall improved. Agree with prism glasses after d/c. 5. memory loss per daughter - vascular - with current superimposed encephalopathy. b1 pending; b12, TSH normal checking ua and urine cx to exclude UTI as cause of encephalopathy. depression (chronic) contributing to memory issues? 6. chronic systolic CHF - compensated 7. frequent falls - could be cardiac related from sinus pauses/SSS. 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 8. l-spine back pain - obtained x-rays - no compression fracture. NPO after MN tonight Documented By: Mati Belcher MD Resident Tracking Resident Involvement: Resident Care Provided Care Provided: Adult Hospital Medicine
--- NOTE | 2017-03-11 12:20 | Cardiology Follow-Up ---
Subjective Date of Service: Mar 11, 2017. Pt evaluation today including: conversation w/ patient, physical exam, lab review, review of studies, review of inpatient medication list History of Present Illness This is a very pleasant 81-year-old woman who has a history of mitral valve replacement in 1994 and a subsequent aortic valve replacement 2013 (both mechanical valves) with normal coronary arteries. She has had a long history of atrial fibrillation and flutter for which she had ablation in 2008 and was on intravenous amiodarone. Her amiodarone was discontinued due to side effects, and she has been having difficulty with paroxysmal atrial fibrillation and sinus node dysfunction although she is not terribly symptomatic with it. She has also had several strokes, even while on anticoagulation. She also has a history of cardiomyopathy, since September 2013 her left ventricular ejection fraction has typically been around 35% although in April 2015 was reported as 25-30% and in October 2016 he was read as 40-45%. More recently she has been having a lot of difficulty with very poor stamina, having extreme difficulty with any kind of activity and having to use a walker which she does not like. She has also been having difficulty with falls and presented with a fall which she feels was due to tripping with facial injury. In the emergency room she was noted to have asked his atrial fibrillation with long pauses following termination of her atrial arrhythmia. This has however been asymptomatic and she has not had any symptoms of presyncope or syncope when she denies either of these as a cause of her fall at the time of her presentation. She also has a left bundle branch block, that appears to be relatively recent as on 03/01/2014 she had a narrow complex and on 10/23/2016 she had the left bundle pattern with a QRS duration of about 160 ms. That left bundle branch block has remained with a similar QRS duration. We therefore discussed biventricular ICD implantation with her, with plans for doing it today (however the lab is full) or tomorrow. Today she is somewhat confused and rambling, she is rethinking whether she wants to go through with the device implantation. She is complaining of feeling very fatigued and tired. Social History Smoking Status: Never Smoker History of Alcohol Use: No Review of Systems Respiratory: No see HPI, No cough, No sputum, No wheezing, No shortness of breath, No dyspnea on exertion, No dyspnea at rest, No hemoptysis, No problem reported Cardiac: + palpitations, No chest pain Medications Cardiovascular: Item Value Date Time Heparin Sodium/ 500 ml @ 17 mls/hr 03/11/17 0845 Dextrose .Q24H PRN/IV Metoprolol 12.5 mg 03/08/17 0900 Tartrate Q8H/PO 03/11/17 0815 (Lopressor Tab) Clopidogrel 75 mg 03/07/17 0900 Bisulfate DAILY/PO 03/11/17 0814 (plAVix TAB) Atorvastatin 40 mg 03/07/17 0900 Calcium DAILY/PO 03/11/17 0814 (Lipitor Tab) Digoxin 0.125 mg 03/06/17 1600 (Lanoxin Tab) Q2D@1600/PO 03/10/17 1642 Objective Vital Signs Past 12 Hours Date Time Temp Pulse Resp B/P (MAP) Pulse Ox O2 Delivery O2 Flow Rate FiO2 03/11/17 11:47 36.7 63 17 141/83 (102) 96 Room Air 03/11/17 08:00 98 Room Air 03/11/17 07:09 37.0 66 18 125/75 (92) 98 Room Air 03/11/17 04:16 36.9 106 21 159/76 (103) 95 Room Air 03/11/17 04:00 Room Air 03/11/17 00:34 138 03/11/17 00:23 36.6 139 18 160/93 (115) 96 Room Air Last Recorded Weight-Kilograms: 71.600 Physical Exam Constitutional: Level of Distress: moderate distress Lungs: Auscultation: breath sounds normal Cardiovascular: Heart Auscultation: tachycardia, II/ SHELLY, II/ WSM, irregular rate rhythm Extremities: no edema Gen.: No acute distress. Alert and oriented. HEENT: Anicteric sclera. Large ecchymoses noted. Neck: No JVD. Cardiac: No ventricular heave. Regular rate and rhythm. [place] S1. Normal S2. No murmurs, rubs, or gallops. Pulmonary: Clear to auscultation bilaterally without wheezes, rales, or rhonchi. Abdomen: Soft, nontender, nondistended, with normoactive bowel sounds. No bruits noted. Extremities: 2+ radial pulses bilaterally. 2+ posterior tibialis pulses bilaterally. No edema or cyanosis. Psychiatric: Affect appears appropriate. Data Laboratory Results: Last 24 Hours Test 03/10/17 13:01 03/11/17 07:02 Prothrombin Time 20.0 SECONDS Prothromb Time International Ratio 1.8 Activated Partial Thromboplast Time 59.7 SECONDS Partial Thromboplastin Ratio 2.3 Telemetry reviewed: Sinus rhythm with paroxysmal atrial fibrillation with long pauses with atrial fibrillation termination, longest a little over 3 seconds. Assessment and Plan #1. Sinus node dysfunction: She clearly has sinus node dysfunction with a very prolonged sinus node recovery time evident with termination of her atrial arrhythmia. This may be contributed to by her digoxin and her beta blockade, however she does need rate control when she is in atrial fibrillation. She should have a pacemaker (or ICD) for sinus node dysfunction. #2. Paroxysmal atrial fibrillation: She has a long history of atrial fibrillation, has had ablation and was on amiodarone but could not tolerate that. I don't think there is very much we can do to maintain rhythm control. Controlling rate is problematic with her severe sinus node dysfunction. We probably need to implant a pacemaker and then use rate control to try to control her overall heart rate. #3. Left bundle-branch block: The first documented of left bundle branch block that I can see was in the early part of this year, prior to that she had a narrow complex. That may be part of the reason for her worsening left ventricular function and worsening symptoms. Resynchronization may well be indicated. #4. Cardiomyopathy: She has had a long history of cardiomyopathy but it has been fluctuating based on measurements, based on my review I think her current ejection fraction is quite low. I will wait for the official review and discuss this with her primary medical illustrator, Dr. Guevara, but I believe she has significant left ventricular dysfunction and I believe that may be part of her symptomatology. With her current left ventricular ejection fraction I think she is at risk for sudden cardiac (left degree ejection fraction less than equal to 35%) and she may benefit from an ICD. #5. Fatigue, difficulty with exertion: I believe this may be due to a low cardiac output state, in part contributed by left ventricular dyssynchrony and mechanical inefficiency with her left bundle branch block. Additionally during sinus rhythm with rate control her heart rate is slow, without heart rate control she is often atrial fibrillation with a rapid heart rate. All of this can contribute to poor cardiac output. She would very much like to feel better, a dual-chamber pacemaker with rate control for her atrial fibrillation would not likely make her feel much better, although it may help a little bit. A defibrillator certainly wouldn't help with her symptoms but would protect her from dangerous arrhythmias. A biventricular ICD may well increase her mechanical efficiency, increase her cardiac output and allow use of medications which might be helpful long run for her cardiomyopathy (specifically beta- blockade). I have discussed options with her and her daughter at length several days ago. We discussed options of pacemaker implantation, ICD implantation, or biventricular ICD implantation. The only option that I think has a good chance of making her feel better is a biventricular ICD. I have tentatively scheduled this for 03/12/2017. In the meantime we will hold her warfarin but maintain heparin. I did discuss the surgical procedure with her and her daughter (which would apply to a pacemaker or a biventricular ICD), there will be increased risk of bleeding and likely bruising afterwards because we cannot leave her off of heparin for very long due to her history of stroke.
[2017-03-11 12:45] LABS: MANUAL MICROSCOPIC REQUIRED? NO; REVIEW REQ? NO; URINE APPEARANCE CLEAR (CLEAR); URINE BILIRUBIN NEG (NEG); URINE COLOR YELLOW; URINE EPITHELIAL CELL AUTO 0-5 /lpf (0-5); URINE NITRITE NEG (NEG); URINE PH 6.5 (4.5-7.5); URINE SPECIFIC GRAVITY 1.013 (1.000-1.030); UROBILINOGEN NEG (NEG); ZZURINE CULT IF INDIC CATH NO
[2017-03-12] VITALS (9 sets, daily range): BP systolic 102–140; BP diastolic 66–84; PULSE 66–120; TEMP 36.6–37; O2SAT 94–97
[2017-03-12] MEDS: METOPROLOL TARTRATE 25 MG TAB PO SCH ×2 (00:39→07:58)
[2017-03-12] MEDS: LEVOTHYROXINE 50 MCG TAB PO SCH (05:16)
[2017-03-12 07:29] LABS: BASO % 0.4 %; BASO ABS # 0.03 K/uL (0-0.2); COMPLETE YES; EOS % 2.8 %; HEMATOCRIT 36.5 % (37-47); IG% 0.4 %; LYMPH % 15.2 %; LYMPH ABS # 1.02 K/uL (1.2-3.4); MEAN CELL VOLUME 89.2 fL (80-100); MEAN CORPUSCULAR HEMOGLOBIN 28.6 pg (25-34); MEAN CORPUSCULAR HGB CONC 32.1 g/dl (32-36); MEAN PLATELET VOLUME 12.9 fL (7.4-10.4); MONO % 6.4 %; NEUT % 74.8 %; PLATELET COUNT 152 K/uL (130-400); RED BLOOD COUNT 4.09 M/uL (4.2-5.4); WHITE BLOOD COUNT 6.72 K/uL (4.8-10.8)
[2017-03-12 07:44] LABS: INR 1.4 (0.9-1.1); PARTIAL THROMBOPLASTIN RATIO 2.1; PROTHROMBIN TIME (PATIENT) 15.4 SECONDS (9.0-12.0)
[2017-03-12] MEDS: ATORVASTATIN 40 MG TAB PO SCH (07:57)
[2017-03-12] MEDS: ACETAMINOPHEN 325 MG TAB PO PRN ×2 (07:57→21:41)
[2017-03-12] MEDS: CLOPIDOGREL BISULFATE 75 MG TAB PO SCH (07:57)
[2017-03-12] MEDS: ESCITALOPRAM OXALATE 10 MG TAB PO SCH (07:57)
[2017-03-12 08:03] LABS: BUN/CREATININE RATIO 15.2 (10-20); CREATININE 0.87 mg/dl (0.60-1.20); POTASSIUM 3.8 mmol/L (3.5-5.1)
[2017-03-12] MEDS ORDERED: LIDOCAINE HCL 1% 20 ML VIAL ONE (12:39)
[2017-03-12] MEDS ORDERED: BACITRACIN 50000 UNIT VIAL ONE (12:39)
[2017-03-12] MEDS ORDERED: BACITRACIN OINT 0.9 GM PKT ONE (12:39)
--- NOTE | 2017-03-12 12:41 | Cardiology Follow-Up ---
Subjective Date of Service: Mar 12, 2017. Pt evaluation today including: conversation w/ patient, conversation w/ family , physical exam, lab review, review of studies, review of inpatient medication list History of Present Illness This is a very pleasant 81-year-old woman who has a history of mitral valve replacement in 1994 and a subsequent aortic valve replacement 2013 (both mechanical valves) with normal coronary arteries. She has had a long history of atrial fibrillation and flutter for which she had ablation in 2008 and was on intravenous amiodarone. Her amiodarone was discontinued due to side effects, and she has been having difficulty with paroxysmal atrial fibrillation and sinus node dysfunction although she is not terribly symptomatic with it. She has also had several strokes, even while on anticoagulation. She also has a history of cardiomyopathy, since September 2013 her left ventricular ejection fraction has typically been around 35% although in April 2015 was reported as 25-30% and in October 2016 he was read as 40-45%. More recently she has been having a lot of difficulty with very poor stamina, having extreme difficulty with any kind of activity and having to use a walker which she does not like. She has also been having difficulty with falls and presented with a fall which she feels was due to tripping with facial injury. In the emergency room she was noted to have asked his atrial fibrillation with long pauses following termination of her atrial arrhythmia. This has however been asymptomatic and she has not had any symptoms of presyncope or syncope when she denies either of these as a cause of her fall at the time of her presentation. She also has a left bundle branch block, that appears to be relatively recent as on 03/01/2014 she had a narrow complex and on 10/23/2016 she had the left bundle pattern with a QRS duration of about 160 ms. That left bundle branch block has remained with a similar QRS duration. We therefore discussed biventricular ICD implantation with her, with plans for doing it today (however the lab is full) or tomorrow. Today she is tired and sleepy but alert and oriented. No other complaints. Social History Smoking Status: Never Smoker History of Alcohol Use: No Review of Systems Respiratory: No see HPI, No cough, No sputum, No wheezing, No shortness of breath, No dyspnea on exertion, No dyspnea at rest, No hemoptysis, No problem reported Cardiac: + palpitations, No chest pain Medications Cardiovascular: Item Value Date Time Metoprolol 12.5 mg 03/08/17 0900 Tartrate Q8H/PO 03/12/17 0758 (Lopressor Tab) Clopidogrel 75 mg 03/07/17 0900 Bisulfate DAILY/PO 03/12/17 0757 (plAVix TAB) Atorvastatin 40 mg 03/07/17 0900 Calcium DAILY/PO 03/12/17 0757 (Lipitor Tab) Digoxin 0.125 mg 03/06/17 1600 (Lanoxin Tab) Q2D@1600/PO 03/10/17 1642 Objective Vital Signs Past 12 Hours Date Time Temp Pulse Resp B/P (MAP) Pulse Ox O2 Delivery O2 Flow Rate FiO2 03/12/17 12:00 95 Room Air 03/12/17 11:05 36.9 89 20 102/66 (78) 94 Room Air 03/12/17 08:00 95 Room Air 03/12/17 07:35 36.9 66 20 130/77 (94) 95 03/12/17 05:09 Room Air 03/12/17 04:40 37.0 110 18 140/84 (102) 95 03/12/17 04:00 Room Air Last Recorded Weight-Kilograms: 71.600 Physical Exam Constitutional: Level of Distress: moderate distress Lungs: Auscultation: breath sounds normal Cardiovascular: Heart Auscultation: tachycardia, II/ SHELLY, II/ WSM, irregular rate rhythm Extremities: no edema Gen.: No acute distress. Alert and oriented. HEENT: Anicteric sclera. Large ecchymoses noted. Neck: No JVD. Cardiac: No ventricular heave. Regular rate and rhythm. [place] S1. Normal S2. No murmurs, rubs, or gallops. Pulmonary: Clear to auscultation bilaterally without wheezes, rales, or rhonchi. Abdomen: Soft, nontender, nondistended, with normoactive bowel sounds. No bruits noted. Extremities: 2+ radial pulses bilaterally. 2+ posterior tibialis pulses bilaterally. No edema or cyanosis. Psychiatric: Affect appears appropriate. Data Laboratory Results: Last 24 Hours Test 03/12/17 06:56 White Blood Count 6.72 K/uL Red Blood Count 4.09 M/uL Hemoglobin 11.7 g/dL Hematocrit 36.5 % Mean Corpuscular Volume 89.2 fL Mean Corpuscular Hemoglobin 28.6 pg Mean Corpuscular Hemoglobin Concent 32.1 g/dl Platelet Count 152 K/uL Mean Platelet Volume 12.9 fL Neutrophils (%) (Auto) 74.8 % Lymphocytes (%) (Auto) 15.2 % Monocytes (%) (Auto) 6.4 % Eosinophils (%) (Auto) 2.8 % Basophils (%) (Auto) 0.4 % Neutrophils # (Auto) 5.02 K/uL Lymphocytes # (Auto) 1.02 K/uL Monocytes # (Auto) 0.43 K/uL Eosinophils # (Auto) 0.19 K/uL Basophils # (Auto) 0.03 K/uL RDW Standard Deviation 49.5 fL RDW Coefficient of Variation 15.2 % Immature Granulocyte % (Auto) 0.4 % Immature Granulocyte # (Auto) 0.03 K/uL Prothrombin Time 15.4 SECONDS Prothromb Time International Ratio 1.4 Activated Partial Thromboplast Time 53.9 SECONDS Partial Thromboplastin Ratio 2.1 Sodium Level 139 mmol/L Potassium Level 3.8 mmol/L Chloride Level 107 mmol/L Carbon Dioxide Level 23 mmol/L Anion Gap 9.0 mmol/L Blood Urea Nitrogen 13 mg/dl Creatinine 0.87 mg/dl Est Creatinine Clear Calc Drug Dose 49.3 ml/min Estimated GFR () 72.4 Estimated GFR (Non- 62.5 BUN/Creatinine Ratio 15.2 Random Glucose 98 mg/dl Calcium Level 9.0 mg/dl Telemetry reviewed: PAF with prolonged pauses, up to 4.8 sec, with termination of AF Assessment and Plan #1. Sinus node dysfunction: She clearly has sinus node dysfunction with a very prolonged sinus node recovery time evident with termination of her atrial arrhythmia. This may be contributed to by her digoxin and her beta blockade, however she does need rate control when she is in atrial fibrillation. Pauses are getting longer, now several 4.8 sec in duration this AM. She should have a pacemaker (or ICD) for sinus node dysfunction. #2. Paroxysmal atrial fibrillation: She has a long history of atrial fibrillation, has had ablation and was on amiodarone but could not tolerate that. I don't think there is very much we can do to maintain rhythm control. Controlling rate is problematic with her severe sinus node dysfunction. We need to implant a pacemaker and then use rate control to try to control her overall heart rate. #3. Left bundle-branch block: The first documented of left bundle branch block that I can see was in the early part of this year, prior to that she had a narrow complex. That may be part of the reason for her worsening left ventricular function and worsening symptoms. Resynchronization may well be indicated. #4. Cardiomyopathy: She has had a long history of cardiomyopathy but it has been fluctuating based on measurements, based on my review I think her current ejection fraction is quite low. I will wait for the official review and discuss this with her primary chalk extruding machine operator, Dr. Guevara, but I believe she has significant left ventricular dysfunction and I believe that may be part of her symptomatology. With her current left ventricular ejection fraction I think she is at risk for sudden cardiac (left degree ejection fraction less than equal to 35%) and she may benefit from an ICD. #5. Fatigue, difficulty with exertion: I believe this may be due to a low cardiac output state, in part contributed by left ventricular dyssynchrony and mechanical inefficiency with her left bundle branch block. Additionally during sinus rhythm with rate control her heart rate is slow, without heart rate control she is often atrial fibrillation with a rapid heart rate. All of this can contribute to poor cardiac output. She would very much like to feel better, a dual-chamber pacemaker with rate control for her atrial fibrillation would not likely make her feel much better, although it may help a little bit. A defibrillator certainly wouldn't help with her symptoms but would protect her from dangerous arrhythmias. A biventricular ICD may well increase her mechanical efficiency, increase her cardiac output and allow use of medications which might be helpful long run for her cardiomyopathy (specifically beta- blockade). I have discussed biventricular ICD implantation with her and her daughter again today, the indications, procedure, risks and alternatives and they understand and she agrees to proceed. Consent obtained. She is on heparin, there will be increased risk of bleeding and likely bruising afterwards because we cannot leave her off of heparin for very long due to her history of stroke while on warfarin. I reviewed the increased risk of bleeding with her and her daughter and we will proceed.
--- NOTE | 2017-03-12 12:43 | Procedure Note ---
Pre-Mod Sedation Assessment General Date of Moderate Sedation: Mar 12, 2017. Vital Signs: Vital Signs Past 12 Hours Date Time Temp Pulse Resp B/P (MAP) Pulse Ox O2 Delivery O2 Flow Rate FiO2 03/12/17 12:00 95 Room Air 03/12/17 11:05 36.9 89 20 102/66 (78) 94 Room Air 03/12/17 08:00 95 Room Air 03/12/17 07:35 36.9 66 20 130/77 (94) 95 03/12/17 05:09 Room Air 03/12/17 04:40 37.0 110 18 140/84 (102) 95 03/12/17 04:00 Room Air Review Cardiovascular: + irregularly irregular Abdomen: normal bowel sounds Lungs: lungs clear Pre-Sedation Airway Assessment Oral Cavity: WNL Short Thick Neck: No Hx of Sleep Apnea: No Smoking Status: Never Smoker Procedure Planning Contraindications-for Mod Sed: None Yes Notes The planned sedation has been discussed with the patient and consent obtained. I have identified the patient, determined the appropriateness of sedation and have assessed the patient immediately prior to the procedure. All medicine(s) and interventions are by my order.
[2017-03-12] MEDS: FENTANYL CITRATE INJ 50 MCG/1 ML 2 ML VIAL ONE (13:04)
[2017-03-12] MEDS ORDERED: KEFZOL SPECIAL PROCEDURE STOCK 1 GM ADDVIAL IV ONE (13:04)
[2017-03-12] MEDS ORDERED: MIDAZOLAM HCL 5 MG/ML 1 ML VIAL ONE (13:04)
--- NOTE | 2017-03-12 15:07 | Cardiology Procedure Brief Nt ---
Preliminary Cardiology Note Procedure Date Mar 12, 2017. Pre-Procedure Diagnosis cardiomyopathy, left bundle branch block, bradycardia Post-Procedure Diagnosis same Procedure(s) Performed Right ventricular ICD lead implantation Atrial lead implantation Coronary sinus angiography Left ventricular lead implantation Biventricular ICD implantation Foam Charger Dr. Doss Electrical Line Splicer(s) none Estimated Blood Loss 100 cc Preliminary Findings Good lead position for all 3 leads. Her rhythm during the procedure was either an atrial tachycardia or a very slow atypical atrial flutter at a rate of about 120 bpm. Recommendations Monitor overnight Restart heparin this evening despite risk of bleeding Specimens None Anesthesia local with sedation Complication(s) None Disposition PCU
--- NOTE | 2017-03-12 15:08 | Procedure Note ---
Post-Mod Sedation Assessment General Date of Moderate Sedation Mar 12, 2017. Vital Signs: Vital Signs Past 12 Hours Date Time Temp Pulse Resp B/P (MAP) Pulse Ox O2 Delivery O2 Flow Rate FiO2 03/12/17 14:55 96 16 149/84 (105) 100 Mask 3 03/12/17 12:00 95 Room Air 03/12/17 11:05 36.9 89 20 102/66 (78) 94 Room Air 03/12/17 08:00 95 Room Air 03/12/17 07:35 36.9 66 20 130/77 (94) 95 03/12/17 05:09 Room Air 03/12/17 04:40 37.0 110 18 140/84 (102) 95 03/12/17 04:00 Room Air Review - Discharge Criteria Vital Signs Stable: Yes Alert/Oriented/Conversant: Yes Returned to Baseline Mental St: Yes Nausea Absent/Minimal: Yes Pain/Discomfort/Absent/Minimal: Yes Normal/Baseline Respirations: Yes Active Bleeding?: No
[2017-03-12] MEDS ORDERED: ACETAMINOPHEN 325 MG TAB PO PRN (15:15)
[2017-03-12] MEDS ORDERED: KETOROLAC TROMETHAMINE 10 MG TAB PO PRN (15:15)
[2017-03-12] MEDS ORDERED: METOPROLOL TARTRATE 50 MG TAB PO STA (15:22)
[2017-03-12] MEDS: DIGOXIN 0.125 MG TAB PO SCH (16:00)
--- NOTE | 2017-03-12 16:09 | Family Medicine Progress Note ---
Progress Note Date of Service Mar 12, 2017. Subjective Pt evaluation today including: conversation w/ patient, conversation w/ family , physical exam, review of inpatient medication list Pain: No pain at this time PO Intake: Able to eat solid food as tolerated Voiding: voiding difficulty 81 yo lady s/p ICD placement today. Still groggy from anesthesia at this time No complaints after procedure aside from fatigue and ongoing back pain Very happy procedure is done, feels well. Constitutional: + fatigue, No fever, No chills Eyes: + diplopia ENT: No hearing loss, No unusual epistaxis, No nasal symptoms, No sore throat, No tinnitus, No dental problems, No trouble swallowing, No problem reported Respiratory: No cough, No sputum, No wheezing, No shortness of breath, No dyspnea on exertion, No dyspnea at rest, No hemoptysis, No problem reported Cardiovascular: + see HPI, + palpitations, No chest pain, No orthopnea, No PND, No edema, No claudication, No problem reported Abdomen: No see HPI, No pain, No nausea, No vomiting, No diarrhea, No constipation, No GI bleeding, No problem reported Musculoskeletal: + problem reported (back pain) Female : + incontinence, No dysuria, No urinary frequency Neurologic: No memory loss, No paralysis, No weakness, No numbness/tingling , No vertigo, No balance problems, No problem reported Psychiatric: No depression symptoms, No anhedonism, No anxiety, No insomnia , No substance abuse, No problem reported Skin: No rash, No itch, No bleeding All Other Systems: Reviewed and Negative Medications Current Inpatient Medications Medications (Trade) Dose Ordered Sig/Elsi Route Start Time Stop Time Status Last Admin Dose Admin Acetaminophen (Tylenol Tab) 650 mg Q4H PRN PO 03/05/17 17:30 04/04/17 17:29 03/12/17 07:57 650 MG Ondansetron HCl (Zofran Inj) 4 mg Q6H PRN IV 03/05/17 17:30 04/04/17 17:29 Polyethylene (Miralax Powder Packet) 17 gm DAILY PRN PO 03/05/17 17:30 04/04/17 17:29 Digoxin (Lanoxin Tab) 0.125 mg Q2D@1600 PO 03/06/17 16:00 04/05/17 15:59 03/10/17 16:42 0.125 MG Levothyroxine Sodium (Synthroid Tab) 50 mcg DAILYBB PO 03/06/17 06:00 04/05/17 05:59 03/11/17 05:38 50 MCG Escitalopram Oxalate (Lexapro Tab) 10 mg QAM PO 03/07/17 09:00 04/06/17 08:59 03/12/17 07:57 10 MG Clopidogrel Bisulfate (plAVix TAB) 75 mg DAILY PO 03/07/17 09:00 04/06/17 08:59 03/12/17 07:57 75 MG Warfarin Sodium (Coumadin Tab) 2 mg DAILY@1600 PO 03/06/17 16:00 04/05/17 15:59 Future Hold 03/07/17 16:19 2 MG Atorvastatin Calcium (Lipitor Tab) 40 mg DAILY PO 03/07/17 09:00 04/06/17 08:59 03/12/17 07:57 40 MG Metoprolol Tartrate (Lopressor Iv) 5 mg Q4H PRN IV 03/06/17 19:00 04/05/17 18:59 03/11/17 00:34 5 MG Cefazolin Sodium 1000 mg/Dextrose 55 ml @ 100 mls/hr Q8H IV 03/12/17 20:00 03/13/17 19:59 Ketorolac Tromethamine (Toradol Tab) 10 mg Q6H PRN PO 03/12/17 15:15 03/17/17 15:14 Metoprolol Tartrate (Lopressor Tab) 50 mg BID PO 03/13/17 09:00 04/12/17 08:59 Heparin Sodium/ Dextrose 500 ml @ 17 mls/hr Q24H PRN IV 03/12/17 15:45 04/11/17 15:44 Objective Vital Signs 03/12/17 06:56 Red Blood Count 4.09, Mean Corpuscular Volume 89.2, Mean Corpuscular Hemoglobin 28.6, Mean Corpuscular Hemoglobin Concent 32.1, Mean Platelet Volume 12.9, Neutrophils (%) (Auto) 74.8, Lymphocytes (%) (Auto) 15.2, Monocytes (%) (Auto) 6.4, Eosinophils (%) (Auto) 2.8, Basophils (%) (Auto) 0.4, Neutrophils # (Auto) 5.02, Lymphocytes # (Auto) 1.02, Monocytes # (Auto) 0.43, Eosinophils # (Auto) 0.19, Basophils # (Auto) 0.03 03/12/17 06:56 Test 03/12/17 06:56 White Blood Count 6.72 K/uL (4.8-10.8) Red Blood Count 4.09 M/uL (4.2-5.4) Hemoglobin 11.7 g/dL (12.0-16.0) Hematocrit 36.5 % (37-47) Mean Corpuscular Volume 89.2 fL (80-100) Mean Corpuscular Hemoglobin 28.6 pg (25-34) Mean Corpuscular Hemoglobin Concent 32.1 g/dl (32-36) Platelet Count 152 K/uL (130-400) Mean Platelet Volume 12.9 fL (7.4-10.4) Neutrophils (%) (Auto) 74.8 % Lymphocytes (%) (Auto) 15.2 % Monocytes (%) (Auto) 6.4 % Eosinophils (%) (Auto) 2.8 % Basophils (%) (Auto) 0.4 % Neutrophils # (Auto) 5.02 K/uL (1.4-6.5) Lymphocytes # (Auto) 1.02 K/uL (1.2-3.4) Monocytes # (Auto) 0.43 K/uL (0.11-0.59) Eosinophils # (Auto) 0.19 K/uL (0-0.5) Basophils # (Auto) 0.03 K/uL (0-0.2) RDW Standard Deviation 49.5 fL (36.4-46.3) RDW Coefficient of Variation 15.2 % (11.5-14.5) Immature Granulocyte % (Auto) 0.4 % Immature Granulocyte # (Auto) 0.03 K/uL (0.00-0.02) Prothrombin Time 15.4 SECONDS (9.0-12.0) Prothromb Time International Ratio 1.4 (0.9-1.1) Activated Partial Thromboplast Time 53.9 SECONDS (21.0-31.0) Partial Thromboplastin Ratio 2.1 Anion Gap 9.0 mmol/L (3-11) Est Creatinine Clear Calc Drug Dose 49.3 ml/min Estimated GFR () 72.4 Estimated GFR (Non- 62.5 BUN/Creatinine Ratio 15.2 (10-20) Calcium Level 9.0 mg/dl (8.5-10.1) Physical Exam General Appearance: WD/WN, no apparent distress Eyes: normal inspection, PERRL, EOMI, sclerae normal, + pertinent finding ( right eye still not fully opened after fall leading to large ecchymosis of right face and left orbit) ENT: normal ENT inspection, hearing grossly normal, pharynx normal Neck: supple, no JVD, no carotid bruits, trachea midline Respiratory/Chest: chest non-tender, lungs clear, normal breath sounds, no respiratory distress, no accessory muscle use Cardiovascular: no edema, no gallop, no JVD, + diastolic murmur, + irregularly irregular Abdomen: normal bowel sounds, non tender, soft, no organomegaly, no pulsatile mass Extremities: normal range of motion, non-tender, normal inspection, no pedal edema, no calf tenderness Neurologic/Psychiatric: no motor/sensory deficits, normal mood/affect, oriented x 3 Skin: normal color, warm/dry, no rash Laboratory Results 03/12/17 06:56 Red Blood Count 4.09, Mean Corpuscular Volume 89.2, Mean Corpuscular Hemoglobin 28.6, Mean Corpuscular Hemoglobin Concent 32.1, Mean Platelet Volume 12.9, Neutrophils (%) (Auto) 74.8, Lymphocytes (%) (Auto) 15.2, Monocytes (%) (Auto) 6.4, Eosinophils (%) (Auto) 2.8, Basophils (%) (Auto) 0.4, Neutrophils # (Auto) 5.02, Lymphocytes # (Auto) 1.02, Monocytes # (Auto) 0.43, Eosinophils # (Auto) 0.19, Basophils # (Auto) 0.03 03/12/17 06:56 Test 03/12/17 06:56 White Blood Count 6.72 K/uL (4.8-10.8) Red Blood Count 4.09 M/uL (4.2-5.4) Hemoglobin 11.7 g/dL (12.0-16.0) Hematocrit 36.5 % (37-47) Mean Corpuscular Volume 89.2 fL (80-100) Mean Corpuscular Hemoglobin 28.6 pg (25-34) Mean Corpuscular Hemoglobin Concent 32.1 g/dl (32-36) Platelet Count 152 K/uL (130-400) Mean Platelet Volume 12.9 fL (7.4-10.4) Neutrophils (%) (Auto) 74.8 % Lymphocytes (%) (Auto) 15.2 % Monocytes (%) (Auto) 6.4 % Eosinophils (%) (Auto) 2.8 % Basophils (%) (Auto) 0.4 % Neutrophils # (Auto) 5.02 K/uL (1.4-6.5) Lymphocytes # (Auto) 1.02 K/uL (1.2-3.4) Monocytes # (Auto) 0.43 K/uL (0.11-0.59) Eosinophils # (Auto) 0.19 K/uL (0-0.5) Basophils # (Auto) 0.03 K/uL (0-0.2) RDW Standard Deviation 49.5 fL (36.4-46.3) RDW Coefficient of Variation 15.2 % (11.5-14.5) Immature Granulocyte % (Auto) 0.4 % Immature Granulocyte # (Auto) 0.03 K/uL (0.00-0.02) Prothrombin Time 15.4 SECONDS (9.0-12.0) Prothromb Time International Ratio 1.4 (0.9-1.1) Activated Partial Thromboplast Time 53.9 SECONDS (21.0-31.0) Partial Thromboplastin Ratio 2.1 Anion Gap 9.0 mmol/L (3-11) Est Creatinine Clear Calc Drug Dose 49.3 ml/min Estimated GFR () 72.4 Estimated GFR (Non- 62.5 BUN/Creatinine Ratio 15.2 (10-20) Calcium Level 9.0 mg/dl (8.5-10.1) Assessment and Plan This pleasant 81 year old lady had her ICD pacemaker placed this morning by Dr. Doss. No new issues today. S/P ICD placement IV heparin drip DCd for today, will restart likely tomorrow per Dr. Doss's guidance. Patient feeling well, remains in telemetry. Will monitor overnight for any complications. Acute Metabolic Encephalopathy Investigated for sources of infection, repeat urine was unremarkable Likely multifactorial, patient has background of dementia Much improved today. 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 Paroxysmal atrial fibrillation Takes Coumadin at home, with goal INR 2.5-3.5 due to mechanical mitral valve Switched to IV heparin prior to procedure IV heparin DCd today for procedure, will likely be restarted per Dr. Doss's approval tomorrow. Is rate controlled despite stop in BBlocker Diplopia Will refer to optometry or ophthalmology at discharge for prism to correct double vision if still present upon discharge Mechanical Mitral valve Heparin DCd today due to procedure, will likely restart tomorrow. Will restart coumadin on discharge with therapeutic INR goal of 2.5-3.5 Code: Level 5/DNR, stable Dispo: remains on telemetry VTE: SCD, no IV heparin today Resident Physician Supervision Note: I was present with PGY1 Dr. Arlin Almonte during the history and exam. I discussed the case with the resident and agree with the findings and plan as documented in the note. Any exceptions or clarifications are listed here: none. Saw the patient post-op from her pacer/ICD placement. She was tired but denied sob or central chest pain. VSS no fever gen - NAD, sleepy skin - significant ecchymoses of right face - continues to improve neck - no JVD heart - tachy, s1, s2, mechanical valve closure sound lungs - CTA b/l - no rales abd - soft, NT ext - no edema A/P: 1. 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 Doss. resume heparin infusion for bridge due to [facility] mitral/aortic valves when ok with Dr. Doss. AV alice agents per Dr. Doss. 2. mechanical MV / mechanical AV - as above re: anticoagulation. 3. CKD stage 3 - Cr stable. 4. recent diplopia - MRI brain w/o acute stroke. Due to significant facial swelling and difficulty opening right eye? Overall improved. Agree with prism glasses after d/c. 5. memory loss per daughter - vascular - with current superimposed encephalopathy. b1 pending; b12, TSH normal no evidence of UTI. depression (chronic) contributing to memory issues? 6. chronic systolic CHF - compensated 7. frequent falls - could be cardiac related from sinus pauses/SSS. 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 8. l-spine back pain - obtained x-rays - no compression fracture. dispo plan - [facility] when medically ready Documented By: Mati Belcher MD Resident Tracking Resident Involvement: Resident Care Provided Care Provided: Adult Hospital Medicine Resident Tracking Resident Involvement: Resident Care Provided Care Provided: Adult Hospital Medicine
[2017-03-12] MEDS: CEFAZOLIN IV 1,000 MG in DEXTROSE 5% 50ML 50 ML IV SCH (19:46)
[2017-03-12 22:42] LABS: PARTIAL THROMBOPLASTIN RATIO 1.7
[2017-03-13] VITALS (10 sets, daily range): BP systolic 105–126; BP diastolic 68–81; PULSE 67–120; TEMP 36.4–37; O2SAT 92–98
[2017-03-13] MEDS: HEPARIN 25,000 UNIT/500ML D5W 500 ML IV PRN (00:30)
[2017-03-13] MEDS ORDERED: HEPARIN IV BOLUS 3,000 UNIT in SYRINGE 0 ML IV ONE (00:30)
[2017-03-13] MEDS: CEFAZOLIN IV 1,000 MG in DEXTROSE 5% 50ML 50 ML IV SCH ×2 (03:43→12:39)
[2017-03-13] MEDS: LEVOTHYROXINE 50 MCG TAB PO SCH (05:37)
--- NOTE | 2017-03-13 06:49 | DIAGNOSTIC IMAGING REPORT ---
CHEST 2 VIEWS ROUTINE CLINICAL HISTORY: EXACT TIME ORDERED Evaluate for pneumothorax and lead placement COMPARISON STUDY: 02/24/2017 FINDINGS: Permanent bipolar cardiac pacemaker with leads in good position. No evidence pneumothorax. Lungs remain clear. IMPRESSION: Pacer leads in good position. No evidence of pneumothorax. Electronically signed by: Ke Hdz M.D. 03/13/2017 6:47 AM Dictated Date/Time: 03/13/2017 6:44 AM
[2017-03-13] MEDS: METOPROLOL TARTRATE 1 MG/ML VIAL IV PRN (07:14)
[2017-03-13 07:53] LABS: PARTIAL THROMBOPLASTIN RATIO 3.3
[2017-03-13] MEDS: ESCITALOPRAM OXALATE 10 MG TAB PO SCH (08:12)
[2017-03-13] MEDS: CLOPIDOGREL BISULFATE 75 MG TAB PO SCH (08:12)
[2017-03-13] MEDS: ATORVASTATIN 40 MG TAB PO SCH (08:12)
[2017-03-13] MEDS: METOPROLOL TARTRATE 50 MG TAB PO SCH ×2 (08:13→21:40)
[2017-03-13 15:33] LABS: PARTIAL THROMBOPLASTIN RATIO 2.1
--- NOTE | 2017-03-13 18:07 | Cardiology Follow-Up ---
Subjective Date of Service: Mar 13, 2017. Pt evaluation today including: conversation w/ patient, physical exam, lab review, review of studies, review of inpatient medication list History of Present Illness This is a very pleasant 81-year-old woman who has a history of mitral valve replacement in 1994 and a subsequent aortic valve replacement 2013 (both mechanical valves) with normal coronary arteries. She has had a long history of atrial fibrillation and flutter for which she had ablation in 2008 and was on intravenous amiodarone. Her amiodarone was discontinued due to side effects, and she has been having difficulty with paroxysmal atrial fibrillation and sinus node dysfunction although she is not terribly symptomatic with it. She has also had several strokes, even while on anticoagulation. She also has a history of cardiomyopathy, since September 2013 her left ventricular ejection fraction has typically been around 35% although in April 2015 was reported as 25-30% and in October 2016 he was read as 40-45%. More recently she has been having a lot of difficulty with very poor stamina, having extreme difficulty with any kind of activity and having to use a walker which she does not like. She has also been having difficulty with falls and presented with a fall which she feels was due to tripping with facial injury. In the emergency room she was noted to have asked his atrial fibrillation with long pauses following termination of her atrial arrhythmia. This has however been asymptomatic and she has not had any symptoms of presyncope or syncope when she denies either of these as a cause of her fall at the time of her presentation. She also has a left bundle branch block, that appears to be relatively recent as on 03/01/2014 she had a narrow complex and on 10/23/2016 she had the left bundle pattern with a QRS duration of about 160 ms. That left bundle branch block has remained with a similar QRS duration. We therefore implanted a biventricular ICD on 03/12/2017. The procedure was uneventful with good lead placement. Today she is tired and sleepy but alert and oriented. Only minor incisional discomfort. Social History Smoking Status: Never Smoker History of Alcohol Use: No Review of Systems Respiratory: No cough, No sputum, No wheezing, No shortness of breath, No dyspnea on exertion, No dyspnea at rest, No hemoptysis, No problem reported Cardiac: + see HPI, + palpitations, No chest pain, No orthopnea, No PND, No edema, No claudication, No problem reported Medications Cardiovascular: Item Value Date Time Metoprolol 50 mg 03/13/17 0900 Tartrate BID/PO 03/13/17812 (Lopressor Tab) Clopidogrel 75 mg 03/07/17 0900 Bisulfate DAILY/PO 03/13/17811 (plAVix TAB) Atorvastatin 40 mg 03/07/17 0900 Calcium DAILY/PO 03/13/17811 (Lipitor Tab) Digoxin 0.125 mg 03/06/17 1600 (Lanoxin Tab) Q2D@1600/PO 03/12/17 1600 Objective Vital Signs Past 12 Hours Date Time Temp Pulse Resp B/P (MAP) Pulse Ox O2 Delivery O2 Flow Rate FiO2 03/13/17 16:10 36.6 120 20 123/81 (95) 96 Room Air 03/13/17 16:00 95 Room Air 03/13/17 12:00 95 Room Air 03/13/17 11:30 36.4 67 16 105/68 (80) 98 03/13/17 08:00 95 Room Air 03/13/17 07:21 36.6 102 16 105/72 (83) 95 03/13/17 07:14 122 129/72 Last Recorded Weight-Kilograms: 68.900 Intake & Output 8-Hour Column 03/13/17 03/14/17 03/14/17 16:00 00:00 08:00 Intake Total 308 ml Output Total 300 ml Balance 8 ml 24-Hour Column 03/14/17 08:00 Intake Total 308 ml Output Total 300 ml Balance 8 ml Physical Exam Constitutional: Level of Distress: moderate distress Lungs: Auscultation: breath sounds normal Cardiovascular: Heart Auscultation: tachycardia, II/ SHELLY, II/ WSM, irregular rate rhythm Extremities: no edema Gen.: No acute distress. Alert and oriented. HEENT: Anicteric sclera. Large ecchymoses noted. Neck: No JVD. Cardiac: No ventricular heave. Regular rate and rhythm. Hill S1. Normal S2. No murmurs, rubs, or gallops. Pulmonary: Clear to auscultation bilaterally without wheezes, rales, or rhonchi. Abdomen: Soft, nontender, nondistended, with normoactive bowel sounds. No bruits noted. Extremities: 2+ radial pulses bilaterally. 2+ posterior tibialis pulses bilaterally. No edema or cyanosis. Psychiatric: Affect appears appropriate. Data Laboratory Results: Last 24 Hours Test 03/12/17 22:18 03/13/17 07:18 03/13/17 14:52 Activated Partial Thromboplast Time 43.9 SECONDS 86.7 SECONDS 54.5 SECONDS Partial Thromboplastin Ratio 1.7 3.3 2.1 Imaging: Good lead position, no pneumothorax Telemetry reviewed: Atrial fibrillation, often with rapid heart rate. ICD evaluation: Excellent pacing and sensing characteristics in all leads. Heart rate is somewhat elevated. Assessment and Plan #1. Sinus node dysfunction: Her slow heart rate is now controlled by the pacing portion of the ICD. #2. Paroxysmal atrial fibrillation: She has a long history of atrial fibrillation, has had ablation and was on amiodarone but could not tolerate that. I don't think there is very much we can do to maintain rhythm control. Her heart rate remains elevated and we will need to increase her rate control medications. If we cannot control the heart rate will need to consider AV alice ablation in the future. #3. Left bundle-branch block: The first documented of left bundle branch block that I can see was in the early part of this year, prior to that she had a narrow complex. That may be part of the reason for her worsening left ventricular function and worsening symptoms. Resynchronization hopefully will help improve her function. #4. Cardiomyopathy: She has had a long history of cardiomyopathy but it has been fluctuating based on measurements, with resynchronization I'm hopeful that this will improve. #5. Fatigue, difficulty with exertion: I believe this may be due to a low cardiac output state, in part contributed by left ventricular dyssynchrony and mechanical inefficiency with her left bundle branch block. Hopefully resynchronization therapy will help, however that will require higher percentage of biventricular pacing when she currently had this. We will need to get her heart rate under control for her to realize these benefits. #6. Postop day #1: Good lead position, incision looks good and the device is working well. Thank you for allowing me to participate in her care.
[2017-03-13] MEDS ORDERED: WARFARIN SOD 2 MG TAB PO SCH (19:30)
--- NOTE | 2017-03-13 19:44 | Family Medicine Progress Note ---
Progress Note Date of Service Mar 13, 2017. Subjective Pt evaluation today including: conversation w/ patient, conversation w/ family , physical exam, chart review, lab review, review of studies, conversation w/ specification consultant, review of inpatient medication list Pain: No pain reported PO Intake: Tolerating PO intake Voiding: voiding difficulty Pleasant 81 yo female with pacemaker in situ has no complaints today She states she is very pleased she finally got her pacemaker. She reports excessive fatigue No pain at site of procedure Constitutional: + weakness, + fatigue Eyes: + diplopia Cardiovascular: + see HPI Skin: + problem reported (bruise on right side of face) All Other Systems: Reviewed and Negative Medications Current Inpatient Medications Medications (Trade) Dose Ordered Sig/Elsi Route Start Time Stop Time Status Last Admin Dose Admin Acetaminophen (Tylenol Tab) 650 mg Q4H PRN PO 03/05/17 17:30 04/04/17 17:29 03/12/17 21:41 650 MG Ondansetron HCl (Zofran Inj) 4 mg Q6H PRN IV 03/05/17 17:30 04/04/17 17:29 Polyethylene (Miralax Powder Packet) 17 gm DAILY PRN PO 03/05/17 17:30 04/04/17 17:29 Digoxin (Lanoxin Tab) 0.125 mg Q2D@1600 PO 03/06/17 16:00 04/05/17 15:59 03/12/17 16:00 0.125 MG Levothyroxine Sodium (Synthroid Tab) 50 mcg DAILYBB PO 03/06/17 06:00 04/05/17 05:59 03/13/17 05:37 50 MCG Escitalopram Oxalate (Lexapro Tab) 10 mg QAM PO 03/07/17 09:00 04/06/17 08:59 03/13/17 08:12 10 MG Clopidogrel Bisulfate (plAVix TAB) 75 mg DAILY PO 03/07/17 09:00 04/06/17 08:59 03/13/17 08:12 75 MG Warfarin Sodium (Coumadin Tab) 2 mg DAILY@1600 PO 03/06/17 16:00 04/05/17 15:59 Future hold 03/07/17 16:19 2 MG Atorvastatin Calcium (Lipitor Tab) 40 mg DAILY PO 03/07/17 09:00 04/06/17 08:59 03/13/17 08:12 40 MG Metoprolol Tartrate (Lopressor Iv) 5 mg Q4H PRN IV 03/06/17 19:00 04/05/17 18:59 03/13/17 07:14 5 MG Cefazolin Sodium 1000 mg/Dextrose 55 ml @ 100 mls/hr Q8H IV 03/12/17 20:00 03/13/17 19:59 03/13/17 12:39 100 MLS/HR Ketorolac Tromethamine (Toradol Tab) 10 mg Q6H PRN PO 03/12/17 15:15 03/17/17 15:14 03/13/17 05:38 10 MG Metoprolol Tartrate (Lopressor Tab) 50 mg BID PO 03/13/17 09:00 04/12/17 08:59 03/13/17 08:13 50 MG Heparin Sodium/ Dextrose 500 ml @ 17 mls/hr Q24H PRN IV 03/12/17 15:45 04/11/17 15:44 Future hold 03/13/17 00:30 20 MLS/HR Miscellaneous Information (Pending Order) 1 ea TODAY@0800 N/A 03/14/17 08:00 03/14/17 08:01 Warfarin Sodium (Coumadin Tab) 2 mg TODAY@1930 PO 03/13/17 19:30 03/13/17 21:00 03/13/17 19:29 2 MG Objective Vital Signs Date Time Temp Pulse Resp B/P (MAP) Pulse Ox O2 Delivery O2 Flow Rate FiO2 03/13/17 19:27 36.9 75 20 115/73 (87) 94 Room Air 03/13/17 16:10 36.6 120 20 123/81 (95) 96 Room Air 03/13/17 16:00 95 Room Air 03/13/17 12:00 95 Room Air 03/13/17 11:30 36.4 67 16 105/68 (80) 98 03/13/17 08:00 95 Room Air 03/13/17 07:21 36.6 102 16 105/72 (83) 95 03/13/17 07:14 122 129/72 03/13/17 04:00 Room Air 03/13/17 03:44 37.0 119 16 108/73 (85) 92 Room Air 03/13/17 00:00 Room Air 03/12/17 23:46 36.9 117 16 115/76 (89) 95 Room Air 03/12/17 20:00 Room Air Physical Exam General Appearance: WD/WN, no apparent distress Eyes: normal inspection, PERRL, EOMI ENT: pharynx normal Neck: supple, trachea midline Respiratory/Chest: chest non-tender, lungs clear, normal breath sounds, no respiratory distress, no accessory muscle use Cardiovascular: regular rate, rhythm, no edema, no JVD, + diastolic murmur Abdomen: normal bowel sounds, non tender, soft Extremities: non-tender, no pedal edema Neurologic/Psychiatric: radar repairer II-XII nml as tested, no motor/sensory deficits, normal mood/affect, oriented x 3 Skin: + pertinent finding (ecchymosis on right side of face and left maxilla) Laboratory Results Test 03/13/17 14:52 Activated Partial Thromboplast Time 54.5 SECONDS (21.0-31.0) Partial Thromboplastin Ratio 2.1 Assessment and Plan This pleasant 81 year old lady had her ICD pacemaker placed yesterday by Dr. Doss. No new issues today. S/P ICD placement IV heparin drip restarted (yesterday) evening Normal exam of procedure site Patient feeling well, remains in telemetry. Update: Patient developed softball-sized hematoma at site of pacemaker acutely between [id number] Doss, who examined patient Based on APTT levels and her risk factors, IV heparin will be held tonight and restarted tomorrow AM Will continue to monitor; Dr. Belcher made aware, Dr. Doss not on site but available this weekend if emergently needed. Thank you to Dr. Doss for input. Acute Metabolic Encephalopathy Investigated for sources of infection, repeat urine was unremarkable B1 level still pending; B12 and TSH normal Likely multifactorial, patient has background of dementia per daughter Much improved today, including mood. Excessive fatigue persists. 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 Paroxysmal atrial fibrillation Takes Coumadin at home, with goal INR 2.5-3.5 due to mechanical mitral valve IV heparin has been restarted IV heparin DCd overnight due to hematoma development Coumadin restarted; will discuss titration level upon discharge. Repeat PT/INR tomorrow AM Is rate controlled despite stop in BBlocker Diplopia Will refer to optometry or ophthalmology at discharge for prism to correct double vision if still present upon discharge Mechanical Mitral valve Heparin restarted yesterday after procedure Coumadin restarted today; will titrate on discharge with therapeutic INR goal of 2.5-3.5 Code: Level 5/DNR, stable Dispo: remains on telemetry VTE: SCD, no IV heparin today Resident Physician Supervision Note: I was present with PGY1 Dr. Arlin Almonte during the history and exam. I discussed the case with the resident and agree with the findings and plan as documented in the note. Any exceptions or clarifications are listed here: I don 't appreciate diastolic murmur on exam. I saw the patient about today and during that visit she said "I'm sore " referring to the pacemaker site. Upon inspection she had developed a large hematoma of the pacemaker site. She continues to remain fatigued but spent more time in the chair today than previous. Tele with underlying a. fib and tachycardic. VSS no fever gen - NAD skin - significant ecchymoses of right face - continues to improve neck - no JVD heart -irregular, s1, s2, mechanical valve closure sound lungs - CTA b/l - no rales abd - soft, NT ext - no edema chest - pacemaker incision site clean; large hematoma present over pacer site A/P: 1. 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 Doss. resumed heparin infusion for bridge due to [facility] mitral/aortic valves and unfortunately developed hematoma. Dr. Doss re-evaluated this evening - heparin drip to be held overnight. Hopefully resume tomorrow depending on hematoma. 2. mechanical MV / mechanical AV - see #1 above. 3. CKD stage 3 - Cr stable. 4. recent diplopia - MRI brain w/o acute stroke. Due to significant facial swelling and difficulty opening right eye? Overall improved. Agree with prism glasses after d/c. 5. memory loss per daughter - vascular - with current superimposed encephalopathy. b1 pending; b12, TSH normal no evidence of UTI. depression (chronic) contributing to memory issues? 6. chronic systolic CHF - compensated 7. frequent falls - could be cardiac related from sinus pauses/SSS. 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 8. l-spine back pain - obtained x-rays - no compression fracture. 9. fatigue - due to cardiac issues?? hopefully will improve with optimized cardiac status. 10. pacer site hematoma - management per Dr. Doss. dispo plan - [facility] when medically ready Documented By: Mati Belcher MD Resident Tracking Resident Involvement: Resident Care Provided Care Provided: Adult Hospital Medicine
[2017-03-13] MEDS: ACETAMINOPHEN 325 MG TAB PO PRN (21:39)
[2017-03-14 03:25] VITALS: BP 123/72; PULSE 72; TEMP 36.4; O2SAT 95
[2017-03-14] MEDS: ACETAMINOPHEN 325 MG TAB PO PRN (03:58)
[2017-03-14] MEDS: LEVOTHYROXINE 50 MCG TAB PO SCH (06:11)
[2017-03-14 07:32] VITALS: BP 115/70; PULSE 75; TEMP 36.9; O2SAT 94
[2017-03-14] MEDS: ESCITALOPRAM OXALATE 10 MG TAB PO SCH (08:22)
[2017-03-14 08:23] LABS: HEMATOCRIT 32.7 % (37-47); MEAN CELL VOLUME 88.1 fL (80-100); MEAN CORPUSCULAR HGB CONC 31.8 g/dl (32-36); MEAN PLATELET VOLUME 12.3 fL (7.4-10.4); PLATELET COUNT 142 K/uL (130-400); RED BLOOD COUNT 3.71 M/uL (4.2-5.4); WHITE BLOOD COUNT 6.95 K/uL (4.8-10.8)
[2017-03-14] MEDS: METOPROLOL TARTRATE 50 MG TAB PO SCH ×2 (08:25→20:47)
[2017-03-14] MEDS: ATORVASTATIN 40 MG TAB PO SCH (08:26)
[2017-03-14] MEDS: CLOPIDOGREL BISULFATE 75 MG TAB PO SCH (08:28)
[2017-03-14 08:35] LABS: INR 1.3 (0.9-1.1); PARTIAL THROMBOPLASTIN RATIO 1.1
[2017-03-14] MEDS: HEPARIN 25,000 UNIT/500ML D5W 500 ML IV PRN (08:48)
--- NOTE | 2017-03-14 09:11 | Family Medicine Progress Note ---
Progress Note Date of Service Mar 14, 2017. Subjective Pt evaluation today including: conversation w/ patient, physical exam, chart review, lab review, review of inpatient medication list Pain: None PO Intake: Tolerating PO intake Voiding: no voiding problems Ms. Cloud is a pleasant 81 year old lady who reports no new concerns today. She is feeling well, and is happy with her device. She still reports fatigue, and is not sleeping well at night. Constitutional: + fatigue Skin: + problem reported (hematoma formation over ICD site) All Other Systems: Reviewed and Negative Medications Current Inpatient Medications Medications (Trade) Dose Ordered Sig/Elsi Route Start Time Stop Time Status Last Admin Dose Admin Acetaminophen (Tylenol Tab) 650 mg Q4H PRN PO 03/05/17 17:30 04/04/17 17:29 03/14/17 03:58 650 MG Ondansetron HCl (Zofran Inj) 4 mg Q6H PRN IV 03/05/17 17:30 04/04/17 17:29 Polyethylene (Miralax Powder Packet) 17 gm DAILY PRN PO 03/05/17 17:30 04/04/17 17:29 Digoxin (Lanoxin Tab) 0.125 mg Q2D@1600 PO 03/06/17 16:00 04/05/17 15:59 03/12/17 16:00 0.125 MG Levothyroxine Sodium (Synthroid Tab) 50 mcg DAILYBB PO 03/06/17 06:00 04/05/17 05:59 03/14/17 06:11 50 MCG Escitalopram Oxalate (Lexapro Tab) 10 mg QAM PO 03/07/17 09:00 04/06/17 08:59 03/14/17 08:22 10 MG Clopidogrel Bisulfate (plAVix TAB) 75 mg DAILY PO 03/07/17 09:00 04/06/17 08:59 03/14/17 08:28 75 MG Warfarin Sodium (Coumadin Tab) 2 mg DAILY@1600 PO 03/06/17 16:00 04/05/17 15:59 Future hold 03/07/17 16:19 2 MG Atorvastatin Calcium (Lipitor Tab) 40 mg DAILY PO 03/07/17 09:00 04/06/17 08:59 03/14/17 08:26 40 MG Metoprolol Tartrate (Lopressor Iv) 5 mg Q4H PRN IV 03/06/17 19:00 04/05/17 18:59 03/13/17 07:14 5 MG Ketorolac Tromethamine (Toradol Tab) 10 mg Q6H PRN PO 03/12/17 15:15 03/17/17 15:14 03/13/17 05:38 10 MG Metoprolol Tartrate (Lopressor Tab) 50 mg BID PO 03/13/17 09:00 04/12/17 08:59 03/14/17 08:25 50 MG Heparin Sodium/ Dextrose 500 ml @ 17 mls/hr Q24H PRN IV 03/12/17 15:45 04/11/17 15:44 Future hold 03/14/17 08:48 17 MLS/HR Objective Vital Signs Date Time Temp Pulse Resp B/P (MAP) Pulse Ox O2 Delivery O2 Flow Rate FiO2 03/14/17 04:00 Room Air 03/14/17 03:25 36.4 72 18 123/72 (89) 95 Room Air 03/14/17 00:00 Room Air 03/13/17 23:18 36.5 74 16 115/71 (86) 96 Room Air 03/13/17 21:31 36.6 76 18 126/76 (93) 97 Room Air 03/13/17 20:00 Room Air 03/13/17 19:27 36.9 75 20 115/73 (87) 94 Room Air 03/13/17 16:10 36.6 120 20 123/81 (95) 96 Room Air 03/13/17 16:00 95 Room Air 03/13/17 12:00 95 Room Air 03/13/17 11:30 36.4 67 16 105/68 (80) 98 Physical Exam General Appearance: WD/WN, no apparent distress Eyes: normal inspection, PERRL Neck: supple, no adenopathy, no JVD Respiratory/Chest: chest non-tender, lungs clear, normal breath sounds, no respiratory distress, no accessory muscle use Cardiovascular: no edema, no gallop, no JVD, no murmur, + irregularly irregular , + pertinent finding (hematoma formation and bruising over ICD site) Abdomen: normal bowel sounds, non tender, soft, no organomegaly, no pulsatile mass Neurologic/Psychiatric: alert, normal mood/affect, oriented x 3 Skin: normal color, + pertinent finding (bruising over right side of face) Laboratory Results 03/14/17 07:19 Test 03/14/17 07:19 Red Blood Count 3.71 M/uL (4.2-5.4) Mean Corpuscular Volume 88.1 fL (80-100) Mean Corpuscular Hemoglobin 28.0 pg (25-34) Mean Corpuscular Hemoglobin Concent 31.8 g/dl (32-36) RDW Standard Deviation 48.9 fL (36.4-46.3) RDW Coefficient of Variation 15.2 % (11.5-14.5) Mean Platelet Volume 12.3 fL (7.4-10.4) Prothrombin Time 14.0 SECONDS (9.0-12.0) Prothromb Time International Ratio 1.3 (0.9-1.1) Activated Partial Thromboplast Time 28.2 SECONDS (21.0-31.0) Partial Thromboplastin Ratio 1.1 Assessment and Plan Ms. Cloud is a pleasant 81 year old lady who had her biventricular ICD placed on March [address] Doss. No new concerns today. S/P ICD placement IV heparin drip held yesterday due to hematoma formation around ICD site. Hematoma has not grown any further, and looks to have improved slightly from yesterday. There is still bruising over the ICD site. Heparin drip has been restarted this morning. Will continue to monitor. Patient feeling well, remains in telemetry. Hgb was 10.4 today, decreased from yesterday. This was likely due to the bleeding into her hematoma. Will monitor Acute Metabolic Encephalopathy Patient is much improved today, and is oriented to person, place and time. She continues to report fatigue, and is not sleeping well at night. Her daughter brought OTC melatonin 10mg, and she can take this at night to help her sleep through the night. Vitamin B1 levels are 13, which is normal. 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 No new pauses or bradycardia. Will continue to monitor on telemetry. Paroxysmal atrial fibrillation Takes Coumadin at home. Will need to titrate and monitor INR with a goal 2.5- 3.5 due to mechanical mitral valve before d/c IV heparin has been restarted this morning. Currently in rate controlled atrial fibrillation with a pulse in the 70s. Diplopia Patient reports improvement in vision, and no double vision. Will refer to optometry or ophthalmology at discharge for prism to correct double vision if still present upon discharge Mechanical Mitral valve Heparin restarted this morning. Coumadin restarted today; will titrate on discharge with therapeutic INR goal of 2.5-3.5. INR today was 1.3. Code: Level 5/DNR, stable Dispo: remains on telemetry. Will continue cardiology follow up until they feel she is medically fit to be discharged. She has a bed reserved at [facility] when ready for d/c. VTE: SCD, IV heparin restarted Resident Physician Supervision Note: I was present with PGY1 Dr. Isael Capellan during the history and exam. I discussed the case with the resident and agree with the findings and plan as documented in the note. Any exceptions or clarifications are listed here: none. Pt w/ a little more energy today than previous but sleeping poorly at night. Daughter states she takes melatonin at bedtime. Tele overnight - patient mainly being paced with underlying a. fib. VSS no fever gen - NAD skin - ecchymoses of right face - improving/resolving neck - no JVD heart -irregular, s1, s2, mechanical valve closure sound lungs - CTA b/l - no rales abd - soft, NT ext - no edema chest - pacemaker incision site clean; large hematoma present over pacer site - no change from last evening (ie not any larger); ecchymoses extending inferiorly and to the axillae A/P: 1. 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 Doss. complicated by hematoma formation. the hematoma appears similar in size today. cautiously resuming heparin drip. follow daily cbc, PTT, INR. 2. mechanical MV / mechanical AV - see #1 above re: anticoagulation. 3. CKD stage 3 - Cr stable. 4. recent diplopia - MRI brain w/o acute stroke. Due to significant facial swelling and difficulty opening right eye? Overall improved. Agree with prism glasses after d/c. 5. memory loss per daughter - vascular - with current superimposed encephalopathy. b1, b12, TSH normal no evidence of UTI. depression (chronic) contributing to memory issues? 6. chronic systolic CHF - compensated 7. frequent falls - could be cardiac related from sinus pauses/SSS. 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 8. l-spine back pain - obtained x-rays - no compression fracture. 9. fatigue - due to cardiac issues?? hopefully will improve with optimized cardiac status. no infectious or other metabolic cause found. 10. pacer site hematoma - management per Dr. Doss. see #1 above 11. insomnia - add melatonin using pt's home stock. dispo plan - [facility] when medically ready Documented By: Mati Belcher MD Resident Tracking Resident Involvement: Resident Care Provided Care Provided: Adult Hospital Medicine
[2017-03-14 11:45] VITALS: BP 131/81; PULSE 76; TEMP 36.9; O2SAT 94
[2017-03-14] MEDS ORDERED: NURSING VERBAL MED ORDER ONE (15:30)
[2017-03-14] MEDS ORDERED: MELATONIN 10 MG PO PRN (15:30)
[2017-03-14] MEDS: WARFARIN SOD 2 MG TAB PO SCH (16:02)
[2017-03-14] MEDS: DIGOXIN 0.125 MG TAB PO SCH (16:02)
[2017-03-14 16:10] LABS: PARTIAL THROMBOPLASTIN RATIO 1.9
[2017-03-14 16:22] VITALS: BP 117/71; PULSE 75; TEMP 36.9; O2SAT 97
[2017-03-14 19:32] VITALS: BP 141/74; PULSE 76; TEMP 36.8; O2SAT 97
[2017-03-14 23:43] VITALS: BP 122/74; PULSE 75; TEMP 37; O2SAT 96
[2017-03-15] VITALS (8 sets, daily range): BP systolic 112–139; BP diastolic 70–83; PULSE 75–78; TEMP 36.4–36.9; O2SAT 94–99
[2017-03-15] MEDS: LEVOTHYROXINE 50 MCG TAB PO SCH (05:47)
[2017-03-15 07:06] LABS: PARTIAL THROMBOPLASTIN RATIO 2.5
[2017-03-15] MEDS: CLOPIDOGREL BISULFATE 75 MG TAB PO SCH (07:54)
[2017-03-15] MEDS: ATORVASTATIN 40 MG TAB PO SCH (07:54)
[2017-03-15] MEDS: ESCITALOPRAM OXALATE 10 MG TAB PO SCH (07:55)
[2017-03-15] MEDS: METOPROLOL TARTRATE 50 MG TAB PO SCH ×2 (07:55→20:34)
[2017-03-15] MEDS: ACETAMINOPHEN 325 MG TAB PO PRN (07:58)
[2017-03-15 09:10] LABS: MEAN CORPUSCULAR HGB CONC 32.5 g/dl (32-36)
[2017-03-15 09:26] LABS: INR 1.5 (0.9-1.1); PROTHROMBIN TIME (PATIENT) 16.7 SECONDS (9.0-12.0)
[2017-03-15 09:27] LABS: BUN/CREATININE RATIO 17.2 (10-20); CALCIUM 8.7 mg/dl (8.5-10.1); CREATININE 0.87 mg/dl (0.60-1.20); POTASSIUM 3.8 mmol/L (3.5-5.1)
[2017-03-15 09:31] LABS: HEMATOCRIT 29.5 % (37-47); MEAN CELL VOLUME 88.3 fL (80-100); MEAN CORPUSCULAR HEMOGLOBIN 28.7 pg (25-34); MEAN PLATELET VOLUME 13.3 fL (7.4-10.4); PLATELET COUNT 119 K/uL (130-400); PLT ESTIMATE DECREASED; RED BLOOD COUNT 3.34 M/uL (4.2-5.4); WHITE BLOOD COUNT 7.08 K/uL (4.8-10.8)
--- NOTE | 2017-03-15 10:05 | Family Medicine Progress Note ---
Progress Note Date of Service Mar 15, 2017. Subjective Pt evaluation today including: conversation w/ patient, physical exam, chart review, lab review, review of inpatient medication list Pain: Complaining of mild left shoulder pain PO Intake: Tolerating diet well Voiding: no voiding problems Ms. Cloud reports left sided shoulder pain that began yesterday. She states the pain is not too bad, but a constant discomfort. She believes it is from being moved to the chair and back. She slept well last night, after taking her dosage of melatonin, but still feeling fatigued. She also reports a new onset of constipation. Constitutional: + fatigue, No fever, No chills, No sweats, No weight loss Eyes: No worsening of vision, No eye pain, No diplopia Respiratory: No cough, No wheezing, No shortness of breath Cardiovascular: No chest pain, No palpitations Abdomen: + constipation Musculoskeletal: + joint pain (shoulder pain) Female : No dysuria, No urinary frequency All Other Systems: Reviewed and Negative Medications Current Inpatient Medications Medications (Trade) Dose Ordered Sig/Elsi Route Start Time Stop Time Status Last Admin Dose Admin Acetaminophen (Tylenol Tab) 650 mg Q4H PRN PO 03/05/17 17:30 04/04/17 17:29 03/15/17 07:58 650 MG Ondansetron HCl (Zofran Inj) 4 mg Q6H PRN IV 03/05/17 17:30 04/04/17 17:29 Polyethylene (Miralax Powder Packet) 17 gm DAILY PRN PO 03/05/17 17:30 04/04/17 17:29 Digoxin (Lanoxin Tab) 0.125 mg Q2D@1600 PO 03/06/17 16:00 04/05/17 15:59 03/14/17 16:02 0.125 MG Levothyroxine Sodium (Synthroid Tab) 50 mcg DAILYBB PO 03/06/17 06:00 04/05/17 05:59 03/15/17 05:47 50 MCG Escitalopram Oxalate (Lexapro Tab) 10 mg QAM PO 03/07/17 09:00 04/06/17 08:59 03/15/17 07:55 10 MG Clopidogrel Bisulfate (plAVix TAB) 75 mg DAILY PO 03/07/17 09:00 04/06/17 08:59 03/15/17 07:54 75 MG Warfarin Sodium (Coumadin Tab) 2 mg DAILY@1600 PO 03/06/17 16:00 04/05/17 15:59 Future hold 03/14/17 16:02 2 MG Atorvastatin Calcium (Lipitor Tab) 40 mg DAILY PO 03/07/17 09:00 04/06/17 08:59 03/15/17 07:54 40 MG Metoprolol Tartrate (Lopressor Iv) 5 mg Q4H PRN IV 03/06/17 19:00 04/05/17 18:59 03/13/17 07:14 5 MG Ketorolac Tromethamine (Toradol Tab) 10 mg Q6H PRN PO 03/12/17 15:15 03/17/17 15:14 03/13/17 05:38 10 MG Metoprolol Tartrate (Lopressor Tab) 50 mg BID PO 03/13/17 09:00 04/12/17 08:59 03/15/17 07:55 50 MG Heparin Sodium/ Dextrose 500 ml @ 17 mls/hr Q24H PRN IV 03/12/17 15:45 04/11/17 15:44 Future hold 03/15/17 13:36 17 MLS/HR Non-Formulary Medication (Non-Formulary Patient'S Own Med) 1 ea HS PRN PO 03/14/17 15:30 04/13/17 15:29 03/14/17 20:47 1 EA Ferrous Gluconate (Ferrous Gluconate Tab) 324 mg BIDM PO 03/15/17 16:45 04/14/17 16:44 Bisacodyl (Dulcolax Tab) 5 mg DAILY PO 03/16/17 09:00 04/15/17 08:59 Polyethylene (Miralax Powder Packet) 17 gm DAILY PO 03/16/17 09:00 04/15/17 08:59 Diclofenac Sodium (Voltaren 1% Top Gel) 1 appln DAILY EXT 03/16/17 09:00 04/15/17 08:59 Objective Vital Signs Date Time Temp Pulse Resp B/P (MAP) Pulse Ox O2 Delivery O2 Flow Rate FiO2 03/15/17 08:00 Room Air 03/15/17 07:32 36.9 75 20 125/74 (91) 94 Room Air 03/15/17 04:00 Room Air 03/15/17 03:32 36.7 76 16 116/72 (87) 96 Room Air 03/15/17 00:00 Room Air 03/14/17 23:43 37.0 75 16 122/74 (90) 96 Room Air 03/14/17 20:00 Room Air 03/14/17 19:32 36.8 76 18 141/74 (96) 97 Room Air 03/14/17 16:22 36.9 75 20 117/71 (86) 97 Room Air 03/14/17 16:02 75 03/14/17 16:00 Room Air 03/14/17 12:00 Room Air 03/14/17 11:45 36.9 76 20 131/81 (98) 94 Room Air Physical Exam General Appearance: WD/WN, no apparent distress Eyes: normal inspection Neck: supple, no adenopathy Respiratory/Chest: chest non-tender, lungs clear, normal breath sounds, no respiratory distress, no accessory muscle use Cardiovascular: no edema, no gallop, no JVD, no murmur, + irregularly irregular Abdomen: normal bowel sounds, non tender, soft, no organomegaly, no pulsatile mass Extremities: normal inspection Neurologic/Psychiatric: alert, normal mood/affect, oriented x 3 Skin: normal color, + pertinent finding (hematoma over ICD site with ecchymosis extending into axilla) Laboratory Results 03/15/17 06:25 03/15/17 06:25 Test 03/15/17 06:25 Red Blood Count 3.34 M/uL (4.2-5.4) Mean Corpuscular Volume 88.3 fL (80-100) Mean Corpuscular Hemoglobin 28.7 pg (25-34) Mean Corpuscular Hemoglobin Concent 32.5 g/dl (32-36) RDW Standard Deviation 49.5 fL (36.4-46.3) RDW Coefficient of Variation 15.3 % (11.5-14.5) Mean Platelet Volume 13.3 fL (7.4-10.4) Platelet Estimate DECREASED Prothrombin Time 16.7 SECONDS (9.0-12.0) Prothromb Time International Ratio 1.5 (0.9-1.1) Activated Partial Thromboplast Time 64.0 SECONDS (21.0-31.0) Partial Thromboplastin Ratio 2.5 Anion Gap 7.0 mmol/L (3-11) Est Creatinine Clear Calc Drug Dose 49.3 ml/min Estimated GFR () 72.4 Estimated GFR (Non- 62.5 BUN/Creatinine Ratio 17.2 (10-20) Calcium Level 8.7 mg/dl (8.5-10.1) Magnesium Level 2.0 mg/dl (1.8-2.4) Assessment and Plan Ms. Cloud is a pleasant 81 year old lady who is s/p biventricular ICD placement done on March [address] Doss. Shoulder pain Patient was given a dose of acetaminophen & 4 grams of Volteren gel for her left shoulder pain - pain is likely arthritic in nature Low platelets Ms. Cloud has a low platelet count today (119 dropped down from 142). This could either be due to her hematoma formation or possibly heparin induced thrombocytopenia. Will continue to monitor. Constipation She has been placed on dulcolax and miralax daily. This will hopefully prevent worsening of her constipation given that she is starting iron tablets today. S/P ICD placement Hematoma has not grown any further from yesterday. Ecchymosis over ICD site is improving. Heparin drip continues. Patient feeling well, remains in telemetry. Hgb was 9.6 today, decreased from yesterday (10.4). This was likely due to the bleeding into her hematoma. Added 325mg of iron tablets BID to increase Hgb levels. Also conducted a fecal occult study to ensure bleeding was not GI in nature. This was negative. Fatigue She continues to report fatigue, but is sleeping better at night with her OTC melatonin. Will decrease melatonin dose at night to 5mg as 10mg is a large dose and could be contributing to her daytime sleepiness. Also ordered an overnight oximetry study to rule out sleep apnea as a cause of fatigue. 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 No new pauses or bradycardia. She remains in paced atrial fibrillation. Will continue to monitor on telemetry. Paroxysmal atrial fibrillation Takes Coumadin at home. Will need to titrate and monitor INR with a goal 2.5- 3.5 due to mechanical mitral valve before d/c Today's INR was 1.5, increased from 1.3 yesterday. Will continue to monitor. Mechanical Mitral valve Coumadin ongoing at 2mg OD; will titrate on discharge with therapeutic INR goal of 2.5-3.5. INR today was 1.5. Code: Level 5/DNR, stable Dispo: remains on telemetry. Will continue cardiology follow up until they feel she is medically fit to be discharged. She has a bed reserved at [facility] when ready for d/c. VTE: SCD, IV heparin -- Resident Physician Supervision Note: I was present with PGY1 Dr. Isael Capellan during the history and exam. I discussed the case with the resident and agree with the findings and plan as documented in the note. Any exceptions or clarifications are listed here: none. Tele overnight - majority of time patient is paced. She has ongoing fatigue - but did sleep better overnight. Mild left shoulder pain. VSS no fever gen - NAD skin - ecchymoses of right face - improving/resolving neck - no JVD heart - RRR, s1, s2, mechanical valve closure sound lungs - CTA b/l - no rales abd - soft, NT ext - no edema; left shoulder with crepitus with passive ROM, no effusion chest - pacemaker incision site clean; large hematoma present over pacer site - again no change from last evening (ie not any larger); ecchymoses extending inferiorly and to the axillae; colors are changing A/P: 1. 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 Doss. complicated by hematoma formation. the hematoma appears similar in size today. H/H has dropped 2+ grams in the last 2 days - likely from the hematoma. cautiously cont the heparin drip. follow daily cbc, PTT, INR. 2. mechanical MV / mechanical AV - see #1 above re: anticoagulation. 3. CKD stage 3 - Cr stable. 4. recent diplopia - MRI brain w/o acute stroke. Resolved. Can pursue prism glasses after d/c if diplopia returns. 5. memory loss per daughter - vascular dementia? - with current superimposed encephalopathy. b1, b12, TSH normal no evidence of UTI. depression (chronic) contributing to memory issues? 6. chronic systolic CHF - compensated 7. frequent falls - could be cardiac related from sinus pauses/SSS. 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 8. l-spine back pain - obtained x-rays - no compression fracture. 9. fatigue - due to cardiac issues?? hopefully will improve with optimized cardiac status. no infectious or other metabolic cause found. will obtain overnight oximetry study to r/o hypoxia as cause of her fatigue. 10. pacer site hematoma - management per Dr. Doss. see #1 above 11. insomnia - lower melatonin dose to 5mg HS. 12. acute blood loss anemia - add ferrous sulfate BID. CBC in am. 2nd to hematoma on chest wall. dispo plan - [facility] when medically ready and when Dr. Doss feels she can discharge Documented By: Mati Belcher MD Resident Tracking Resident Involvement: Resident Care Provided Care Provided: Adult Hospital Medicine
[2017-03-15] MEDS ORDERED: POLYETHYLENE (MIRALAX) 17 GM PACK PO ONE (10:52)
[2017-03-15] MEDS ORDERED: BISACODYL 5 MG TABEC PO ONE (10:52)
[2017-03-15] MEDS ORDERED: DICLOFENAC SOD 1% GEL 100 GM TUBE EXT ONE (13:25)
[2017-03-15] MEDS: HEPARIN 25,000 UNIT/500ML D5W 500 ML IV PRN (13:36)
[2017-03-15] MEDS: WARFARIN SOD 2 MG TAB PO SCH (16:04)
[2017-03-15] MEDS: FERROUS GLUCONATE 324 MG TAB PO SCH (16:28)
[2017-03-16 03:47] VITALS: BP 120/73; PULSE 76; TEMP 36.6; O2SAT 96
[2017-03-16 04:00] VITALS: O2SAT 99
[2017-03-16] MEDS: LEVOTHYROXINE 50 MCG TAB PO SCH (05:55)
[2017-03-16 07:23] LABS: MEAN CORPUSCULAR HGB CONC 31.2 g/dl (32-36)
[2017-03-16] MEDS: FERROUS GLUCONATE 324 MG TAB PO SCH (07:40)
[2017-03-16 07:43] LABS: INR 1.6 (0.9-1.1); PARTIAL THROMBOPLASTIN RATIO 2.6; PROTHROMBIN TIME (PATIENT) 17.3 SECONDS (9.0-12.0)
[2017-03-16 07:46] LABS: HEMATOCRIT 32.1 % (37-47); MEAN CELL VOLUME 89.4 fL (80-100); MEAN CORPUSCULAR HEMOGLOBIN 27.9 pg (25-34); RED BLOOD COUNT 3.59 M/uL (4.2-5.4); WHITE BLOOD COUNT 6.41 K/uL (4.8-10.8)
[2017-03-16 07:58] LABS: MEAN PLATELET VOLUME 12.9 fL (7.4-10.4); PLATELET COUNT 133 K/uL (130-400); PLT ESTIMATE DECREASED
[2017-03-16 08:00] VITALS: O2SAT 97
[2017-03-16 08:12] VITALS: BP 108/70; PULSE 77; TEMP 36.9; O2SAT 97
[2017-03-16] MEDS: ATORVASTATIN 40 MG TAB PO SCH (08:39)
[2017-03-16] MEDS: ESCITALOPRAM OXALATE 10 MG TAB PO SCH (08:39)
[2017-03-16] MEDS: CLOPIDOGREL BISULFATE 75 MG TAB PO SCH (08:39)
[2017-03-16] MEDS: METOPROLOL TARTRATE 50 MG TAB PO SCH (08:40)
[2017-03-16] MEDS ORDERED: WARFARIN SOD 5 MG TAB PO ONE (08:45)
--- NOTE | 2017-03-16 08:54 | Cardiology Follow-Up ---
Subjective Date of Service: Mar 16, 2017. Pt evaluation today including: conversation w/ patient, physical exam, lab review, review of studies, review of inpatient medication list History of Present Illness This is a very pleasant 81-year-old woman who has a history of mitral valve replacement in 1994 and a subsequent aortic valve replacement 2013 (both mechanical valves) with normal coronary arteries. She has had a long history of atrial fibrillation and flutter for which she had ablation in 2008 and was on intravenous amiodarone. Her amiodarone was discontinued due to side effects, and she has been having difficulty with paroxysmal atrial fibrillation and sinus node dysfunction although she is not terribly symptomatic with it. She has also had several strokes, even while on anticoagulation. She also has a history of cardiomyopathy, since September 2013 her left ventricular ejection fraction has typically been around 35% although in April 2015 was reported as 25-30% and in October 2016 he was read as 40-45%. More recently she has been having a lot of difficulty with very poor stamina, having extreme difficulty with any kind of activity and having to use a walker which she does not like. She has also been having difficulty with falls and presented with a fall which she feels was due to tripping with facial injury. In the emergency room she was noted to have asked his atrial fibrillation with long pauses following termination of her atrial arrhythmia. This has however been asymptomatic and she has not had any symptoms of presyncope or syncope when she denies either of these as a cause of her fall at the time of her presentation. She also has a left bundle branch block, that appears to be relatively recent as on 03/01/2014 she had a narrow complex and on 10/23/2016 she had the left bundle pattern with a QRS duration of about 160 ms. That left bundle branch block has remained with a similar QRS duration. We therefore implanted a biventricular ICD on 03/12/2017. The procedure was uneventful with good lead placement. Post-operatively with addition of Heparin she developed a moderate sized pocket hematoma. Today she is tired and sleepy but alert and oriented. Only minor incisional discomfort. Social History Smoking Status: Never Smoker History of Alcohol Use: No Review of Systems Respiratory: No cough, No wheezing, No shortness of breath Cardiac: No chest pain, No palpitations Medications Cardiovascular: Item Value Date Time Metoprolol 50 mg 03/13/17 0900 Tartrate BID/PO 03/15/174 (Lopressor Tab) Clopidogrel 75 mg 03/07/17 0900 Bisulfate DAILY/PO 03/15/17 0754 (plAVix TAB) Atorvastatin 40 mg 03/07/17 0900 Calcium DAILY/PO 03/15/17 0754 (Lipitor Tab) Digoxin 0.125 mg 03/06/17 1600 (Lanoxin Tab) Q2D@1600/PO 03/14/17 1602 Warfarin Sodium 2 mg 03/06/17 1600 (Coumadin Tab) DAILY@1600/PO 03/15/17 1604 Objective Vital Signs Past 12 Hours Date Time Temp Pulse Resp B/P (MAP) Pulse Ox O2 Delivery O2 Flow Rate FiO2 03/16/17 08:12 36.9 77 20 108/70 (83) 97 Room Air 03/16/17 04:00 99 Room Air 03/16/17 03:47 36.6 76 18 120/73 (89) 96 Room Air 03/15/17 23:59 99 Room Air 03/15/17 23:19 36.7 75 18 112/72 (85) 96 Room Air Last Recorded Weight-Kilograms: 69.700 Physical Exam Constitutional: Level of Distress: moderate distress Lungs: Auscultation: breath sounds normal Cardiovascular: Heart Auscultation: tachycardia, II/ SHELLY, II/ WSM, irregular rate rhythm Extremities: no edema ICD site is clean and dry, suture line intact. There is a moderate hematoma, soft, starting to turn ecchymotic. Data Laboratory Results: Last 24 Hours Test 03/16/17 07:05 White Blood Count 6.41 K/uL Red Blood Count 3.59 M/uL Hemoglobin 10.0 g/dL Hematocrit 32.1 % Mean Corpuscular Volume 89.4 fL Mean Corpuscular Hemoglobin 27.9 pg Mean Corpuscular Hemoglobin Concent 31.2 g/dl RDW Standard Deviation 50.3 fL RDW Coefficient of Variation 15.4 % Platelet Count 133 K/uL Mean Platelet Volume 12.9 fL Platelet Estimate DECREASED Prothrombin Time 17.3 SECONDS Prothromb Time International Ratio 1.6 Partial Thromboplastin Ratio 2.6 Telemetry reviewed: No AF since the day after ICD implantation. HR well controlled by pacer/ICD. Unusual double ventricular pacing potential on telemetry. Assessment and Plan #1. Sinus node dysfunction: Her slow heart rate is now controlled by the pacing portion of the ICD. #2. Paroxysmal atrial fibrillation: She has a long history of atrial fibrillation, has had ablation and was on amiodarone but could not tolerate that. Now with the pacer HR has looked good on telemetry, not sure if she has had AF. Will interrogate ICD. Agree with anticoagulation. #3. Left bundle-branch block: The first documented of left bundle branch block that I can see was in the early part of this year, prior to that she had a narrow complex. That may be part of the reason for her worsening left ventricular function and worsening symptoms. Resynchronization hopefully will help improve her function. #4. Cardiomyopathy: She has had a long history of cardiomyopathy but it has been fluctuating based on measurements, with resynchronization I'm hopeful that this will improve. Too early to tell if she feels better. I am going to switch to long acting metoprolol for heart rate control and her cardiomyopathy. #5. Fatigue, difficulty with exertion: I believe this may be due to a low cardiac output state, in part contributed by left ventricular dyssynchrony and mechanical inefficiency with her left bundle branch block. Hopefully resynchronization therapy will help. #6. Postop day #4: Site looks OK, hematoma with ecchymosis starting but is soft and suture line is intact. No indication for intervention. Will have ICD interrogated to evaluate pacing and to look for AF. Thank you for allowing me to participate in her care.
[2017-03-16] MEDS ORDERED: POLYETHYLENE (MIRALAX) 17 GM PACK PO SCH (09:00)
[2017-03-16] MEDS ORDERED: BISACODYL 5 MG TABEC PO SCH (09:00)
[2017-03-16] MEDS ORDERED: DICLOFENAC SOD 1% GEL 100 GM TUBE EXT SCH (09:00)
[2017-03-16] MEDS ORDERED: ENOXAPARIN 40 MG/0.4 ML SYR SQ SCH (09:00)
[2017-03-16] MEDS ORDERED: LVNIS40 SQ ×3 (09:03→10:58)
[2017-03-16] MEDS ORDERED: VLTG EXT (09:03)
[2017-03-16] MEDS ORDERED: ZFRI4 IV (09:03)
[2017-03-16] MEDS ORDERED: MRLP17 PO (09:03)
[2017-03-16] MEDS ORDERED: DLC5 PO (09:03)
[2017-03-16] MEDS ORDERED: LXP10 PO (09:03)
[2017-03-16] MEDS ORDERED: FRRG PO (09:03)
--- NOTE | 2017-03-16 09:18 | Discharge Instructions ---
Discharge Instructions Date of Service Mar 16, 2017. Admission Reason for Admission: Diplopia, Stroke-Like Symptoms-- 7AM Discharge Discharge Diagnosis / Problem: Sinus node dysfunction, ICD placed Discharge Goals Goal(s): Decrease discomfort, Improve function Activity Recommendations Activity Level: Assistance Required . Additional Information Patient informed of condition: Yes Advance Directives: No DNR: Yes Level of Care: Acute Rehab Communicable Disease: No Prognosis: Stable Voss Catheter: No Instructions / Follow-Up Instructions / Follow-Up Janelle is a pleasant 81 yo female who was admitted for stroke like symptoms, including diplopia. 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 Current issues include: Sinus node dysfunction: now controlled by recent ICD placement. Acute Metabolic Encephalopathy Investigated for sources of infection, repeat urine was unremarkable Likely multifactorial, patient has background of dementia Mechanical Mitral valve with Paroxysmal atrial fibrillation Takes Coumadin at home, with goal to titrate coumadin so INR= 2.5-3.5 Concomitant SQ lovenox 1mg/kg BID as bridge until INR reaches 2.5-3.5, then DC; she received 70 mg lovenox at 1100. on 03/16 was given 5 mg coumadin PO Diplopia Refer to optometry or ophthalmology for prism to correct double vision Fatigue difficulty with exertion: Possibly related to a low cardiac output state? Given melatonin to help her sleep through the night. Hematoma with ecchymosis Forming at site of ICD placement, but is soft and suture line is intact. No indication for intervention. CODE STATUS: DNR Current Hospital Diet Patient's current hospital diet: AHA Diet (Heart Healthy) Discharge Diet Recommended Diet: Regular Diet Procedures Procedures Performed: ICD placement on 03/12/17 Pending Studies Studies pending at discharge: no Laboratory Results Hemoglobin A1c Test 03/05/17 15:31 Range/Units Estimated Average Glucose 114 mg/dl Hemoglobin A1c 5.6 4.5-5.6 % Lipid Panel Test 03/06/17 07:08 Range/Units Triglycerides Level 180 H 0-150 mg/dl Cholesterol Level 144 0-200 mg/dl HDL Cholesterol 43 mg/dl Cholesterol/HDL Ratio 3.3 LDL Cholesterol, Calculated 65 mg/dl Medical Emergencies . Who to Call and When: Medical Emergencies: If at any time you feel your situation is an emergency, please call 911 immediately. . Non-Emergent Contact Non-Emergency issues call your: Primary Care Provider . . "Provider Documentation" section prepared by Arlin Almonte. . Core Measure Problem Core Measures: None
[2017-03-16] MEDS ORDERED: METO1TAB69 PO (09:30)
--- NOTE | 2017-03-16 09:31 | Discharge Summary ---
Discharge Summary Date of Service Mar 16, 2017. Discharge Summary Admission Date: Mar 05, 2017 at 17:40 Discharge Date: Mar 16, 2017 Immunizations: Have You Had Influenza Vaccine: Yes Influenza Vaccine Date: Jul 09, 2010 History of Tetanus Vaccine?: No History of Pneumococcal: Yes Pneumococcal Date: Jul 09, 2010 History of Hepatitis B Vaccine: No Hospital Course This includes examination of the patient, discharge planning, medication reconciliation, and communication with other providers. Discharge Instructions Please refer to the electronic Patient Visit Report (Discharge Instructions) for additional information.
[2017-03-16] MEDS ORDERED: ENOXAPARIN 30 MG/0.3 ML SYR SQ ONE (11:30)
[2017-03-16 11:32] VITALS: BP 112/68; PULSE 77; TEMP 36.4; O2SAT 99
[2017-03-16 11:49] VITALS: BP 108/70; PULSE 77; TEMP 36.9; O2SAT 97
--- NOTE | 2017-03-16 17:28 | Discharge Summary ---
Discharge Summary Date of Service Mar 16, 2017. (Arlin Almonte M.D.) Discharge Summary Admission Date: Mar 05, 2017 at 17:40 Discharge Date: Mar 16, 2017 Discharge Disposition: custodial facility Principal Diagnosis: Sinus node dysfunction Problems/Secondary Diagnoses: Acute metabolic encephalopathy, Mechanical Mitral valve with Paroxysmal atrial fibrillation, diplopia, fatigue, hematoma with ecchymosis. Immunizations: Have You Had Influenza Vaccine: Yes Influenza Vaccine Date: Jul 09, 2010 History of Tetanus Vaccine?: No History of Pneumococcal: Yes Pneumococcal Date: Jul 09, 2010 History of Hepatitis B Vaccine: No Procedures: ICD placement on 03/12/17 Consultations: Cardiology (Arlin Almonte M.D.) Medication Reconciliation New Medications: Metoprolol Succ (Toprol Xl) (Toprol-Xl ) 100 Mg Tabcr 100 MG PO DAILY for 30 Days, #30 TAB Bisacodyl (Bisacodyl EC) 5 Mg Tabec 5 MG PO DAILY for 30 Days Diclofenac Sod (Voltaren) 100 Appln/100 Gm Gel 1 APPLN EXT DAILY for 30 Days Enoxaparin (Enoxaparin Sodium) 40 Mg/0.4 Ml Inj 70 MG SQ BID for 30 Days GIVE 1mg/kg BID UNTIL INR 2.5-3.5 Escitalopram Oxalate (Escitalopram Oxalate) 10 Mg Tab 10 MG PO QAM for 30 Days, #30 TAB Ferrous Gluconate (Ferrous Gluconate) 324 Mg Tab 324 MG PO BIDM for 30 Days, TAB Ondansetron (Ondansetron Hcl) 2 Mg/Ml Inj 4 MG IV Q6H PRN for Nausea for 30 Days Polyethylene (Miralax) 17 Gm Pow 17 GM PO DAILY for 30 Days Continued Medications: Acetaminophen (Tylenol) 325 Mg Tab 650 MG PO DIRECTED PRN for Pain or Fever, TAB Atorvastatin (Atorvastatin Calcium) 20 Mg Tab 20 MG PO DAILY B Complex W/ C (Vitamin B Complex-C) 1 Cap Cap 1 TAB PO DAILY Clopidogrel Bisulfate (Clopidogrel) 75 Mg Tab 75 MG PO DAILY Digoxin (Digoxin) 0.125 Mg Tab 0.125 MG PO Q2D AT 1600 Levothyroxine Sodium (Levothyroxine Sodium) 50 Mcg Tab 50 MCG PO QAM Lisinopril (Prinivil) 5 Mg Tab 5 MG PO BID, TAB Melatonin (Kp Melatonin) 3 Mg Tab 1 TAB PO HS, TAB Polyethylene Glycol-Propylene (Systane) 1 Malina Malina 1 DROPS OP prn Triamterene/Hctz (Dyazide 37.5MG/25MG) Cap 1 TAB PO 2XWK, CAP THURSDAY AND THURSDAY Warfarin Sodium (Warfarin Sodium) 2 Mg Tab 2 MG PO DAILY Discontinued Medications: Cephalexin Monohydrate (Keflex) 500 Mg Cap 500 MG PO TID, #15 CAP STARTED 02/26/17 FOR 7 DAYS. Metoprolol Tartrate (Lopressor) (Lopressor) 100 Mg Tab 100 MG PO BID, TAB Discharge Exam Review of Systems: Constitutional: + fatigue Eyes: + diplopia ENT: No hearing loss, No unusual epistaxis, No nasal symptoms, No sore throat, No tinnitus, No dental problems, No trouble swallowing, No problem reported Respiratory: No cough, No sputum, No wheezing, No shortness of breath, No dyspnea on exertion, No dyspnea at rest, No hemoptysis, No problem reported Cardiovascular: No chest pain, No orthopnea, No PND, No edema, No claudication, No palpitations, No problem reported Abdomen: No pain, No nausea, No vomiting, No diarrhea, No constipation, No GI bleeding, No problem reported Musculoskeletal: + joint pain (shoulder pain on left side) Genitourinary - Female: No dysuria, No urinary frequency, No urinary urgency , No urinary incontinence, No urinary retention, No hematuria, No dysmenorrhea, No menorrhagia, No metrorrhagia, No rash, No vaginal bleeding, No vaginal discharge, No vaginal itching, No vulvodynia, No , No problem reported Neurologic: No memory loss, No paralysis, No weakness, No numbness/tingling , No vertigo, No balance problems, No problem reported Psychiatric: + depression symptoms, + insomnia, No anhedonism, No anxiety, No substance abuse, No problem reported Endocrine: + fatigue, No excessive thirst, No excessive urination, No problem reported Physical Exam: General Appearance: WD/WN, no apparent distress Eyes: normal inspection, PERRL, EOMI, + pertinent finding (ecchymosis on face, greater on right side; with right eyelid not as open as left.) ENT: normal ENT inspection, hearing grossly normal, TMs normal, pharynx normal Neck: supple, no JVD, trachea midline Respiratory/Chest: chest non-tender, lungs clear, normal breath sounds, no respiratory distress, no accessory muscle use Cardiovascular: regular rate, rhythm, no edema, normal peripheral pulses, + diastolic murmur Abdomen / GI: normal bowel sounds, non tender, soft, occult blood negative Extremities: normal inspection, no pedal edema, normal range of motion Neurologic/Psychiatric: cylinder steamer II-XII nml as tested, no motor/sensory deficits , alert, normal mood/affect, oriented x 3 Skin: no rash, + pertinent finding (ecchymosis on right>left side of face; hematoma ) (Arlin Almonte M.D.) Hospital Course Janelle is a pleasant 81 yo female who was admitted for stroke like symptoms, including diplopia. 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 Current issues include: Sinus node dysfunction: now controlled by recent ICD placement. Acute Metabolic Encephalopathy Investigated for sources of infection, repeat urine was unremarkable Likely multifactorial, patient has background of dementia Mechanical Mitral valve with Paroxysmal atrial fibrillation Takes Coumadin at home, with goal to titrate coumadin so INR= 2.5-3.5 Concomitant SQ lovenox 1mg/kg BID as bridge until INR reaches 2.5-3.5, then DC; she received 70 mg lovenox at 1100. on 03/16 was given 5 mg coumadin PO Diplopia Refer to optometry or ophthalmology for prism to correct double vision Fatigue difficulty with exertion: Possibly related to a low cardiac output state? Given melatonin to help her sleep through the night. Hematoma with ecchymosis Forming at site of ICD placement, but is soft and suture line is intact. No indication for intervention. CODE STATUS: DNR Total Time Spent: Greater than 30 minutes This includes examination of the patient, discharge planning, medication reconciliation, and communication with other providers. (Arlin Almonte M.D.) Resident Physician Supervision Note: I interviewed and examined the patient. Discussed with Dr. Almonte and agree with findings and plan as documented in the note. Any exceptions or clarifications are listed here: None Documented By: Eddie Dukes feeling better ready to go to [facility] for rehab. all other ROS otherwise negative except for as above vitals noted nad breathing unlabored no pallor or icterus sick sinus syndrome - now stable post pacer, hematoma has stabilized. stable for SNF. (Eddie Dukes D.O.) Discharge Instructions Please refer to the electronic Patient Visit Report (Discharge Instructions) for additional information. (Arlin Almonte M.D.) Follow-Up Recommend follow up with PCP and cardiology as necessary (Arlin Almonte M.D.) Additional Copies To Mary Hardwick M.D. Resident Tracking Resident Involvement: Resident Care Provided Care Provided: Adult [facility] (Arlin Almonte M.D.)
[2017-03-17] MEDS ORDERED: METOPROLOL SUCC 50MG EXT REL TAB PO SCH (09:00)
--- NOTE | 2017-03-24 12:36 | [facility] Operative Report ---
Operative Report Date of Service Mar 12, 2017. Operative Report Procedure Date Mar 12, 2017. Pre-Procedure Diagnosis cardiomyopathy, left bundle branch block, bradycardia Post-Procedure Diagnosis same Procedure(s) Performed Right ventricular ICD lead implantation Atrial lead implantation Coronary sinus angiography Left ventricular lead implantation Biventricular ICD implantation Telescope Repairer Dr. Doss Zipper Trimmer Hand(s) none Estimated Blood Loss 100 cc Preliminary Findings Good lead position for all 3 leads. Her rhythm during the procedure was either an atrial tachycardia or a very slow atypical atrial flutter at a rate of about 120 bpm. Recommendations Monitor overnight Restart heparin this evening despite risk of bleeding Specimens None Anesthesia local with sedation Description of procedure After obtaining informed consent for the procedure, the patient was brought to the laboratory and prepped and draped in the standard sterile manner. The left prepectoral region was anesthetized with 1% lidocaine local anesthetic and left axillary venipuncture was performed by percutaneous technique and a guidewire placed through the left subclavian vein into the superior vena cava. The area was further infiltrated with 1% lidocaine local anesthetic and a 5 cm incision was made parallel to the left clavicle and 2 cm below it and carried down to the anterior pectoralis fascia. A pacemaker pocket was formed by blunt dissection anterior to the pectoralis fascia and a bacitracin-soaked sponge (50, 000 units in 50 cc normal saline solution) was placed in the pocket. An 8 [place] Medtronic lead introducer was placed over the guidewire into the left subclavian vein, the dilator and guidewire were removed and a bipolar active fixation steroid tipped ventricular lead was advanced through the introducer into the superior vena cava. A guidewire was placed through the introducer and the introducer was stripped from the lead and guidewire. Another 8 [place] Medtronic lead introducer was placed over the guidewire into the left subclavian vein, the dilator and guidewire were removed and a bipolar active fixation steroid tipped atrial lead was advanced through the introducer into the superior vena cava. A guidewire was placed back through the introducer and the introducer was stripped from the lead and guidewire. Using a curved stylette the ventricular lead was advanced through the right ventricular outflow tract into the pulmonary artery and then using a straight stylette was positioned in the right ventricular apex. The screw was extended fixing the lead in position. Pacing and sensing thresholds were evaluated in bipolar configuration and are recorded on the implant data sheet. Diaphragmatic pacing was evaluated at a 10 V bipolar output as indicated on the data sheet. Using a curved stylette the atrial lead was positioned in the region of the atrial appendage and the screw extended fixing the lead in position. Pacing and sensing thresholds were evaluated in bipolar configuration and are recorded on the implant data sheet. Diaphragmatic pacing was evaluated at a 10 V bipolar output as indicated on the data sheet. Once the leads were in position they were attached to the anterior pectoralis fascia using 1 sutures of 2-0 silk around each lead collar. The short guidewire was exchanged for a long guidewire and a Osito coronary sinus sheath was advanced to position in the right atrium. The curved obturator was placed through the sheath and using x-ray dye the os of the coronary sinus was identified. A guidewire was placed through the introducer into the coronary sinus and the Osito sheath was advanced into the coronary sinus. A balloon occlusion catheter was advanced through this sheath into the coronary sinus, the balloon was inflated and dye was injected in various projections to obtain a coronary sinus angiogram. A good vessel was identified and a 0.014 inch guidewire was advanced into this vessel. A quadripolar coronary sinus catheter was advanced over the guidewire into good distal position. The left ventricular pacing threshold was evaluated in various configurations, as recorded on the implant data sheet. Diaphragmatic pacing was evaluated at a 10 V output, as indicated on the data sheet. Once this lead was in position the introducer system was removed from the lead and the lead was attached to the anterior pectoral fascia using 2 sutures of 2-0 silk around the lead collar. An additional suture of 2-0 silk was placed around each of the atrial and ventricular lead collars as well. The bacitracin-soaked sponge was removed from the pocket, hemostasis was obtained, the ICD was attached to the leads and placed in the pocket with the leads coiled beneath it. The incision was closed with a running double subcutaneous closure of 3-0 V-Lock absorbable suture, followed by running subcuticular skin closure of 4-0 V-Lock absorbable suture. Bacitracin ointment was placed on the incision and a pressure dressing applied. Complication(s) None Disposition PCU I attest to the content of the Intraoperative Record and any orders documented therein. Any exceptions are noted below.
== END 2017-03-16 13:55 | DRG 226 ==
LOC: EDBD 14:50 → C.EDA 14:53 → C.2T 17:40 → ENRESERV 17:48
PROVIDERS: ADMIT Internal Medicine; ATTEND Family Medicine
PROC: 0JH608Z Insertion of Defibrillator Generator into Chest Subcutaneous Tissue and Fascia, Open Approach (ICD-10-PCS; principal; 2017-03-12 13:02)
PROC: 02H63KZ Insertion of Defibrillator Lead into Right Atrium, Percutaneous Approach (ICD-10-PCS; principal; 2017-03-12 13:02)
PROC: 02HL3KZ Insertion of Defibrillator Lead into Left Ventricle, Percutaneous Approach (ICD-10-PCS; principal; 2017-03-12 13:02)
PROC: 02HK3KZ Insertion of Defibrillator Lead into Right Ventricle, Percutaneous Approach (ICD-10-PCS; principal; 2017-03-12 13:02)
DX: I49.5 Sick sinus syndrome (principal); G93.41 Metabolic encephalopathy; L76.32 Postprocedural hematoma of skin and subcutaneous tissue following other procedure; D62 Acute posthemorrhagic anemia; I50.22 Chronic systolic (congestive) heart failure; I42.9 Cardiomyopathy, unspecified; I48.0 Paroxysmal atrial fibrillation; I45.4 Nonspecific intraventricular block; H53.2 Diplopia; R53.83 Other fatigue; M54.9 Dorsalgia, unspecified; G47.00 Insomnia, unspecified; K59.00 Constipation, unspecified; F32.9 Major depressive disorder, single episode, unspecified; M19.012 Primary osteoarthritis, left shoulder; I12.9 Hypertensive chronic kidney disease with stage 1 through stage 4 chronic kidney disease, or unspecified chronic kidney disease; N18.3 Chronic kidney disease, stage 3 (moderate); Y83.1 Surgical operation with implant of artificial internal device as the cause of abnormal reaction of the patient, or of later complication, without mention of misadventure at the time of the procedure; E78.00 Pure hypercholesterolemia, unspecified; E03.9 Hypothyroidism, unspecified; E78.5 Hyperlipidemia, unspecified; S00.83XA Contusion of other part of head, initial encounter; W19.XXXA Unspecified fall, initial encounter; Z91.81 History of falling; Z66 Do not resuscitate; Z95.2 Presence of prosthetic heart valve; Z79.01 Long term (current) use of anticoagulants; Z86.73 Personal history of transient ischemic attack (TIA), and cerebral infarction without residual deficits; Z82.49 Family history of ischemic heart disease and other diseases of the circulatory system

== ENCOUNTER 2017-07-27 08:17 | Inpatient (IN) | payer OTHER, BC ==
[~2017-07-27] VITALS: Ht 170.2 cm; Wt 72.1 kg
[~2017-07-27 08:17] MED LIST changes: +ACET-1175 PO; -CEPH-571 PO; +DLC5 PO; +FRRG PO; -LPR100 PO; +LVNIS40 SQ; +LXP10 PO; +MRLP17 PO; +VLTG EXT; +ZFRI4 IV
[2017-07-27] MEDS ORDERED: OPTIRAY 320 IV PRN (08:45)
[2017-07-27] MEDS ORDERED: SODIUM CHLORIDE 0.9% 1000ML 1,000 ML IV STA (08:45)
[2017-07-27] MEDS ORDERED: FENTANYL CITRATE INJ 50 MCG/1 ML 2 ML VIAL IV STA ×2 (08:45→11:02)
[2017-07-27] MEDS ORDERED: ONDANSETRON INJ 2 MG/ML 2 ML VIAL IV STA (08:45)
[2017-07-27 09:15] LABS: BASO % 0.2 %; BASO ABS # 0.02 K/uL (0-0.2); COMPLETE YES; EOS % 1.3 %; HEMATOCRIT 29.6 % (37-47); IG% 0.2 %; LYMPH % 7.3 %; LYMPH ABS # 0.66 K/uL (1.2-3.4); MEAN CORPUSCULAR HGB CONC 31.1 g/dl (32-36); MEAN PLATELET VOLUME 11.9 fL (7.4-10.4); PLATELET COUNT 219 K/uL (130-400); RED BLOOD COUNT 3.29 M/uL (4.2-5.4); WHITE BLOOD COUNT 9.02 K/uL (4.8-10.8)
[2017-07-27 09:16] LABS: URINE APPEARANCE CLOUDY (CLEAR); URINE BILIRUBIN NEG (NEG); URINE COLOR YELLOW; URINE EPITHELIAL CELL AUTO 20-30 /lpf (0-5); URINE NITRITE POS (NEG); UROBILINOGEN NEG (NEG)
[2017-07-27 09:19] LABS: MANUAL MICROSCOPIC REQUIRED? NO; REVIEW REQ? NO
[2017-07-27] MEDS ORDERED: MRLP17X PO (09:21)
[2017-07-27] MEDS ORDERED: TPRSR/100 PO (09:22)
[2017-07-27 09:23] LABS: ZZURINE CULT IF INDIC CATH YES
[2017-07-27 09:26] LABS: INR 2.4 (0.9-1.1); PARTIAL THROMBOPLASTIN RATIO 1.3; PROTHROMBIN TIME (PATIENT) 27.2 SECONDS (9.0-12.0)
[2017-07-27 09:38] LABS: BUN/CREATININE RATIO 17.1 (10-20); CREATININE 1.07 mg/dl (0.60-1.20); POTASSIUM 4.3 mmol/L (3.5-5.1)
[2017-07-27 09:42] LABS: ALB/GLOB RATIO 0.8 (0.9-2)
--- NOTE | 2017-07-27 10:38 | DIAGNOSTIC IMAGING REPORT ---
CT SCAN OF THE CHEST WITH IV CONTRAST CLINICAL HISTORY: Fall. COMPARISON STUDY: Chest x-ray dated 03/13/2017. Chest CT scans dated 03/29/2015 and 07/08/2010. Radiographs of the lumbar spine dated 03/10/2017. TECHNIQUE: Following the IV administration of 93 cc of Optiray 320, CT scan of the thorax was performed from the thoracic inlet to the upper abdomen. Images are reviewed in the axial, sagittal, and coronal planes. IV contrast was administered without complication. A dose lowering technique was utilized adhering to the principles of ALARA. The examination is significantly degraded by motion artifact as well as by streak artifact from the arms which could not be elevated above the chest. FINDINGS: Thyroid: Atrophic. Thoracic aorta: There is atherosclerotic calcification of the thoracic aorta, which is normal in caliber and demonstrates standard 3-vessel arch anatomy. No dissection is seen. Pulmonary vasculature: The pulmonary trunk is dilated measuring 4.1 cm in transverse diameter. This suggests pulmonary artery hypertension. There are no filling defects identified in the central pulmonary vessels to indicate pulmonary embolus. Note that this examination was not protocoled for evaluation of the pulmonary arteries. Heart: A 3-lead cardiac AICD is present in the left chest wall. The patient is status post midline sternotomy. The heart is enlarged and without pericardial effusion. The coronary arteries and mitral annulus are densely calcified. Lungs and pleural spaces: Evaluation of the lung parenchyma is degraded by respiratory motion artifact. There are trace pleural effusions. Letter atelectasis versus scarring is identified in the lower lobes. Diffuse subpleural reticulation is observed. Intralobular septal thickening is seen throughout both lungs, greatest at the apices. The trachea and central airways are clear. Scattered calcified granulomas are observed. No pneumothorax is seen. Mediastinum: There is no mediastinal hematoma or lymphadenopathy. Lor: Clear. Axillae: There is no axillary lymphadenopathy. Upper abdomen: There is reflux of contrast into the IVC and hepatic veins suggesting cardiac dysfunction. A tiny hiatal hernia is identified. Fluid/secretions are present within the esophagus to the level of the thoracic inlet. Skeletal structures: The skeletal structures are osteopenic. There are age indeterminant superior endplate compression deformities of T11 and T12. These are new from the 2017 spine radiographs and are likely acute. No retropulsed fragments are identified. No additional acute fracture is identified. There are healed left posterior rib fractures. No lytic or blastic bony lesions are seen. IMPRESSION: 1. Streak and motion artifact degraded examination. 2. There are mild superior endplate compression deformities of T11 and T12. These are age indeterminant but new from the 03/10/2017 lumbar spine radiographs and presumed acute. Correlate for point tenderness at these levels. 3. Cardiomegaly an AICD with evidence of pulmonary artery hypertension. Intralobular septal thickening suggests congestive failure. 4. There are trace pleural effusions. No pneumothorax is seen. 5. Fluid/secretions are present within the esophagus to the level of the thoracic inlet. Note that this may place the patient at risk for aspiration. 6. Additional findings as above. Electronically signed by: Eric Ross M.D. 07/27/2017 10:36 AM Dictated Date/Time: 07/27/2017 10:26 AM
--- NOTE | 2017-07-27 10:40 | DIAGNOSTIC IMAGING REPORT ---
HEAD CT NONCONTRAST CT DOSE: 1477.62 mGy.cm HISTORY: trauma, fall, on coumadin TECHNIQUE: Multiaxial CT images of the head were performed without the use of intravenous contrast. Automated exposure control was utilized for this study. A dose lowering technique was utilized adhering to the principles of ALARA. Comparison: Head CT 03/05/2017. Findings: Small retention cyst within the right maxillary sinus. The mastoid air cells are clear. Slight offset at the nasal bones is likely old. There is no soft tissue swelling at this location to suggest an acute injury. Interval development of a 1.7 x 1.2 cm soft tissue nodule within the right orbit. This is located between the lateral rectus muscle and optic nerve. This results in mild left deviation of the optic nerve. The calvarium and skull base are intact. There is no mass, hematoma, midline shift, acute infarct. White matter hypodensity is nonspecific but suggestive of microvascular ischemic change. The ventricles and sulci demonstrate mild age-related involutional changes. Old punctate lacunar infarcts seen within the right basal ganglia and cerebellar hemispheres.. Impression: 1. No acute intracranial abnormality. 2. Interval development of a 17 x 12 mm soft tissue nodule within the right orbit. This results in mild mass effect on the optic nerve. This was not present on the March 05, 2017 study and therefore could represent a small hematoma rather than a mass. If the patient is complaining of right eye pain then an emergent MRI is recommended for further elevation. However, a nonemergent MRI can be performed if the patient is not complaining of right-sided pain at this time to assess for a mass. Electronically signed by: Tony Medina M.D. 07/27/2017 10:38 AM Dictated Date/Time: 07/27/2017 10:26 AM
--- NOTE | 2017-07-27 10:51 | DIAGNOSTIC IMAGING REPORT ---
R FEMUR 2 VIEWS ROUTINE CLINICAL HISTORY: large hematoma right posterior/lateral femur, pain, fall COMPARISON STUDY: Abdomen and pelvis CT 07/27/2017. FINDINGS: Lateral soft tissue swelling within the right hip. The bones are osteopenic. There is a pelvic bones are intact. No fracture or dislocation within the right femur. Voss catheter and contrast within the bladder. Degenerative changes within the right knee. No knee effusion. IMPRESSION: Lateral soft tissue swelling within the right hip. No fracture or dislocation within the right femur. Electronically signed by: Tony Medina M.D. 07/27/2017 10:49 AM Dictated Date/Time: 07/27/2017 10:47 AM
--- NOTE | 2017-07-27 10:59 | DIAGNOSTIC IMAGING REPORT ---
CT OF THE CERVICAL SPINE WITHOUT CONTRAST CLINICAL HISTORY: Neck pain following fall. COMPARISON STUDY: Cervical spine CT February 26, 2017. TECHNIQUE: Helical axial images of the cervical spine were obtained without IV contrast. Sagittal and coronal reconstructions were viewed. A dose lowering technique was utilized adhering to the principles of ALARA. FINDINGS: Alignment of the cervical spine is anatomic. Vertebral body heights are maintained. There is no acute cervical spine fracture or subluxation. Craniocervical junction is intact. There is no prevertebral edema. Note is made of interlobular septal thickening and groundglass opacities within visualized portions of the lungs which suggest pulmonary edema. IMPRESSION: 1. No acute cervical spine fracture or subluxation. 2. Findings suggestive of pulmonary edema within visualized portions of the lungs. Electronically signed by: Gildardo Malik M.D. 07/27/2017 10:58 AM Dictated Date/Time: 07/27/2017 10:21 AM
--- NOTE | 2017-07-27 11:17 | DIAGNOSTIC IMAGING REPORT ---
CT OF THE ABDOMEN AND PELVIS WITH CONTRAST CLINICAL HISTORY: Trauma, abdominal pain, flank pain/bruising, right hip pain. COMPARISON STUDY: None. TECHNIQUE: Following IV administration of 93 mL of Optiray-320, axial images of the abdomen and pelvis were obtained from the lung bases to the proximal femurs. Images were reviewed in the axial, sagittal, and coronal planes. IV contrast was administered without complication. A dose lowering technique was utilized adhering to the principles of ALARA. FINDINGS: The chest CT will be reported separately. There is no evidence of traumatic injury to the liver, spleen, adrenal glands, kidneys or pancreas. Gallstones are noted within the gallbladder. The gallbladder is mildly distended. There is no pericholecystic and interpretation. A 1.3 cm left adrenal nodule is unchanged since chest CT of March 29, 2015. This is benign and likely reflects an adenoma. Note is made of a 1.2 cm right renal cyst. No acute lumbar spine or pelvic fracture is identified. Several old left lower rib fractures are noted. Note is made of compression fractures of the superior endplates of T11 and T12 which are age indeterminate but new since exam of March 10, 2017. There is no acute pelvic or hip fracture. A right lateral thigh hematoma is partially imaged and measures at least 7.4 x 4.7 cm. There is adjacent infiltration/hemorrhage. Note is made of a large mixed cystic and solid right adnexal mass that measures 9.2 x 6.5 cm. A normal-appearing right ovary is not identified. There is no fat plane between this mass and the uterus. The left ovary is normal. Note is made of a 1.5 cm hypodense focus posterior to the sigmoid colon shown on axial image 342 of 471. There are a few indeterminate nodules along the medial aspects of the left iliac vessels that measure up to 6 mm. A Voss balloon is present within the bladder. IMPRESSION: 1. Partially visualized acute lateral right thigh hematoma that measures at least 7.4 x 4.7 cm. No acute pelvic or hip fracture. 2. No evidence of traumatic injury to the solid abdominal viscera. 3. 9.2 x 6.5 cm mixed cystic and solid right adnexal mass. No normal right ovary identified. Loss of fat plane between this mass and the uterus. A neoplasm is the diagnosis of exclusion and this is suspicious for a right ovarian malignancy. An atypical uterine lesion is considered less likely but could appear similar. Gynecologic consultation is recommended. A few indeterminate hypodense nodules within the pelvis are not definitive but raise the possibility of peritoneal spread of disease. Electronically signed by: Gildardo Malik M.D. 07/27/2017 11:15 AM Dictated Date/Time: 07/27/2017 10:59 AM
[2017-07-27] MEDS ORDERED: CEFTRIAXONE SOD INJ 1 GM ADDVIAL IV STA (12:48)
[2017-07-27] MEDS ORDERED: POLYETHYLENE (MIRALAX) 17 GM PACK PO PRN (13:30)
[2017-07-27] MEDS ORDERED: ONDANSETRON INJ 2 MG/ML 2 ML VIAL IV PRN (13:30)
[2017-07-27] MEDS ORDERED: ALUMINUM/MAGNESIUM/SIMETH (MAALOX MAX) 30 ML UDC PO PRN (13:30)
[2017-07-27] MEDS ORDERED: MAGNESIUM HYDROXIDE SUSP 30 ML UDC PO PRN (13:30)
[2017-07-27] MEDS ORDERED: MoRPHine SULFATE 2 MG/ML CARP IV PRN (13:45)
--- NOTE | 2017-07-27 13:49 | History and Physical ---
History & Physical Date & Time of Service: Jul 27, 2017 at 13:40 Chief Complaint: Fall/Hip Pain Primary Care Physician: Mary Hardwick M.D. History of Present Illness Ms. 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 Patient has sustained multiple falls with two in the most recent couple weeks. She was trying to put on her pant at the side of the bed when she slid off the bed and onto the floor. She landed on her R side and felt too weak to get herself back up. She was laying on the floor for approx. 30 minutes. She had a fall approx. 1-2 weeks on that R hip and sustaining significant bruising. She was having pain all week but the fall today acutely exacerbated it. She is on coumadin due to valve replacements with INR goal of 2.5-3.5. She denies lightheadedness/dizziness with this fall but states she noticed this yesterday and does have this intermittently on a chronic basis. She does have associated chronic pain of the neck and back with chronic generalized weakness. She also has a history of CVAs with L residual deficits. She denies feeling ill or sick contacts but complains of generalized weakness. On previous admission, patient had diplopia but states she has resolved. On imaging a soft nodule was found with mild mass effect on optic nerve but patient reporting no eye pain. This was not seen on image from March 05, 2017 but quick review of records supports that MRI was placed previously for this. Incidentally, patient also found to have pelvic mass concerning for neoplastic process. She denies gynecologic issues/CA. She was last seen by Gyne 10+ years ago and verbalizes no issues. She denies FMHx of gynecologic Robbie but states her mother had Breast CA in her 80s. Past Medical/Surgical History Medical Problems: (1) Cerebrovascular accident (CVA) Status: Resolved Surgical Problems: (1) Mitral valve replaced Status: Resolved (2) Status post heart valve replacement with mechanical valve Status: Resolved Family History Breast Cancer FHx: heart disease Social History Smoking Status: Never Smoker Smokeless Tobacco Use: No Alcohol Use: none Drug Use: none Marital Status: Housing status: lives alone Occupational Status: retired Immunizations History of Influenza Vaccine: Yes Influenza Vaccine Date: Jul 09, 2010 History of Tetanus Vaccine?: No History of Pneumococcal: Yes Pneumococcal Date: Jul 09, 2010 History of Hepatitis B Vaccine: No Multi-Drug Resistant Organisms History of MDRO: No Allergies Coded Allergies: Codeine (Verified Allergy, Intermediate, RASH, 03/05/17) Home Medications Scheduled Atorvastatin (Atorvastatin Calcium), 20 MG PO HS B Complex W/ C (Vitamin B Complex-C), 1 TAB PO DAILY Clopidogrel Bisulfate (Clopidogrel), 75 MG PO DAILY Digoxin (Digoxin), 0.125 MG PO Q2D AT 1600 Escitalopram Oxalate (Escitalopram Oxalate), 10 MG PO QAM Levothyroxine Sodium (Levothyroxine Sodium), 50 MCG PO QAM Lisinopril (Prinivil), 5 MG PO BID Melatonin (Kp Melatonin), 1 TAB PO HS Metoprolol Succinate (Metoprolol Succinate ER), 100 MG PO BID Triamterene/Hctz (Dyazide 37.5MG/25MG), 1 TAB PO 2XWK Warfarin Sodium (Warfarin Sodium), 2 MG PO DAILY Scheduled PRN Acetaminophen (Tylenol), 650 MG PO DIRECTED PRN for Pain or Fever Polyethylene (Miralax), 17 GM PO DAILY PRN for UD Review of Systems Constitutional: + fatigue, No fever, No chills Eyes: No worsening of vision, No eye pain, No discharge, No diplopia ENT: No nasal symptoms, No sore throat, No trouble swallowing Respiratory: No cough, No shortness of breath Cardiovascular: No chest pain Abdomen: No pain, No nausea, No vomiting Musculoskeletal: + joint pain (R hip), No swelling, No calf pain Genitourinary - Female: + urinary incontinence, No dysuria Neurologic: + balance problems Hematologic / Lymphatic: + problem reported (scattered frequent bruising - on Coumadin) Physical Exam Vital Signs Date Time Temp Pulse Resp B/P (MAP) Pulse Ox O2 Delivery O2 Flow Rate FiO2 07/27/17 12:53 75 16 118/56 100 Room Air 07/27/17 12:18 76 07/27/17 11:24 75 16 147/95 99 Nasal Cannula 2.0 07/27/17 09:46 76 16 168/52 96 Nasal Cannula 2.0 07/27/17 09:20 95 Nasal Cannula 2.0 07/27/17 09:15 73 16 153/81 87 Room Air 07/27/17 08:28 80 07/27/17 08:20 96 Room Air 07/27/17 08:20 36.5 87 20 164/86 96 Room Air General Appearance: WD/WN, no apparent distress Head: normocephalic, atraumatic Eyes: PERRL, EOMI (limited as patient kept closing her eyes but denies pain with eye movement), sclerae normal ENT: hearing grossly normal Neck: supple, no JVD, trachea midline Respiratory/Chest: lungs clear, normal breath sounds, no respiratory distress, no accessory muscle use Cardiovascular: + pertinent finding (mechanical heart sounds; intermittent irregularity) Abdomen/GI: normal bowel sounds, non tender, soft, + mass Extremities/Musculoskelatal: no calf tenderness, + pertinent finding (large ecchymosis and baseball sized hematoma to R hip; varying phases of healing) Neurologic/Psych: alert, oriented x 3 Skin: normal color, warm/dry Diagnostics Laboratory Results Results Past 24 Hours Test 07/27/17 08:50 07/27/17 08:55 Range/Units Urine Color YELLOW Urine Appearance CLOUDY CLEAR Urine pH 6.0 4.5-7.5 Urine Specific [place] 1.020 1.000-1.030 Urine Protein TRACE NEG Urine Glucose (UA) NEG NEG Urine Ketones NEG NEG Urine Occult Blood NEG NEG Urine Nitrite POS NEG Urine Bilirubin NEG NEG Urine Urobilinogen NEG NEG Urine Leukocyte Esterase SMALL NEG Urine WBC (Auto) 5-10 0-5 /hpf Urine RBC (Auto) 0-4 0-4 /hpf Urine Hyaline Casts (Auto) 1-5 0-5 /lpf Urine Epithelial Cells (Auto) 20-30 0-5 /lpf Urine Bacteria (Auto) 4+ NEG White Blood Count 9.02 4.8-10.8 K/uL Red Blood Count 3.29 4.2-5.4 M/uL Hemoglobin 9.2 12.0-16.0 g/dL Hematocrit 29.6 37-47 % Mean Corpuscular Volume 90.0 80-100 fL Mean Corpuscular Hemoglobin 28.0 25-34 pg Mean Corpuscular Hemoglobin Concent 31.1 32-36 g/dl Platelet Count 219 130-400 K/uL Mean Platelet Volume 11.9 7.4-10.4 fL Neutrophils (%) (Auto) 84.0 % Lymphocytes (%) (Auto) 7.3 % Monocytes (%) (Auto) 7.0 % Eosinophils (%) (Auto) 1.3 % Basophils (%) (Auto) 0.2 % Neutrophils # (Auto) 7.57 1.4-6.5 K/uL Lymphocytes # (Auto) 0.66 1.2-3.4 K/uL Monocytes # (Auto) 0.63 0.11-0.59 K/uL Eosinophils # (Auto) 0.12 0-0.5 K/uL Basophils # (Auto) 0.02 0-0.2 K/uL RDW Standard Deviation 51.2 36.4-46.3 fL RDW Coefficient of Variation 15.8 11.5-14.5 % Immature Granulocyte % (Auto) 0.2 % Immature Granulocyte # (Auto) 0.02 0.00-0.02 K/uL Prothrombin Time 27.2 9.0-12.0 SECONDS Prothromb Time International Ratio 2.4 0.9-1.1 Activated Partial Thromboplast Time 34.5 21.0-31.0 SECONDS Partial Thromboplastin Ratio 1.3 Sodium Level 140 136-145 mmol/L Potassium Level 4.3 3.5-5.1 mmol/L Chloride Level 106 98-107 mmol/L Carbon Dioxide Level 24 21-32 mmol/L Anion Gap 10.0 3-11 mmol/L Blood Urea Nitrogen 18 7-18 mg/dl Creatinine 1.07 0.60-1.20 mg/dl Est Creatinine Clear Calc Drug Dose 39.4 ml/min Estimated GFR () 56.0 Estimated GFR (Non- 48.3 BUN/Creatinine Ratio 17.1 10-20 Random Glucose 102 70-99 mg/dl Calcium Level 9.0 8.5-10.1 mg/dl Total Bilirubin 0.9 0.2-1 mg/dl Aspartate Amino Transf (AST/SGOT) 59 15-37 U/L Alanine Aminotransferase (ALT/SGPT) 37 12-78 U/L Alkaline Phosphatase 184 45-117 U/L Total Protein 7.5 6.4-8.2 gm/dl Albumin 3.3 3.4-5.0 gm/dl Globulin 4.2 2.5-4.0 gm/dl Albumin/Globulin Ratio 0.8 0.9-2 Chemistry Specimen Hemolysis Microbiology Results 07/27/17 Urine Culture, Received Pending Diagnostic Radiology HEAD CT NONCONTRAST Findings: Small retention cyst within the right maxillary sinus. The mastoid air cells are clear. Slight offset at the nasal bones is likely old. There is no soft tissue swelling at this location to suggest an acute injury. Interval development of a 1.7 x 1.2 cm soft tissue nodule within the right orbit. This is located between the lateral rectus muscle and optic nerve. This results in mild left deviation of the optic nerve. The calvarium and skull base are intact. There is no mass, hematoma, midline shift, acute infarct. White matter hypodensity is nonspecific but suggestive of microvascular ischemic change. The ventricles and sulci demonstrate mild age-related involutional changes. Old punctate lacunar infarcts seen within the right basal ganglia and cerebellar hemispheres.. Impression: 1. No acute intracranial abnormality. 2. Interval development of a 17 x 12 mm soft tissue nodule within the right orbit. This results in mild mass effect on the optic nerve. This was not present on the March 05, 2017 study and therefore could represent a small hematoma rather than a mass. If the patient is complaining of right eye pain then an emergent MRI is recommended for further elevation. However, a nonemergent MRI can be performed if the patient is not complaining of right-sided pain at this time to assess for a mass. CT SCAN OF THE CHEST WITH IV CONTRAST FINDINGS: Thyroid: Atrophic. Thoracic aorta: There is atherosclerotic calcification of the thoracic aorta, which is normal in caliber and demonstrates standard 3-vessel arch anatomy. No dissection is seen. Pulmonary vasculature: The pulmonary trunk is dilated measuring 4.1 cm in transverse diameter. This suggests pulmonary artery hypertension. There are no filling defects identified in the central pulmonary vessels to indicate pulmonary embolus. Note that this examination was not protocoled for evaluation of the pulmonary arteries. Heart: A 3-lead cardiac AICD is present in the left chest wall. The patient is status post midline sternotomy. The heart is enlarged and without pericardial effusion. The coronary arteries and mitral annulus are densely calcified. Lungs and pleural spaces: Evaluation of the lung parenchyma is degraded by respiratory motion artifact. There are trace pleural effusions. Letter atelectasis versus scarring is identified in the lower lobes. Diffuse subpleural reticulation is observed. Intralobular septal thickening is seen throughout both lungs, greatest at the apices. The trachea and central airways are clear. Scattered calcified granulomas are observed. No pneumothorax is seen. Mediastinum: There is no mediastinal hematoma or lymphadenopathy. Lor: Clear. Axillae: There is no axillary lymphadenopathy. Upper abdomen: There is reflux of contrast into the IVC and hepatic veins suggesting cardiac dysfunction. A tiny hiatal hernia is identified. Fluid/secretions are present within the esophagus to the level of the thoracic inlet. Skeletal structures: The skeletal structures are osteopenic. There are age indeterminant superior endplate compression deformities of T11 and T12. These are new from the 2017 spine radiographs and are likely acute. No retropulsed fragments are identified. No additional acute fracture is identified. There are healed left posterior rib fractures. No lytic or blastic bony lesions are seen. IMPRESSION: 1. Streak and motion artifact degraded examination. 2. There are mild superior endplate compression deformities of T11 and T12. These are age indeterminant but new from the 03/10/2017 lumbar spine radiographs and presumed acute. Correlate for point tenderness at these levels. 3. Cardiomegaly an AICD with evidence of pulmonary artery hypertension. Intralobular septal thickening suggests congestive failure. 4. There are trace pleural effusions. No pneumothorax is seen. 5. Fluid/secretions are present within the esophagus to the level of the thoracic inlet. Note that this may place the patient at risk for aspiration. 6. Additional findings as above. CT OF THE ABDOMEN AND PELVIS WITH CONTRAST FINDINGS: The chest CT will be reported separately. There is no evidence of traumatic injury to the liver, spleen, adrenal glands, kidneys or pancreas. Gallstones are noted within the gallbladder. The gallbladder is mildly distended. There is no pericholecystic and interpretation. A 1.3 cm left adrenal nodule is unchanged since chest CT of March 29, 2015. This is benign and likely reflects an adenoma. Note is made of a 1.2 cm right renal cyst. No acute lumbar spine or pelvic fracture is identified. Several old left lower rib fractures are noted. Note is made of compression fractures of the superior endplates of T11 and T12 which are age indeterminate but new since exam of March 10, 2017. There is no acute pelvic or hip fracture. A right lateral thigh hematoma is partially imaged and measures at least 7.4 x 4.7 cm. There is adjacent infiltration/hemorrhage. Note is made of a large mixed cystic and solid right adnexal mass that measures 9.2 x 6.5 cm. A normal-appearing right ovary is not identified. There is no fat plane between this mass and the uterus. The left ovary is normal. Note is made of a 1.5 cm hypodense focus posterior to the sigmoid colon shown on axial image 342 of [id number]. There are a few indeterminate nodules along the medial aspects of the left iliac vessels that measure up to 6 mm. A Voss balloon is present within the bladder. IMPRESSION: 1. Partially visualized acute lateral right thigh hematoma that measures at least 7.4 x 4.7 cm. No acute pelvic or hip fracture. 2. No evidence of traumatic injury to the solid abdominal viscera. 3. 9.2 x 6.5 cm mixed cystic and solid right adnexal mass. No normal right ovary identified. Loss of fat plane between this mass and the uterus. A neoplasm is the diagnosis of exclusion and this is suspicious for a right ovarian malignancy. An atypical uterine lesion is considered less likely but could appear similar. Gynecologic consultation is recommended. A few indeterminate hypodense nodules within the pelvis are not definitive but raise the possibility of peritoneal spread of disease. Impression Assessment and Plan Ms. 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 Mechanical Fall with RLE Hematoma: T11/T12 Compression Fx - Tramadol and Tylenol PRN for pain; apply ice to area - Will hold Coumadin and Plavix at least overnight pending further intervention by Gyne -- Once resumed can bridge with Heparin Urinary Tract Infection: - Patient reports no symptoms but states she is incontinent - Rocephin 1 g IV daily and await culture - no fever/leukocytosis Pelvic Mass and R Orbit Mass: - R Orbit Mass appears likely not to be acute as outpatient records report follow-up with this. -- ED discussed with Dr. Pro stating unlikely this is a hematoma and recommended MRI -- Can place referral to oculoplastic surgeon at their office - No knowledge of pelvic mass - no known gynecological issues - Gyne consultation - need for biopsy? further intervention? Paroxysmal A Fib/Sinus Node Dysfunction S/P BiV ICD: Lightheadedness/Dizziness - Patient and family requesting cardiology consultation as she recently had ICD placed this summer and for possible pacer interrogation if necessary - She does have intermittent lightheadedness/dizziness - Digoxin 0.125 mg Q2D and Toprol XL 100 mg BID HTN: - Lisinopril 5 mg BID - Will hold Dyzide while utilizing hydration Hypothyroidism: - Synthroid 50 mcg daily HLD: - Atorvastatin 20 mg daily Code Status: DO NOT RESUSCITATE Disposition: - PT/OT evaluations - Patient would be interested in [facility] - currently lives alone and utilizes a walker. is at [facility] Physician Supervision Note: I interviewed and examined the patient. Discussed with Alanna SEE and agree with findings and plan as documented in the note. Any exceptions or clarifications are listed here: None This patient presents with multiple pre-hospital comorbid conditions with frequent falls being on an anticoagulant. She sustained a very large right posterior leg firm hematoma from falls in the last few weeks. The patient has a defibrillator in place and has also been dizzy. Upon evaluation in the ER she is found to have subacute T11-T12 vertebral fracture but also a 9 x 6 right adnexal mass. The patient has corresponding pain in her right lower quadrant and this mass is actually palpable on physical exam Her vital signs are otherwise stable She is irregularly irregular with a heart rate has a history of A. fib on anticoagulation her lungs are clear her abdomen is normoactive bowel sounds there is a palpable mass just above the inguinal ligament on the right side hematomas large and firm Frequent falls and anticoagulation with hematoma at this point time we'll hold her anticoagulation for 1 day get a gynecological inion with this mass needs to be biopsied and if so we may continue to hold her anticoagulation or reverse it For atrial fibrillation we'll continue with her rate control For the concern over a right orbital lesion this is actually old and documented on previous studies For dizziness will interrogate her pacemaker hydrate her and involve PT OT evaluation with a ventral possible subacute Documented By: Miguel Driver Level of Care Med/Surg Resuscitation Status DO NOT RESUSCITATE VTE Prophylaxis VTE Risk Assessment Done? Y/N: Yes Risk Level: Moderate Given or contraindicated: Warfarin (Coumadin) Social Service Consult >80 yr.& Lives Alone
--- NOTE | 2017-07-27 15:44 | EMERGENCY ROOM VISIT NOTE ---
History First contact with patient: 08:19 Chief Complaint: FALL Stated Complaint: GENERALIZED WEAKNESS, TRAUMATIC HEMATOMA History of Present Illness The patient is a 82 year old female who presents to the Emergency Room via EMS with complaints of right hip pain from falling 30 minutes ago. The patient lives alone at the moment, as her is admitted to [facility] with dementia, and this morning was attempting to get up and out of bed and go to the bathroom. She states she was sitting on the side of the PEG, and when she went to stand up, she fell, landing on her right hip. She is now complaining of severe right hip and thigh pain. She states this pain is worse than the pain she has been experiencing since last week. The patient did have a similar fall which occurred approximately one week ago. When asked, the patient states her hip is the only thing that hurts, despite multiple bruising noted over the patient's right side. The patient states she did not hit her head, but is on Coumadin, does have history of stroke. The patient's left side is her affected side from her previous strokes. She is now also complaining of neck pain in addition to the right hip pain, but does state she has a history of chronic neck pain from before the fall. Movement makes the pain extreme, and lying still does help. She states she does have chronic back pain, as well as weakness in bilateral legs. Patient does walk with a walker at home. She has not walked since the fall occurred, and states she was lifted onto the ambulance stretcher. She's not had any pain medications prior to arrival, and she rates her pain 7/10 and like pins and needles and burning. She states the pain comes and goes. The patient denies chest pain, difficulty breathing, numbness or tingling going down her arms or legs, fever, recent illness, or other associated symptoms. Review of Systems A complete 10 point review of systems was reviewed with the patient with pertinent positives and negatives as per history of present illness. All else were negative. Past Medical/Surgical History Medical Problems: (1) Atrial Fibrillation (2) Cerebrovascular accident (CVA) (3) Chronic atrial fibrillation with RVR (4) Congestive Heart Failure Nos (5) Demand ischemia of myocardium (6) Diplopia (7) Generalized weakness (8) Hyperlipidemia Nec/Nos (9) Hypertension Nos (10) Stroke-like symptoms (11) TIA (transient ischemic attack) (12) Traumatic hematoma of right lower leg Surgical Problems: (1) Mitral valve replaced (2) Status post heart valve replacement with mechanical valve Family History Breast Cancer FHx: heart disease Social History Smoking Status: Never Smoker Smokeless Tobacco Use: No Alcohol Use: none Drug Use: none Marital Status: Housing Status: lives with family Occupation Status: retired Current/Historical Medications Scheduled Atorvastatin (Atorvastatin Calcium), 20 MG PO HS B Complex W/ C (Vitamin B Complex-C), 1 TAB PO DAILY Clopidogrel Bisulfate (Clopidogrel), 75 MG PO DAILY Digoxin (Digoxin), 0.125 MG PO Q2D AT 1600 Escitalopram Oxalate (Escitalopram Oxalate), 10 MG PO QAM Levothyroxine Sodium (Levothyroxine Sodium), 50 MCG PO QAM Lisinopril (Prinivil), 5 MG PO BID Melatonin (Kp Melatonin), 1 TAB PO HS Metoprolol Succinate (Metoprolol Succinate ER), 100 MG PO BID Triamterene/Hctz (Dyazide 37.5MG/25MG), 1 TAB PO 2XWK Warfarin Sodium (Warfarin Sodium), 2 MG PO DAILY Scheduled PRN Acetaminophen (Tylenol), 650 MG PO DIRECTED PRN for Pain or Fever Polyethylene (Miralax), 17 GM PO DAILY PRN for UD Physical Exam Vital Signs Date Time Temp Pulse Resp B/P (MAP) Pulse Ox O2 Delivery O2 Flow Rate FiO2 07/27/17 12:53 75 16 118/56 100 Nasal Cannula 2.0 07/27/17 12:18 76 07/27/17 11:24 75 16 147/95 99 Nasal Cannula 2.0 07/27/17 09:46 76 16 168/52 96 Nasal Cannula 2.0 07/27/17 09:20 95 Nasal Cannula 2.0 07/27/17 09:15 73 16 153/81 87 Room Air 07/27/17 08:28 80 07/27/17 08:20 96 Room Air 07/27/17 08:20 36.5 87 20 164/86 96 Room Air Physical Exam VITALS: Vitals are noted on the nurse's note and reviewed by myself. Vital signs stable. GENERAL: This is an 82-year-old white female, in no acute distress, nondiaphoretic, well-developed well-nourished. She is incontinent of stool and urine, and she states this is her baseline. SKIN: Multiple bruises noted on the right side of the face, just anterior to the ear, the right arm, the right flank, right posterior ribs, right hip, and a very large hematoma over the right hip radiating to the right thigh. There is tenderness in all of these areas on palpation. The skin was without rashes. There is no tenting of the skin. Capillary reflex less than 2 seconds. HEAD: Normocephalic atraumatic. EARS: External auditory canals clear, tympanic membranes pearly hernandez without erythema or effusion bilaterally. EYES: Pupils equal round and reactive to light and accommodation. Conjunctivae without injection, sclerae without icterus. Extraocular movements intact. NOSE: Patent, turbinates without inflammation or discharge. No sinus tenderness. MOUTH: Mucous membranes moist. Tonsils are not enlarged. Pharynx without erythema or exudate. Uvula midline. Airway patent. Tongue does not deviate. NECK: Supple without nuchal rigidity. No lymphadenopathy. No thyromegaly. Tenderness on palpation of the cervical spine, worse on the right. No JVD. HEART: Regular rate and rhythm without murmurs gallops or rubs. LUNGS: Clear to auscultation bilaterally without wheezes, rales or rhonchi. No dullness to percussion. No retractions or accessory muscle use. ABDOMEN: Positive bowel sounds x 4. Normal tympanic percussion. Soft, nontender, without masses or organomegaly. Patel sign negative. No guarding or rebound tenderness. MUSCULOSKELETAL: No significant muscle atrophy, erythema, or edema noted. Limited range of motion in the right lower extremity due to pain, but the patient does have full range of motion at her baseline level of all other extremities. Skin changes as noted previously and there was tenderness in all of these areas. The patient is significantly tender in the right hip and thigh area over the hematoma. Strength 5/5 throughout. NEURO: Patient was alert and oriented to person place and time. Normal sensation to light and sharp touch. Deep tendon reflexes 2+ throughout. No focal neurological deficits. Medical Decision & Procedures ER Provider Diagnostic Interpretation: CBC was without leukocytosis. The patient is anemic, which she states is chronic. The patient's daughter states the patient does not take her iron pills as prescribed. CMP did not reveal any significant renal, hepatic, or electrolyte abnormality. Patient's INR was slightly subtherapeutic at 2.4. Her goal is 2.5-3.0. Urinalysis did show evidence of urinary tract infection. There are positive nitrates, leukocyte esterase, white blood cells, and bacteria. RADIOLOGY: HEAD CT NONCONTRAST CT DOSE: 1477.62 mGy.cm HISTORY: trauma, fall, on coumadin TECHNIQUE: Multiaxial CT images of the head were performed without the use of intravenous contrast. Automated exposure control was utilized for this study. A dose lowering technique was utilized adhering to the principles of ALARA. Comparison: Head CT 03/05/2017. Findings: Small retention cyst within the right maxillary sinus. The mastoid air cells are clear. Slight offset at the nasal bones is likely old. There is no soft tissue swelling at this location to suggest an acute injury. Interval development of a 1.7 x 1.2 cm soft tissue nodule within the right orbit. This is located between the lateral rectus muscle and optic nerve. This results in mild left deviation of the optic nerve. The calvarium and skull base are intact. There is no mass, hematoma, midline shift, acute infarct. White matter hypodensity is nonspecific but suggestive of microvascular ischemic change. The ventricles and sulci demonstrate mild age-related involutional changes. Old punctate lacunar infarcts seen within the right basal ganglia and cerebellar hemispheres.. Impression: 1. No acute intracranial abnormality. 2. Interval development of a 17 x 12 mm soft tissue nodule within the right orbit. This results in mild mass effect on the optic nerve. This was not present on the March 05, 2017 study and therefore could represent a small hematoma rather than a mass. If the patient is complaining of right eye pain then an emergent MRI is recommended for further elevation. However, a nonemergent MRI can be performed if the patient is not complaining of right-sided pain at this time to assess for a mass. Electronically signed by: Tony Medina M.D. 07/27/2017 10:38 AM Dictated Date/Time: 07/27/2017 10:[address] OF THE CERVICAL SPINE WITHOUT CONTRAST CLINICAL HISTORY: Neck pain following fall. COMPARISON STUDY: Cervical spine CT February 26, 2017. TECHNIQUE: Helical axial images of the cervical spine were obtained without IV contrast. Sagittal and coronal reconstructions were viewed. A dose lowering technique was utilized adhering to the principles of ALARA. FINDINGS: Alignment of the cervical spine is anatomic. Vertebral body heights are maintained. There is no acute cervical spine fracture or subluxation. Craniocervical junction is intact. There is no prevertebral edema. Note is made of interlobular septal thickening and groundglass opacities within visualized portions of the lungs which suggest pulmonary edema. IMPRESSION: 1. No acute cervical spine fracture or subluxation. 2. Findings suggestive of pulmonary edema within visualized portions of the lungs. Electronically signed by: Gildardo Malik M.D. 07/27/2017 10:58 AM Dictated Date/Time: 07/27/2017 10:[address] SCAN OF THE CHEST WITH IV CONTRAST CLINICAL HISTORY: Fall. COMPARISON STUDY: Chest x-ray dated 03/13/2017. Chest CT scans dated 03/29/2015 and 07/08/2010. Radiographs of the lumbar spine dated 03/10/2017. TECHNIQUE: Following the IV administration of 93 cc of Optiray 320, CT scan of the thorax was performed from the thoracic inlet to the upper abdomen. Images are reviewed in the axial, sagittal, and coronal planes. IV contrast was administered without complication. A dose lowering technique was utilized adhering to the principles of ALARA. The examination is significantly degraded by motion artifact as well as by streak artifact from the arms which could not be elevated above the chest. FINDINGS: Thyroid: Atrophic. Thoracic aorta: There is atherosclerotic calcification of the thoracic aorta, which is normal in caliber and demonstrates standard 3-vessel arch anatomy. No dissection is seen. Pulmonary vasculature: The pulmonary trunk is dilated measuring 4.1 cm in transverse diameter. This suggests pulmonary artery hypertension. There are no filling defects identified in the central pulmonary vessels to indicate pulmonary embolus. Note that this examination was not protocoled for evaluation of the pulmonary arteries. Heart: A 3-lead cardiac AICD is present in the left chest wall. The patient is status post midline sternotomy. The heart is enlarged and without pericardial effusion. The coronary arteries and mitral annulus are densely calcified. Lungs and pleural spaces: Evaluation of the lung parenchyma is degraded by respiratory motion artifact. There are trace pleural effusions. Letter atelectasis versus scarring is identified in the lower lobes. Diffuse subpleural reticulation is observed. Intralobular septal thickening is seen throughout both lungs, greatest at the apices. The trachea and central airways are clear. Scattered calcified granulomas are observed. No pneumothorax is seen. Mediastinum: There is no mediastinal hematoma or lymphadenopathy. Lor: Clear. Axillae: There is no axillary lymphadenopathy. Upper abdomen: There is reflux of contrast into the IVC and hepatic veins suggesting cardiac dysfunction. A tiny hiatal hernia is identified. Fluid/secretions are present within the esophagus to the level of the thoracic inlet. Skeletal structures: The skeletal structures are osteopenic. There are age indeterminant superior endplate compression deformities of T11 and T12. These are new from the 2017 spine radiographs and are likely acute. No retropulsed fragments are identified. No additional acute fracture is identified. There are healed left posterior rib fractures. No lytic or blastic bony lesions are seen. IMPRESSION: 1. Streak and motion artifact degraded examination. 2. There are mild superior endplate compression deformities of T11 and T12. These are age indeterminant but new from the 03/10/2017 lumbar spine radiographs and presumed acute. Correlate for point tenderness at these levels. 3. Cardiomegaly an AICD with evidence of pulmonary artery hypertension. Intralobular septal thickening suggests congestive failure. 4. There are trace pleural effusions. No pneumothorax is seen. 5. Fluid/secretions are present within the esophagus to the level of the thoracic inlet. Note that this may place the patient at risk for aspiration. 6. Additional findings as above. Electronically signed by: Eric Ross M.D. 07/27/2017 10:36 AM Dictated Date/Time: 07/27/2017 10:[address] OF THE ABDOMEN AND PELVIS WITH CONTRAST CLINICAL HISTORY: Trauma, abdominal pain, flank pain/bruising, right hip pain. COMPARISON STUDY: None. TECHNIQUE: Following IV administration of 93 mL of Optiray-320, axial images of the abdomen and pelvis were obtained from the lung bases to the proximal femurs. Images were reviewed in the axial, sagittal, and coronal planes. IV contrast was administered without complication. A dose lowering technique was utilized adhering to the principles of ALARA. FINDINGS: The chest CT will be reported separately. There is no evidence of traumatic injury to the liver, spleen, adrenal glands, kidneys or pancreas. Gallstones are noted within the gallbladder. The gallbladder is mildly distended. There is no pericholecystic and interpretation. A 1.3 cm left adrenal nodule is unchanged since chest CT of March 29, 2015. This is benign and likely reflects an adenoma. Note is made of a 1.2 cm right renal cyst. No acute lumbar spine or pelvic fracture is identified. Several old left lower rib fractures are noted. Note is made of compression fractures of the superior endplates of T11 and T12 which are age indeterminate but new since exam of March 10, 2017. There is no acute pelvic or hip fracture. A right lateral thigh hematoma is partially imaged and measures at least 7.4 x 4.7 cm. There is adjacent infiltration/hemorrhage. Note is made of a large mixed cystic and solid right adnexal mass that measures 9.2 x 6.5 cm. A normal-appearing right ovary is not identified. There is no fat plane between this mass and the uterus. The left ovary is normal. Note is made of a 1.5 cm hypodense focus posterior to the sigmoid colon shown on axial image 342 of 471. There are a few indeterminate nodules along the medial aspects of the left iliac vessels that measure up to 6 mm. A Voss balloon is present within the bladder. IMPRESSION: 1. Partially visualized acute lateral right thigh hematoma that measures at least 7.4 x 4.7 cm. No acute pelvic or hip fracture. 2. No evidence of traumatic injury to the solid abdominal viscera. 3. 9.2 x 6.5 cm mixed cystic and solid right adnexal mass. No normal right ovary identified. Loss of fat plane between this mass and the uterus. A neoplasm is the diagnosis of exclusion and this is suspicious for a right ovarian malignancy. An atypical uterine lesion is considered less likely but could appear similar. Gynecologic consultation is recommended. A few indeterminate hypodense nodules within the pelvis are not definitive but raise the possibility of peritoneal spread of disease. Electronically signed by: Gildardo Malik M.D. 07/27/2017 11:15 AM Dictated Date/Time: 07/27/2017 10:59 AM R FEMUR 2 VIEWS ROUTINE CLINICAL HISTORY: large hematoma right posterior/lateral femur, pain, fall COMPARISON STUDY: Abdomen and pelvis CT 07/27/2017. FINDINGS: Lateral soft tissue swelling within the right hip. The bones are osteopenic. There is a pelvic bones are intact. No fracture or dislocation within the right femur. Voss catheter and contrast within the bladder. Degenerative changes within the right knee. No knee effusion. IMPRESSION: Lateral soft tissue swelling within the right hip. No fracture or dislocation within the right femur. Electronically signed by: Tony Medina M.D. 07/27/2017 10:49 AM Dictated Date/Time: 07/27/2017 10:47 AM Laboratory Results 07/27/17 08:55 Red Blood Count 3.29, Mean Corpuscular Volume 90.0, Mean Corpuscular Hemoglobin 28.0, Mean Corpuscular Hemoglobin Concent 31.1, Mean Platelet Volume 11.9, Neutrophils (%) (Auto) 84.0, Lymphocytes (%) (Auto) 7.3, Monocytes (%) (Auto) 7.0, Eosinophils (%) (Auto) 1.3, Basophils (%) (Auto) 0.2, Neutrophils # (Auto) 7.57, Lymphocytes # (Auto) 0.66, Monocytes # (Auto) 0.63, Eosinophils # (Auto) 0.12, Basophils # (Auto) 0.02 07/27/17 08:55 Test 07/27/17 08:50 07/27/17 08:55 Urine Color YELLOW Urine Appearance CLOUDY (CLEAR) Urine pH 6.0 (4.5-7.5) Urine Specific [place] 1.020 (1.000-1.030) Urine Protein TRACE (NEG) Urine Glucose (UA) NEG (NEG) Urine Ketones NEG (NEG) Urine Occult Blood NEG (NEG) Urine Nitrite POS (NEG) Urine Bilirubin NEG (NEG) Urine Urobilinogen NEG (NEG) Urine Leukocyte Esterase SMALL (NEG) Urine WBC (Auto) 5-10 /hpf (0-5) Urine RBC (Auto) 0-4 /hpf (0-4) Urine Hyaline Casts (Auto) 1-5 /lpf (0-5) Urine Epithelial Cells (Auto) 20-30 /lpf (0-5) Urine Bacteria (Auto) 4+ (NEG) White Blood Count 9.02 K/uL (4.8-10.8) Red Blood Count 3.29 M/uL (4.2-5.4) Hemoglobin 9.2 g/dL (12.0-16.0) Hematocrit 29.6 % (37-47) Mean Corpuscular Volume 90.0 fL (80-100) Mean Corpuscular Hemoglobin 28.0 pg (25-34) Mean Corpuscular Hemoglobin Concent 31.1 g/dl (32-36) Platelet Count 219 K/uL (130-400) Mean Platelet Volume 11.9 fL (7.4-10.4) Neutrophils (%) (Auto) 84.0 % Lymphocytes (%) (Auto) 7.3 % Monocytes (%) (Auto) 7.0 % Eosinophils (%) (Auto) 1.3 % Basophils (%) (Auto) 0.2 % Neutrophils # (Auto) 7.57 K/uL (1.4-6.5) Lymphocytes # (Auto) 0.66 K/uL (1.2-3.4) Monocytes # (Auto) 0.63 K/uL (0.11-0.59) Eosinophils # (Auto) 0.12 K/uL (0-0.5) Basophils # (Auto) 0.02 K/uL (0-0.2) RDW Standard Deviation 51.2 fL (36.4-46.3) RDW Coefficient of Variation 15.8 % (11.5-14.5) Immature Granulocyte % (Auto) 0.2 % Immature Granulocyte # (Auto) 0.02 K/uL (0.00-0.02) Prothrombin Time 27.2 SECONDS (9.0-12.0) Prothromb Time International Ratio 2.4 (0.9-1.1) Activated Partial Thromboplast Time 34.5 SECONDS (21.0-31.0) Partial Thromboplastin Ratio 1.3 Anion Gap 10.0 mmol/L (3-11) Est Creatinine Clear Calc Drug Dose 39.4 ml/min Estimated GFR () 56.0 Estimated GFR (Non- 48.3 BUN/Creatinine Ratio 17.1 (10-20) Calcium Level 9.0 mg/dl (8.5-10.1) Total Bilirubin 0.9 mg/dl (0.2-1) Aspartate Amino Transf (AST/SGOT) 59 U/L (15-37) Alanine Aminotransferase (ALT/SGPT) 37 U/L (12-78) Alkaline Phosphatase 184 U/L (45-117) Total Protein 7.5 gm/dl (6.4-8.2) Albumin 3.3 gm/dl (3.4-5.0) Globulin 4.2 gm/dl (2.5-4.0) Albumin/Globulin Ratio 0.8 (0.9-2) Chemistry Specimen Hemolysis Medications Administered Medications (Trade) Dose Ordered Sig/Elsi Route Start Time Stop Time Status Last Admin Dose Admin Fentanyl Citrate (Fentanyl Inj) 50 mcg NOW STAT IV 07/27/17 08:45 07/27/17 08:47 DC 07/27/17 09:05 50 MCG Ondansetron HCl (Zofran Inj) 4 mg NOW STAT IV 07/27/17 08:45 07/27/17 08:47 DC 07/27/17 09:05 4 MG Sodium Chloride 1,000 ml @ 999 mls/hr Q1H1M STAT IV 07/27/17 08:45 07/27/17 09:45 DC 07/27/17 09:05 999 MLS/HR Fentanyl Citrate (Fentanyl Inj) 50 mcg NOW STAT IV 07/27/17 11:02 07/27/17 11:10 DC 07/27/17 11:24 50 MCG Ceftriaxone Sodium (Rocephin Inj) 1 gm NOW STAT IV 07/27/17 12:48 07/27/17 12:49 DC 07/27/17 13:04 1 GM ECG Indication: back/shoulder pain Rate (beats per minute): 73 Rhythm: other (AV dual-paced rhythm) Findings: paced rhythm ED Course The patient was seen and evaluated as above. Due to the patient's history and that she is currently on Coumadin, a trauma workup was initiated. IV was initiated and labs collected. The patient was given 50 g fentanyl and 4 mg Zofran IV. She was given 1L NSS IV. CT scan, x-ray, and labs were ordered and obtained. These were reviewed as above. A Voss catheter was placed, as the patient is normally incontinent of urine and stool. A urinalysis was obtained and sent to the lab. This did show evidence of UTI. The patient was given repeat dose of 50 g fentanyl IV. At this time, the patient's daughter is at bedside. I did discuss the case with the patient's daughter and the patient at bedside. I discussed with them the current findings on CT scans. Due to abnormality noted on head CT of development of a 17 x 12 mm soft tissue nodule within the right orbit, I did consult with Dr. Pro regarding the need for an emergent MRI. Intra-ocular pressures were obtained and were (R) 12.0, (L ) 13.0 prior to consultation. He states he does not feel that the findings and symptoms are suspicious for a retrobulbar hemorrhage, as the patient's ocular pressures are normal. He states he suspects a glioma versus a meningioma. He states the patient will need to follow up outpatient with an oculoplastic surgeon, but states the surgeon is unable to see patient's in the hospital. He did recommend she get an appointment for next week with his office and the surgeon who comes to his office once weekly for further evaluation. He did request an MRI to be obtained non-emergently. I discussed these findings with the patient. I did also discuss findings of the abdomen/Pelvis CT scan of possible malignancy in the right adnexa. I discussed that this is an incidental finding, but I do strongly encourage gynecologic follow-up. The patient was started on Rocephin 1 g IV for the UTI. I did consult with Dr. Driver's PA regarding admission, as this is the patient's second fall in a week, she has a significant hematoma, multiple incidental findings on imaging studies, and for antibiotics for UTI. Verbal report was given to her. Please see the hospitalist dictation regarding further management and care. Medical Decision The patient presented today status post second fall in one week. The patient has a very significant hematoma on the right thigh and hip, as well as various other hematomas on her right side. The patient complains of severe pain in the right hip, and the initial concern was for hip, femur, or pelvic fracture. Labs and imaging did reveal UTI, and several incidental findings. I suspect the UTI is contributing to the patient recent falls, but she has also had several strokes, and does have an affected left side. The patient will be admitted due to her frequent falls and urinary tract infection. The incidental findings will be addressed by the hospitalist team. The patient's daughter did request cardiology consult, as the patient does have a history of cardiac disease. I did speak with Dr. Ni throughout the care of the patient who is in agreement of the assessment and plan. Differential diagnosis includes: Hip fracture, pelvic fracture, femur fracture, rib fracture, intracranial hemorrhage, skull fracture, cervical spine fracture, multiple contusions, urinary tract infection, malignancy, and others Medication Reconcilliation Current Medication List: was personally reviewed by me Blood Pressure Screening Patient's blood pressure: Normal blood pressure Impression Primary Impression: Fall Additional Impressions: Contusion of multiple sites Urinary tract infection Hematoma of thigh Abdominal mass, right lower quadrant Orbital mass Departure Information Dispostion Admitted as an inpatient Condition FAIR Referrals Mary Hardwick M.D. (PCP) Forms HOME CARE DOCUMENTATION FORM, IMPORTANT VISIT INFORMATION Patient Instructions [facility] Problem Qualifiers Primary Impression: Fall Encounter type: initial encounter Qualified Codes: W19.XXXA - Unspecified fall, initial encounter Additional Impressions: Urinary tract infection Urinary tract infection type: acute cystitis Hematuria presence: without hematuria Qualified Codes: N30.00 - Acute cystitis without hematuria Hematoma of thigh Encounter type: initial encounter Laterality: right Qualified Codes: S70.11XA - Contusion of right thigh, initial encounter
[2017-07-27] MEDS: TRAMADOL HCL 50 MG TAB PO PRN ×2 (16:06→20:44)
[2017-07-27] MEDS: SODIUM CHLORIDE 0.9% 1000ML 1,000 ML IV SCH (16:06)
--- NOTE | 2017-07-27 16:43 | Cardiology Consultation ---
Cardiology Consultation Date of Consultation: Jul 27, 2017. Requesting Physician: Dr. Driver Reason for Consultation: Fall, ICD, AF Pt evaluation today including: conversation w/ patient, conversation w/ family , physical exam, lab review, review of studies, review of inpatient medication list History of Present Illness This is a very pleasant 82-year-old woman who has a history of mitral valve replacement in 1994 and a subsequent aortic valve replacement 2013 (both mechanical valves) with normal coronary arteries. She has had a long history of atrial fibrillation and flutter for which she had ablation in 2008. She has also had several strokes, even while on anticoagulation. She also has a history of cardiomyopathy, since September 2013 her left ventricular ejection fraction has typically been around 35% and she has been having a lot of difficulty with very poor stamina, having extreme difficulty with any kind of activity and having to use a walker. She has also been having difficulty with falls. In late February 2017 she presented with a fall, in the emergency room she was noted to have paroxysmal atrial fibrillation with long pauses following termination of her atrial arrhythmia. This had however been asymptomatic to our knowledge. She also had a left bundle branch block, that appears to be relatively recent as on 03/01/2014 she had a narrow complex and on 10/23/2016 she had the left bundle pattern with a QRS duration of about 160 ms. We therefore implanted a biventricular ICD on 03/12/2017. She has continued to have difficulty with lack of stamina and falls, she fell several weeks ago (she did not come into the emergency room) with bruising of her right hip, and then she fell again today prompting presentation to the hospital. She does not seem to have a hip fracture. The cause of the falls is uncertain, she denies lightheadedness, dizziness or presyncope. Her device has been working appropriately to our knowledge but has not been evaluated this admission as yet. She is maintained on warfarin for valvular disease as well as atrial fibrillation, which other than bruising is not having difficulty tolerating. At the time of my evaluation she was frustrated with her falls and difficulty with activities, but has no specific cardiovascular complaints. Past Medical/Surgical History (1) Chronic atrial fibrillation with RVR (2) Cerebrovascular accident (CVA) (3) Generalized weakness (4) Traumatic hematoma of right lower leg (5) Hyperlipidemia Nec/Nos (6) Hypertension Nos (7) Acute pulmonary edema (8) Status post heart valve replacement with mechanical valve Family History Breast Cancer FHx: heart disease Social History Smoking Status: Never Smoker History of Alcohol Use: No Review of Systems Constitutional: + see HPI, + weakness, + fatigue, No fever, No weight loss Respiratory: No cough, No wheezing, No shortness of breath, No dyspnea on exertion Cardiac: No chest pain, No orthopnea, No PND, No edema, No palpitations Abdomen: No pain, No nausea, No vomiting, No diarrhea, No GI bleeding Female : No problem reported Neurologic: No paralysis, No weakness, No numbness/tingling, No balance problems Heme: No abnormal bleeding/bruising, No clotting problems Endo: No fatigue Skin: No problem reported Right hip pain following her fall All Other Systems: Reviewed and Negative Allergies Coded Allergies: Codeine (Verified Allergy, Intermediate, RASH, 03/05/17) Medications Current Inpatient Medications Medications (Trade) Dose Ordered Sig/Elsi Route Start Time Stop Time Status Last Admin Dose Admin Ioversol (Optiray 320) 125 ml UD PRN IV 07/27/17 08:45 07/31/17 08:44 Acetaminophen (Tylenol Tab) 650 mg Q4H PRN PO 07/27/17 13:30 08/26/17 13:29 Al Hydrox/Mg Hydrox/Simethicone (Maalox Max Susp) 15 ml Q4H PRN PO 07/27/17 13:30 08/26/17 13:29 Magnesium Hydroxide (Milk Of Magnesia Susp) 30 ml Q6H PRN PO 07/27/17 13:30 08/26/17 13:29 Polyethylene (Miralax Powder Packet) 17 gm DAILY PRN PO 07/27/17 13:30 08/26/17 13:29 Ondansetron HCl (Zofran Inj) 4 mg Q6H PRN IV 07/27/17 13:30 08/26/17 13:29 Atorvastatin Calcium (Lipitor Tab) 20 mg HS PO 07/27/17 21:00 08/26/17 20:59 Escitalopram Oxalate (Lexapro Tab) 10 mg QAM PO 07/28/17 08:00 08/27/17 08:59 Levothyroxine Sodium (Synthroid Tab) 50 mcg DAILYBB PO 07/28/17 06:30 08/27/17 06:29 Lisinopril (Zestril Tab) 5 mg BID PO 07/27/17 20:00 08/26/17 20:59 Metoprolol Succinate (Toprol Xl Tab) 100 mg BID PO 07/27/17 20:00 08/26/17 20:59 Digoxin (Lanoxin Tab) 0.125 mg Q2D@1600 PO 07/28/17 16:00 08/27/17 15:59 Ceftriaxone Sodium 1 gm/ Dextrose 50 ml @ 100 mls/hr Q24H IV 07/28/17 13:00 07/31/17 13:29 Sodium Chloride 1,000 ml @ 75 mls/hr [id number] IV 07/27/17 13:30 07/28/17 16:09 07/27/17 16:06 75 MLS/HR Tramadol HCl (Ultram Tab) 50 mg Q4H PRN PO 07/27/17 13:45 08/26/17 13:44 07/27/17 16:06 50 MG Physical Exam Vital Signs Past 12 Hours Date Time Temp Pulse Resp B/P (MAP) Pulse Ox O2 Delivery O2 Flow Rate FiO2 07/27/17 14:15 75 16 144/77 100 07/27/17 12:53 75 16 118/56 100 Nasal Cannula 2.0 07/27/17 12:18 76 07/27/17 11:24 75 16 147/95 99 Nasal Cannula 2.0 07/27/17 09:46 76 16 168/52 96 Nasal Cannula 2.0 07/27/17 09:20 95 Nasal Cannula 2.0 07/27/17 09:15 73 16 153/81 87 Room Air 07/27/17 08:28 80 07/27/17 08:20 96 Room Air 07/27/17 08:20 36.5 87 20 164/86 96 Room Air Constitutional: Level of Distress: moderate distress Ambulation: limited ambulation Psychiatric: Mental Status: active & alert Head: normocephalic Eyes: EOM: EOMI ENMT: normal ENT inspection, hearing grossly normal Neck: supple, no masses Lungs: Respiratory effort: no dyspnea, good air movement Auscultation: breath sounds normal, no wheezing Cardiovascular: Heart Auscultation: RRR, no rubs, no gallops, II/ SHELLY, II/ WSM Peripheral Pulses: Bruits: none appreciated Abdomen: Bowel Sounds: normal Inspection & Palpation: soft, no tenderness, guarding & rebound, no masses Musculoskeletal: normal strength (5/5 throughout) Extremities: no edema, pertinent finding (right hip hematoma) Neurologic: Cranial Nerves: grossly intact Sensation: grossly intact Data Laboratory Results: Last 24 Hours Test 07/27/17 08:50 07/27/17 08:55 Urine Color YELLOW Urine Appearance CLOUDY Urine pH 6.0 Urine Specific [place] 1.020 Urine Protein TRACE Urine Glucose (UA) NEG Urine Ketones NEG Urine Occult Blood NEG Urine Nitrite POS Urine Bilirubin NEG Urine Urobilinogen NEG Urine Leukocyte Esterase SMALL Urine WBC (Auto) 5-10 /hpf Urine RBC (Auto) 0-4 /hpf Urine Hyaline Casts (Auto) 1-5 /lpf Urine Epithelial Cells (Auto) 20-30 /lpf Urine Bacteria (Auto) 4+ White Blood Count 9.02 K/uL Red Blood Count 3.29 M/uL Hemoglobin 9.2 g/dL Hematocrit 29.6 % Mean Corpuscular Volume 90.0 fL Mean Corpuscular Hemoglobin 28.0 pg Mean Corpuscular Hemoglobin Concent 31.1 g/dl Platelet Count 219 K/uL Mean Platelet Volume 11.9 fL Neutrophils (%) (Auto) 84.0 % Lymphocytes (%) (Auto) 7.3 % Monocytes (%) (Auto) 7.0 % Eosinophils (%) (Auto) 1.3 % Basophils (%) (Auto) 0.2 % Neutrophils # (Auto) 7.57 K/uL Lymphocytes # (Auto) 0.66 K/uL Monocytes # (Auto) 0.63 K/uL Eosinophils # (Auto) 0.12 K/uL Basophils # (Auto) 0.02 K/uL RDW Standard Deviation 51.2 fL RDW Coefficient of Variation 15.8 % Immature Granulocyte % (Auto) 0.2 % Immature Granulocyte # (Auto) 0.02 K/uL Prothrombin Time 27.2 SECONDS Prothromb Time International Ratio 2.4 Activated Partial Thromboplast Time 34.5 SECONDS Partial Thromboplastin Ratio 1.3 Sodium Level 140 mmol/L Potassium Level 4.3 mmol/L Chloride Level 106 mmol/L Carbon Dioxide Level 24 mmol/L Anion Gap 10.0 mmol/L Blood Urea Nitrogen 18 mg/dl Creatinine 1.07 mg/dl Est Creatinine Clear Calc Drug Dose 39.4 ml/min Estimated GFR () 56.0 Estimated GFR (Non- 48.3 BUN/Creatinine Ratio 17.1 Random Glucose 102 mg/dl Calcium Level 9.0 mg/dl Total Bilirubin 0.9 mg/dl Aspartate Amino Transf (AST/SGOT) 59 U/L Alanine Aminotransferase (ALT/SGPT) 37 U/L Alkaline Phosphatase 184 U/L Total Protein 7.5 gm/dl Albumin 3.3 gm/dl Globulin 4.2 gm/dl Albumin/Globulin Ratio 0.8 Chemistry Specimen Hemolysis Imaging: On admission a head CT was negative for cord intracerebral abnormalities, an abdominal CT was notable for a large right thigh hematoma and there is no cell finding of a large cystic and solid right adnexal mass. A chest CT showed cardiomegaly but no CHF. EKG: An electrocardiogram in the emergency room shows an AV sequential pacing with appropriate device function Assessment & Plan #1. Falls: The cause of the falls is not certain, there is no evidence that she has an arrhythmia but we will interrogate the ICD to see whether she had a tachycardia arrhythmia. I suspect it is instability. #2. ICD: We will interrogate her ICD today to see whether there are any abnormalities identified and to make sure is functioning correctly, although on electrocardiography appeared to be pacing normally on admission. #3. Atrial fibrillation: She has a history of atrial fibrillation and we can determine from the ICD how much she has, although whether it is related to the falls are not may be more difficult to tell. #4. Valve replacements: Not likely to be a cause of her current presentation. She does however need to remain on warfarin. Thank you for allowing me to participate in her care.
[2017-07-27 17:00] VITALS: O2SAT 100; Ht 170.2 cm; Wt 72.1 kg
[2017-07-27 20:43] VITALS: BP 128/76; PULSE 72
[2017-07-27] MEDS: METOPROLOL SUCC 50MG EXT REL TAB PO SCH (20:45)
[2017-07-27] MEDS: ATORVASTATIN 20 MG TAB PO SCH (20:46)
[2017-07-27] MEDS: LISINOPRIL 5 MG TAB PO SCH (20:46)
[2017-07-27] MEDS: OXYCODONE HCL IR 5 MG TAB (IMMEDIATE RELEASE) PO PRN (22:57)
--- NOTE | 2017-07-27 23:32 | Medical Consult ---
Consultation Date of Consultation: Jul 27, 2017. Attending Physician: Miguel Driver M.D. Reason for Consultation: Pelvic mass History of Present Illness Patient is an 82yo who presented to the emergency department after a fall, when she slipped from the side of bed while getting dressed. She has had multiple recent falls of unknown etiology. Her workup today included a CT abdomen/pelvis which showed an incidental finding of large pelvic mass. Patient describes occasional diffuse abdominal pain, and tells me that she has "known there was a lump in her belly for a few years", but was told this was probably benign at some point. Denies bloating, difficulty eating/drinking, problems with bowels/bladder. Occasional diarrhea, denies pencil-like stools or rectal bleeding. Denies vaginal bleeding. Describes appetite as good. Last saw [facility] 10+ years ago. Denies gynecologic surgical history, does state she had abnormal paps in the past but did not require surgery for this. 3 vaginal deliveries. Reports she has never had a colonoscopy. Family merchandising assistant cancer history : mother with breast cancer, diagnosed in her 80s, otherwise negative. Other medical history includes: paroxysmal atrial fibrillation, sinus node dysfunction s/p ICD, mechanical valve replacement - on coumadin, HTN, hypothyroidism, h/o stroke, cardiomyopathy. Past Medical/Surgical History Medical Problems: (1) Abdominal mass, right lower quadrant Status: Acute (2) Acute electrocardiogram changes Status: Acute (3) Contusion of multiple sites Status: Acute (4) Elevated troponin Status: Acute (5) Facial laceration Status: Acute (6) Fall Status: Acute (7) Fall Status: Acute (8) Gaze palsy Status: Acute (9) Hematoma of thigh Status: Acute (10) 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 Status: Acute (11) Left-sided weakness Status: Acute (12) LUE weakness Status: Acute (13) Nasal bone fracture Status: Acute (14) Orbital mass Status: Acute (15) Pneumonia Status: Acute (16) Urinary tract infection Status: Acute (17) Weakness Status: Acute (18) Wide-complex tachycardia Status: Acute Family History Breast Cancer FHx: heart disease Social History Smoking Status: Never Smoker Smokeless Tobacco Use: No Alcohol Use: none Drug Use: none Marital Status: Housing Status: lives with family Occupation Status: retired Allergies Coded Allergies: Codeine (Verified Allergy, Intermediate, RASH, 03/05/17) Current Inpatient Medications Current Inpatient Medications Medications (Trade) Dose Ordered Sig/Elsi Route Start Time Stop Time Status Last Admin Dose Admin Ioversol (Optiray 320) 125 ml UD PRN IV 07/27/17 08:45 07/31/17 08:44 Acetaminophen (Tylenol Tab) 650 mg Q4H PRN PO 07/27/17 13:30 08/26/17 13:29 Al Hydrox/Mg Hydrox/Simethicone (Maalox Max Susp) 15 ml Q4H PRN PO 07/27/17 13:30 08/26/17 13:29 Magnesium Hydroxide (Milk Of Magnesia Susp) 30 ml Q6H PRN PO 07/27/17 13:30 08/26/17 13:29 Polyethylene (Miralax Powder Packet) 17 gm DAILY PRN PO 07/27/17 13:30 08/26/17 13:29 Ondansetron HCl (Zofran Inj) 4 mg Q6H PRN IV 07/27/17 13:30 08/26/17 13:29 Atorvastatin Calcium (Lipitor Tab) 20 mg HS PO 07/27/17 21:00 08/26/17 20:59 07/27/17 20:46 20 MG Escitalopram Oxalate (Lexapro Tab) 10 mg QAM PO 07/28/17 08:00 08/27/17 08:59 Levothyroxine Sodium (Synthroid Tab) 50 mcg DAILYBB PO 07/28/17 06:30 08/27/17 06:29 Lisinopril (Zestril Tab) 5 mg BID PO 07/27/17 20:00 08/26/17 20:59 07/27/17 20:46 5 MG Metoprolol Succinate (Toprol Xl Tab) 100 mg BID PO 07/27/17 20:00 08/26/17 20:59 07/27/17 20:45 100 MG Digoxin (Lanoxin Tab) 0.125 mg Q2D@1600 PO 07/28/17 16:00 08/27/17 15:59 Ceftriaxone Sodium 1 gm/ Dextrose 50 ml @ 100 mls/hr Q24H IV 07/28/17 13:00 07/31/17 13:29 Sodium Chloride 1,000 ml @ 75 mls/hr [id number] IV 07/27/17 13:30 07/28/17 16:09 07/27/17 16:06 75 MLS/HR Tramadol HCl (Ultram Tab) 50 mg Q4H PRN PO 07/27/17 13:45 08/26/17 13:44 07/27/17 20:44 50 MG Oxycodone HCl (Roxicodone Immediate Rel Tab) 5 mg Q6H PRN PO 07/27/17 22:30 08/10/17 22:29 07/27/17 22:57 5 MG Review of Systems Please see HPI for pertinent ROS. Constitutional: + weakness, No weight loss Physical Exam Date Time Temp Pulse Resp B/P (MAP) Pulse Ox O2 Delivery O2 Flow Rate FiO2 07/27/17 20:43 72 128/76 (93) 07/27/17 17:00 100 Nasal Cannula 2.0 07/27/17 14:15 75 16 144/77 100 07/27/17 12:53 75 16 118/56 100 Nasal Cannula 2.0 07/27/17 12:18 76 07/27/17 11:24 75 16 147/95 99 Nasal Cannula 2.0 07/27/17 09:46 76 16 168/52 96 Nasal Cannula 2.0 07/27/17 09:20 95 Nasal Cannula 2.0 07/27/17 09:15 73 16 153/81 87 Room Air 07/27/17 08:28 80 07/27/17 08:20 96 Room Air 07/27/17 08:20 36.5 87 20 164/86 96 Room Air General Appearance: + mild distress, + thin Head: normocephalic ENT: hearing grossly normal Respiratory/Chest: no respiratory distress Abdomen/GI: non tender, soft, normal rectal exam, + mass (right pelvic mobile mass - mildly tender, nonpalpable on pelvic exam.) Genitourinary - Female: external genitalia normal, normal pelvic exam, + pertinent finding (unable to palpate pelvic mass on bimanual exam. Cervix nontender and smooth. Vaginal mehta smooth, no palpable masses. Rectal exam with soft stool, no palpable masses.) Extremities/Musculoskelatal: + pertinent finding (Right lateral thigh with large amount of bruising) Neurologic/Psych: alert, oriented x 3 Skin: warm/dry Laboratory Results Last 24 Hours Test 07/27/17 08:50 11/20/17 08:55 Urine Color YELLOW Urine Appearance CLOUDY Urine pH 6.0 Urine Specific [place] 1.020 Urine Protein TRACE Urine Glucose (UA) NEG Urine Ketones NEG Urine Occult Blood NEG Urine Nitrite POS Urine Bilirubin NEG Urine Urobilinogen NEG Urine Leukocyte Esterase SMALL Urine WBC (Auto) 5-10 /hpf Urine RBC (Auto) 0-4 /hpf Urine Hyaline Casts (Auto) 1-5 /lpf Urine Epithelial Cells (Auto) 20-30 /lpf Urine Bacteria (Auto) 4+ White Blood Count 9.02 K/uL Red Blood Count 3.29 M/uL Hemoglobin 9.2 g/dL Hematocrit 29.6 % Mean Corpuscular Volume 90.0 fL Mean Corpuscular Hemoglobin 28.0 pg Mean Corpuscular Hemoglobin Concent 31.1 g/dl Platelet Count 219 K/uL Mean Platelet Volume 11.9 fL Neutrophils (%) (Auto) 84.0 % Lymphocytes (%) (Auto) 7.3 % Monocytes (%) (Auto) 7.0 % Eosinophils (%) (Auto) 1.3 % Basophils (%) (Auto) 0.2 % Neutrophils # (Auto) 7.57 K/uL Lymphocytes # (Auto) 0.66 K/uL Monocytes # (Auto) 0.63 K/uL Eosinophils # (Auto) 0.12 K/uL Basophils # (Auto) 0.02 K/uL RDW Standard Deviation 51.2 fL RDW Coefficient of Variation 15.8 % Immature Granulocyte % (Auto) 0.2 % Immature Granulocyte # (Auto) 0.02 K/uL Prothrombin Time 27.2 SECONDS Prothromb Time International Ratio 2.4 Activated Partial Thromboplast Time 34.5 SECONDS Partial Thromboplastin Ratio 1.3 Sodium Level 140 mmol/L Potassium Level 4.3 mmol/L Chloride Level 106 mmol/L Carbon Dioxide Level 24 mmol/L Anion Gap 10.0 mmol/L Blood Urea Nitrogen 18 mg/dl Creatinine 1.07 mg/dl Est Creatinine Clear Calc Drug Dose 39.4 ml/min Estimated GFR () 56.0 Estimated GFR (Non- 48.3 BUN/Creatinine Ratio 17.1 Random Glucose 102 mg/dl Calcium Level 9.0 mg/dl Total Bilirubin 0.9 mg/dl Aspartate Amino Transf (AST/SGOT) 59 U/L Alanine Aminotransferase (ALT/SGPT) 37 U/L Alkaline Phosphatase 184 U/L Total Protein 7.5 gm/dl Albumin 3.3 gm/dl Globulin 4.2 gm/dl Albumin/Globulin Ratio 0.8 Chemistry Specimen Hemolysis Assessment & Plan 82yo with incidental finding of large pelvic mass. As described on CT: Large mixed cystic and solid right adnexal mass 9.2 x 6.5 cm. Cannot visualize separate normal right ovary. No fat plan between mass and uterus. Left ovary normal. Hypodense nodules within pelvis raising concern for peritoneal spread. I discussed with patient that this mass has some characteristics concerning for ovarian malignancy. Recommend that she undergo pelvic ultrasound for better imaging of the mass, and will perform CA-125 lab. If there is continued suspicion for gynecologic malignancy, will recommend that patient follow-up as an outpatient with gynecologic oncologist ([facility] at [facility]). Will await imaging and lab results.
[2017-07-28] VITALS (7 sets, daily range): BP systolic 103–145; BP diastolic 61–82; PULSE 69–78; TEMP 36.6–36.8; O2SAT 92–100
[2017-07-28] MEDS: SODIUM CHLORIDE 0.9% 1000ML 1,000 ML IV SCH (05:33)
[2017-07-28] MEDS: LEVOTHYROXINE 50 MCG TAB PO SCH (05:34)
[2017-07-28 06:56] LABS: HEMATOCRIT 25.6 % (37-47); MEAN CELL VOLUME 90.5 fL (80-100); MEAN CORPUSCULAR HEMOGLOBIN 27.6 pg (25-34); MEAN CORPUSCULAR HGB CONC 30.5 g/dl (32-36); MEAN PLATELET VOLUME 11.7 fL (7.4-10.4); PLATELET COUNT 203 K/uL (130-400); RED BLOOD COUNT 2.83 M/uL (4.2-5.4); WHITE BLOOD COUNT 7.59 K/uL (4.8-10.8)
[2017-07-28 07:29] LABS: BUN/CREATININE RATIO 12.9 (10-20); CALCIUM 8.2 mg/dl (8.5-10.1); CREATININE 0.98 mg/dl (0.60-1.20)
--- NOTE | 2017-07-28 08:16 | DIAGNOSTIC IMAGING REPORT ---
PELVIC ULTRASOUND, TRANSABDOMINAL HISTORY: Abnormal CT. adnexal mass COMPARISON: Abdomen and pelvis CT 07/27/2017. FINDINGS: The patient deferred transvaginal scanning. Within the right adnexa there is confirmation of the solid and cystic 10 x 9 x 9 cm mass which appears to be contiguous with the uterine fundus. A normal right ovary is not identified. The left ovary is obscured by overlying bowel gas. Trace right adnexal fluid. IMPRESSION: Confirmation of a 10 x 9 x 9 cm complex mass within the right adnexa which appears to be contiguous with the uterine fundus. A normal right ovary is not identified. Therefore, this could represent an ovarian malignancy with local invasion of the uterus or a uterine malignancy. Gynecologic consultation is recommended. Electronically signed by: Tony Medina M.D. 07/28/2017 8:15 AM Dictated Date/Time: 07/28/2017 8:12 AM
[2017-07-28] MEDS: LISINOPRIL 5 MG TAB PO SCH ×2 (08:38→20:06)
[2017-07-28] MEDS: METOPROLOL SUCC 50MG EXT REL TAB PO SCH ×2 (08:38→20:05)
[2017-07-28] MEDS: ESCITALOPRAM OXALATE 10 MG TAB PO SCH (08:38)
[2017-07-28] MEDS: ACETAMINOPHEN 325 MG TAB PO PRN ×2 (08:39→16:11)
--- NOTE | 2017-07-28 09:03 | Progress Note ---
Progress Note Date of Service Jul 28, 2017. Progress Note Pelvic ultrasound results reviewed - not much new information; [id number] right adnexal mass - cannot differentiate between adnexa and uterus. CA-125 results not returned yet. I discussed this with patient - that the only way to make a diagnosis is to surgically remove mass, and make a pathological diagnosis. Since this mass is concerning for malignancy, this would need to be performed by a gynecologic oncologist. Patient would like to discuss this with her daughter - her daughter is currently vacationing in [place], [place] visit her granddaughter and will be back next week. We discussed that patient will need to decide if she would like to pursue further evaluation and surgery - if so, she will need to see housekeeping cleaner-oncology as an outpatient for consultation. Recommend referral to [facility]. I will ask [facility] to get in touch with patient in 1-2 weeks to coordinate referral to [facility]. OBGYN will sign off case at this time - please call if questions.
--- NOTE | 2017-07-28 09:23 | Cardiology Follow-Up ---
Subjective Date of Service: Jul 28, 2017. Pt evaluation today including: conversation w/ patient, physical exam, lab review, review of studies, review of inpatient medication list History of Present Illness This is a very pleasant 82-year-old woman who has a history of mitral valve replacement in 1994 and a subsequent aortic valve replacement 2013 (both mechanical valves) with normal coronary arteries. She has had a long history of atrial fibrillation and flutter for which she had ablation in 2008. She has also had several strokes, even while on anticoagulation. She also has a history of cardiomyopathy, since September 2013 her left ventricular ejection fraction has typically been around 35% and she has been having a lot of difficulty with very poor stamina, having extreme difficulty with any kind of activity and having to use a walker. She has also been having difficulty with falls. In late February 2017 she presented with a fall, in the emergency room she was noted to have paroxysmal atrial fibrillation with long pauses following termination of her atrial arrhythmia. This had however been asymptomatic to our knowledge. She also had a left bundle branch block, that appears to be relatively recent as on 03/01/2014 she had a narrow complex and on 10/23/2016 she had the left bundle pattern with a QRS duration of about 160 ms. We therefore implanted a biventricular ICD on 03/12/2017. She has continued to have difficulty with lack of stamina and falls, she fell several weeks ago (she did not come into the emergency room) with bruising of her right hip, and then she fell again 07/28/2017 prompting presentation to the hospital. She does not seem to have a hip fracture. The cause of the falls is uncertain, she denies lightheadedness, dizziness or presyncope. Her device was evaluated yesterday and is working well, and she had no arrhythmia to explain her falls. She is maintained on warfarin for valvular disease as well as atrial fibrillation, which other than bruising is not having difficulty tolerating. This morning she is complaining of neck discomfort, when questioned she still has hip discomfort as well. No cardiovascular complaints. Social History Smoking Status: Never Smoker History of Alcohol Use: No Review of Systems Respiratory: No cough, No wheezing, No shortness of breath, No dyspnea on exertion Cardiac: No chest pain, No orthopnea, No PND, No edema, No palpitations Right hip pain following her fall Medications Cardiovascular: Item Value Date Time Digoxin 0.125 mg 07/28/17 1600 (Lanoxin Tab) Q2D@1600/PO Atorvastatin 20 mg 07/27/17 2100 Calcium HS/PO 07/27/172045 (Lipitor Tab) Lisinopril 5 mg 07/27/171999 (Zestril Tab) BID/PO 07/28/17 0838 Metoprolol 100 mg 07/27/171999 Succinate BID/PO 07/28/17 0838 (Toprol Xl Tab) Objective Vital Signs Past 12 Hours Date Time Temp Pulse Resp B/P (MAP) Pulse Ox O2 Delivery O2 Flow Rate FiO2 07/28/17 08:00 Nasal Cannula 2.0 07/28/17 07:26 36.7 74 18 129/70 (89) 100 Nasal Cannula 2.0 07/28/17 02:18 Nasal Cannula 2.0 07/28/17 00:27 36.6 78 18 145/82 (103) 100 Room Air Last Recorded Weight-Kilograms: 73.800 Physical Exam Constitutional: Level of Distress: moderate distress Ambulation: limited ambulation Lungs: Respiratory effort: no dyspnea, good air movement Auscultation: breath sounds normal, no wheezing Cardiovascular: Heart Auscultation: RRR, no rubs, no gallops, II/ SHELLY, II/ WSM Peripheral Pulses: Bruits: none appreciated Extremities: no edema, pertinent finding (right hip hematoma) Data Laboratory Results: Last 24 Hours Test 07/28/17 06:20 White Blood Count 7.59 K/uL Red Blood Count 2.83 M/uL Hemoglobin 7.8 g/dL Hematocrit 25.6 % Mean Corpuscular Volume 90.5 fL Mean Corpuscular Hemoglobin 27.6 pg Mean Corpuscular Hemoglobin Concent 30.5 g/dl RDW Standard Deviation 52.9 fL RDW Coefficient of Variation 16.4 % Platelet Count 203 K/uL Mean Platelet Volume 11.7 fL Sodium Level 138 mmol/L Potassium Level 4.0 mmol/L Chloride Level 106 mmol/L Carbon Dioxide Level 26 mmol/L Anion Gap 6.0 mmol/L Blood Urea Nitrogen 13 mg/dl Creatinine 0.98 mg/dl Est Creatinine Clear Calc Drug Dose 43.1 ml/min Estimated GFR () 62.3 Estimated GFR (Non- 53.7 BUN/Creatinine Ratio 12.9 Random Glucose 97 mg/dl Calcium Level 8.2 mg/dl Pacemaker evaluation: Her pacemaker was evaluated yesterday and I reviewed the findings with [employer] yesterday. The device is working well, she is pacing appropriately a large percentage of the time and she has had very little atrial fibrillation. She does not have any arrhythmia to explain her falls. Assessment and Plan #1. Falls: The cause of the falls is not certain, there is no evidence that she had a tachyarrhythmia based on ICD monitoring. I suspect it is instability. #2. ICD: Working well, very little atrial fibrillation and appropriate biventricular pacing. Excellent battery longevity. Suggestion of fluid retention recently based on Optivol data. #3. Cardiomyopathy: She is on good doses of beta blockade for her cardiomyopathy , we have not done an echocardiogram since her ICD implantation. Since she is in the hospital it may be a reasonable time to do it, it has been about 4 months and we may see some improvement which would be good to know. I will arrange that. #4. Atrial fibrillation: She has a history of atrial fibrillation but she has had very little of it recently and the rate has been controlled and it does not explain her presentation. She should remain on anticoagulants for this as well as her valves. I don't think she has had a recent digoxin level and I will arrange that. #5. Valve replacements: Not likely to be a cause of her current presentation. She does however need to remain on warfarin. Thank you for allowing me to participate in her care.
--- NOTE | 2017-07-28 10:06 | Clinical Documentation Query ---
CLINICAL DOCUMENTATION QUERY Dr. GARCIA, In your clinical opinion is this patient being managed for: ( x ) L sided hemiplegia ( ) Not Agree ( ) Other explanation of clinical findings (Please Explain) ( ) Unable to determine (Please Define) ( ) Need to Discuss The medical record reflects the following clinical findings, treatment, and risk factors. Clinical Indicators: 82 yo female presenting with "history of CVA's with L residual deficits." Treatment: ambulates with walker, pending PT and OT referrals Risk Factors: hx CVA Please clarify and document your clinical opinion in the progress notes and discharge summary. Terms such as "probable", "suspected", "likely", "questionable", "possible", or "still to be ruled out" are acceptable. IF IN AGREEMENT, YOU MUST DOCUMENT ABOVE DIAGNOSTIC STATEMENT IN DAILY PROGRESS NOTES AND DISCHARGE SUMMARY. This document is not part of the patient's record. Thank You, Esperanza Chaudhary RN [phone]
[2017-07-28 12:23] LABS: HEMATOCRIT 25.1 % (37-47)
[2017-07-28] MEDS ORDERED: CEFTRIAXONE SOD INJ 1 GM in DEXTROSE 5% ADD-VANTAGE 50ML 50 ML IV SCH (13:00)
--- NOTE | 2017-07-28 14:15 | Hospitalist Progress Note ---
Hospitalist Progress Note Date of Service Jul 28, 2017. (Alanan Dumont PA-C) Subjective Pt evaluation today including: conversation w/ patient, conversation w/ family (Balance Bridge Inspector), physical exam, chart review, lab review, review of studies, review of inpatient medication list Patient seen and evaluated. No acute events overnight. Discussed plan and gave patient update with Pastor Head at bedside. Patient gave permission to discuss findings with her present. Patient reporting feeling a little bit better but generally still week. Pain is improving in the R hip. Area appears less ecchymotic but hematoma remains firm but mildly improved Hgb dropped to 7.8 but repeat is at 8.0 and will continue to monitor while holding Coumadin and Plavix Discussed recommendations from gynecology and patient discussed with daughter and she would like to pursue surgical intervention and would like referral to gyne/onc Observed patient moving from chair to bed. She has an unsteady and small shuffling stepped gait. Patient states that she doesn't need physical therapy at this time but expressed the importance to keep moving. Do not feel patient can return home alone at this time. Is alert and oriented however is mildly confused. Thinks she had another stroke and thought she already had a biopsy of this abd. mass Constitutional: + weakness (generalized), + fatigue, No fever, No chills Respiratory: No shortness of breath Cardiovascular: No chest pain Abdomen: No pain, No nausea, No vomiting, No diarrhea, No constipation Musculoskeletal: + joint pain (R hip) Female : No dysuria (Alanna Dumont, NICKOLAS-C) Medications Current Inpatient Medications Medications (Trade) Dose Ordered Sig/Elsi Route Start Time Stop Time Status Last Admin Dose Admin Ioversol (Optiray 320) 125 ml UD PRN IV 07/27/17 08:45 07/31/17 08:44 Acetaminophen (Tylenol Tab) 650 mg Q4H PRN PO 07/27/17 13:30 08/26/17 13:29 07/28/17 16:11 650 MG Al Hydrox/Mg Hydrox/Simethicone (Maalox Max Susp) 15 ml Q4H PRN PO 07/27/17 13:30 08/26/17 13:29 Magnesium Hydroxide (Milk Of Magnesia Susp) 30 ml Q6H PRN PO 07/27/17 13:30 08/26/17 13:29 Polyethylene (Miralax Powder Packet) 17 gm DAILY PRN PO 07/27/17 13:30 08/26/17 13:29 Ondansetron HCl (Zofran Inj) 4 mg Q6H PRN IV 07/27/17 13:30 08/26/17 13:29 Atorvastatin Calcium (Lipitor Tab) 20 mg HS PO 07/27/17 21:00 08/26/17 20:59 07/27/17 20:46 20 MG Escitalopram Oxalate (Lexapro Tab) 10 mg QAM PO 07/28/17 08:00 08/27/17 08:59 07/28/17 08:38 10 MG Levothyroxine Sodium (Synthroid Tab) 50 mcg DAILYBB PO 07/28/17 06:30 08/27/17 06:29 07/28/17 05:34 50 MCG Lisinopril (Zestril Tab) 5 mg BID PO 07/27/17 20:00 08/26/17 20:59 07/28/17 08:38 5 MG Metoprolol Succinate (Toprol Xl Tab) 100 mg BID PO 07/27/17 20:00 08/26/17 20:59 07/28/17 08:38 100 MG Digoxin (Lanoxin Tab) 0.125 mg Q2D@1600 PO 07/28/17 16:00 08/27/17 15:59 07/28/17 16:10 0.125 MG Ceftriaxone Sodium 1 gm/ Dextrose 50 ml @ 100 mls/hr Q24H IV 07/28/17 13:00 07/31/17 13:29 07/28/17 12:52 100 MLS/HR Tramadol HCl (Ultram Tab) 50 mg Q4H PRN PO 07/27/17 13:45 08/26/17 13:44 07/27/17 20:44 50 MG Oxycodone HCl (Roxicodone Immediate Rel Tab) 5 mg Q6H PRN PO 07/27/17 22:30 08/10/17 22:29 07/27/17 22:57 5 MG Gadobutrol (Gadavist) 7.5 mmol UD PRN IV 07/28/17 16:00 08/01/17 15:59 (Alanna Dumont, SANGEETA) Objective Vital Signs Date Time Temp Pulse Resp B/P (MAP) Pulse Ox O2 Delivery O2 Flow Rate FiO2 07/28/17 08:00 Nasal Cannula 2.0 07/28/17 07:26 36.7 74 18 129/70 (89) 100 Nasal Cannula 2.0 07/28/17 02:18 Nasal Cannula 2.0 07/28/17 00:27 36.6 78 18 145/82 (103) 100 Room Air 07/27/17 20:43 72 128/76 (93) 07/27/17 17:00 100 Nasal Cannula 2.0 07/27/17 14:15 75 16 144/77 100 (Alanna Dumont PA-C) Physical Exam General Appearance: no apparent distress ENT: hearing grossly normal Neck: supple, no JVD, trachea midline Respiratory/Chest: lungs clear, normal breath sounds, no respiratory distress, no accessory muscle use, + pertinent finding (diminished at bases) Cardiovascular: + irregularly irregular, + pertinent finding (mechanical heart tones) Abdomen: normal bowel sounds, non tender, soft, + mass Extremities: no calf tenderness, + pertinent finding (ecchymosis with improvement with worse ecchymosis near posterior element of hip; hematoma appears mildly reduced but remains firm does not appear to have enlarged) Neurologic/Psychiatric: alert, oriented x 3, + pertinent finding (intermittent confusion) Skin: normal color, warm/dry (Alanna Dumont, PA-C) Laboratory Results Last 24 Hours Test 07/28/17 06:20 07/28/17 11:56 White Blood Count 7.59 K/uL Red Blood Count 2.83 M/uL Hemoglobin 7.8 g/dL 8.0 g/dL Hematocrit 25.6 % 25.1 % Mean Corpuscular Volume 90.5 fL Mean Corpuscular Hemoglobin 27.6 pg Mean Corpuscular Hemoglobin Concent 30.5 g/dl RDW Standard Deviation 52.9 fL RDW Coefficient of Variation 16.4 % Platelet Count 203 K/uL Mean Platelet Volume 11.7 fL Sodium Level 138 mmol/L Potassium Level 4.0 mmol/L Chloride Level 106 mmol/L Carbon Dioxide Level 26 mmol/L Anion Gap 6.0 mmol/L Blood Urea Nitrogen 13 mg/dl Creatinine 0.98 mg/dl Est Creatinine Clear Calc Drug Dose 43.1 ml/min Estimated GFR () 62.3 Estimated GFR (Non- 53.7 BUN/Creatinine Ratio 12.9 Random Glucose 97 mg/dl Calcium Level 8.2 mg/dl (Alanna Dumont, SANGEETA) Assessment and Plan Ms. 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 Mechanical Fall with RLE Hematoma: T11/T12 Compression Fx - Tramadol and Tylenol PRN for pain; apply ice to area -- Ice can be applied frequently especially with discomfort as a lot of the pain can be related to the pressure from the hematoma and ice can help reduce this and can switch to heat in a couple days - Will hold Coumadin and Plavix at this time -- Once resumed can bridge with Heparin Urinary Tract Infection: - Patient reports no symptoms but states she is incontinent - Rocephin 1 g IV daily and await culture - no fever/leukocytosis Pelvic Mass and R Orbit Mass: - R Orbit Mass appears likely not to be acute as outpatient records report follow-up with this but MRI does not seem to mention this lesion...metastasis? -- ED discussed with Dr. Pro stating unlikely this is a hematoma and recommended MRI -- Can place referral to oculoplastic surgeon at their office - Gyne consultation - recommending referral to gyne/onc and appreciate assistance in establishment of appointment as patient would like to pursue Paroxysmal A Fib/Sinus Node Dysfunction S/P BiV ICD: Lightheadedness/Dizziness - Planning for updated echo for further evaluation - Digoxin 0.125 mg Q2D and Toprol XL 100 mg BID - Cardiology following - appreciate recommendations HTN: - Lisinopril 5 mg BID and can still Dyazide at this time Hypothyroidism: - Synthroid 50 mcg daily HLD: - Atorvastatin 20 mg daily Code Status: DO NOT RESUSCITATE Disposition: - PT/OT evaluations - - Do not suspect patient will be able to return home at this time - Patient would be interested in [facility] - currently lives alone and utilizes a walker. is at [facility] - Had long conversation with daughter about possibility of ovarian CA and discussed options of surgery and whether treatment would be something she would want to do. Daughter states she feels that her mother may decide not to do this however patient earlier stated she wanted surgery. Would need pre-operative clearance given co-morbidities. Discussed the importance of female relatives to let their gyne/PCP know about family history of breast CA and now possibly ovarian CA. Given co-morbidities and the poor prognosis in the setting of likely metastatic ovarian cancer, a consideration for palliative/comfort measures would be warranted in the near future pending patient's decision - Will need Gyne/Onc referral to [facility] Physician Supervision Note: I interviewed and examined the patient. Discussed with Alanna Dumont PAC and agree with findings and plan as documented in the note. Any exceptions or clarifications are listed here: None This patient presents with multiple pre-hospital comorbid conditions with frequent falls being on an anticoagulant. She sustained a very large right posterior leg firm hematoma from falls in the last few weeks. The patient has a defibrillator in place and has also been dizzy. Upon evaluation in the ER she is found to have subacute T11-T12 vertebral fracture but also a 9 x 6 right adnexal mass. The patient has corresponding pain in her right lower quadrant and this mass is actually palpable on physical exam Her vital signs are otherwise stable She is irregularly irregular with a heart rate has a history of A. fib on anticoagulation her lungs are clear her abdomen is normoactive bowel sounds there is a palpable mass just above the inguinal ligament on the right side hematomas large and firm Frequent falls and anticoagulation with hematoma at this point time we'll hold her anticoagulation for 1 day get a gynecological inion with this mass needs to be biopsied and if so we may continue to hold her anticoagulation or reverse it For atrial fibrillation we'll continue with her rate control For the concern over a right orbital lesion this is actually old and documented on previous studies For dizziness will interrogate her pacemaker hydrate her and involve PT OT evaluation with a ventral possible subacute Documented By: Miguel Driver Continued [facility] stay due to: ambulation difficulties Discharge planning: shelter facility (Alanna Dumont, ROSIEC) Attending Attestation: Pt seen/examined, chart reviewed, care plan d/w NICKOLAS Dumont. I agree w/ the jalloh components of her documentation. Pt with c/o mild right hip pain. c/o frequent falls and balance issues at home. VSS no fever gen - nad neck - JVD present heart - RRR, s1, s2, mechanical valve closure sound lungs - mild basilar rales abd - fullness suprapubic region, BS+, NT ext - right hip, lateral - very large hematoma with overlying ecchymoses and warmth; ecchymoses tracks distally down the thigh; there is some ecchymoses over the right flank of the abdomen as well Hb 8 urine cx - GNR Cr 0.9 A/P: 1. large right hip hematoma 2nd to trauma in setting of chronic coumadin usage 2. acute blood loss anemia 2nd to #1 3. ovarian mass suspicious for ovarian cancer 4. GNR UTI 5. frequent falls 6. PAF 7. h/o multiple strokes 8. mechanical valve 9. CKD stage 3 serial H/H's hold coumadin again today hold plavix again today, but consider resuming tomorrow cold packs to right hip Tx if Hb < 7.5 continuing education dean-onc consultation at [facility] after d/c if desired by patient Hesham BELCHER MD (Mati Belcher MD)
[2017-07-28] MEDS ORDERED: NURSING VERBAL MED ORDER ONE (15:00)
[2017-07-28] MEDS ORDERED: GADAVIST IV PRN (16:00)
[2017-07-28] MEDS: DIGOXIN 0.125 MG TAB PO SCH (16:10)
--- NOTE | 2017-07-28 16:37 | DIAGNOSTIC IMAGING REPORT ---
MRI OF THE ORBITS WITH AND WITHOUT CONTRAST CLINICAL HISTORY: Right orbit soft tissue nodule. Concern for ovarian metastases. COMPARISON STUDY: Head CT July 27, [address] March 05, 2017. TECHNIQUE: Utilizing a 1.5 Agnes magnet, multiplanar, multiecho imaging of the orbits was performed pre and postcontrast ministration with thin cut imaging. Injection of 7.5 cc of Gadavist IV was uneventful. FINDINGS: Note is made of a T1 hypointense, T2 hyperintense briskly enhancing mass within the posterior aspect of the right orbit that measures 1.4 x 1.2 x 1.1 cm. This lesion has circumscribed margins and corresponds to the finding shown on prior head CT. This appears to be intimately associated with the right superior ophthalmic vein. This is new since head CT of March 05, 2017 and MRI of the brain of March 06, 2017. However, present on exam of June 30, 2015. 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 Mild ventricular dilatation is unchanged. There are old lacunar infarcts and moderate small vessel disease. IMPRESSION: 1.4 cm enhancing right orbital mass which was not present on MRI of March 06, 2017 but was present on earlier study of June 30, 2015. 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 No evidence of malignancy. Electronically signed by: Gildardo Malik M.D. 07/28/2017 4:35 PM Dictated Date/Time: 07/28/2017 4:00 PM
[2017-07-28 18:23] LABS: HEMATOCRIT 23.6 % (37-47)
[2017-07-28] MEDS: ATORVASTATIN 20 MG TAB PO SCH (20:05)
[2017-07-29] VITALS (8 sets, daily range): BP systolic 121–153; BP diastolic 57–79; PULSE 69–71; TEMP 36.4–37.2; O2SAT 91–99
[2017-07-29] MEDS: OXYCODONE HCL IR 5 MG TAB (IMMEDIATE RELEASE) PO PRN (03:39)
[2017-07-29] MEDS: LEVOTHYROXINE 50 MCG TAB PO SCH (06:14)
[2017-07-29 06:46] LABS: HEMATOCRIT 23.2 % (37-47); MEAN CELL VOLUME 88.9 fL (80-100); MEAN CORPUSCULAR HEMOGLOBIN 27.6 pg (25-34); MEAN PLATELET VOLUME 11.9 fL (7.4-10.4); PLATELET COUNT 202 K/uL (130-400); RED BLOOD COUNT 2.61 M/uL (4.2-5.4)
[2017-07-29 06:53] LABS: INR 2.6 (0.9-1.1); PROTHROMBIN TIME (PATIENT) 28.4 SECONDS (9.0-12.0)
[2017-07-29 07:20] LABS: BUN/CREATININE RATIO 15.3 (10-20); CALCIUM 8.3 mg/dl (8.5-10.1); CREATININE 1.21 mg/dl (0.60-1.20); POTASSIUM 4.1 mmol/L (3.5-5.1)
[2017-07-29] MEDS ORDERED: FUROSEMIDE INJ 20 MG in SYRINGE 0 ML IV SCH (08:30)
[2017-07-29] MEDS: METOPROLOL SUCC 50MG EXT REL TAB PO SCH ×2 (08:52→20:08)
[2017-07-29] MEDS: ESCITALOPRAM OXALATE 10 MG TAB PO SCH (08:52)
[2017-07-29] MEDS: LISINOPRIL 5 MG TAB PO SCH ×2 (08:52→20:09)
[2017-07-29] MEDS ORDERED: FUROSEMIDE INJ 20 MG in SYRINGE 0 ML IV ONE (10:30)
--- NOTE | 2017-07-29 14:42 | Hospitalist Progress Note ---
Hospitalist Progress Note Date of Service Jul 29, 2017. (Alanna Dumont PA-C) Subjective Pt evaluation today including: conversation w/ patient, physical exam, chart review, lab review, review of studies, review of inpatient medication list Patient seen and evaluated. Patient continues to be intermittently confused. Will converse but doesn't open her eyes. Verbalizes no complaints and states she is not having pain in the hip/hematoma area Unsure if this is just hospital delirium vs symptoms from anemia. Will transfuse 1 unit at this time and evaluate Hgb this evening. Appears fluid overloaded and will pre-treat and give lasix after transfusion. Will continue to hold warfarin today. Will try and update daughter over the phone Constitutional: + fatigue, No fever, No chills Respiratory: No shortness of breath Cardiovascular: No chest pain Abdomen: No pain, No nausea, No vomiting Musculoskeletal: No joint pain, No muscle pain Female : No dysuria (Alanna Dumont, ROSIEC) Medications Current Inpatient Medications Medications (Trade) Dose Ordered Sig/Elsi Route Start Time Stop Time Status Last Admin Dose Admin Ioversol (Optiray 320) 125 ml UD PRN IV 07/27/17 08:45 07/31/17 08:44 Acetaminophen (Tylenol Tab) 650 mg Q4H PRN PO 07/27/17 13:30 08/26/17 13:29 07/28/17 16:11 650 MG Al Hydrox/Mg Hydrox/Simethicone (Maalox Max Susp) 15 ml Q4H PRN PO 07/27/17 13:30 08/26/17 13:29 Magnesium Hydroxide (Milk Of Magnesia Susp) 30 ml Q6H PRN PO 07/27/17 13:30 08/26/17 13:29 Polyethylene (Miralax Powder Packet) 17 gm DAILY PRN PO 07/27/17 13:30 08/26/17 13:29 Ondansetron HCl (Zofran Inj) 4 mg Q6H PRN IV 07/27/17 13:30 08/26/17 13:29 Atorvastatin Calcium (Lipitor Tab) 20 mg HS PO 07/27/17 21:00 08/26/17 20:59 07/28/17 20:05 20 MG Escitalopram Oxalate (Lexapro Tab) 10 mg QAM PO 07/28/17 08:00 12/21/17 08:59 07/29/17 08:52 10 MG Levothyroxine Sodium (Synthroid Tab) 50 mcg DAILYBB PO 07/28/17 06:30 08/27/17 06:29 07/29/17 06:14 50 MCG Lisinopril (Zestril Tab) 5 mg BID PO 07/27/17 20:00 08/26/17 20:59 07/29/17 08:52 5 MG Metoprolol Succinate (Toprol Xl Tab) 100 mg BID PO 07/27/17 20:00 08/26/17 20:59 07/29/17 08:52 100 MG Digoxin (Lanoxin Tab) 0.125 mg Q2D@1600 PO 07/28/17 16:00 08/27/17 15:59 07/28/17 16:10 0.125 MG Tramadol HCl (Ultram Tab) 50 mg Q4H PRN PO 07/27/17 13:45 08/26/17 13:44 07/27/17 20:44 50 MG Oxycodone HCl (Roxicodone Immediate Rel Tab) 5 mg Q6H PRN PO 07/27/17 22:30 08/10/17 22:29 07/29/17 03:39 5 MG Gadobutrol (Gadavist) 7.5 mmol UD PRN IV 07/28/17 16:00 08/01/17 15:59 Cephalexin Monohydrate (Keflex Cap) 500 mg BID PO 07/29/17 20:00 08/01/17 07:59 Furosemide 20 mg/ Syringe 2 ml @ 4 mls/min TODAY@0830 IV 07/29/17 08:30 07/29/17 18:00 07/29/17 15:07 4 MLS/MIN (Alanna Dumont, ROSIEC) Objective Vital Signs Date Time Temp Pulse Resp B/P (MAP) Pulse Ox O2 Delivery O2 Flow Rate FiO2 07/29/17 14:20 37.2 69 18 132/76 07/29/17 13:30 36.8 70 18 143/57 07/29/17 13:00 36.9 70 18 153/74 07/29/17 12:38 36.7 71 18 148/75 07/29/17 12:20 36.4 69 18 146/79 07/29/17 12:00 36.6 70 18 145/66 07/29/17 08:45 Room Air 07/29/17 07:47 36.8 70 16 121/68 (85) 91 Nasal Cannula 2.0 07/29/17 00:25 Room Air 07/28/17 23:59 36.8 72 18 119/71 (87) 92 Room Air 07/28/17 20:04 71 103/61 (75) 07/28/17 19:55 Room Air 07/28/17 17:54 95 Room Air 07/28/17 17:03 36.8 69 16 127/78 (94) 97 Room Air 07/28/17 16:22 Nasal Cannula 2.0 07/28/17 16:10 77 07/28/17 16:07 36.6 76 16 116/72 (87) 99 Nasal Cannula 2.0 (Alanna Dumont, PA-C) Physical Exam General Appearance: no apparent distress ENT: hearing grossly normal Neck: supple, trachea midline, + JVD Respiratory/Chest: no respiratory distress, no accessory muscle use, + crackles (bases bilat) Cardiovascular: regular rate, rhythm, + pertinent finding (mechanical heart tones) Abdomen: normal bowel sounds, non tender, + mass Extremities: no calf tenderness, + pertinent finding (large hard hematoma of R lateral thigh (unchanged); ecchymosis appears to be more prominent distally ( likely extravasation from hematoma)) Neurologic/Psychiatric: alert, oriented x 3 Skin: normal color (other than documented in extremities), warm/dry (Alanna Dumont, PA-C) Laboratory Results Last 24 Hours Test 07/28/17 18:12 07/29/17 06:14 Hemoglobin 7.4 g/dL 7.2 g/dL Hematocrit 23.6 % 23.2 % White Blood Count 7.30 K/uL Red Blood Count 2.61 M/uL Mean Corpuscular Volume 88.9 fL Mean Corpuscular Hemoglobin 27.6 pg Mean Corpuscular Hemoglobin Concent 31.0 g/dl RDW Standard Deviation 52.2 fL RDW Coefficient of Variation 16.6 % Platelet Count 202 K/uL Mean Platelet Volume 11.9 fL Prothrombin Time 28.4 SECONDS Prothromb Time International Ratio 2.6 Sodium Level 139 mmol/L Potassium Level 4.1 mmol/L Chloride Level 107 mmol/L Carbon Dioxide Level 23 mmol/L Anion Gap 9.0 mmol/L Blood Urea Nitrogen 19 mg/dl Creatinine 1.21 mg/dl Est Creatinine Clear Calc Drug Dose 34.9 ml/min Estimated GFR () 48.3 Estimated GFR (Non- 41.6 BUN/Creatinine Ratio 15.3 Random Glucose 119 mg/dl Calcium Level 8.3 mg/dl Digoxin Level 1.0 ng/ml (Alanna Dumont, SANGEETA) Assessment and Plan Ms. 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 Encephalopathy: Delirium vs Anemia vs Depression: - Patient has moments of clarity but does intermittently get confused; stated today shes "just trying to take it all in" since discussing the possible etiology of her mass - Unlikely infectious as she remains afebrile and without leukocytosis - UTI being treated and is asymptomatic - Will have to monitor for possible infection as a result on hematoma Mechanical Fall with RLE Hematoma: T11/T12 Compression Fx - Tramadol and Tylenol PRN for pain; apply ice to area -- Ice can be applied frequently especially with discomfort as a lot of the pain can be related to the pressure from the hematoma and ice can help reduce this and can switch to heat in a couple days - Will hold Coumadin and Plavix at this time - will continue to hold tonight -- Once resumed can bridge with Heparin Urinary Tract Infection: Klebsiella pneumoniae - Keflex 500 mg BID Acute on Chronic Systolic CHF: - Patient takes Dyazide but is not on Lasix or other diuretics - Patient with JVD and requiring O2 and will diurese - Awaiting echocardiogram to monitor for improvement since ICD placement Pelvic Mass and R Orbit Mass: - R Orbit Mass appears likely not to be acute as outpatient records - MRI supports venous varix in R superior ophthalmic vein -- ED discussed with Dr. Pro - recommended referral to oculoplastic surgeon at their office - Gyne consultation - recommending referral to gyne/onc and appreciate assistance in establishment of appointment as patient would like to pursue ( however patient has given mixed thoughts on this) Paroxysmal A Fib/Sinus Node Dysfunction S/P BiV ICD: Lightheadedness/Dizziness ( Unknown Etiology) - Echo report pending - Digoxin 0.125 mg Q2D and Toprol XL 100 mg BID - Cardiology following - appreciate recommendations HTN: - Lisinopril 5 mg BID and can still hold Dyazide at this time as utilizing Lasix - Gave Lasix 20 mg IV pre-transfusion and will give another after transfusion Hypothyroidism: - Synthroid 50 mcg daily HLD: - Atorvastatin 20 mg daily Code Status: DO NOT RESUSCITATE Disposition: - PT/OT evaluations - - Do not suspect patient will be able to return home at this time - Patient would be interested in [facility] - currently lives alone and utilizes a walker. is at [facility] - Discussed with daughter yesterday about possibility of ovarian cancer and the prognosis/surgical debulking. Daughter feels the patient may not go through with it but have not been able to further assess as patient has been delirious - Will need Gyne/Onc referral to [facility] - [facility] can accept Thursday - will need to await clinical course Continued [facility] stay due to: ambulation difficulties Discharge planning: [facility] facility (Alanna Dumont, SANGEETA) Attending Attestation: Pt seen/examined, chart reviewed, care plan d/w PA Alanna Dumont. I agree w/ the jalloh components of her documentation. Pt sleepy today. Stated "I'm trying to take everything in." Kept eyes closed most of the time stating the "lights were too bright". Denied any new complaints. During our conversation she was confused, talking about a family member and his vegetables. VSS no fever gen - nad neck - JVD present heart - RRR, s1, s2, mechanical valve closure sound lungs - basilar rales - a little worse today abd - fullness suprapubic region, BS+, NT ext - right hip, lateral - very large hematoma with overlying ecchymoses and warmth; ecchymoses tracks distally down the thigh; there is some ecchymoses over the right flank of the abdomen as well; overall there is NO change in the size of the hematoma grossly Hb 7.2 urine cx - klebsiella Cr 1.2 INR 2.6 A/P: 1. large right hip hematoma 2nd to trauma in setting of chronic coumadin usage 2. acute blood loss anemia 2nd to #1 - worse today 3. ovarian mass suspicious for ovarian cancer 4. klebsiella UTI 5. frequent falls 6. PAF 7. h/o multiple strokes 8. mechanical valve 9. CKD stage 3 10. acute/chronic systolic CHF 11. ? of mild metabolic encephalopathy Tx 1 unit of PRBCs; lasix before & after due to #10 labs in AM cont to hold coumadin/plavix change abx to keflex 500 BID for UTI poor prognosis dispo - [facility] - hopefully Thursday Hesham BELCHER MD (Mati Belcher MD)
--- NOTE | 2017-07-29 16:09 | Cardiology Follow-Up ---
Subjective Date of Service: Jul 29, 2017. Pt evaluation today including: conversation w/ patient, physical exam, lab review, review of studies, review of inpatient medication list History of Present Illness This is a very pleasant 82-year-old woman who has a history of mitral valve replacement in 1994 and a subsequent aortic valve replacement 2013 (both mechanical valves) with normal coronary arteries. She has had a long history of atrial fibrillation and flutter for which she had ablation in 2008. She has also had several strokes, even while on anticoagulation. She also has a history of cardiomyopathy, since September 2013 her left ventricular ejection fraction has typically been around 35% and she has been having a lot of difficulty with very poor stamina, having extreme difficulty with any kind of activity and having to use a walker. She has also been having difficulty with falls. In late February 2017 she presented with a fall, in the emergency room she was noted to have paroxysmal atrial fibrillation with long pauses following termination of her atrial arrhythmia. This had however been asymptomatic to our knowledge. She also had a left bundle branch block, that appears to be relatively recent as on 03/01/2014 she had a narrow complex and on 10/23/2016 she had the left bundle pattern with a QRS duration of about 160 ms. We therefore implanted a biventricular ICD on 03/12/2017. She has continued to have difficulty with lack of stamina and falls, she fell several weeks ago (she did not come into the emergency room) with bruising of her right hip, and then she fell again 07/28/2017 prompting presentation to the hospital. She does not seem to have a hip fracture. The cause of the falls is uncertain, she denies lightheadedness, dizziness or presyncope. Her device was evaluated yesterday and is working well, and she had no arrhythmia to explain her falls. She is maintained on warfarin for valvular disease as well as atrial fibrillation, which other than bruising is not having difficulty tolerating. She was very sleepy and perhaps somewhat confused this morning. No cardiovascular complaints. Social History Smoking Status: Never Smoker History of Alcohol Use: No Review of Systems Respiratory: No shortness of breath Cardiac: No chest pain Right hip pain following her fall Medications Cardiovascular: Item Value Date Time Furosemide 20 mg/ 2 ml @ 4 mls/min 07/29/17 0830 Syringe TODAY@0830/IV 07/29/17 1507 Digoxin 0.125 mg 07/28/17 1600 (Lanoxin Tab) Q2D@1600/PO 07/28/17 1610 Atorvastatin 20 mg 07/27/17 2100 Calcium HS/PO 07/28/172004 (Lipitor Tab) Lisinopril 5 mg 07/27/171999 (Zestril Tab) BID/PO 07/29/17 0852 Metoprolol 100 mg 07/27/171999 Succinate BID/PO 07/29/17 0852 (Toprol Xl Tab) Objective Vital Signs Past 12 Hours Date Time Temp Pulse Resp B/P (MAP) Pulse Ox O2 Delivery O2 Flow Rate FiO2 07/29/17 15:57 36.9 69 18 132/74 (93) 99 Nasal Cannula 2.0 07/29/17 14:20 37.2 69 18 132/76 07/29/17 13:30 36.8 70 18 143/57 07/29/17 13:00 36.9 70 18 153/74 07/29/17 12:38 36.7 71 18 148/75 07/29/17 12:20 36.4 69 18 146/79 07/29/17 12:00 36.6 70 18 145/66 07/29/17 08:45 Room Air 07/29/17 07:47 36.8 70 16 121/68 (85) 91 Nasal Cannula 2.0 Last Recorded Weight-Kilograms: 73.800 Intake & Output 8-Hour Column 07/29/17 07/30/17 07/30/17 16:00 00:00 08:00 Intake Total 310 ml Output Total 950 ml Balance -640 ml 24-Hour Column 07/30/17 08:00 Intake Total 310 ml Output Total 950 ml Balance -640 ml Physical Exam Constitutional: Level of Distress: moderate distress Ambulation: limited ambulation Lungs: Respiratory effort: no dyspnea, good air movement Auscultation: breath sounds normal, no wheezing Cardiovascular: Heart Auscultation: RRR, no rubs, no gallops, II/ SHELLY, II/ WSM Peripheral Pulses: Bruits: none appreciated Extremities: no edema, pertinent finding (right hip hematoma) Data Laboratory Results: Last 24 Hours Test 07/28/17 18:12 07/29/17 06:14 07/29/17 16:00 Hemoglobin 7.4 g/dL 7.2 g/dL Hematocrit 23.6 % 23.2 % White Blood Count 7.30 K/uL Red Blood Count 2.61 M/uL Mean Corpuscular Volume 88.9 fL Mean Corpuscular Hemoglobin 27.6 pg Mean Corpuscular Hemoglobin Concent 31.0 g/dl RDW Standard Deviation 52.2 fL RDW Coefficient of Variation 16.6 % Platelet Count 202 K/uL Mean Platelet Volume 11.9 fL Prothrombin Time 28.4 SECONDS Prothromb Time International Ratio 2.6 Sodium Level 139 mmol/L Potassium Level 4.1 mmol/L Chloride Level 107 mmol/L Carbon Dioxide Level 23 mmol/L Anion Gap 9.0 mmol/L Blood Urea Nitrogen 19 mg/dl Creatinine 1.21 mg/dl Est Creatinine Clear Calc Drug Dose 34.9 ml/min Estimated GFR () 48.3 Estimated GFR (Non- 41.6 BUN/Creatinine Ratio 15.3 Random Glucose 119 mg/dl Calcium Level 8.3 mg/dl Digoxin Level 1.0 ng/ml Assessment and Plan #1. Falls: The cause of the falls is not certain, there is no evidence that she had a tachyarrhythmia based on ICD monitoring. I suspect it is instability. #2. ICD: Working well, very little atrial fibrillation and appropriate biventricular pacing. Excellent battery longevity. Suggestion of fluid retention recently based on Optivol data. #3. Cardiomyopathy: She is on good doses of beta blockade for her cardiomyopathy , her left ventricular ejection fraction by my review of the images suggest that it is similar to before, not worse and perhaps a little bit better but I don't have [id number] comparison. A formal echo report is pending. I would continue her current management in this regard. #4. Atrial fibrillation: She has a history of atrial fibrillation but she has had very little of it recently (based on ICD interrogation) and the rate has been controlled and it does not explain her presentation. She should remain on anticoagulants for this as well as her valves. Her digoxin level is good on the current dose. #5. Valve replacements: Not likely to be a cause of her current presentation. She does however need to remain on warfarin. Thank you for allowing me to participate in her care.
[2017-07-29 16:41] LABS: HEMATOCRIT 29.3 % (37-47)
--- NOTE | 2017-07-29 18:46 | ECHOCARDIOGRAM REPORT ---
*NOTICE TO RECEIVING CONSTITUTION PARTY AGENCY This information is strictly Confidential and protected under [place] law. [place] law prohibits you from making any further disclosure of this information unless further disclosure is expressly permitted by the written consent of the person to whom it pertains or is authorized by law. A general authorization for the release of medical or other information is not sufficient for this purpose. Hospital accepts no responsibility if the information is made available to any other person, INCLUDING THE PATIENT. Interpretation Summary * Name: BRANDY AZUL Study Date: 07/29/2017 10:22 AM BP: 121/68 mmHg * Patient Location: C.4E\S\E409\S\1 HR: 70 * : 1935 (M/d/yyyy) Gender: Female Height: 67 in * Age: 82 yrs Ethnicity: CA Weight: 159 lb * Ordering Physician: Casey Doss * Referring Physician: Self, Referred * Performed By: Laine Lopez RDCS * * Reason For Study: Dilated Cardiomyopathy, 4 Months Bi-V ICD implant * BSA: 1.8 m2 * Whql-[id number] left ventricular systolic dysfunction. Mild to moderate global hypokinesis of the left ventricle. * Biatrial dilatation. * Normally expected gradients across mechanical aortic and mitral valves. * Mild aortic regurgitation. * Trace pulmonic regurgitation. * Moderate tricuspid regurgitation. * Moderate pulmonary hypertension. * Compared to an echocardiogram of 10/24/16, the estimated RV systolic pressure has increased. Procedure Details * A complete two-dimensional transthoracic echocardiogram was performed (2D, M-mode, Doppler and color flow Doppler). * The study was technically difficult. * The study was technically difficult, but visualization was adequate with the administration of Definity ultrasound contrast. * There were technical limitations due to patient'spoor positioning * A contrast injection of Definity was performed to improve assessment of LV function. * Contrast was injected into an intravenous site in the left arm. * One vial of Definity ultrasound contrast was diluted in normal saline to a total volume of 10 ml. A total of '2' ml of solution was administered during imaging. * Lot # [id number] of Definity utilized for procedure. * Expiration date 1Dec18. * The attending nurse who injected the contrast agent was Rafita Judge RN. Left Ventricle * The left ventricle is normal in size. * There is normal left ventricular wall thickness. * Ejection Fraction = 40-45%. * Left ventricular systolic function is mild to moderately reduced. * There is mild to moderate global hypokinesis of the left ventricle. Right Ventricle * There is a pacemaker lead in the right ventricle. * The right ventricular systolic function is normal as assessed by tricuspid annular plane systolic excursion (TAPSE) (normal >1.5 cm). Atria * The left atrium is moderately dilated. * The right atrium is mildly dilated. Mitral Valve * There is no mitral regurgitation noted. * There is a mechanical mitral valve. * Normal prosthetic mitral valve gradients. Tricuspid Valve * The tricuspid valve is not well visualized, but is grossly normal. * There is moderate tricuspid regurgitation. * Right ventricular systolic pressure is elevated at 50-60mmHg. Aortic Valve * Mild aortic regurgitation. * There is a mechanical aortic valve. * The gradient is normal for this prosthetic aortic valve. Pulmonic Valve * The pulmonic valve is not well visualized. * The pulmonary valve is inadequately visualized, but the Doppler data is adequate for interpretation. * There is no pulmonic valvular stenosis. * Trace pulmonic valvular regurgitation. Great Vessels * The aortic root is normal size. Pericardium/Pleural * There is no pericardial effusion. Great Vessels * Normal inferior vena cava diameter and respiratory variation suggests normal central venous pressure. MMode 2D Measurements and Calculations IVSd 0.89 cm IVSs 1.2 cm LVIDd 4.8 cm LVIDs 3.6 cm LVPWd 0.96 cm LVPWs 1.3 cm IVS/LVPW 0.93 FS 25.1 % EDV(Teich) 106.8 ml ESV(Teich) 53.9 ml EF(Teich) 49.5 % EDV(cubed) 109.6 ml ESV(cubed) 46.1 ml EF(cubed) 57.9 % % IVS thick 35.4 % % LVPW thick 36.5 % LV mass(C)d 151.9 grams LV mass(C)dI 82.8 grams/m\S\2 LV mass(C)s 150.4 grams LV mass(C)sI 82.0 grams/m\S\2 SV(Teich) 52.9 ml SI(Teich) 28.8 ml/m\S\2 SV(cubed) 63.5 ml SI(cubed) 34.6 ml/m\S\2 Ao root diam 2.8 cm Ao root area 6.3 cm\S\2 LA dimension 4.6 cm LA/Ao 1.6 LVOT diam 2.0 cm LVOT area 3.2 cm\S\2 LVAd ap4 39.5 cm\S\2 LVLd ap4 8.5 cm EDV(MOD-sp4) 153.8 ml EDV(sp4-el) 155.5 ml LVAs ap4 28.0 cm\S\2 LVLs ap4 7.8 cm ESV(MOD-sp4) 84.2 ml ESV(sp4-el) 85.3 ml EF(MOD-sp4) 45.3 % EF(sp4-el) 45.2 % LVAd ap2 36.9 cm\S\2 LVLd ap2 8.2 cm EDV(MOD-sp2) 140.7 ml EDV(sp2-el) 141.3 ml LVAs ap2 27.5 cm\S\2 LVLs ap2 8.2 cm ESV(MOD-sp2) 79.9 ml ESV(sp2-el) 78.5 ml EF(MOD-sp2) 43.2 % EF(sp2-el) 44.4 % LVLd %diff -3.67 % EDV(MOD-bp) 145.6 ml LVLs %diff 4.1 % ESV(MOD-bp) 84.2 ml EF(MOD-bp) 42.2 % SV(MOD-sp4) 69.6 ml SI(MOD-sp4) 38.0 ml/m\S\2 SV(MOD-sp2) 60.8 ml SI(MOD-sp2) 33.1 ml/m\S\2 SV(MOD-bp) 61.4 ml SI(MOD-bp) 33.5 ml/m\S\2 SV(sp4-el) 70.2 ml SI(sp4-el) 38.3 ml/m\S\2 SV(sp2-el) 62.8 ml SI(sp2-el) 34.2 ml/m\S\2 Doppler Measurements and Calculations MV E max grzegorz 137.3 cm/sec MV A max grzegorz 37.2 cm/sec MV E/A 3.7 MV V2 max 159.5 cm/sec MV max PG 10.2 mmHg MV V2 mean 60.6 cm/sec MV mean PG 2.0 mmHg MV V2 VTI 37.2 cm MVA(VTI) 1.3 cm\S\2 MV P1/2t max grzegorz 156.4 cm/sec MV P1/2t 56.2 msec MVA(P1/2t) 3.9 cm\S\2 MV dec slope 814.5 cm/sec\S\2 MV dec time 0.16 sec Ao V2 max 185.0 cm/sec Ao max PG 13.8 mmHg Ao max PG (full) 10.4 mmHg Ao V2 mean 138.8 cm/sec Ao mean PG 8.5 mmHg Ao mean PG (full) 6.9 mmHg Ao V2 VTI 36.7 cm UZIEL(I,A) 1.3 cm\S\2 UZIEL(I,D) 1.3 cm\S\2 UZIEL(V,A) 1.6 cm\S\2 UZIEL(V,D) 1.6 cm\S\2 AI max grzegorz 177.1 cm/sec AI max PG 12.5 mmHg AI dec slope 105.8 cm/sec\S\2 AI P1/2t 490.0 msec LV V1 max PG 3.4 mmHg LV V1 mean PG 1.6 mmHg LV V1 max 92.4 cm/sec LV V1 mean 58.0 cm/sec LV V1 VTI 15.1 cm SV(Ao) 232.0 ml SI(Ao) 126.5 ml/m\S\2 SV(LVOT) 48.4 ml SI(LVOT) 26.4 ml/m\S\2 PA V2 max 110.3 cm/sec PA max PG 4.9 mmHg PI max grzegorz 243.9 cm/sec PI max PG 23.9 mmHg PI dec slope 237.8 cm/sec\S\2 PI P1/2t 300.5 msec TR max grzegorz 355.1 cm/sec
[2017-07-29] MEDS: CEPHALEXIN MONOHYDRATE 500 MG CAP PO SCH (20:09)
[2017-07-29] MEDS: ATORVASTATIN 20 MG TAB PO SCH (20:09)
[2017-07-30] VITALS: O2SAT 99
[2017-07-30 00:35] VITALS: BP 109/54; PULSE 70; TEMP 37.2; O2SAT 94
[2017-07-30] MEDS: LEVOTHYROXINE 50 MCG TAB PO SCH (05:59)
[2017-07-30 06:02] LABS: HEMATOCRIT 26.6 % (37-47); MEAN CELL VOLUME 89.3 fL (80-100); MEAN CORPUSCULAR HEMOGLOBIN 28.2 pg (25-34); MEAN CORPUSCULAR HGB CONC 31.6 g/dl (32-36); MEAN PLATELET VOLUME 11.2 fL (7.4-10.4); PLATELET COUNT 195 K/uL (130-400); RED BLOOD COUNT 2.98 M/uL (4.2-5.4); WHITE BLOOD COUNT 8.62 K/uL (4.8-10.8)
[2017-07-30 06:13] LABS: INR 1.8 (0.9-1.1); PROTHROMBIN TIME (PATIENT) 19.5 SECONDS (9.0-12.0)
[2017-07-30 06:45] LABS: BUN/CREATININE RATIO 13.9 (10-20); CALCIUM 8.2 mg/dl (8.5-10.1); CREATININE 1.09 mg/dl (0.60-1.20); POTASSIUM 3.4 mmol/L (3.5-5.1)
[2017-07-30 07:37] VITALS: BP 116/67; PULSE 75; TEMP 36.9; O2SAT 95
[2017-07-30 08:30] VITALS: O2SAT 95
[2017-07-30] MEDS: CEPHALEXIN MONOHYDRATE 500 MG CAP PO SCH ×2 (08:41→19:56)
[2017-07-30] MEDS: ESCITALOPRAM OXALATE 10 MG TAB PO SCH (08:42)
[2017-07-30] MEDS: LISINOPRIL 5 MG TAB PO SCH ×2 (08:42→19:58)
[2017-07-30] MEDS: METOPROLOL SUCC 50MG EXT REL TAB PO SCH ×2 (08:42→19:57)
[2017-07-30] MEDS ORDERED: DICLOFENAC SOD 1% GEL 100 GM TUBE EXT ONE (14:40)
[2017-07-30 15:09] VITALS: BP 112/66; PULSE 74; TEMP 36.8; O2SAT 94
[2017-07-30 16:00] VITALS: O2SAT 95
[2017-07-30] MEDS: DIGOXIN 0.125 MG TAB PO SCH (16:45)
[2017-07-30] MEDS: DICLOFENAC SOD 1% GEL 100 GM TUBE EXT SCH ×2 (16:51→19:55)
--- NOTE | 2017-07-30 17:16 | Progress Note ---
Subjective Date of Service: Jul 30, 2017. Subjective Pt evaluation today including: conversation w/ patient, physical exam, chart review, lab review, review of inpatient medication list hip still hurts, but main complaint today is neck pain - off and on chronic issue, nothing feels new or different than what she normally deals with - notes heat usually helps Problem List Medical Problems: (1) Abdominal mass, right lower quadrant Status: Acute (2) Acute electrocardiogram changes Status: Acute (3) Contusion of multiple sites Status: Acute (4) Elevated troponin Status: Acute (5) Facial laceration Status: Acute (6) Fall Status: Acute (7) Fall Status: Acute (8) Gaze palsy Status: Acute (9) Hematoma of thigh Status: Acute (10) 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 Status: Acute (11) Left-sided weakness Status: Acute (12) LUE weakness Status: Acute (13) Nasal bone fracture Status: Acute (14) Orbital mass Status: Acute (15) Pneumonia Status: Acute (16) Urinary tract infection Status: Acute (17) Weakness Status: Acute (18) Wide-complex tachycardia Status: Acute Review of Systems all other ROS otherwise negative except for as above Objective Vital Signs Date Time Temp Pulse Resp B/P (MAP) Pulse Ox O2 Delivery O2 Flow Rate FiO2 07/30/17 16:45 74 07/30/17 16:00 95 Room Air 07/30/17 15:09 36.8 74 18 112/66 (81) 94 Room Air 07/30/17 08:30 95 Room Air 07/30/17 07:37 36.9 75 18 116/67 (83) 95 Room Air 07/30/17 00:35 37.2 70 18 109/54 (72) 94 Room Air 07/30/17 00:00 99 Room Air Physical Exam General Appearance: no apparent distress Eyes: EOMI ENT: hearing grossly normal Neck: trachea midline, + pertinent finding (msk/ost - L>R Cspine paraspinals high tone/tender/decreased ROM - counterstrain, unwinding - tissue texture improved some, pt tolerated well) Respiratory/Chest: no respiratory distress, no accessory muscle use Extremities: normal range of motion Neurologic/Psychiatric: pit recorder II-XII nml as tested, alert, normal mood/affect Skin: normal color, warm/dry Laboratory Results Last 24 Hours Test 07/30/17 05:43 White Blood Count 8.62 K/uL Red Blood Count 2.98 M/uL Hemoglobin 8.4 g/dL Hematocrit 26.6 % Mean Corpuscular Volume 89.3 fL Mean Corpuscular Hemoglobin 28.2 pg Mean Corpuscular Hemoglobin Concent 31.6 g/dl RDW Standard Deviation 51.2 fL RDW Coefficient of Variation 16.4 % Platelet Count 195 K/uL Mean Platelet Volume 11.2 fL Nucleated RBC Absolute Count (auto) 0.03 K/uL Nucleated Red Blood Cells % 0.4 % Prothrombin Time 19.5 SECONDS Prothromb Time International Ratio 1.8 Sodium Level 137 mmol/L Potassium Level 3.4 mmol/L Chloride Level 102 mmol/L Carbon Dioxide Level 28 mmol/L Anion Gap 7.0 mmol/L Blood Urea Nitrogen 15 mg/dl Creatinine 1.09 mg/dl Est Creatinine Clear Calc Drug Dose 38.7 ml/min Estimated GFR () 54.7 Estimated GFR (Non- 47.2 BUN/Creatinine Ratio 13.9 Random Glucose 108 mg/dl Calcium Level 8.2 mg/dl Magnesium Level 2.0 mg/dl Assessment and Plan Ms. 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 Encephalopathy: Delirium vs Anemia vs Depression: -mentally seems reasonable today - from prior team: - Patient has moments of clarity but does intermittently get confused; stated today shes "just trying to take it all in" since discussing the possible etiology of her mass - Unlikely infectious as she remains afebrile and without leukocytosis - UTI being treated and is asymptomatic - Will have to monitor for possible infection as a result on hematoma acute blood loss anemia -required 1 unit transfusion, now overall clinically stable -Hgb slowly going down again - continue to follow but no active signs of bleeding or hemodynamic instability neck pain -voltaren gel, moist heat, OMT somatic dysfunction cervical region -OMT as above Mechanical Fall with RLE Hematoma: T11/T12 Compression Fx - pain reasonable mechanical mitral valve -despite hematoma, given mechanical valve and stroke risk - have to resume anticoagulation - follow closely. 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 Pro - recommended referral to oculoplastic surgeon at their office - Gyne consultation - recommending referral to gyne/onc and appreciate assistance in establishment of appointment as patient would like to pursue ( however patient has given mixed thoughts on this) Paroxysmal A Fib/Sinus Node Dysfunction S/P BiV ICD: Lightheadedness/Dizziness ( Unknown Etiology) - Echo report pending - Digoxin 0.125 mg Q2D and Toprol XL 100 mg BID - Cardiology following - appreciate recommendations HTN: - continue to follow BP Hypothyroidism: - Synthroid 50 mcg daily HLD: - Atorvastatin 20 mg daily Code Status: DO NOT RESUSCITATE Disposition: - PT/OT evaluations - - Do not suspect patient will be able to return home at this time - Patient would be interested in [facility] - currently lives alone and utilizes a walker. is at [facility] - Discussed with daughter yesterday about possibility of ovarian cancer and the prognosis/surgical debulking. Daughter feels the patient may not go through with it but have not been able to further assess as patient has been delirious - Will need Gyne/Onc referral to [facility] - [facility] can accept Thursday - will need to await clinical course
[2017-07-30] MEDS ORDERED: WARFARIN SOD 2 MG TAB PO ONE (17:30)
[2017-07-30] MEDS: ATORVASTATIN 20 MG TAB PO SCH (19:58)
[2017-07-30] MEDS ORDERED: NURSING VERBAL MED ORDER ONE (22:15)
[2017-07-30] MEDS ORDERED: SODIUM CHLORIDE 0.9% 250ML 250 ML IV SCH (22:30)
[2017-07-31 00:06] VITALS: BP 114/65; PULSE 69; TEMP 37; O2SAT 95
[2017-07-31] MEDS: LEVOTHYROXINE 50 MCG TAB PO SCH (05:51)
[2017-07-31 06:20] LABS: BASO % 0.3 %; BASO ABS # 0.02 K/uL (0-0.2); EOS % 2.2 %; HEMATOCRIT 24.6 % (37-47); IG% 0.8 %; LYMPH % 11.7 %; LYMPH ABS # 0.76 K/uL (1.2-3.4); MEAN CELL VOLUME 89.8 fL (80-100); MEAN CORPUSCULAR HEMOGLOBIN 28.5 pg (25-34); MEAN CORPUSCULAR HGB CONC 31.7 g/dl (32-36); MEAN PLATELET VOLUME 11.8 fL (7.4-10.4); MONO % 9.6 %; NEUT % 75.4 %; PLATELET COUNT 195 K/uL (130-400); RED BLOOD COUNT 2.74 M/uL (4.2-5.4); WHITE BLOOD COUNT 6.47 K/uL (4.8-10.8)
[2017-07-31 06:44] LABS: BUN/CREATININE RATIO 21.4 (10-20); CALCIUM 7.9 mg/dl (8.5-10.1); CREATININE 0.89 mg/dl (0.60-1.20); POTASSIUM 3.6 mmol/L (3.5-5.1)
[2017-07-31 06:52] LABS: INR 1.4 (0.9-1.1)
[2017-07-31 07:06] LABS: ANISOCYTOSIS PRESENT; COMPLETE YES; OVALOCYTES 1+; POLYCHROMASIA 1+
[2017-07-31 07:07] VITALS: BP 105/65; PULSE 69; TEMP 36.7; O2SAT 97
[2017-07-31] MEDS: DICLOFENAC SOD 1% GEL 100 GM TUBE EXT SCH (07:19)
[2017-07-31] MEDS: METOPROLOL SUCC 50MG EXT REL TAB PO SCH (07:19)
[2017-07-31] MEDS: ESCITALOPRAM OXALATE 10 MG TAB PO SCH (07:20)
[2017-07-31] MEDS: LISINOPRIL 5 MG TAB PO SCH (07:20)
[2017-07-31] MEDS: CEPHALEXIN MONOHYDRATE 500 MG CAP PO SCH (07:20)
[2017-07-31] MEDS ORDERED: ENOXAPARIN 1 MG/KG SQ SCH (08:45)
[2017-07-31] MEDS ORDERED: WARFARIN SOD 5 MG TAB PO ONE (08:45)
[2017-07-31] MEDS ORDERED: ENOXAPARIN 40 MG/0.4 ML SYR SQ ONE (08:45)
[2017-07-31] MEDS ORDERED: ENOXAPARIN 80 MG/0.8 ML SYR SQ SCH (09:00)
[2017-07-31] MEDS ORDERED: RXC5 PO (09:03)
[2017-07-31] MEDS ORDERED: ULT50X PO (09:03)
[2017-07-31] MEDS ORDERED: VLTG EXT (09:03)
[2017-07-31] MEDS ORDERED: LVNIS80 SQ (09:03)
[2017-07-31] MEDS ORDERED: KFL500 PO (09:03)
--- NOTE | 2017-07-31 09:06 | Discharge Instructions ---
Discharge Instructions Date of Service Jul 31, 2017. Admission Reason for Admission: Generalized Weakness, Traumatic Hematoma Discharge Discharge Diagnosis / Problem: weakness, fall, thigh hematoma Discharge Goals Goal(s): Diagnostic testing, Therapeutic intervention Activity Recommendations Activity Level: Assistance Required Therapies: Physical Therapy, Occupational Therapy . Additional Information Patient informed of condition: Yes Advance Directives: Yes DNR: Yes Level of Care: Skilled (rehab emphasis) Communicable Disease: No Prognosis: Improving Instructions / Follow-Up Instructions / Follow-Up weakness -PT/OT anemia -from hematoma, but requires anticoagulation for mechanical mitral valve -- follow Hgb [id number] for near future, then as clinically warranted mechanical mitral valve -INR 1.4 today - coumadin only briefly held due to fall and hematoma -since INR low, and mitral valve requiring anticoagulation, therapeutic lovenox until INR > 2 -follow INR daily UTI -finish short course of antibiotics, follow clinically thereafter neck pain -chronic - she notes moist heat helps. continue voltaren gel to this area as well Current Hospital Diet Patient's current hospital diet: AHA Diet (Heart Healthy) Discharge Diet Recommended Diet: AHA Diet (Heart Healthy) Pending Studies Studies pending at discharge: no Medical Emergencies . Who to Call and When: Medical Emergencies: If at any time you feel your situation is an emergency, please call 911 immediately. . Non-Emergent Contact Non-Emergency issues call your: Primary Care Provider . . "Provider Documentation" section prepared by Eddie Dukes. . Core Measure Problem Core Measures: None
[2017-07-31 10:17] VITALS: BP 105/65; PULSE 69; TEMP 36.7; O2SAT 97
[2017-07-31] MEDS ORDERED: WARFARIN SOD 2 MG TAB PO SCH (16:00)
[2017-07-31] MEDS ORDERED: WARFARIN PO SCH ×2 (16:00)
--- NOTE | 2017-07-31 16:56 | Discharge Summary ---
Discharge Summary Date of Service Jul 31, 2017. Discharge Summary Admission Date: Jul 27, 2017 at 13:39 Discharge Date: Jul 31, 2017 Discharge Disposition: [facility] Principal Diagnosis: fall and hematoma, extensive other problems see below Immunizations: Have You Had Influenza Vaccine: Yes Influenza Vaccine Date: Jul 09, 2010 History of Tetanus Vaccine?: No History of Pneumococcal: Yes Pneumococcal Date: Jul 09, 2010 History of Hepatitis B Vaccine: No Procedures: [~ rep ct add3]] MRI OF THE ORBITS WITH AND WITHOUT CONTRAST CLINICAL HISTORY: Right orbit soft tissue nodule. Concern for ovarian metastases. COMPARISON STUDY: Head CT July 27, [address] March 05, 2017. TECHNIQUE: Utilizing a 1.5 Agnes magnet, multiplanar, multiecho imaging of the orbits was performed pre and postcontrast ministration with thin cut imaging. Injection of 7.5 cc of Gadavist IV was uneventful. FINDINGS: Note is made of a T1 hypointense, T2 hyperintense briskly enhancing mass within the posterior aspect of the right orbit that measures 1.4 x 1.2 x 1.1 cm. This lesion has circumscribed margins and corresponds to the finding shown on prior head CT. This appears to be intimately associated with the right superior ophthalmic vein. This is new since head CT of March 05, 2017 and MRI of the brain of March 06, 2017. However, present on exam of June 30, 2015. 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 Mild ventricular dilatation is unchanged. There are old lacunar infarcts and moderate small vessel disease. IMPRESSION: 1.4 cm enhancing right orbital mass which was not present on MRI of March 06, 2017 but was present on earlier study of June 30, 2015. 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 No evidence of malignancy. Electronically signed by: Gildardo Malik M.D. 07/28/2017 4:35 PM Dictated Date/Time: 07/28/2017 4:00 PM PELVIC ULTRASOUND, TRANSABDOMINAL HISTORY: Abnormal CT. adnexal mass COMPARISON: Abdomen and pelvis CT 07/27/2017. FINDINGS: The patient deferred transvaginal scanning. Within the right adnexa there is confirmation of the solid and cystic 10 x 9 x 9 cm mass which appears to be contiguous with the uterine fundus. A normal right ovary is not identified. The left ovary is obscured by overlying bowel gas. Trace right adnexal fluid. IMPRESSION: Confirmation of a 10 x 9 x 9 cm complex mass within the right adnexa which appears to be contiguous with the uterine fundus. A normal right ovary is not identified. Therefore, this could represent an ovarian malignancy with local invasion of the uterus or a uterine malignancy. Gynecologic consultation is recommended. Electronically signed by: Tony Medina M.D. 07/28/2017 8:15 AM [~ rep ct add3]] CT OF THE ABDOMEN AND PELVIS WITH CONTRAST CLINICAL HISTORY: Trauma, abdominal pain, flank pain/bruising, right hip pain. COMPARISON STUDY: None. TECHNIQUE: Following IV administration of 93 mL of Optiray-320, axial images of the abdomen and pelvis were obtained from the lung bases to the proximal femurs. Images were reviewed in the axial, sagittal, and coronal planes. IV contrast was administered without complication. A dose lowering technique was utilized adhering to the principles of ALARA. FINDINGS: The chest CT will be reported separately. There is no evidence of traumatic injury to the liver, spleen, adrenal glands, kidneys or pancreas. Gallstones are noted within the gallbladder. The gallbladder is mildly distended. There is no pericholecystic and interpretation. A 1.3 cm left adrenal nodule is unchanged since chest CT of March 29, 2015. This is benign and likely reflects an adenoma. Note is made of a 1.2 cm right renal cyst. No acute lumbar spine or pelvic fracture is identified. Several old left lower rib fractures are noted. Note is made of compression fractures of the superior endplates of T11 and T12 which are age indeterminate but new since exam of March 10, 2017. There is no acute pelvic or hip fracture. A right lateral thigh hematoma is partially imaged and measures at least 7.4 x 4.7 cm. There is adjacent infiltration/hemorrhage. Note is made of a large mixed cystic and solid right adnexal mass that measures 9.2 x 6.5 cm. A normal-appearing right ovary is not identified. There is no fat plane between this mass and the uterus. The left ovary is normal. Note is made of a 1.5 cm hypodense focus posterior to the sigmoid colon shown on axial image 342 of 471. There are a few indeterminate nodules along the medial aspects of the left iliac vessels that measure up to 6 mm. A Voss balloon is present within the bladder. IMPRESSION: 1. Partially visualized acute lateral right thigh hematoma that measures at least 7.4 x 4.7 cm. No acute pelvic or hip fracture. 2. No evidence of traumatic injury to the solid abdominal viscera. 3. 9.2 x 6.5 cm mixed cystic and solid right adnexal mass. No normal right ovary identified. Loss of fat plane between this mass and the uterus. A neoplasm is the diagnosis of exclusion and this is suspicious for a right ovarian malignancy. An atypical uterine lesion is considered less likely but could appear similar. Gynecologic consultation is recommended. A few indeterminate hypodense nodules within the pelvis are not definitive but raise the possibility of peritoneal spread of disease. Electronically signed by: Gildardo Malik M.D. 07/27/2017 11:[address] SCAN OF THE CHEST WITH IV CONTRAST CLINICAL HISTORY: Fall. COMPARISON STUDY: Chest x-ray dated 03/13/2017. Chest CT scans dated 03/29/2015 and 07/08/2010. Radiographs of the lumbar spine dated 03/10/2017. TECHNIQUE: Following the IV administration of 93 cc of Optiray 320, CT scan of the thorax was performed from the thoracic inlet to the upper abdomen. Images are reviewed in the axial, sagittal, and coronal planes. IV contrast was administered without complication. A dose lowering technique was utilized adhering to the principles of ALARA. The examination is significantly degraded by motion artifact as well as by streak artifact from the arms which could not be elevated above the chest. FINDINGS: Thyroid: Atrophic. Thoracic aorta: There is atherosclerotic calcification of the thoracic aorta, which is normal in caliber and demonstrates standard 3-vessel arch anatomy. No dissection is seen. Pulmonary vasculature: The pulmonary trunk is dilated measuring 4.1 cm in transverse diameter. This suggests pulmonary artery hypertension. There are no filling defects identified in the central pulmonary vessels to indicate pulmonary embolus. Note that this examination was not protocoled for evaluation of the pulmonary arteries. Heart: A 3-lead cardiac AICD is present in the left chest wall. The patient is status post midline sternotomy. The heart is enlarged and without pericardial effusion. The coronary arteries and mitral annulus are densely calcified. Lungs and pleural spaces: Evaluation of the lung parenchyma is degraded by respiratory motion artifact. There are trace pleural effusions. Letter atelectasis versus scarring is identified in the lower lobes. Diffuse subpleural reticulation is observed. Intralobular septal thickening is seen throughout both lungs, greatest at the apices. The trachea and central airways are clear. Scattered calcified granulomas are observed. No pneumothorax is seen. Mediastinum: There is no mediastinal hematoma or lymphadenopathy. Lor: Clear. Axillae: There is no axillary lymphadenopathy. Upper abdomen: There is reflux of contrast into the IVC and hepatic veins suggesting cardiac dysfunction. A tiny hiatal hernia is identified. Fluid/secretions are present within the esophagus to the level of the thoracic inlet. Skeletal structures: The skeletal structures are osteopenic. There are age indeterminant superior endplate compression deformities of T11 and T12. These are new from the 2017 spine radiographs and are likely acute. No retropulsed fragments are identified. No additional acute fracture is identified. There are healed left posterior rib fractures. No lytic or blastic bony lesions are seen. IMPRESSION: 1. Streak and motion artifact degraded examination. 2. There are mild superior endplate compression deformities of T11 and T12. These are age indeterminant but new from the 03/10/2017 lumbar spine radiographs and presumed acute. Correlate for point tenderness at these levels. 3. Cardiomegaly an AICD with evidence of pulmonary artery hypertension. Intralobular septal thickening suggests congestive failure. 4. There are trace pleural effusions. No pneumothorax is seen. 5. Fluid/secretions are present within the esophagus to the level of the thoracic inlet. Note that this may place the patient at risk for aspiration. 6. Additional findings as above. Electronically signed by: Eric Ross M.D. 07/27/2017 10:36 AM Dictated Date/Time: 07/27/2017 10:[address] OF THE CERVICAL SPINE WITHOUT CONTRAST CLINICAL HISTORY: Neck pain following fall. COMPARISON STUDY: Cervical spine CT February 26, 2017. TECHNIQUE: Helical axial images of the cervical spine were obtained without IV contrast. Sagittal and coronal reconstructions were viewed. A dose lowering technique was utilized adhering to the principles of ALARA. FINDINGS: Alignment of the cervical spine is anatomic. Vertebral body heights are maintained. There is no acute cervical spine fracture or subluxation. Craniocervical junction is intact. There is no prevertebral edema. Note is made of interlobular septal thickening and groundglass opacities within visualized portions of the lungs which suggest pulmonary edema. IMPRESSION: 1. No acute cervical spine fracture or subluxation. 2. Findings suggestive of pulmonary edema within visualized portions of the lungs. Electronically signed by: Gildardo Malik M.D. 07/27/2017 10:58 AM Dictated Date/Time: 07/27/2017 10:21 AM R FEMUR 2 VIEWS ROUTINE CLINICAL HISTORY: large hematoma right posterior/lateral femur, pain, fall COMPARISON STUDY: Abdomen and pelvis CT 07/27/2017. FINDINGS: Lateral soft tissue swelling within the right hip. The bones are osteopenic. There is a pelvic bones are intact. No fracture or dislocation within the right femur. Voss catheter and contrast within the bladder. Degenerative changes within the right knee. No knee effusion. IMPRESSION: Lateral soft tissue swelling within the right hip. No fracture or dislocation within the right femur. Electronically signed by: Tony Medina M.D. 07/27/2017 10:49 AM Dictated Date/Time: 07/27/2017 10:[address]AST CT DOSE: 1477.62 mGy.cm HISTORY: trauma, fall, on coumadin TECHNIQUE: Multiaxial CT images of the head were performed without the use of intravenous contrast. Automated exposure control was utilized for this study. A dose lowering technique was utilized adhering to the principles of ALARA. Comparison: Head CT 03/05/2017. Findings: Small retention cyst within the right maxillary sinus. The mastoid air cells are clear. Slight offset at the nasal bones is likely old. There is no soft tissue swelling at this location to suggest an acute injury. Interval development of a 1.7 x 1.2 cm soft tissue nodule within the right orbit. This is located between the lateral rectus muscle and optic nerve. This results in mild left deviation of the optic nerve. The calvarium and skull base are intact. There is no mass, hematoma, midline shift, acute infarct. White matter hypodensity is nonspecific but suggestive of microvascular ischemic change. The ventricles and sulci demonstrate mild age-related involutional changes. Old punctate lacunar infarcts seen within the right basal ganglia and cerebellar hemispheres.. Impression: 1. No acute intracranial abnormality. 2. Interval development of a 17 x 12 mm soft tissue nodule within the right orbit. This results in mild mass effect on the optic nerve. This was not present on the March 05, 2017 study and therefore could represent a small hematoma rather than a mass. If the patient is complaining of right eye pain then an emergent MRI is recommended for further elevation. However, a nonemergent MRI can be performed if the patient is not complaining of right-sided pain at this time to assess for a mass. Electronically signed by: Tony Medina M.D. 07/27/2017 10:38 AM Dictated Date/Time: 07/27/2017 10:26 AM echo: Interpretation Summary * Name: BRANDY AZUL Study Date: 07/29/2017 10:22 AM BP: 121/68 mmHg * Patient Location: [id number].[id number]\E409\S\1 HR: 70 * : 1935 (M/d/yyyy) Gender: Female Height: 67 in * Age: 82 yrs Ethnicity: CA Weight: 159 lb * Ordering Physician: Casey Doss * Referring Physician: Self, Referred * Performed By: Laine Lopez RDCS * * Reason For Study: Dilated Cardiomyopathy, 4 Months Bi-V ICD implant * BSA: 1.8 m2 * [id number] left ventricular systolic dysfunction. Mild to moderate global hypokinesis of the left ventricle. * Biatrial dilatation. * Normally expected gradients across mechanical aortic and mitral valves. * Mild aortic regurgitation. * Trace pulmonic regurgitation. * Moderate tricuspid regurgitation. * Moderate pulmonary hypertension. * Compared to an echocardiogram of 10/24/16, the estimated RV systolic pressure has increased. Procedure Details * A complete two-dimensional transthoracic echocardiogram was performed (2D, M- mode, Doppler and color flow Doppler). * The study was technically difficult. * The study was technically difficult, but visualization was adequate with the administration of Definity ultrasound contrast. * There were technical limitations due to patient'spoor positioning * A contrast injection of Definity was performed to improve assessment of LV function. * Contrast was injected into an intravenous site in the left arm. * One vial of Definity ultrasound contrast was diluted in normal saline to a total volume of 10 ml. A total of '2' ml of solution was administered during imaging. * Lot # [id number] of Definity utilized for procedure. * Expiration date 1Dec18. * The attending nurse who injected the contrast agent was Rafita Judge RN. Left Ventricle * The left ventricle is normal in size. * There is normal left ventricular wall thickness. * Ejection Fraction = 40-45%. * Left ventricular systolic function is mild to moderately reduced. * There is mild to moderate global hypokinesis of the left ventricle. Right Ventricle * There is a pacemaker lead in the right ventricle. * The right ventricular systolic function is normal as assessed by tricuspid annular plane systolic excursion (TAPSE) (normal >1.5 cm). Atria * The left atrium is moderately dilated. * The right atrium is mildly dilated. Mitral Valve * There is no mitral regurgitation noted. * There is a mechanical mitral valve. * Normal prosthetic mitral valve gradients. Tricuspid Valve * The tricuspid valve is not well visualized, but is grossly normal. * There is moderate tricuspid regurgitation. * Right ventricular systolic pressure is elevated at 50-60mmHg. Aortic Valve * Mild aortic regurgitation. * There is a mechanical aortic valve. * The gradient is normal for this prosthetic aortic valve. Pulmonic Valve * The pulmonic valve is not well visualized. * The pulmonary valve is inadequately visualized, but the Doppler data is adequate for interpretation. * There is no pulmonic valvular stenosis. * Trace pulmonic valvular regurgitation. Great Vessels * The aortic root is normal size. Pericardium/Pleural * There is no pericardial effusion. Great Vessels * Normal inferior vena cava diameter and respiratory variation suggests normal central venous pressure. --- Last Resulted CBC 07/31/17 05:41 Red Blood Count 2.74, Mean Corpuscular Volume 89.8, Mean Corpuscular Hemoglobin 28.5, Mean Corpuscular Hemoglobin Concent 31.7, Mean Platelet Volume 11.8, Neutrophils (%) (Auto) 75.4, Lymphocytes (%) (Auto) 11.7, Monocytes (%) (Auto) 9.6, Eosinophils (%) (Auto) 2.2, Basophils (%) (Auto) 0.3, Neutrophils # (Auto) 4.88, Lymphocytes # (Auto) 0.76, Monocytes # (Auto) 0.62, Eosinophils # (Auto) 0.14, Basophils # (Auto) 0.02 Last Resulted BMP 07/31/17 05:41 Item Value Date Time CA 125 Antigen 799 U/ML H 07/28/17 0620 Albumin 3.3 gm/dl L 07/27/17 0855 Alkaline Phosphatase 184 U/L H 07/27/17 0855 Alanine Aminotransferase (ALT/SGPT) 37 U/L 07/27/17 0855 Aspartate Amino Transf (AST/SGOT) 59 U/L H 07/27/17 0855 Calcium Level 7.9 mg/dl L 07/31/17 0541 Hemoglobin A1c 5.6 % 03/05/17 1531 Medication Reconciliation New Medications: Cephalexin Monohydrate (Cephalexin) 500 Mg Cap 500 MG PO BID, #6 CAP Diclofenac Sod (Voltaren) 100 Appln/100 Gm Gel 1 APPLN EXT QID, #100 GM Enoxaparin (Lovenox) 80 Mg/0.8 Ml Inj 70 MG SQ Q12, #6 SYR until INR therapeutic Oxycodone HCl (Oxycodone HCl) 5 Mg Tab 5 MG PO Q6H PRN for severe pain, #15 TAB Tramadol HCl (Tramadol HCl) 50 Mg Tab 50 MG PO Q4H PRN for Pain, #15 TAB Continued Medications: Acetaminophen (Tylenol) 325 Mg Tab 650 MG PO DIRECTED PRN for Pain or Fever, TAB Atorvastatin (Atorvastatin Calcium) 20 Mg Tab 20 MG PO HS B Complex W/ C (Vitamin B Complex-C) 1 Cap Cap 1 TAB PO DAILY Clopidogrel Bisulfate (Clopidogrel) 75 Mg Tab 75 MG PO DAILY Digoxin (Digoxin) 0.125 Mg Tab 0.125 MG PO Q2D AT 1600 Escitalopram Oxalate (Escitalopram Oxalate) 10 Mg Tab 10 MG PO QAM for 30 Days, #30 TAB Levothyroxine Sodium (Levothyroxine Sodium) 50 Mcg Tab 50 MCG PO QAM Lisinopril (Prinivil) 5 Mg Tab 5 MG PO BID, TAB Melatonin (Kp Melatonin) 3 Mg Tab 1 TAB PO HS, TAB Metoprolol Succinate (Metoprolol Succinate ER) 100 Mg Tabcr 100 MG PO BID Polyethylene (Miralax) 17 Gm Pow 17 GM PO DAILY PRN for UD Warfarin Sodium (Warfarin Sodium) 2 Mg Tab 2 MG PO DAILY Discontinued Medications: Triamterene/Hctz (Dyazide 37.5MG/25MG) Cap 1 TAB PO 2XWK, CAP THURSDAY AND THURSDAY Discharge Exam Physical Exam: General Appearance: no apparent distress Eyes: EOMI ENT: hearing grossly normal Neck: trachea midline, + pertinent finding (R sided lower Cspine/upper Tspine musculature in region of trapezius high tone/tender/decreased ROM - gentle myofascial - improved) Respiratory/Chest: no respiratory distress, no accessory muscle use Extremities: normal inspection Neurologic/Psychiatric: vegetable tier II-XII nml as tested, alert, normal mood/affect Skin: normal color, warm/dry Hospital Course Ms. 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 Encephalopathy: Delirium vs Anemia vs Depression: -overall improving. stable for SNF, ongoing supportive care acute blood loss anemia -required 1 unit transfusion, now overall clinically stable -continue to follow but no active signs of bleeding or hemodynamic instability - periodic CHC neck pain -voltaren gel, moist heat, OMT somatic dysfunction cervical region -OMT as above Mechanical Fall with RLE Hematoma: T11/T12 Compression Fx - pain control reasonable, outpt f/u otheriwse mechanical mitral valve -despite hematoma, given mechanical valve and stroke risk - have to resume anticoagulation - follow closely. since INR 1.4 - bridging w lovenox until INR therapeutic. 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 Pro - recommended referral to oculoplastic surgeon at their office Paroxysmal A Fib/Sinus Node Dysfunction S/P BiV ICD: Lightheadedness/Dizziness ( Unknown Etiology) - Echo report as above - Digoxin 0.125 mg Q2D and Toprol XL 100 mg BID HTN: - continue to follow BP Hypothyroidism: - Synthroid 50 mcg daily HLD: - Atorvastatin 20 mg daily Code Status: DO NOT RESUSCITATE Disposition: - PT/OT evaluations - - stable for SNF - Will need Gyne/Onc referral to [facility] unless she prefers to start w opinion from local [facility] and then collection technician onc if she prefers to pursue further - ophthalmology eval w dr pro as outpt otherwise as above and as per discharge instructions Total Time Spent: Less than 30 minutes This includes examination of the patient, discharge planning, medication reconciliation, and communication with other providers. Discharge Instructions Please refer to the electronic Patient Visit Report (Discharge Instructions) for additional information.
== END 2017-07-31 11:59 | DRG 813 ==
LOC: EDBD 08:17 → C.EDB 08:19 → C.4E 13:39 → EDBEDREQ 13:49 → ENRESERV 13:59
PROVIDERS: ADMIT Internal Medicine; ATTEND Family Medicine
DX: D68.32 Hemorrhagic disorder due to extrinsic circulating anticoagulants (principal); G93.41 Metabolic encephalopathy; N39.0 Urinary tract infection, site not specified; I42.9 Cardiomyopathy, unspecified; I50.23 Acute on chronic systolic (congestive) heart failure; D62 Acute posthemorrhagic anemia; I13.0 Hypertensive heart and chronic kidney disease with heart failure and stage 1 through stage 4 chronic kidney disease, or unspecified chronic kidney disease; S80.11XA Contusion of right lower leg, initial encounter; M48.54XA Collapsed vertebra, not elsewhere classified, thoracic region, initial encounter for fracture; S02.2XXA Fracture of nasal bones, initial encounter for closed fracture; T45.515A Adverse effect of anticoagulants, initial encounter; I48.0 Paroxysmal atrial fibrillation; Z86.73 Personal history of transient ischemic attack (TIA), and cerebral infarction without residual deficits; E78.5 Hyperlipidemia, unspecified; Z95.2 Presence of prosthetic heart valve; Z95.810 Presence of automatic (implantable) cardiac defibrillator; E03.9 Hypothyroidism, unspecified; M54.2 Cervicalgia; B96.1 Klebsiella pneumoniae [K. pneumoniae] as the cause of diseases classified elsewhere; R19.00 Intra-abdominal and pelvic swelling, mass and lump, unspecified site; R22.0 Localized swelling, mass and lump, head; I48.2 Chronic atrial fibrillation; Y92.003 Bedroom of unspecified non-institutional (private) residence as the place of occurrence of the external cause; N18.3 Chronic kidney disease, stage 3 (moderate); W06.XXXA Fall from bed, initial encounter

== ENCOUNTER 2017-08-26 07:38 | Emergency (ER) | payer OTHER, BC ==
[~2017-08-26 07:38] MED LIST changes: -DLC5 PO; -FRRG PO; +KFL500 PO; -LVNIS40 SQ; +LVNIS80 SQ; -MRLP17 PO; +MRLP17X PO; -POLYSOL4 OP; +RXC5 PO; +TPRSR/100 PO; -TRIA37.5 PO; +ULT50X PO; -ZFRI4 IV
[2017-08-26 07:46] VITALS: TEMP 36.6
[2017-08-26] MEDS ORDERED: ACETAMINOPHEN 325 MG TAB PO STA (07:51)
--- NOTE | 2017-08-26 07:54 | EMERGENCY ROOM VISIT NOTE ---
History Report prepared by Ginny: Kamilla Delgado Under the Supervision of: Dr. Vamshi Ashley M.D. First contact with patient: 07:41 Stated Complaint: FALL/R-HIP PAIN History of Present Illness The patient is an 82 year old white female with a past medical history of TIA, atrial fibrillation, CVA, CHF who presents to the ED with a cc of a sudden fall that occurred around two hours prior to arrival. Positive head trauma. right hip pain, right elbow pain. Negative loss of consciousness, chest pain, abdominal pain, back pain. The patient states that she is on Plavix and Coumadin for her atrial fibrillation. She states that she fell towards her right side, injuring her right hip, right elbow, and right head. The patient states that she fell earlier this month also injuring her right hip. She describes a burning pain in her right hip. Source of History: patient Onset: two hours prior to arrival Position: other (global) Quality: other (fall) Timing: other (sudden) Associated Symptoms: No LOC, No chest pain, No abdominal pain, No back pain Note: Associated Symptoms: right hip pain, right elbow pain, right head pain Review of Systems See HPI for pertinent positives and negatives. A total of ten systems were reviewed and were otherwise negative. Past Medical & Surgical Medical Problems: (1) Acute pulmonary edema (2) Atrial Fibrillation (3) Cerebrovascular accident (CVA) (4) Chronic atrial fibrillation with RVR (5) Congestive Heart Failure Nos (6) Demand ischemia of myocardium (7) Diplopia (8) Generalized weakness (9) Hyperlipidemia Nec/Nos (10) Hypertension Nos (11) Stroke-like symptoms (12) TIA (transient ischemic attack) (13) Traumatic hematoma of right lower leg Surgical Problems: (1) Mitral valve replaced (2) Status post heart valve replacement with mechanical valve Family History Breast Cancer Cancer FHx: heart disease Heart disease Hypertension Social History Smoking Status: Never Smoker Alcohol Use: none Drug Use: none Marital Status: Housing Status: lives with family Occupation Status: retired Current/Historical Medications Scheduled Atorvastatin (Atorvastatin Calcium), 20 MG PO HS B Complex W/ C (Vitamin B Complex-C), 1 TAB PO DAILY Clopidogrel Bisulfate (Clopidogrel), 75 MG PO DAILY Digoxin (Digoxin), 0.125 MG PO Q2D AT 1600 Escitalopram Oxalate (Escitalopram Oxalate), 10 MG PO QAM Levothyroxine Sodium (Levothyroxine Sodium), 50 MCG PO QAM Lisinopril (Prinivil), 5 MG PO BID Melatonin (Kp Melatonin), 1 TAB PO HS Metoprolol Succinate (Metoprolol Succinate ER), 100 MG PO BID Tramadol Hcl (Ultram), 25 MG PO Q8H Warfarin Sodium (Warfarin Sodium), 2 MG PO DAILY Scheduled PRN Acetaminophen (Tylenol), 650 MG PO DIRECTED PRN for Pain or Fever Allergies Coded Allergies: Codeine (Verified Allergy, Intermediate, RASH, 03/05/17) Physical Exam Vital Signs Date Time Temp Pulse Resp B/P (MAP) Pulse Ox O2 Delivery O2 Flow Rate FiO2 08/26/17 11:53 70 17 105/51 92 08/26/17 11:52 70 17 105/51 92 Room Air 08/26/17 10:01 70 18 132/70 97 Room Air 08/26/17 08:15 Room Air 08/26/17 08:15 98 Room Air 08/26/17 07:46 36.6 84 18 155/83 98 Room Air 08/26/17 07:44 90 Physical Exam GENERAL: Awake, alert, well-appearing, NAD HENT: Right forehead swelling, ecchymosis and tenderness to palpation EYES: Normal conjunctiva. Sclera non-icteric. NECK: Supple. No nuchal rigidity. FROM. No midline c spine tenderness RESPIRATORY: CTAB, no rhonchi, wheezing, crackles CARDIAC: Irregularly irregular, no MRG ABDOMEN: Soft, NTND, BS+ MSK: No chest wall TTP, Device in chest and midline sternotomy scar, no LE edema , Prominent swelling, tenderness, and ecchymosis to right hip, NVI distally sensory and motor SP, DP, tib nerves. NEURO: GCS 15, CN 2-12 intact, moves all 4s on command SKIN: No rash or jaundice noted. Medical Decision & Procedures ER Provider Diagnostic Interpretation: Radiology results as stated below per my review and radiologist interpretation: CT FACIAL BONES-MXILLOFAC WITHOUT CT DOSE: CLINICAL HISTORY: Facial pain status post trauma COMPARISON STUDY: 03/05/2017 TECHNIQUE: Helical images were acquired in the transverse plane. The study was reviewed and analyzed on the independent 3-D workstation. A dose lowering technique was utilized adhering to the principles of ALARA. The pterygoid plates appear intact. The zygomatic arches appear intact. The globes appear intact. There is no evidence of orbital emphysema. The orbital mehta and floor appear intact. The mandibular condyles appear intact. There are bilateral arthritic changes present. There is a right frontal scalp hematoma. There is right periorbital soft tissue edema. There is moderate mucosal thickening within the maxilla sinuses. IMPRESSION: No facial fractures identified. Electronically signed by: Konrad Edgar M.D. 08/26/2017 8:50 AM Dictated Date/Time: 08/26/2017 8:[address] HEAD WITHOUT CONTRAST (CT) CLINICAL HISTORY: Head trauma. Right frontal hematoma. Patient on Coumadin. Head pain. COMPARISON STUDY: 07/27/2017 TECHNIQUE: Axial CT of the brain is performed from the vertex to the skull base. IV contrast was not administered for this examination. A dose lowering technique was utilized adhering to the principles of ALARA. CT DOSE: 1499.38 mGy.cm FINDINGS: No intra or extra-axial mass lesions are visualized. There is no CT evidence of acute cortical infarction. There is no evidence of midline shift. There is no acute hemorrhage. No calvarial fractures are visualized. There are patchy white matter hypodensities likely on a small vessel basis. There are old basal ganglia and cerebellar lacunar infarcts. There is no evidence of pathologic ventricular dilatation. There is a right frontal scalp and right periorbital hematoma. IMPRESSION: Right frontal scalp and periorbital hematoma. No evidence of acute intracranial injury. Electronically signed by: Konrad Edgar M.D. 08/26/2017 8:46 AM Dictated Date/Time: 08/26/2017 8:44 AM CHEST ONE VIEW PORTABLE CLINICAL HISTORY: Fall. COMPARISON STUDY: Chest radiograph March 13, [address] July 27, 2017. FINDINGS: Moderate cardiomegaly is unchanged. There is no evidence for overt pulmonary edema. There is pulmonary vascular congestion. No airspace opacities are identified. Linear left midlung opacity suggests atelectasis. There is a left subclavian biventricular pacer/AICD. Prosthetic mitral and aortic valves are noted. There is no pneumothorax or pleural effusion. IMPRESSION: 1. Pulmonary vascular congestion without overt pulmonary edema. 2. No pneumothorax. 3. Cardiomegaly. Electronically signed by: Gildardo Malik M.D. 08/26/2017 8:16 AM Dictated Date/Time: 08/26/2017 8:[address] DOSE: HISTORY: Neck pain. s/p fall, coumadin/plavix, TECHNIQUE: Multiaxial CT images of the cervical spine were performed and reformatted in the sagittal and coronal plane without the use of contrast. A dose lowering technique was utilized adhering to the principles of ALARA. COMPARISON: Cervical spine CT 07/27/2017. FINDINGS: No fractures. No subluxation. Prevertebral soft tissues and the C1-C2 interval are intact. No pneumothorax. Left-sided pacemaker wires are present. Interlobular septal thickening at the lung apices may represent mild pulmonary edema. IMPRESSION: No fractures within the cervical spine. Electronically signed by: Tony Medina M.D. 08/26/2017 8:51 AM Dictated Date/Time: 08/26/2017 8:47 AM ADDENDUM The right pelvic mass was described on previous studies and is concerning for a gynecologic malignancy rather than a fibroid. Electronically signed by: Tony Medina M.D. 08/26/2017 9:01 AM Dictated Date/Time: 08/26/2017 9:00 AM ORIGINAL REPORT RIGHT HIP CT CT DOSE: HISTORY: Right hip pain. s/p fall, large ecchymosis and pain TECHNIQUE: Multiaxial CT images of the right hip were performed and reformatted in the sagittal and coronal plane without the use of contrast. A dose lowering technique was utilized adhering to the principles of ALARA. COMPARISON: Right hip 01/20/2017. FINDINGS: No fracture or dislocation within the right hip. Large subcutaneous hematoma within the right lateral hip. This is only partially visualized but measures up to 15 x 7 cm. No significant hip effusion. Lobular exophytic mass within the right side of the uterus which measures 6 cm. This is only partially visualized but favors a fibroid. IMPRESSION: 1. No fracture or dislocation within the right hip. 2. Large right lateral subcutaneous hematoma which measures 15 x 7 cm. 3. A 6 cm exophytic lobular mass within the right side of the uterus. This favors a fibroid. Electronically signed by: Tony Medina M.D. 08/26/2017 8:55 AM Dictated Date/Time: 08/26/2017 8:[address] OF THE PELVIS WITHOUT CONTRAST CLINICAL HISTORY: Right hip pain following fall. COMPARISON STUDY: CT of the abdomen and pelvis July 27, 2017. TECHNIQUE: Axial images of the pelvis were obtained without IV contrast. Sagittal and coronal reconstructions were viewed. FINDINGS: There is no acute fracture within the pelvis or hips. Alignment of both hips is anatomic. Note is again made of a right adnexal mass that measures 9.6 x 6.3 cm. This is similar to exam of July 27, 2017. A normal right ovary is not visualized. This mass extends to the uterus with loss of fat plane between the mass and uterus. A 1.7 cm nodule anterior to the rectum is unchanged. This could reflect peritoneal disease. Note is made of a large subcutaneous lateral right thigh hematoma which is partially imaged on this exam. This measures at least 14.8 x 7.4 cm. There is sigmoid diverticulosis without evidence for acute diverticulitis. The appendix is normal. IMPRESSION: 1. No acute fracture within the pelvis or hips. 2. Large partially visualized subcutaneous hematoma of the lateral right thigh which measures at least 14.8 x 7.4 cm. 3. Redemonstration of a 9.6 x 6.3 cm right adnexal mass. This remains indeterminate but suspicious for malignancy. This may reflect a right ovarian malignancy or atypical uterine lesion. Gynecologic consultation is recommended. Electronically signed by: Gildardo Malik M.D. 08/26/2017 9:23 AM Dictated Date/Time: 08/26/2017 8:54 AM Laboratory Results 08/26/17 08:15 Red Blood Count 3.30, Mean Corpuscular Volume 93.6, Mean Corpuscular Hemoglobin 29.1, Mean Corpuscular Hemoglobin Concent 31.1, Mean Platelet Volume 11.7, Neutrophils (%) (Auto) 81.5, Lymphocytes (%) (Auto) 8.6, Monocytes (%) (Auto) 7.9, Eosinophils (%) (Auto) 1.3, Basophils (%) (Auto) 0.4, Neutrophils # (Auto) 8.26, Lymphocytes # (Auto) 0.87, Monocytes # (Auto) 0.80, Eosinophils # (Auto) 0.13, Basophils # (Auto) 0.04 08/26/17 08:15 Test 08/26/17 08:15 White Blood Count 10.13 K/uL (4.8-10.8) Red Blood Count 3.30 M/uL (4.2-5.4) Hemoglobin 9.6 g/dL (12.0-16.0) Hematocrit 30.9 % (37-47) Mean Corpuscular Volume 93.6 fL (80-100) Mean Corpuscular Hemoglobin 29.1 pg (25-34) Mean Corpuscular Hemoglobin Concent 31.1 g/dl (32-36) Platelet Count 249 K/uL (130-400) Mean Platelet Volume 11.7 fL (7.4-10.4) Neutrophils (%) (Auto) 81.5 % Lymphocytes (%) (Auto) 8.6 % Monocytes (%) (Auto) 7.9 % Eosinophils (%) (Auto) 1.3 % Basophils (%) (Auto) 0.4 % Neutrophils # (Auto) 8.26 K/uL (1.4-6.5) Lymphocytes # (Auto) 0.87 K/uL (1.2-3.4) Monocytes # (Auto) 0.80 K/uL (0.11-0.59) Eosinophils # (Auto) 0.13 K/uL (0-0.5) Basophils # (Auto) 0.04 K/uL (0-0.2) RDW Standard Deviation 61.5 fL (36.4-46.3) RDW Coefficient of Variation 18.0 % (11.5-14.5) Immature Granulocyte % (Auto) 0.3 % Immature Granulocyte # (Auto) 0.03 K/uL (0.00-0.02) Prothrombin Time 33.5 SECONDS (9.0-12.0) Prothromb Time International Ratio 3.3 (0.9-1.1) Activated Partial Thromboplast Time 37.9 SECONDS (21.0-31.0) Partial Thromboplastin Ratio 1.5 Anion Gap 6.0 mmol/L (3-11) Estimated GFR () 52.4 Estimated GFR (Non- 45.2 BUN/Creatinine Ratio 12.2 (10-20) Calcium Level 8.7 mg/dl (8.5-10.1) Total Bilirubin 0.9 mg/dl (0.2-1) Direct Bilirubin 0.2 mg/dl (0-0.2) Aspartate Amino Transf (AST/SGOT) 53 U/L (15-37) Alanine Aminotransferase (ALT/SGPT) 24 U/L (12-78) Alkaline Phosphatase 167 U/L (45-117) Troponin I 0.216 ng/ml (0-0.045) Total Protein 7.6 gm/dl (6.4-8.2) Albumin 3.4 gm/dl (3.4-5.0) Laboratory results reviewed by me Medications Administered Medications (Trade) Dose Ordered Sig/Elsi Route Start Time Stop Time Status Last Admin Dose Admin Fentanyl Citrate (Fentanyl Inj) 25 mcg NOW ONCE IV 08/26/17 08:00 08/26/17 08:01 DC 08/26/17 08:16 25 MCG Acetaminophen (Tylenol Tab) 650 mg NOW STAT PO 08/26/17 07:51 08/26/17 07:57 DC 08/26/17 08:16 650 MG Morphine Sulfate (MoRPHine SULFATE INJ) 2 mg NOW STAT IV 08/26/17 08:56 08/26/17 08:57 DC 08/26/17 09:00 2 MG Ondansetron HCl (Zofran Inj) 4 mg STK-MED ONCE .ROUTE 08/26/17 09:05 08/26/17 09:06 DC 08/26/17 09:37 4 MG Fentanyl Citrate (Fentanyl Inj) 25 mcg NOW ONCE IV 08/26/17 10:15 08/26/17 10:16 DC 08/26/17 10:08 25 MCG Acetaminophen/ Hydrocodone Bitart ([place] 5/325 Tab) 1 tab ONE STAT PO 08/26/17 10:01 08/26/17 10:03 DC 08/26/17 10:08 1 TAB ECG Indication: other (fall) Rate (beats per minute): 70 Rhythm: other (Av paced) Findings: T-wave inversion (lateral and high lateral leads), other (wide QRS and QTC) Comparison ECG Date: 07/27/17 Change: no significant change ED Course 0746: The patient was evaluated in room A10. A complete history and physical exam was performed. 0928: I reevaluated the patient and she is resting. I discussed the exam findings with her and her family and I discussed the treatment plan. 0933: I discussed the patients case with Dr. Doss, Cardiology. He recommends that the patient has her pacemaker interrogated and that the patient can go home. 0958: I discussed the patients case with Lenny Marie, [facility]. He said that if the patient requires pain control and cannot ambulate she would need to stay for further evaluation. He said that the patient requires no acute intervention, but he said that they would see him in a consult. 1015: I spoke to Asif from [employer], noting that the patient had some fluid retention, but that has resolved. The patient has not had any shocks or arrhythmias. 1022: Per nursing staff, the patient did well with her ambulation trial. Case Management will look into therapy options for the patient. 1110: I reevaluated the patient and she is resting comfortably. I discussed the test results with her and I discussed the treatment plan. She verbalized complete understanding and agreement. She is ready to go home. Medical Decision Triage Nursing notes reviewed. The patient's presentation and history were concerning for fall, strain, sprain , fracture, dislocation, coagulopathy, ICH, concussion. The patient is an 82 year old white female with a past medical history of TIA, atrial fibrillation, CVA, CHF, AVR/MVR who presents to the ED with a cc of a sudden fall that occurred around two hours prior to arrival. Patient was seen and evaluated the bedside. This is her second fall within the last week. Patient states that she did not get her walker and fell to her right side. Patient does complain of some right-sided hip pain. Patient states that she has been able to ambulate. On exam the patient does have a little bit of ecchymosis superior to the right eyebrow. Patient also does have significant ecchymosis and hematoma of the right hip. Patient did have blood work completed along with a CT of the head neck, and face as well as the pelvis and hip. Patient not have any acute fracture. Patient did have a significantly large hematoma of the right hip. Patient's EKG did show that she was AV paced and did not show any acute changes. Patient's troponin was elevated. Given the patient's chronic elevation in troponin I did discuss the patient with the on-call noodle press operator who did suggest interrogating the pacemaker. However, given the lack of chest pain, shortness breath, or EKG changes with a chronic troponin no other interventions at this time especially given this is a likely mechanical fall. I did discuss case with the orthopedist who stated that they likely would not take her to the OR to have it drained however she cannot ambulate or is in significant pain that she should be placed under observation and they would follow her. Patient was able to ambulate. We did discuss with dependency case manager inpatient versus outpatient rehabilitation. The patient declined inpatient rehabilitation. Patient does have home health that he'll arrive to further work with the patient. Given that the patient does have a prior history of aortic and mechanical valve repairs. They are mechanical. Less her INR would be appropriate given her mitral valve replacement. I did briefly discuss with the daughter that it may be [place] to discuss Coumadin use with their noodle press operator and PCP as she has had some recurrent falls as there may be a risk benefit to being on the Coumadin of stroke versus a bleed. Patient's plain films negative. Patient's interrogation was fairly unremarkable no arrhythmias or shocks. Patient was deemed suitable for outpatient follow-up and treatment. Patient was given strict follow-up, discharge, and return precautions. All questions were answered. Patient was deemed suitable for outpatient follow-up at this time. Patient agreed with the plan of care and was safely discharged home. Medication Reconcilliation Current Medication List: was personally reviewed by me Blood Pressure Screening Patient's blood pressure: Elevated blood pressure Blood pressure disposition: Elevated BP felt to be situational, Did not require urgent referral Consults Time Called: 930 Consulting Physician: Dr. Doss, Cardiology Returned Call: [phone] I discussed the patients case with Dr. Doss, Cardiology. He recommends that the patient has her pacemaker interrogated and that the patient can go home. Additional Consults: Time Called: 930 Consulted Physician: Natalia Mims PA-C Returned Call: [phone] Additional Comments: I discussed the patients case with Natalia Mims PA-C. He said that if the patient requires pain control and cannot ambulate she would need to stay for further evaluation. He said that the patient requires no acute intervention, but he said that they would see him in a consult. Impression Primary Impression: Fall Additional Impressions: Anemia Elevated troponin Contusion of right hip Scribe Attestation The scribe's documentation has been prepared under my direction and personally reviewed by me in its entirety. I confirm that the note above accurately reflects all work, treatment, procedures, and medical decision making performed by me. Departure Information Dispostion Home / Self-Care Prescriptions Tramadol Hcl (ULTRAM) 50 Mg Tab 25 MG PO Q8H, #12 TAB PRN PAIN Prov: Vamshi Ashley M.D. 08/26/17 Referrals Mary Hardwick M.D. (PCP) Alvin Guevara M.D. Forms HOME CARE DOCUMENTATION FORM, IMPORTANT VISIT INFORMATION Patient Instructions ED Mechanical Fall, My [facility], [place] Additional Instructions Please return to the emergency department if you have worsening or recurrent symptoms not amenable to at-home treatment. Please call for a follow-up appointment with her primary care physician. Please take your medications as prescribed. If you have other concerns and/or complaints please feel free to also call your primary care physician's office or return the ED for further evaluation, management, and treatment. Please make sure to have your Coumadin level checked within the next week. Please follow-up with her primary care physician as well as her noodle press operator to discuss future Coumadin use given your recurrent falls. You may take tylenol 1000 mg every 6 hours as needed for pain. If he still have pain he may take some tramadol. Please note this does make you sleepy and sedated. Please also continue to place ice packs over your areas of swelling. If you are unable to walk please return for further evaluation. Take your medications as prescribed. You have been examined and treated today on an emergency basis only. This is not a substitute for, or an effort to provide, complete comprehensive medical care. It is impossible to recognize and treat all injuries or illnesses in a single emergency department visit. It is therefore important that you follow up closely with [facility], your PCP, and/or your specialist(s). Call as soon as possible for an appointment. Thank you for your time and consideration. I look forward to speaking with you again soon. Please don't hesitate to call us if you have any questions. Problem Qualifiers Primary Impression: Fall Encounter type: initial encounter Qualified Codes: W19.XXXA - Unspecified fall, initial encounter Additional Impressions: Anemia Anemia type: unspecified type Qualified Codes: D64.9 - Anemia, unspecified Contusion of right hip Encounter type: initial encounter Qualified Codes: S70.01XA - Contusion of right hip, initial encounter
[2017-08-26] MEDS ORDERED: FENTANYL CITRATE INJ 50 MCG/1 ML 2 ML VIAL IV ONE ×2 (08:00→10:15)
[2017-08-26 08:15] VITALS: O2SAT 98
--- NOTE | 2017-08-26 08:17 | DIAGNOSTIC IMAGING REPORT ---
CHEST ONE VIEW PORTABLE CLINICAL HISTORY: Fall. COMPARISON STUDY: Chest radiograph March 13, [address] July 27, 2017. FINDINGS: Moderate cardiomegaly is unchanged. There is no evidence for overt pulmonary edema. There is pulmonary vascular congestion. No airspace opacities are identified. Linear left midlung opacity suggests atelectasis. There is a left subclavian biventricular pacer/AICD. Prosthetic mitral and aortic valves are noted. There is no pneumothorax or pleural effusion. IMPRESSION: 1. Pulmonary vascular congestion without overt pulmonary edema. 2. No pneumothorax. 3. Cardiomegaly. Electronically signed by: Gildardo Malik M.D. 08/26/2017 8:16 AM Dictated Date/Time: 08/26/2017 8:12 AM
[2017-08-26 08:34] LABS: BASO % 0.4 %; BASO ABS # 0.04 K/uL (0-0.2); COMPLETE YES; EOS % 1.3 %; HEMATOCRIT 30.9 % (37-47); IG% 0.3 %; LYMPH % 8.6 %; LYMPH ABS # 0.87 K/uL (1.2-3.4); MEAN CELL VOLUME 93.6 fL (80-100); MEAN CORPUSCULAR HEMOGLOBIN 29.1 pg (25-34); MEAN CORPUSCULAR HGB CONC 31.1 g/dl (32-36); MEAN PLATELET VOLUME 11.7 fL (7.4-10.4); MONO % 7.9 %; NEUT % 81.5 %; PLATELET COUNT 249 K/uL (130-400); WHITE BLOOD COUNT 10.13 K/uL (4.8-10.8)
[2017-08-26 08:42] LABS: INR 3.3 (0.9-1.1); PARTIAL THROMBOPLASTIN RATIO 1.5; PROTHROMBIN TIME (PATIENT) 33.5 SECONDS (9.0-12.0)
--- NOTE | 2017-08-26 08:47 | DIAGNOSTIC IMAGING REPORT ---
CT HEAD WITHOUT CONTRAST (CT) CLINICAL HISTORY: Head trauma. Right frontal hematoma. Patient on Coumadin. Head pain. COMPARISON STUDY: 07/27/2017 TECHNIQUE: Axial CT of the brain is performed from the vertex to the skull base. IV contrast was not administered for this examination. A dose lowering technique was utilized adhering to the principles of ALARA. CT DOSE: 1499.38 mGy.cm FINDINGS: No intra or extra-axial mass lesions are visualized. There is no CT evidence of acute cortical infarction. There is no evidence of midline shift. There is no acute hemorrhage. No calvarial fractures are visualized. There are patchy white matter hypodensities likely on a small vessel basis. There are old basal ganglia and cerebellar lacunar infarcts. There is no evidence of pathologic ventricular dilatation. There is a right frontal scalp and right periorbital hematoma. IMPRESSION: Right frontal scalp and periorbital hematoma. No evidence of acute intracranial injury. Electronically signed by: Konrad Edgar M.D. 08/26/2017 8:46 AM Dictated Date/Time: 08/26/2017 8:44 AM
--- NOTE | 2017-08-26 08:51 | DIAGNOSTIC IMAGING REPORT ---
CT FACIAL BONES-MXILLOFAC WITHOUT CT DOSE: CLINICAL HISTORY: Facial pain status post trauma COMPARISON STUDY: 03/05/2017 TECHNIQUE: Helical images were acquired in the transverse plane. The study was reviewed and analyzed on the independent 3-D workstation. A dose lowering technique was utilized adhering to the principles of ALARA. The pterygoid plates appear intact. The zygomatic arches appear intact. The globes appear intact. There is no evidence of orbital emphysema. The orbital mehta and floor appear intact. The mandibular condyles appear intact. There are bilateral arthritic changes present. There is a right frontal scalp hematoma. There is right periorbital soft tissue edema. There is moderate mucosal thickening within the maxilla sinuses. IMPRESSION: No facial fractures identified. Electronically signed by: Konrad Edgar M.D. 08/26/2017 8:50 AM Dictated Date/Time: 08/26/2017 8:47 AM
[2017-08-26 08:52] LABS: ALT/SGPT 24 U/L (12-78); BLOOD UREA NITROGEN 14 mg/dl (7-18); BUN/CREATININE RATIO 12.2 (10-20); CALCIUM 8.7 mg/dl (8.5-10.1); CARBON DIOXIDE 26 mmol/L (21-32); CHLORIDE 105 mmol/L (98-107); CREATININE 1.13 mg/dl (0.60-1.20); GLUCOSE 105 mg/dl (70-99); POTASSIUM 4.2 mmol/L (3.5-5.1); SODIUM 137 mmol/L (136-145)
--- NOTE | 2017-08-26 08:52 | DIAGNOSTIC IMAGING REPORT ---
CERVICAL SPINE CT CT DOSE: HISTORY: Neck pain. s/p fall, coumadin/plavix, TECHNIQUE: Multiaxial CT images of the cervical spine were performed and reformatted in the sagittal and coronal plane without the use of contrast. A dose lowering technique was utilized adhering to the principles of ALARA. COMPARISON: Cervical spine CT 07/27/2017. FINDINGS: No fractures. No subluxation. Prevertebral soft tissues and the C1-C2 interval are intact. No pneumothorax. Left-sided pacemaker wires are present. Interlobular septal thickening at the lung apices may represent mild pulmonary edema. IMPRESSION: No fractures within the cervical spine. Electronically signed by: Tony Medina M.D. 08/26/2017 8:51 AM Dictated Date/Time: 08/26/2017 8:47 AM
[2017-08-26] MEDS ORDERED: MoRPHine SULFATE 2 MG/ML CARP IV STA (08:56)
--- NOTE | 2017-08-26 08:56 | DIAGNOSTIC IMAGING REPORT ---
ADDENDUM The right pelvic mass was described on previous studies and is concerning for a gynecologic malignancy rather than a fibroid. Electronically signed by: Tony Medina M.D. 08/26/2017 9:01 AM Dictated Date/Time: 08/26/2017 9:00 AM ORIGINAL REPORT RIGHT HIP CT CT DOSE: HISTORY: Right hip pain. s/p fall, large ecchymosis and pain TECHNIQUE: Multiaxial CT images of the right hip were performed and reformatted in the sagittal and coronal plane without the use of contrast. A dose lowering technique was utilized adhering to the principles of ALARA. COMPARISON: Right hip 01/20/2017. FINDINGS: No fracture or dislocation within the right hip. Large subcutaneous hematoma within the right lateral hip. This is only partially visualized but measures up to 15 x 7 cm. No significant hip effusion. Lobular exophytic mass within the right side of the uterus which measures 6 cm. This is only partially visualized but favors a fibroid. IMPRESSION: 1. No fracture or dislocation within the right hip. 2. Large right lateral subcutaneous hematoma which measures 15 x 7 cm. 3. A 6 cm exophytic lobular mass within the right side of the uterus. This favors a fibroid. Electronically signed by: Tony Medina M.D. 08/26/2017 8:55 AM Dictated Date/Time: 08/26/2017 8:51 AM
[2017-08-26 09:02] LABS: ALKALINE PHOSPHATASE 167 U/L (45-117); AST/SGOT 53 U/L (15-37)
[2017-08-26] MEDS ORDERED: ONDANSETRON INJ 2 MG/ML 2 ML VIAL ONE (09:05)
--- NOTE | 2017-08-26 09:24 | DIAGNOSTIC IMAGING REPORT ---
CT OF THE PELVIS WITHOUT CONTRAST CLINICAL HISTORY: Right hip pain following fall. COMPARISON STUDY: CT of the abdomen and pelvis July 27, 2017. TECHNIQUE: Axial images of the pelvis were obtained without IV contrast. Sagittal and coronal reconstructions were viewed. FINDINGS: There is no acute fracture within the pelvis or hips. Alignment of both hips is anatomic. Note is again made of a right adnexal mass that measures 9.6 x 6.3 cm. This is similar to exam of July 27, 2017. A normal right ovary is not visualized. This mass extends to the uterus with loss of fat plane between the mass and uterus. A 1.7 cm nodule anterior to the rectum is unchanged. This could reflect peritoneal disease. Note is made of a large subcutaneous lateral right thigh hematoma which is partially imaged on this exam. This measures at least 14.8 x 7.4 cm. There is sigmoid diverticulosis without evidence for acute diverticulitis. The appendix is normal. IMPRESSION: 1. No acute fracture within the pelvis or hips. 2. Large partially visualized subcutaneous hematoma of the lateral right thigh which measures at least 14.8 x 7.4 cm. 3. Redemonstration of a 9.6 x 6.3 cm right adnexal mass. This remains indeterminate but suspicious for malignancy. This may reflect a right ovarian malignancy or atypical uterine lesion. Gynecologic consultation is recommended. Electronically signed by: Gildardo Malik M.D. 08/26/2017 9:23 AM Dictated Date/Time: 08/26/2017 8:54 AM
[2017-08-26] MEDS ORDERED: HYDROCODONE/ACETAMOPHEN 5/325MG TAB PO STA (10:01)
[2017-08-26] MEDS ORDERED: TRAM-453 PO (11:31)
[2017-08-26 11:53] VITALS: BP 105/51; PULSE 70; O2SAT 92
== END 2017-08-26 11:53 | disposition home or self-care (01) ==
LOC: EDBD 07:38 → C.EDA 07:40
DX: D64.9 Anemia, unspecified (principal); R79.89 Other specified abnormal findings of blood chemistry; S70.01XA Contusion of right hip, initial encounter; W19.XXXA Unspecified fall, initial encounter; I48.2 Chronic atrial fibrillation; E78.5 Hyperlipidemia, unspecified; Z86.73 Personal history of transient ischemic attack (TIA), and cerebral infarction without residual deficits; Z95.2 Presence of prosthetic heart valve; Z80.3 Family history of malignant neoplasm of breast; Z82.49 Family history of ischemic heart disease and other diseases of the circulatory system; Z79.01 Long term (current) use of anticoagulants; Z79.02 Long term (current) use of antithrombotics/antiplatelets; Z79.899 Other long term (current) drug therapy

== ENCOUNTER 2017-09-07 07:32 | Inpatient (IN) | payer OTHER, BC ==
[~2017-09-07] VITALS: Ht 170.2 cm; Wt 73.0 kg
[~2017-09-07 07:32] MED LIST changes: -KFL500 PO; -LPT/20 PO; +LPT20 PO; -LVNIS80 SQ; -MRLP17X PO; -RXC5 PO; -ULT50X PO; -VLTG EXT
--- NOTE | 2017-09-07 07:54 | EMERGENCY ROOM VISIT NOTE ---
History First contact with patient: 07:34 Stated Complaint: FALL/SHOULDER PAIN History of Present Illness The patient is a 82 year old female who presents to the Emergency Room with complaints of a fall. The patient reports that she was trying to get into bed after using the restroom this morning and slipped off the bed, falling onto the ground. She was found by her director women on the ground. She reports pain in her right shoulder. The patient denies any other injuries associated with this fall. She denies any lightheadedness, dizziness, or chest pain associated with the fall. She states that she has had multiple falls recently, with 2 occurring in the past week. She lives by herself, but does state that she has someone coming to the house to help her. She has some bruising surrounding her right eye which she states was from a previous fall this week. The patient takes Coumadin and Plavix for a history of atrial fibrillation. She has a history of CVA. She denies abdominal pain and chest pain. She does report she has been alternating between diarrhea and constipation recently. Review of Systems A complete 10 point review of systems was reviewed with the patient with pertinent positives and negatives as per history of present illness. All else were negative. Past Medical/Surgical History Medical Problems: (1) Acute pulmonary edema (2) Atrial Fibrillation (3) Cerebrovascular accident (CVA) (4) Chronic atrial fibrillation with RVR (5) Congestive Heart Failure Nos (6) Demand ischemia of myocardium (7) Diplopia (8) Fall (9) Generalized weakness (10) Hyperlipidemia Nec/Nos (11) Hypertension Nos (12) Stroke-like symptoms (13) TIA (transient ischemic attack) (14) Traumatic hematoma of right lower leg (15) Weakness Surgical Problems: (1) Mitral valve replaced (2) Status post heart valve replacement with mechanical valve Family History Breast Cancer Cancer FHx: heart disease Heart disease Hypertension Social History Smoking Status: Never Smoker Alcohol Use: none Drug Use: none Marital Status: Housing Status: lives with family Occupation Status: retired Current/Historical Medications Scheduled Atorvastatin (Atorvastatin Calcium), 20 MG PO HS B Complex W/ C (Vitamin B Complex-C), 1 TAB PO DAILY Clopidogrel Bisulfate (Clopidogrel), 75 MG PO DAILY Digoxin (Digoxin), 0.125 MG PO Q2D AT 1600 Escitalopram Oxalate (Escitalopram Oxalate), 10 MG PO QAM Levothyroxine Sodium (Levothyroxine Sodium), 50 MCG PO QAM Lisinopril (Prinivil), 5 MG PO BID Melatonin (Kp Melatonin), 1 TAB PO HS Metoprolol Succinate (Metoprolol Succinate ER), 100 MG PO BID Warfarin Sodium (Warfarin Sodium), 2 MG PO DAILY Scheduled PRN Acetaminophen (Tylenol), 650 MG PO DIRECTED PRN for Pain or Fever Physical Exam Vital Signs Date Time Temp Pulse Resp B/P (MAP) Pulse Ox O2 Delivery O2 Flow Rate FiO2 09/07/17 09:19 87 Nasal Cannula 2.0 09/07/17 09:17 70 16 126/66 91 Room Air 09/07/17 08:16 70 16 140/65 96 Room Air 09/07/17 07:50 36.6 73 16 151/97 97 Room Air 09/07/17 07:43 72 Physical Exam VITALS: Vitals are noted on the nurse's note and reviewed by myself. Vital signs stable. GENERAL: This is an 82-year-old female, in no acute distress, nondiaphoretic, well-developed well-nourished. SKIN: There is a very large hematoma to the right lateral hip. There is ecchymosis surrounding the right eye. HEAD: Right periorbital ecchymosis. Otherwise Normocephalic atraumatic. EARS: External auditory canals clear, tympanic membranes pearly hernandez without erythema or effusion bilaterally. No hemotympanum. EYES: Right periorbital ecchymosis. Pupils equal round and reactive to light and accommodation. Extraocular movements intact. NECK: Supple without nuchal rigidity. Cervical spine is tender to bilateral paraspinous muscles. HEART: Regular rate and rhythm without murmurs gallops or rubs. LUNGS: Clear to auscultation bilaterally without wheezes, rales or rhonchi. ABDOMEN: Soft, nontender to palpation. MUSCULOSKELETAL: There is a large hematoma to the lateral right hip. There is mild tenderness of the anterior right shoulder. NEURO: Patient was alert and oriented to person place and time. Medical Decision & Procedures ER Provider Diagnostic Interpretation: CT SCAN OF THE BRAIN WITHOUT IV CONTRAST IMPRESSION: 1. There is no hemorrhage, mass effect, or evidence of acute territorial ischemia by CT criteria. 2. Right supraorbital scalp hematoma. No depressed calvarial fracture is seen. CT SCAN OF THE CERVICAL SPINE IMPRESSION: 1. There is no evidence of fracture or subluxation involving the cervical spine. 2. Osteopenia and mild spondylotic change as above. CT SCAN OF THE FACIAL BONES WITHOUT IV CONTRAST IMPRESSION: 1. There is no evidence of facial bone fracture. 2. Right facial soft tissue injury as above. 3. Periodontal disease as above with numerous dental caries and a large periapical lucency. Nonemergent follow-up with dentistry is recommended. RIGHT SHOULDER 3 VIEWS IMPRESSION: Osteopenia with no radiographic evidence of right shoulder fracture or dislocation. SINGLE VIEW PELVIS IMPRESSION: 1. No fracture is identified involving the hips or bony pelvis. 2. A large hematoma is identified in the right upper thigh. A large right thigh hematoma was also seen on 08/26/[address] LEFT FEMUR 3 VIEWS IMPRESSION: Osteopenia with no radiographic evidence of left femoral fracture. Laboratory Results Test 09/07/17 08:10 Macrocytosis PRESENT Ovalocytes 1+ Activated Partial Thromboplast Time 33.0 SECONDS (21.0-31.0) Partial Thromboplastin Ratio 1.3 Magnesium Level 2.5 mg/dl (1.8-2.4) Medications Administered Medications (Trade) Dose Ordered Sig/Elsi Route Start Time Stop Time Status Last Admin Dose Admin Fentanyl Citrate (Fentanyl Inj) 50 mcg NOW STAT IV 09/07/17 08:44 09/07/17 08:45 DC 09/07/17 09:17 50 MCG Medical Decision Differential diagnosis includes mechanical fall, syncope, electrolyte abnormalities, urinary tract infection, pneumonia, among others. The patient is an 82-year-old female who presents today complaining of multiple falls. Labs revealed anemia with hemoglobin of 8.9 which appears to be stable for the patient. She does have a mild leukocytosis of 11.5 of unclear significance. EKG shows a paced rhythm, unchanged from previous. Patient does have a new elevation in her LFTs, with bilirubin of 1.5, AST 198, ALT 122, and alkaline phosphatase 301. I asked the patient about Tylenol use and she stated she has been taking some Tylenol, but not a large amount. She does not drink alcohol. She has had no right upper quadrant pain. Patient had a diagnosis of probable ovarian cancer on last hospitalization and I'm concerned about possible metastasis. Patient has been weak lately and has had multiple falls, and I do not feel that she is safe to return home and will likely need placement in a nursing home care facility. Multiple imaging studies were negative for acute findings. Urine pending. Patient was discussed with the [facility], who will evaluate the patient for admission. Medication Reconcilliation Current Medication List: was personally reviewed by me Blood Pressure Screening Patient's blood pressure: Normal blood pressure Impression Primary Impression: Multiple falls Additional Impressions: Weakness Elevated LFTs Departure Information Referrals Alvin Guevara M.D. (PCP) Problem Qualifiers
[2017-09-07 08:25] LABS: BASO % 0.3 %; BASO ABS # 0.03 K/uL (0-0.2); EOS % 0.4 %; EOS ABS # 0.05 K/uL (0-0.5); HEMATOCRIT 30.2 % (37-47); HEMOGLOBIN 8.9 g/dL (12.0-16.0); IG# 0.11 K/uL (0.00-0.02); LYMPH % 7.9 %; LYMPH ABS # 0.91 K/uL (1.2-3.4); MEAN CELL VOLUME 100.7 fL (80-100); MEAN CORPUSCULAR HEMOGLOBIN 29.7 pg (25-34); MEAN CORPUSCULAR HGB CONC 29.5 g/dl (32-36); MEAN PLATELET VOLUME 10.7 fL (7.4-10.4); MONO % 6.6 %; MONO ABS # 0.76 K/uL (0.11-0.59); NEUT % 83.8 %; NEUT ABS # 9.66 K/uL (1.4-6.5); NUCLEATED RED BLOOD CELL ABS 0.14 K/uL (0-0); PLATELET COUNT 404 K/uL (130-400); RED CELL DISTRIBUTION WIDTH SD 75.8 fL (36.4-46.3); WHITE BLOOD COUNT 11.52 K/uL (4.8-10.8)
--- NOTE | 2017-09-07 08:40 | DIAGNOSTIC IMAGING REPORT ---
CT SCAN OF THE BRAIN WITHOUT IV CONTRAST CLINICAL HISTORY: Fall. Head injury. COMPARISON STUDY: CT of the brain dated 08/26/2017. TECHNIQUE: Unenhanced axial CT scan of the brain is performed from the vertex to the skull base. A dose lowering technique was utilized adhering to the principles of ALARA. The skull base was scanned twice due to motion artifact. FINDINGS: Brain parenchyma: There are age-related involutional changes noting mild to moderate subcortical and periventricular microangiopathic change. There is no hemorrhage, mass effect, or evidence of acute territorial ischemia by CT criteria. Chronic lacunar infarcts are identified in the right caudate head and the left cerebellar hemisphere. Vazquez-white matter is preserved. No extra-axial fluid collection is seen. Ventricles, sulci, cisterns: Prominent secondary to involutional change. Intracranial vasculature: There is atherosclerotic calcification of the cavernous carotid arteries. Calvarium: The skeletal structures are osteopenic. There is no depressed calvarial fracture. Soft tissues: There is a small right supraorbital scalp hematoma. Sinuses and mastoids: The visualized paranasal sinuses are clear. The mastoid air cells are well pneumatized. Orbits: The bony orbits are grossly intact. 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 IMPRESSION: 1. There is no hemorrhage, mass effect, or evidence of acute territorial ischemia by CT criteria. 2. Right supraorbital scalp hematoma. No depressed calvarial fracture is seen. Electronically signed by: Eric Ross M.D. 09/07/2017 8:39 AM Dictated Date/Time: 09/07/2017 8:34 AM
[2017-09-07 08:43] LABS: ALBUMIN 3.6 gm/dl (3.4-5.0); CALCIUM 8.9 mg/dl (8.5-10.1); CREATININE 1.15 mg/dl (0.60-1.20); POTASSIUM 4.5 mmol/L (3.5-5.1)
--- NOTE | 2017-09-07 08:43 | DIAGNOSTIC IMAGING REPORT ---
CT SCAN OF THE CERVICAL SPINE CLINICAL HISTORY: Falls. Neck pain. COMPARISON STUDY: CT scan of cervical spine dated 08/26/2017. TECHNIQUE: CT scan of the cervical spine is performed from the skull base to the upper thoracic spine. Images are reviewed in the axial, sagittal, and coronal planes. IV contrast was not administered for this examination. A dose lowering technique was utilized adhering to the principles of ALARA. CT DOSE: 1107.81 mGy.cm FINDINGS: Skeletal structures: The skeletal structures are osteopenic. There is no evidence of fracture or subluxation involving the cervical spine. Vertebral body height and alignment are maintained. The odontoid process and lateral masses are intact. The atlantoaxial articulation is preserved noting mild productive degenerative change. The spinous processes appear intact. Intervertebral discs: The disc spaces are well maintained. Central canal: Widely patent. Soft tissues: The prevertebral and paraspinous soft tissues are within normal limits. There is atherosclerotic calcification of the carotid bulbs. Calvarium: The visualized calvarium at the skull base appears intact. Brain parenchyma: Partially visualized brain parenchyma the skull base is within normal limits noting age-related involutional change. Sinuses and mastoids: The visualized paranasal sinuses are clear. The mastoid air cells are well pneumatized. Lung apices: Clear as visualized. IMPRESSION: 1. There is no evidence of fracture or subluxation involving the cervical spine. 2. Osteopenia and mild spondylotic change as above. Electronically signed by: Eric Ross M.D. 09/07/2017 8:42 AM Dictated Date/Time: 09/07/2017 8:39 AM
[2017-09-07] MEDS ORDERED: FENTANYL CITRATE INJ 50 MCG/1 ML 2 ML VIAL IV STA (08:44)
[2017-09-07 08:46] LABS: TOTAL PROTEIN 8.1 gm/dl (6.4-8.2)
--- NOTE | 2017-09-07 08:49 | DIAGNOSTIC IMAGING REPORT ---
CT SCAN OF THE FACIAL BONES WITHOUT IV CONTRAST CLINICAL HISTORY: Fall. Facial injury. COMPARISON STUDY: CT scan of the facial bones dated 08/26/2017. TECHNIQUE: High-resolution CT scan of the facial bones is performed. Images are reviewed in the axial, sagittal, and coronal planes. IV contrast was not administered for this examination. A dose lowering technique was utilized adhering to the principles of ALARA. FINDINGS: The skeletal structures are osteopenic. There is no evidence of facial bone fracture. The bony orbits are intact. 1.7 cm lobulated homogeneous hyperdense structure in the right orbit is seen image #[id number]. 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 This is unchanged and has been intermittently present on prior studies. The orbital contents are otherwise within normal limits. The zygomatic arches, nasal bones, and pterygoid plates are preserved. Nasal bone deformity is unchanged from 08/26/2017 and likely related to remote fracture. The maxilla and mandible are intact. Arthritic change is present at the temporomandibular joints. There are no layering blood products within the paranasal sinuses. Trace mucosal thickening is seen within the maxillary antra and the tiny retention cyst is noted in the right. The paranasal sinuses are otherwise clear. The mastoid air cells are well pneumatized. The visualized calvarium and upper cervical spine are maintained. Partially imaged brain parenchyma is within normal limits. There is is right periorbital and superolateral scalp contusion as well as right supraorbital scalp hematoma. Numerous dental caries are identified. A large periapical lucency with cortical breakthrough is seen involving the right maxillary incisors. IMPRESSION: 1. There is no evidence of facial bone fracture. 2. Right facial soft tissue injury as above. 3. Periodontal disease as above with numerous dental caries and a large periapical lucency. Nonemergent follow-up with dentistry is recommended. Electronically signed by: Eric Ross M.D. 09/07/2017 8:47 AM Dictated Date/Time: 09/07/2017 8:42 AM
--- NOTE | 2017-09-07 09:18 | DIAGNOSTIC IMAGING REPORT ---
SINGLE VIEW PELVIS CLINICAL HISTORY: Fall. Left hip pain. FINDINGS: An AP pelvic radiograph is correlated with pelvic CT dated 08/26/2017. The skeletal structures are osteopenic. No fracture is seen involving the hips or bony pelvis. Sclerotic change is noted at the sacroiliac joints. Mild arthritic change and joint space narrowing is seen in the hips. There is no bowel obstruction. Soft tissue edema overlies the right upper thigh, likely representing contusion/hematoma. A large right thigh hematoma was also seen on 08/26/2017. IMPRESSION: 1. No fracture is identified involving the hips or bony pelvis. 2. A large hematoma is identified in the right upper thigh. A large right thigh hematoma was also seen on 08/26/[address] Electronically signed by: Eric Ross M.D. 09/07/2017 9:17 AM Dictated Date/Time: 09/07/2017 9:15 AM
--- NOTE | 2017-09-07 09:20 | DIAGNOSTIC IMAGING REPORT ---
LEFT FEMUR 3 VIEWS CLINICAL HISTORY: Fall. Left leg pain. FINDINGS: AP, frog-leg, and lateral views of the left femur are correlated with pelvic CT dated 08/26/2017. The skeletal structures are osteopenic. There is no radiographic evidence of left femoral fracture. The hip and knee joints appear maintained. The visualized left hemipelvis is preserved. The overlying soft tissues are within normal limits. IMPRESSION: Osteopenia with no radiographic evidence of left femoral fracture. Electronically signed by: Eric Ross M.D. 09/07/2017 9:18 AM Dictated Date/Time: 09/07/2017 9:18 AM
--- NOTE | 2017-09-07 09:23 | DIAGNOSTIC IMAGING REPORT ---
RIGHT SHOULDER 3 VIEWS CLINICAL HISTORY: Fall with right shoulder pain. FINDINGS: 3 views of the right shoulder are obtained. No prior studies are available for comparison at the time of dictation. The skeletal structures are osteopenic. There is no radiographic evidence of right shoulder fracture or dislocation. The glenohumeral and acromioclavicular joints appear preserved. The overlying soft tissues are within normal limits. Midline sternotomy wires and cardiac pacemaker leads are noted. The heart is enlarged and there is atherosclerotic calcification of the thoracic aorta. The visualized right lung parenchyma shows chronic change. IMPRESSION: Osteopenia with no radiographic evidence of right shoulder fracture or dislocation. Electronically signed by: Eric Ross M.D. 09/07/2017 9:22 AM Dictated Date/Time: 09/07/2017 9:21 AM
--- NOTE | 2017-09-07 10:08 | DIAGNOSTIC IMAGING REPORT ---
SINGLE VIEW CHEST CLINICAL HISTORY: Weakness. Falls. FINDINGS: An AP, portable, upright chest radiograph is compared to study dated 08/26/2017. The examination is degraded by portable technique and patient rotation. A 3-lead cardiac AICD is unchanged in position and partially secures the left upper chest. The patient is status post midline sternotomy and cardiac valve surgery. The heart is markedly enlarged and there is atherosclerotic calcification of the thoracic ureter. There is mild congestion of the pulmonary vasculature. No airspace consolidation or large pleural effusion is identified. There is bibasilar atelectasis. No pneumothorax is seen. The skeletal structures are osteopenic. The bony thorax is grossly intact. IMPRESSION: 1. Cardiomegaly and AICD with evidence of mild congestive change. 2. No airspace consolidation or large pleural effusion is identified. Electronically signed by: Eric Ross M.D. 09/07/2017 10:06 AM Dictated Date/Time: 09/07/2017 10:05 AM
[2017-09-07] MEDS ORDERED: MAGNESIUM HYDROXIDE SUSP 30 ML UDC PO PRN (10:45)
[2017-09-07] MEDS ORDERED: ENOXAPARIN 40 MG/0.4 ML SYR SQ SCH (10:45)
[2017-09-07] MEDS ORDERED: ALUMINUM/MAGNESIUM/SIMETH (MAALOX MAX) 30 ML UDC PO PRN (10:45)
[2017-09-07] MEDS ORDERED: ONDANSETRON INJ 2 MG/ML 2 ML VIAL IV PRN (10:45)
[2017-09-07] MEDS ORDERED: POLYETHYLENE (MIRALAX) 17 GM PACK PO PRN (10:45)
[2017-09-07] MEDS ORDERED: FUROSEMIDE 40 MG/4 ML VIAL ONE (11:16)
[2017-09-07 12:17] VITALS: BP 143/82; PULSE 114; TEMP 36.4; O2SAT 99; Ht 170.2 cm; Wt 73.0 kg
[2017-09-07] MEDS ORDERED: FUROSEMIDE INJ 40 MG in SYRINGE 0 ML IV ONE (12:30)
--- NOTE | 2017-09-07 12:31 | NUR ---
A: Pt arrived to room. Alert and oriented x4. Vss. No complaints at this time. Code word and fall agreement signed. Heel and sacral foams applied. Admission completed. Continued care by RIGO Nichole.
--- NOTE | 2017-09-07 13:42 | History and Physical ---
History & Physical Date of Service Sep 07, 2017. History & Physical admit #[id number] she notes code status as DNR, daughter confirms almost certainly will need SNF at time of discharge
--- NOTE | 2017-09-07 14:19 | HISTORY & PHYSICAL EXAMINATION ---
DATE OF ADMISSION: 09/07/2017 ADMISSION HISTORY AND PHYSICAL CHIEF COMPLAINT: Falls and weakness. HISTORY OF PRESENT ILLNESS: The patient is an 82-year-old female known to me from prior admissions. The last I saw her, she had been discharged to [facility]. She had had falls and a right thigh hematoma, her incidentals were a pelvic mass, was concerned of ovarian cancer as well as a lesion that was to be seen by ophthalmology. She had done well enough to get discharged from [facility], but it sounds like even since she got home, she has had multiple falls. She had seen cardiology on the and then her PCP on the and then sounds like she was doing just well enough to be able to stay at home at that time but not great, and unfortunately she has had a few falls since she came here to the ER after having fallen off the couch and being too weak to get up. She denies shortness of breath, although she is somewhat hypoxic and appears to have a degree of acute on chronic CHF going on. She does note a degree of abdominal pain, it is hard to tell how much relates to the mass or how much relates to constipation. She does note her oral intake is reasonable. She denies any swelling. Denies fevers, chills, sweats or dysuria. She does note that she is just very weak and tired and does not do much and the daughter reiterates that because she is so weak and tired, she has really not been doing any sort of strengthening since she was discharged from [facility] and basically gets out of bed and goes to the chair, falls asleep for a while and goes back to bed. She has a lot of bruising on her face. She has had multiple falls. REVIEW OF SYSTEMS: Otherwise negative, except for as above. She wonders how much of this may relate to her medications. PAST MEDICAL HISTORY: Includes her adnexal mass with concern for cancer, anemia, atrial flutter, cardiomyopathy, prior strokes, probably related to her aFib, chronic constipation, fatigue, GERD, her hip hematoma, hypertension, hypothyroidism, conduction disease, now status post ICD placement, restless leg syndrome, and venous insufficiency. PAST SURGICAL HISTORY: Includes mitral valve and aortic valve replacements, catheter ablation and ICD placement. MEDICATIONS: Lipitor 20 mg daily, Plavix 75 mg daily, digoxin 125 mcg every other day, Lexapro 5 mg daily, ferrous gluconate 324 daily, Synthroid 50 mcg daily, lisinopril 5 mg daily, melatonin 3 mg at bedtime, metoprolol succinate 100 mg b.i.d., MiraLax 17 grams daily p.r.n. constipation, tramadol 50 mg q. 8 hours p.r.n. pain, Tylenol 325 p.r.n. pain, vitamin B complex daily; Coumadin 2 mg as directed, alternating with 3 mg as directed. FAMILY HISTORY: There is family history of cancer in her grandmother; migraines, seizures, Atchison's and cardiac disease. 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 She is a never smoker, no alcohol. She is technically still living independently but appears to be struggling to maintain this. PHYSICAL EXAMINATION: VITAL SIGNS: Temperature 36.6, pulse 73, respiratory rate 16, blood pressure 161/97, 97% on room air. GENERAL: She is awake, alert, oriented, 2fatigued. HEENT: Normocephalic. She has a rather large area of bruising around her right eye with a knot above her right eyebrow. There are no open areas. Mucous membranes are dry. CARDIOVASCULAR: Irregularly irregular. No rubs, murmurs, or gallops. LUNGS: Show faint bibasilar rales. Decreased air entry throughout. ABDOMEN: Soft, nondistended. She has right lower quadrant tenderness without guarding, rebound or rigidity. EXTREMITIES: Show no cyanosis, clubbing or edema. No calf tenderness. SKIN: Shows no rashes. No pallor or icterus. NEUROLOGIC: Shows cranial nerves II-XII to be grossly intact. Gross motor and sensory are intact. Shows no focal deficits. MENTAL STATE: Shows fair recent and remote recall. They both note that her memory has been poor over the last few months. Normal mood and affect. MUSCULOSKELETAL: Yields no gross lesions, although full exam is difficult due to her weakness and positioning, but she does not show any bony tenderness. LABS AND DIAGNOSTICS: CBC shows a white count 11.5, hemoglobin 8.9 with an MCV of 100.7, platelets 404. Complete metabolic panel with sodium 138, potassium 4.5, chloride 107, CO2 22, BUN 19, creatinine 1.15, calcium 8.9, glucose 106. Mag of 2.5 with a total bilirubin of 1.5, AST 198, ALT 122, alkaline phosphatase 301, total protein 8.1, albumin 3.6. Urinalysis - dark yellow, turbid, specific gravity 1.025, trace ketones, moderate leukocyte esterase, 10-30 white cells, 4+ bacteria. PT of 38.9, INR of 3, PTT of 33.0. Chest x-ray shows evidence of mild congestive change. No consolidation. Femur x-ray shows no evidence of femur fracture, pelvis showing hematoma but no fracture. C-spine CT showing osteopenia and mild spondylitic changes but no fracture or subluxation. Head CT showing no acute findings other than a right supraorbital scalp hematoma but no calvarial fracture. Maxillofacial CT shows periodontal disease with numerous carries and a large periapical lucency. Shoulder x-ray shows osteopenia but no evidence of fracture or dislocation. EKG was paced. ASSESSMENT AND PLAN: 1. Weakness. This appears to be multifactorial in leading to multiple falls, at least the known factors appear to be deconditioning, acute on chronic congestive heart failure, possible relationship to her ovarian malignancy and possibly medication related. Certainly, will need to be vigilant for other factors as well. 2. Acute on chronic systolic congestive heart failure. We will diurese gently given that she appears wet pulmonary powell, but dry otherwise. We will give her a dose of Lasix and then for followup need and follow her oxygenation status. Her last echo was only a couple months ago. It did show increase of right ventricular pressure compared to the one about a year ago and showed mild to moderate global hypokinesis of the left ventricle as well as moderate pulmonary hypertension. 3. Deconditioning. Physical therapy, occupational therapy eval and treat. She is very, very likely to need SNF placement. 4. Ovarian malignancy or concern on ovarian malignancy, now with elevated LFTs. The concern would be if there is metastatic disease, certainly that would be a clear and dominant central theme on her weakness and deconditioning. Her last imaging of the mass appears to have been on August 26, at which point it was a right adnexal mass measuring 9.6 x 6.3 cm extending to the uterus with loss of fat plane between the mass and the uterus and possible peritoneal disease. Will be checking an ultrasound of the liver to look for evidence of mets, if there is no evidence of mets, then will need to work up the liver enzyme elevation further, but it still may be that the mass is contributing to her deconditioning. 5. Periodontal disease. Certainly, this could be contributing as well. She is not complaining of any dental pain but the CT findings are rather striking. Will cover with Augmentin for now and then follow. 6. Macrocytic anemia. This is probably a contributor as well. Her last B12 in borderline at 438 about 6 months ago. We will recheck and follow her hemoglobin. 7. Hypothyroid, it is doubtful that her thyroid disease is a contributed to her fatigue and weakness right now, however, it has been several months since TSH was checked and certainly if she is wildly off, this could be contributors. We will check a TSH. 8. polypharmacy, her meds appeared to be very appropriate to her situation; however, given her current frailty and quick decline, there may be a degree of medication-related fatigue. We will try to streamline her medications as best as possible. for now keep dosing the same and follow, perhaps start with lowering digoxin or metoprolol if her rate control allows for it. 9. Osteopenia. Check a vitamin D level, particularly given that she is having lots the falls, she is going to be more prone to fractures, need to manage her bone health more aggressively than one, otherwise normal to be warranted as an inpatient. 10. Atrial fibrillation. She is adequately anticoagulated. Actually, with her bruising and slightly high and INR, will hold her Coumadin for now and follow her INR daily. Her rates are reasonable on the metoprolol. 11. Deep venous thrombosis prophylaxis. She is anticoagulated for the atrial fibrillation as above. [facility] [place] DIVISIONMelida
--- NOTE | 2017-09-07 14:56 | DIAGNOSTIC IMAGING REPORT ---
ULTRASOUND RIGHT UPPER QUADRANT ABDOMEN CLINICAL HISTORY: Elevated hepatic transaminases. COMPARISON STUDY: Abdominal CT dated 07/27/2017. TECHNIQUE: Real-time, grayscale, and color flow sonography of the right upper quadrant of the abdomen was performed. Images are reviewed in the transverse and longitudinal planes. FINDINGS: Liver: The liver is normal in size and demonstrates heterogeneously increased echotexture consistent with hepatic steatosis. There is no intrahepatic biliary ductal dilatation. The main portal vein is patent. No hepatic lesion is identified. Gallbladder: The gallbladder is normal in appearance. There is a large shadowing calcified gallstone which measures up to 2.7 cm. There is no gallbladder wall thickening or pericholecystic fluid. A sonographic Patel's sign is reportedly absent. The common bile duct measures up to 0.3 cm in diameter. Pancreas: Visualized portions of the pancreatic head and body are normal in appearance. There are 2 small hypodensities in the pancreas measure up to 1.5 cm. These were also seen by CT on 07/27/2017 and likely represent small sidebranch IPMN's. The splenic vein is patent. Right kidney: Survey images of the right kidney demonstrate mild cortical atrophy. There is no hydronephrosis. Small cortical and parapelvic cysts are noted. These measure up to 1.5 cm. Ascites: None. IMPRESSION: 1. Hepatic steatosis. 2. Cholelithiasis without sonographic evidence of acute cholecystitis. Electronically signed by: Eric Ross M.D. 09/07/2017 2:55 PM Dictated Date/Time: 09/07/2017 2:52 PM
[2017-09-07 15:11] VITALS: BP 123/82; PULSE 114; TEMP 36.4; O2SAT 99
[2017-09-07 16:00] VITALS: O2SAT 99
[2017-09-07] MEDS: ACETAMINOPHEN 325 MG TAB PO PRN (16:25)
[2017-09-07 16:37] VITALS: PULSE 100
[2017-09-07] MEDS: AMOXICILLIN/CLAVULANATE TAB 875 MG TAB PO SCH (17:37)
[2017-09-07] MEDS: ATORVASTATIN 20 MG TAB PO SCH (19:57)
[2017-09-07] MEDS: METOPROLOL SUCC 50MG EXT REL TAB PO SCH (19:57)
[2017-09-07] MEDS ORDERED: NON-FORMULARY MEDICATION (Melatonin (Kp Melatonin) 1 TAB) PO SCH (21:00)
[2017-09-08 00:07] VITALS: BP 114/66; PULSE 100; TEMP 36.7; O2SAT 99
[2017-09-08] MEDS: LEVOTHYROXINE 50 MCG TAB PO SCH (06:01)
[2017-09-08 07:20] VITALS: O2SAT 98
[2017-09-08 07:37] LABS: BASO % 0.3 %; BASO ABS # 0.02 K/uL (0-0.2); EOS % 2.3 %; EOS ABS # 0.17 K/uL (0-0.5); HEMATOCRIT 31.3 % (37-47); HEMOGLOBIN 9.1 g/dL (12.0-16.0); IG# 0.08 K/uL (0.00-0.02); LYMPH % 9.9 %; LYMPH ABS # 0.73 K/uL (1.2-3.4); MEAN CORPUSCULAR HEMOGLOBIN 29.1 pg (25-34); MEAN CORPUSCULAR HGB CONC 29.1 g/dl (32-36); MEAN PLATELET VOLUME 10.6 fL (7.4-10.4); MONO % 8.4 %; MONO ABS # 0.62 K/uL (0.11-0.59); NEUT ABS # 5.79 K/uL (1.4-6.5); NUCLEATED RED BLOOD CELL ABS 0.03 K/uL (0-0); PLATELET COUNT 323 K/uL (130-400); RED CELL DISTRIBUTION WIDTH CV 21.3 % (11.5-14.5); RED CELL DISTRIBUTION WIDTH SD 75.6 fL (36.4-46.3); WHITE BLOOD COUNT 7.41 K/uL (4.8-10.8)
[2017-09-08 07:43] LABS: INR 2.4 (0.9-1.1)
[2017-09-08 07:46] VITALS: BP 123/75; PULSE 70; TEMP 36.4; O2SAT 100
[2017-09-08 08:14] LABS: ALBUMIN 3.4 gm/dl (3.4-5.0); CALCIUM 8.5 mg/dl (8.5-10.1); CREATININE 1.1 mg/dl (0.60-1.20); POTASSIUM 3.4 mmol/L (3.5-5.1)
[2017-09-08 08:16] LABS: TOTAL PROTEIN 7.3 gm/dl (6.4-8.2)
[2017-09-08] MEDS: CLOPIDOGREL BISULFATE 75 MG TAB PO SCH (08:37)
[2017-09-08] MEDS: METOPROLOL SUCC 50MG EXT REL TAB PO SCH ×2 (08:37→22:06)
[2017-09-08] MEDS: ESCITALOPRAM OXALATE 10 MG TAB PO SCH (08:37)
[2017-09-08] MEDS: POLYETHYLENE (MIRALAX) 17 GM PACK PO SCH (08:37)
[2017-09-08] MEDS: VITAMIN B COMPLEX TAB PO SCH (08:38)
[2017-09-08] MEDS: AMOXICILLIN/CLAVULANATE TAB 875 MG TAB PO SCH ×2 (08:38→16:58)
--- NOTE | 2017-09-08 09:04 | Clinical Documentation Query ---
QUERY 1 OF [address] ODEN, In your clinical opinion is this patient being managed for: ( ) Chronic kidney disease, stage 3 ( x) Chronic kidney disease, stage 2-3 ( ) Not Agree ( ) Other explanation of clinical findings (Please Explain) ( ) Unable to determine (Please Define) ( ) Need to Discuss The medical record reflects the following clinical findings, treatment, and risk factors. Clinical Indicators:82 yo female presenting with acute/chronic systolic CHF. Review of historical GFR revealed range of 41.6-62.5 over the past 6 months. Treatment: monitor PRP's, treat comorbid conditions Risk Factors: age, chronic systolic CHF, A fib/flutter, CVA, cardiomyopathy, HTN QUERY 2 OF 2 In your clinical opinion is this patient being managed for: (x ) possible Urinary tract infection ( ) Not Agree ( ) Other explanation of clinical findings (Please Explain) ( ) Unable to determine (Please Define) ( ) Need to Discuss The medical record reflects the following clinical findings, treatment, and risk factors. Clinical Indicators: 82 yo female presenting with fall and acute systolic CHF. WBC 11.52, UA LE moderate/WBC 10-30/bacteria +4 Treatment:augmentin, UA cx pending Risk Factors: age, gender, Please clarify and document your clinical opinion in the progress notes and discharge summary. Terms such as "probable", "suspected", "likely", "questionable", "possible", or "still to be ruled out" are acceptable. IF IN AGREEMENT, YOU MUST DOCUMENT ABOVE DIAGNOSTIC STATEMENT IN DAILY PROGRESS NOTES AND DISCHARGE SUMMARY. This document is not part of the patient's record. Thank You, Esperanza Chaudhary, RN [phone]
[2017-09-08] MEDS ORDERED: POTASSIUM CHLORIDE 20 MEQ TABCR PO ONE (09:15)
--- NOTE | 2017-09-08 11:12 | NUR ---
ID Note: Alert and oriented x4. Saline locked. Pulse ox 98% on room air. OOB with one assist and walker with OT this am. Voss intact and patent. Tolerated a regular breakfast tray for breakfast. Denies any pain. Plan for SNF placement at discharge. Will continue to monitor.
--- NOTE | 2017-09-08 11:58 | Clinical Documentation Query ---
QUERY 1 OF [address] BATES, In your clinical opinion is this patient being managed for: (x ) Chronic kidney disease, stage 3 ( ) Chronic kidney disease, stage 2-3 ( ) Not Agree ( ) Other explanation of clinical findings (Please Explain) ( ) Unable to determine (Please Define) ( ) Need to Discuss The medical record reflects the following clinical findings, treatment, and risk factors. Clinical Indicators:82 yo female presenting with acute/chronic systolic CHF. Review of historical GFR revealed range of 41.6-62.5 over the past 6 months. Treatment: monitor PRP's, treat comorbid conditions Risk Factors: age, chronic systolic CHF, A fib/flutter, CVA, cardiomyopathy, HTN QUERY 2 OF 2 In your clinical opinion is this patient being managed for: (x ) possible Urinary tract infection ( ) Not Agree ( ) Other explanation of clinical findings (Please Explain) ( ) Unable to determine (Please Define) ( ) Need to Discuss The medical record reflects the following clinical findings, treatment, and risk factors. Clinical Indicators: 82 yo female presenting with fall and acute systolic CHF. WBC 11.52, UA LE moderate/WBC 10-30/bacteria +4 Treatment:augmentin, UA cx pending Risk Factors: age, gender, Please clarify and document your clinical opinion in the progress notes and discharge summary. Terms such as "probable", "suspected", "likely", "questionable", "possible", or "still to be ruled out" are acceptable. IF IN AGREEMENT, YOU MUST DOCUMENT ABOVE DIAGNOSTIC STATEMENT IN DAILY PROGRESS NOTES AND DISCHARGE SUMMARY. This document is not part of the patient's record. Thank you, Esperanza Chaudhary RN,CDS
--- NOTE | 2017-09-08 12:34 | NUR ---
Case Management- Met with patient in room. Patient reports she lives alone in an apartment there is no steps to enter. She reports she has been having increased weakness and falls. Her daughter have been helping her more in the home supervising bathing. She does not drive friends take her to appointments. She uses a wheeled walker for ambulation. She has home health through [facility]. A referral was made on her behalf to the [facility]. Confirmed with patient this is where she wants she reports yes.Did make a call to the [facility] liaison phone left message for availability. Patient willk joseph pt/ot audi and a three midnight stay. CM following Addendum: 09/08/17 at 1538 by Niki Magallanes SERV spoke with stefania at [facility] she just left [facility] on 08/22 because she is so fresh from discharge she will not need 3 midnights. Spoke with olivier maldonado she would prefer [facility]. Will let Stefania know at [facility]
[2017-09-08 13:21] VITALS: BP 115/76; PULSE 95; O2SAT 96
[2017-09-08 14:57] VITALS: BP 104/71; PULSE 99; TEMP 36.6; O2SAT 96
--- NOTE | 2017-09-08 15:43 | Hospitalist Progress Note ---
Hospitalist Progress Note Date of Service Sep 08, 2017. (Komal Garcia ., ROSIEC) Subjective Pt evaluation today including: conversation w/ patient, physical exam, chart review, lab review, review of inpatient medication list Pain: Intermittent 8/10 sharp pain in RLQ, intermittent 8/10 sharp low back pain PO Intake: Tolerating PO diet Voiding: rosales catheter in place Patient reports feeling a bit better today. She had another fall prior to arrival due to her slipping when getting out bed. She landed on her back and does complain of an intermittent sharp 8/10 jabbing pain in her lower back that is worse with certain movements. She states that her right eye bruising is from a previous fall and is actually improved. She also complains of intermittent 8/10 sharp jabbing pain in her RLQ. This pain comes in very quick jabs and then resolves. This pain is also worse with certain movements. She also reports a dry cough and dyspnea on exertion. She complains of generalized weakness and fatigue and states that she cannot even sit on the edge of the bed. Rosales catheter in place. The patient denies fevers, chills, sweats, chest pain, palpitations, claudication, wheezing, nausea, vomiting, dysuria, hematuria, urinary retention, paralysis, focal motor weakness, numbness and tingling. Additional Comments: See HPI for pertinent positives and negatives. All other systems reviewed and negative. (Komal Garcia ., PA-C) Objective Vital Signs Date Time Temp Pulse Resp B/P (MAP) Pulse Ox O2 Delivery O2 Flow Rate FiO2 09/08/17 14:57 36.6 99 16 104/71 (82) 96 Room Air 09/08/17 07:46 36.4 70 18 123/75 (91) 100 Nasal Cannula 3.0 09/08/17 07:20 98 Room Air 09/08/17 00:07 36.7 100 18 114/66 (82) 99 Nasal Cannula 3.0 09/08/17 00:00 Nasal Cannula 3.0 09/07/17 16:37 100 09/07/17 16:00 99 Nasal Cannula 3.0 09/07/17 15:11 36.4 114 18 123/82 (96) 99 Nasal Cannula 3.0 (Komal Garcia ., NICKOLAS-C) Laboratory Results Last 24 Hours Test 09/08/17 06:55 White Blood Count 7.41 K/uL Red Blood Count 3.13 M/uL Hemoglobin 9.1 g/dL Hematocrit 31.3 % Mean Corpuscular Volume 100.0 fL Mean Corpuscular Hemoglobin 29.1 pg Mean Corpuscular Hemoglobin Concent 29.1 g/dl Platelet Count 323 K/uL Mean Platelet Volume 10.6 fL Neutrophils (%) (Auto) 78.0 % Lymphocytes (%) (Auto) 9.9 % Monocytes (%) (Auto) 8.4 % Eosinophils (%) (Auto) 2.3 % Basophils (%) (Auto) 0.3 % Neutrophils # (Auto) 5.79 K/uL Lymphocytes # (Auto) 0.73 K/uL Monocytes # (Auto) 0.62 K/uL Eosinophils # (Auto) 0.17 K/uL Basophils # (Auto) 0.02 K/uL RDW Standard Deviation 75.6 fL RDW Coefficient of Variation 21.3 % Immature Granulocyte % (Auto) 1.1 % Immature Granulocyte # (Auto) 0.08 K/uL Nucleated RBC Absolute Count (auto) 0.03 K/uL Nucleated Red Blood Cells % 0.4 % Polychromasia 1+ Poikilocytosis PRESENT Anisocytosis PRESENT Stomatocytes 1+ Prothrombin Time 24.4 SECONDS Prothromb Time International Ratio 2.4 Sodium Level 139 mmol/L Potassium Level 3.4 mmol/L Chloride Level 105 mmol/L Carbon Dioxide Level 30 mmol/L Anion Gap 4.0 mmol/L Blood Urea Nitrogen 20 mg/dl Creatinine 1.10 mg/dl Est Creatinine Clear Calc Drug Dose 38.4 ml/min Estimated GFR () 54.1 Estimated GFR (Non- 46.7 BUN/Creatinine Ratio 18.5 Random Glucose 92 mg/dl Calcium Level 8.5 mg/dl Total Bilirubin 1.2 mg/dl Aspartate Amino Transf (AST/SGOT) 152 U/L Alanine Aminotransferase (ALT/SGPT) 120 U/L Alkaline Phosphatase 265 U/L Total Protein 7.3 gm/dl Albumin 3.4 gm/dl Globulin 3.9 gm/dl Albumin/Globulin Ratio 0.9 Vitamin B12 Level 625 pg/mL 25-Hydroxy Vitamin D Total 23.3 ng/ml Thyroid Stimulating Hormone (TSH) 2.620 uIu/ml Digoxin Level 0.7 ng/ml (Komal Garcia ., PA-C) Diagnostic Results General appearance: +Fatigued. Well-developed, well-nourished, no apparent distress Head: Normocephalic, atraumatic Eyes: Normal inspection, PERRL, EOMI ENT: Normal ENT inspection, hearing grossly normal, pharynx normal Neck: Supple, no JVD, trachea midline Respiratory/Chest: Lungs clear to auscultation, normal breath sounds, no respiratory distress Cardiovascular: +Irregularly irregular, rate controlled. Systolic murmur. No gallop Abdomen/GI: +Mild diffuse tenderness. Normal bowel sounds, soft Extremities/Musculoskeletal: Normal inspection, no calf tenderness, no pedal edema Neurological/Psych: Alert, normal mood/affect, oriented x 3 Skin: Normal color, warm/dry, no rash (Komal Garcia ., PA-C) Assessment and Plan 82 y/o female with a history of right adnexal mass concerning for ovarian cancer , HTN, HLD, chronic combined systolic/diastolic CHF, a-fib/flutter on chronic AC , CKD stage III, hypothyroidism, depression and GERD who presents with worsening weakness and multiple falls at home. Weakness, falls--pt had been at [facility], discharged to home about 1 week ago. Had another mechanical fall just prior to arrival -Admit to med/surg -Due to deconditioning vs malignancy vs infection vs acute CHF -B12 level 625, TSH WNL, vitamin D low at 23.3 -Start ergocalciferol -PT/OT evaluate and treat, pt will likely need SNF again. She would like [facility] on chronic combined CHF--improving -Given IV Lasix on admission, hypoxia improved, now on room air -UO 4300 cc yesterday -Hold off on further diuresis for now -Last echo 07/29/17 showed mild to moderate LV systolic dysfunction. Mild to moderate global hypokinesis of left ventricle. Biatrial dilatation. Moderate tricuspid regurg. Moderate pulmonary hypertension. Right adnexal mass concerning for ovarian cancer -Recent pelvis CT 08/26/17 redemonstrates 9.6 x 6.3 cm right adnexal mass, likely malignant -Pt states she does not want any aggressive treatment, surgery, or chemo -Elevated LFTs concerning for possible liver mets -Abdominal U/S negative for mets -LFTs trending down. Pt states she has been taking a lot of Tylenol at home for her back pain Periodontal disease--ongoing. Pt states she has a dentist appt soon to pull 6 teeth -Found on CT -Continue Augmentin 875 mg PO BID. Day #2 -Leukocytosis resolving, WBC 7.41 on 1, down from 11.52 Possible UTI POA -UA positive for 4+ bacteria -Urine culture pending HTN, HLD--stable -Continue Plavix, Toprol XL 100 mg PO BID, lisinopril 5 mg PO BID, Lipitor 20 mg PO qd A-fib, a-flutter on chronic anticoagulation--stable, rate controlled -Continue digoxin 125 mcg PO q2d, metoprolol as above, warfarin 2 mg PO qd -INR therapeutic CKD stage III--stable Macrocytic anemia--stable -Hgb remains stable at 9 -B12 as above Hypothyroidism -TSH WNL -Continue Synthroid 50 mcg PO qd Depression -Continue Lexapro 10 mg PO qd DVT prophylaxis -Warfarin Code Status -Level V, DO NOT RESUSCITATE Dispo -Pending PT/OT, referral to [facility] (Komal Garcia ., PA-C) I reviewed above note and agree with it. I have performed a physical examination and history on the patient. My examination did not differ from the examination above. In regards to her analysis and plan. In regards to her CKD stage 3. Will continue to monitor PRP's, treat comorbid conditions I also discussed with her goals of care. Patient at this time does not want any intervention regarding her ovarian mass. She does not want any diagnostic studies or treatment as she feels that her quality of life has decreased mainly due to her other comorbidities. I offered her a palliative care consult. But patient only want to discuss options with me or Komal. I will continue to follow. I spent about 30 minutes in the room with the patient discussing about goals of care. (Louis Montelongo M.D.)
--- NOTE | 2017-09-08 16:00 | NUR ---
OBS: Patient resting in bed. A/Ox4. Breath sounds diminished on room air. Denies pain. Out of bed with one assist and a walker. Stress incontinent. Brief on per patient request. SL intact to left forearm. Call fitzpatrick and bedside table are within reach. Bed alarm on for safety. Will continue to monitor. Addendum: 09/08/17 at 2201 by Leonarda Rodas RN A: Error, Wrong patient.
[2017-09-08 16:10] VITALS: O2SAT 96
[2017-09-08] MEDS ORDERED: ERGOCALCIFEROL 50,000 INTER.UNIT CAP PO ONE (16:15)
[2017-09-08] MEDS: DIGOXIN 0.125 MG TAB PO SCH (16:25)
[2017-09-08] MEDS: WARFARIN SOD 2 MG TAB PO SCH (16:58)
[2017-09-08] MEDS: ATORVASTATIN 20 MG TAB PO SCH (22:06)
[2017-09-09 00:28] VITALS: BP 117/76; PULSE 106; TEMP 36.6; O2SAT 95
--- NOTE | 2017-09-09 04:30 | NUR ---
A NOTE: Patient becoming more confused as shift supervisor rn continues. She is becoming more agitated. Patient stating that she feels ill but is refusing to take any kind of nausea medication. Patient asking where she is and demanding staff to call her daughter; RN on previous shift attempted to contact patients daughter but no answer; will attempt to call daughter before end of shift. Told patient that I would be back to check on her and she stated "don't bother coming back". Will continue to monitor.
[2017-09-09] MEDS: LEVOTHYROXINE 50 MCG TAB PO SCH (05:41)
[2017-09-09] MEDS: AMOXICILLIN/CLAVULANATE TAB 875 MG TAB PO SCH ×2 (08:08→17:21)
[2017-09-09] MEDS: ESCITALOPRAM OXALATE 10 MG TAB PO SCH (08:11)
[2017-09-09] MEDS: CLOPIDOGREL BISULFATE 75 MG TAB PO SCH (08:12)
[2017-09-09] MEDS: METOPROLOL SUCC 50MG EXT REL TAB PO SCH ×2 (08:12→20:48)
[2017-09-09] MEDS: POLYETHYLENE (MIRALAX) 17 GM PACK PO SCH (08:13)
[2017-09-09] MEDS: VITAMIN B COMPLEX TAB PO SCH (08:13)
[2017-09-09 08:20] VITALS: BP 114/77; PULSE 111; TEMP 36.6; O2SAT 94
--- NOTE | 2017-09-09 09:30 | NUR ---
ID Note: Patient resting comfortably in bed. AOx4. Vital signs stable. Patient currently denies pain. Voss is draining concentrated yellow urine. Patient out of bed to chair for breakfast. Tolerated regular diet well. Call fitzpatrick within reach. Encouraged to ring for assistance. Will continue to monitor.
[2017-09-09] MEDS: ACETAMINOPHEN 325 MG TAB PO PRN (11:14)
[2017-09-09 11:44] LABS: HEMATOCRIT 27.4 % (37-47); HEMOGLOBIN 8.1 g/dL (12.0-16.0); MEAN CELL VOLUME 99.3 fL (80-100); MEAN CORPUSCULAR HEMOGLOBIN 29.3 pg (25-34); MEAN CORPUSCULAR HGB CONC 29.6 g/dl (32-36); MEAN PLATELET VOLUME 10.4 fL (7.4-10.4); PLATELET COUNT 292 K/uL (130-400); RED CELL DISTRIBUTION WIDTH CV 21.1 % (11.5-14.5); RED CELL DISTRIBUTION WIDTH SD 75.1 fL (36.4-46.3); WHITE BLOOD COUNT 7.86 K/uL (4.8-10.8)
[2017-09-09 11:51] LABS: INR 2.5 (0.9-1.1)
[2017-09-09 12:06] LABS: CALCIUM 8.4 mg/dl (8.5-10.1); CREATININE 0.91 mg/dl (0.60-1.20); POTASSIUM 4.2 mmol/L (3.5-5.1)
--- NOTE | 2017-09-09 12:58 | NUR ---
Case Management- Met with patient in room and called daughter flor with updated information. [facility] confirmed this with pedrito this morning per pedrito she feels she will have a bed tomorrow. Per Flor patients daughter she would prefer us arranging transport. Will check with pedrito in am to see i she can arrange this or if I need to. CM following
--- NOTE | 2017-09-09 14:16 | Hospitalist Progress Note ---
Hospitalist Progress Note Date of Service Sep 09, 2017. (Komal Garcia ., NICKOLAS-C) Subjective Pt evaluation today including: conversation w/ patient, physical exam, chart review, lab review, review of inpatient medication list Pain: Intermittent RLQ and low back pain PO Intake: Tolerating PO diet Voiding: rosales catheter in place Patient reports feeling better. She is able to sit on the edge of the bed today. She does still feel very weak and realized today that she is weaker than she originally thought. She is agreeable to returning to rehab at [facility]. She reports fatigue. She states her intermittent RLQ pain and low back pain are improved from yesterday. They are still both 8/10 in severity but seem to be occurring less frequently. The patient denies fevers, chills, sweats, chest pain, palpitations, claudication, cough, wheezing, shortness of breath, nausea, vomiting, dysuria, hematuria, urinary retention, paralysis, weakness, numbness and tingling. Additional Comments: See HPI for pertinent positives and negatives. All other systems reviewed and negative. (Komal Garcia ., NICKOLAS-C) Objective Vital Signs Date Time Temp Pulse Resp B/P (MAP) Pulse Ox O2 Delivery O2 Flow Rate FiO2 09/09/17 08:20 36.6 111 16 114/77 (89) 94 Room Air 09/09/17 07:15 Room Air 09/09/17 00:28 36.6 106 18 117/76 (90) 95 Room Air 09/08/17 23:50 Room Air 09/08/17 16:25 98 09/08/17 16:10 96 Room Air 09/08/17 14:57 36.6 99 16 104/71 (82) 96 Room Air (Komal Garcia ., NICKOLAS-C) Physical Exam Notes: General appearance: +Fatigued. Well-developed, well-nourished, no apparent distress Head: Normocephalic, atraumatic Eyes: Normal inspection, PERRL, EOMI ENT: Normal ENT inspection, hearing grossly normal, pharynx normal Neck: Supple, no JVD, trachea midline Respiratory/Chest: Lungs clear to auscultation, normal breath sounds, no respiratory distress Cardiovascular: +Irregularly irregular, rate controlled. Systolic murmur. No gallop Abdomen/GI: +Mild diffuse tenderness. Mild distention but pt has been moving her bowels. Normal bowel sounds Extremities/Musculoskeletal: Normal inspection, no calf tenderness, no pedal edema Neurological/Psych: +Confused at times per friend at bedside. Alert, normal mood/affect, oriented x 3 Skin: Normal color, warm/dry, no rash (Komal Garcia ., PA-C) Laboratory Results Last 24 Hours Test 09/09/17 11:28 White Blood Count 7.86 K/uL Red Blood Count 2.76 M/uL Hemoglobin 8.1 g/dL Hematocrit 27.4 % Mean Corpuscular Volume 99.3 fL Mean Corpuscular Hemoglobin 29.3 pg Mean Corpuscular Hemoglobin Concent 29.6 g/dl RDW Standard Deviation 75.1 fL RDW Coefficient of Variation 21.1 % Platelet Count 292 K/uL Mean Platelet Volume 10.4 fL Prothrombin Time 26.0 SECONDS Prothromb Time International Ratio 2.5 Sodium Level 135 mmol/L Potassium Level 4.2 mmol/L Chloride Level 106 mmol/L Carbon Dioxide Level 25 mmol/L Anion Gap 4.0 mmol/L Blood Urea Nitrogen 19 mg/dl Creatinine 0.91 mg/dl Est Creatinine Clear Calc Drug Dose 46.4 ml/min Estimated GFR () 68.1 Estimated GFR (Non- 58.8 BUN/Creatinine Ratio 21.1 Random Glucose 101 mg/dl Calcium Level 8.4 mg/dl (Komal Garcia ., PA-C) Assessment and Plan 82 y/o female with a history of right adnexal mass concerning for ovarian cancer , HTN, HLD, chronic combined systolic/diastolic CHF, a-fib/flutter on chronic AC , CKD stage III, hypothyroidism, depression and GERD who presents with worsening weakness and multiple falls at home. Weakness, falls--pt had been at [facility], discharged to home about 1 week ago. Had another mechanical fall just prior to arrival -Admit to med/surg -Due to deconditioning vs malignancy vs infection vs acute CHF -B12 level 625, TSH WNL, vitamin D low at 23.3 -Start ergocalciferol weekly -PT/OT evaluate and treat, pt will likely need SNF again. Accepted to [facility] Acute on chronic combined CHF--improving -Given IV Lasix on admission, hypoxia improved, now on room air -UO 4300 cc with IV Lasix -Hold off on further diuresis for now, does not take diuretics chronically -Last echo 07/29/17 showed mild to moderate LV systolic dysfunction. Mild to moderate global hypokinesis of left ventricle. Biatrial dilatation. Moderate tricuspid regurg. Moderate pulmonary hypertension. Right adnexal mass concerning for ovarian cancer -Recent pelvis CT 08/26/17 redemonstrates 9.6 x 6.3 cm right adnexal mass, likely malignant -Pt states she does not want any aggressive treatment, surgery, or chemo -Elevated LFTs concerning for possible liver mets -Abdominal U/S negative for mets -LFTs trending down. Pt states she has been taking a lot of Tylenol at home for her back pain Periodontal disease--ongoing. Pt states she has a dentist appt soon to pull 6 teeth -Found on CT -Continue Augmentin 875 mg PO BID. Day #3 -Leukocytosis resolved Possible UTI POA -UA positive for 4+ bacteria -Urine culture positive for alpha strep, likely contamination HTN, HLD--stable -Continue Plavix, Toprol XL 100 mg PO BID, lisinopril 5 mg PO BID, Lipitor 20 mg PO qd A-fib, a-flutter on chronic anticoagulation--stable, rate controlled -Continue digoxin 125 mcg PO q2d, metoprolol as above, warfarin 2 mg PO qd -INR therapeutic CKD stage III--stable Macrocytic anemia--stable -Hgb remains stable -B12 as above Hypothyroidism -TSH WNL -Continue Synthroid 50 mcg PO qd Depression -Continue Lexapro 10 mg PO qd DVT prophylaxis -Warfarin Code Status -Level V, DO NOT RESUSCITATE Dispo -Return to for rehab per PT/OT recs. Bed likely available tomorrow (Komal Garcia ., PAAron) Supervising Note Dr. Montelongo I performed a history and physical examination on the patient. I reviewed above note and agree with it. I discussed plan with APC and patient. During my face to face encounter with the patient, I answered all of the patient's questions. (Louis Montelongo M.D.)
[2017-09-09] MEDS: WARFARIN SOD 2 MG TAB PO SCH (15:44)
[2017-09-09 16:01] VITALS: BP 114/80; PULSE 93; TEMP 36.6; O2SAT 96
[2017-09-09 20:47] VITALS: BP 116/78; PULSE 64
[2017-09-09] MEDS: ATORVASTATIN 20 MG TAB PO SCH (20:48)
[2017-09-09 23:47] VITALS: BP 118/73; PULSE 103; TEMP 36.4; O2SAT 95
[2017-09-10] MEDS: LEVOTHYROXINE 50 MCG TAB PO SCH (06:30)
[2017-09-10] MEDS: METOPROLOL SUCC 50MG EXT REL TAB PO SCH (07:40)
[2017-09-10] MEDS: VITAMIN B COMPLEX TAB PO SCH (07:40)
[2017-09-10] MEDS: ESCITALOPRAM OXALATE 10 MG TAB PO SCH (07:40)
[2017-09-10] MEDS: POLYETHYLENE (MIRALAX) 17 GM PACK PO SCH (07:40)
[2017-09-10] MEDS: AMOXICILLIN/CLAVULANATE TAB 875 MG TAB PO SCH (07:40)
[2017-09-10] MEDS: CLOPIDOGREL BISULFATE 75 MG TAB PO SCH (07:40)
[2017-09-10 07:46] VITALS: BP 139/75; PULSE 86; TEMP 36.4; O2SAT 96
--- NOTE | 2017-09-10 08:30 | NUR ---
ID: Patient admitted with falls and weakness. A&OX3. Denies pain, SOB, N/V. SL right forearm. No edema, positive pulses. Lungs are clear on room air. Abdomen is soft, nontender, nondistended. Right hip hematoma. Voss intact. Preventative foam intact to sacrum and heels bilaterally. Hourly rounding. Bed alarm on. Encouraged to ring for assistance. Will continue to monitor. Plan is to be discharged to SNF.
[2017-09-10 08:32] LABS: INR 2.2 (0.9-1.1)
[2017-09-10 09:42] LABS: HEMATOCRIT 27.1 % (37-47); MEAN CELL VOLUME 99.3 fL (80-100); MEAN CORPUSCULAR HEMOGLOBIN 29.3 pg (25-34); MEAN CORPUSCULAR HGB CONC 29.5 g/dl (32-36); MEAN PLATELET VOLUME 10.9 fL (7.4-10.4); PLATELET COUNT 292 K/uL (130-400); RED CELL DISTRIBUTION WIDTH CV 20.4 % (11.5-14.5); RED CELL DISTRIBUTION WIDTH SD 72.4 fL (36.4-46.3); WHITE BLOOD COUNT 8.06 K/uL (4.8-10.8)
[2017-09-10] MEDS ORDERED: AMOX1TAB43 PO ×3 (09:54→10:49)
[2017-09-10] MEDS ORDERED: ERGO500037 PO (09:54)
[2017-09-10 10:05] LABS: ALBUMIN 2.9 gm/dl (3.4-5.0); CALCIUM 8.4 mg/dl (8.5-10.1); CREATININE 0.91 mg/dl (0.60-1.20); POTASSIUM 4.3 mmol/L (3.5-5.1)
--- NOTE | 2017-09-10 10:16 | Hospitalist Progress Note ---
Hospitalist Progress Note Date of Service Sep 10, 2017. (Komal Garcia ., ROSIEC) Subjective Pt evaluation today including: conversation w/ patient, physical exam, chart review, lab review, review of inpatient medication list Pain: Abdominal and back pain improving PO Intake: Tolerating PO diet Voiding: rosales catheter in place The patient reports feeling better. She states that she still does occasionally have brief, sharp RLQ pain, but this is occurring less and less frequently. Her low back pain is also improving and occurring less frequently. She denies any other complaints currently. The patient denies fevers, chills , sweats, chest pain, palpitations, claudication, cough, wheezing, shortness of breath, nausea, vomiting, abdominal pain, dysuria, hematuria, urinary retention , paralysis, weakness, numbness and tingling. Additional Comments: See HPI for pertinent positives and negatives. All other systems reviewed and negative. (Komal Garcia ., NICKOLAS-C) Objective Vital Signs Date Time Temp Pulse Resp B/P (MAP) Pulse Ox O2 Delivery O2 Flow Rate FiO2 09/10/17 08:00 Room Air 09/10/17 07:46 36.4 86 16 139/75 (96) 96 Room Air 09/10/17 00:00 Room Air 09/09/17 23:47 36.4 103 18 118/73 (88) 95 Room Air 09/09/17 20:47 64 116/78 (91) 09/09/17 16:01 36.6 93 18 114/80 (91) 96 Room Air 09/09/17 15:30 Room Air (Komal Garcia ., NICKOLAS-C) Physical Exam Notes: General appearance: +Fatigued. Well-developed, well-nourished, no apparent distress Head: Normocephalic, atraumatic Eyes: Normal inspection, PERRL, EOMI ENT: Normal ENT inspection, hearing grossly normal, pharynx normal Neck: Supple, no JVD, trachea midline Respiratory/Chest: Lungs clear to auscultation, normal breath sounds, no respiratory distress Cardiovascular: +Irregularly irregular, rate controlled. Systolic murmur. No gallop Abdomen/GI: +Mild diffuse tenderness. Abdomen softer today. Normal bowel sounds Extremities/Musculoskeletal: Normal inspection, no calf tenderness, no pedal edema Neurological/Psych: Alert, normal mood/affect, oriented x 3 Skin: Normal color, warm/dry, no rash (Komal Garcia .ROSIEC) Laboratory Results Last 24 Hours Test 09/09/17 11:28 09/10/17 07:54 White Blood Count 7.86 K/uL 8.06 K/uL Red Blood Count 2.76 M/uL 2.73 M/uL Hemoglobin 8.1 g/dL 8.0 g/dL Hematocrit 27.4 % 27.1 % Mean Corpuscular Volume 99.3 fL 99.3 fL Mean Corpuscular Hemoglobin 29.3 pg 29.3 pg Mean Corpuscular Hemoglobin Concent 29.6 g/dl 29.5 g/dl RDW Standard Deviation 75.1 fL 72.4 fL RDW Coefficient of Variation 21.1 % 20.4 % Platelet Count 292 K/uL 292 K/uL Mean Platelet Volume 10.4 fL 10.9 fL Prothrombin Time 26.0 SECONDS 23.0 SECONDS Prothromb Time International Ratio 2.5 2.2 Sodium Level 135 mmol/L 137 mmol/L Potassium Level 4.2 mmol/L 4.3 mmol/L Chloride Level 106 mmol/L 107 mmol/L Carbon Dioxide Level 25 mmol/L 24 mmol/L Anion Gap 4.0 mmol/L 6.0 mmol/L Blood Urea Nitrogen 19 mg/dl 21 mg/dl Creatinine 0.91 mg/dl 0.91 mg/dl Est Creatinine Clear Calc Drug Dose 46.4 ml/min 46.4 ml/min Estimated GFR () 68.1 68.1 Estimated GFR (Non- 58.8 58.8 BUN/Creatinine Ratio 21.1 23.0 Random Glucose 101 mg/dl 94 mg/dl Calcium Level 8.4 mg/dl 8.4 mg/dl Total Bilirubin 0.9 mg/dl Direct Bilirubin 0.3 mg/dl Aspartate Amino Transf (AST/SGOT) 83 U/L Alanine Aminotransferase (ALT/SGPT) 77 U/L Alkaline Phosphatase 212 U/L Total Protein 7.0 gm/dl Albumin 2.9 gm/dl (Komal Garcia ., INCKOLAS-C) Assessment and Plan 82 y/o female with a history of right adnexal mass concerning for ovarian cancer , HTN, HLD, chronic combined systolic/diastolic CHF, a-fib/flutter on chronic AC , CKD stage III, hypothyroidism, depression and GERD who presents with worsening weakness and multiple falls at home. Weakness, falls--pt had been at [facility], discharged to home about 1 week ago. Had another mechanical fall just prior to arrival -Admit to med/surg -Due to deconditioning vs malignancy vs infection vs acute CHF -B12 level 625, TSH WNL, vitamin D low at 23.3 -Start ergocalciferol weekly x 8 weeks -PT/OT evaluate and treat, pt will likely need SNF again. Accepted to [facility]. No bed available today Acute on chronic combined CHF--resolved -Given IV Lasix on admission, hypoxia improved, now on room air -UO 4300 cc with IV Lasix -Hold off on further diuresis for now, does not take diuretics chronically. -D/C [place] -Last echo 07/29/17 showed mild to moderate LV systolic dysfunction. Mild to moderate global hypokinesis of left ventricle. Biatrial dilatation. Moderate tricuspid regurg. Moderate pulmonary hypertension. Right adnexal mass concerning for ovarian cancer -Recent pelvis CT 08/26/17 re-demonstrates 9.6 x 6.3 cm right adnexal mass, likely malignant -Pt states she does not want any aggressive treatment, surgery, or chemo -Elevated LFTs concerning for possible liver mets -Abdominal U/S negative for mets -LFTs trending down, much improved. Pt states she has been taking a lot of Tylenol at home for her back pain Periodontal disease--ongoing. Pt states she has a dentist appt soon to pull 6 teeth -Found on CT -Continue Augmentin 875 mg PO BID. Day #4 -Leukocytosis resolved Possible UTI POA -UA positive for 4+ bacteria -Urine culture positive for alpha strep, likely contamination HTN, HLD--stable -Continue Plavix, Toprol XL 100 mg PO BID, lisinopril 5 mg PO BID, Lipitor 20 mg PO qd A-fib, a-flutter on chronic anticoagulation--stable, rate controlled -Continue digoxin 125 mcg PO q2d, metoprolol as above, warfarin 2 mg PO qd -INR therapeutic CKD stage III--stable Macrocytic anemia--stable -Hgb remains stable -B12 as above Hypothyroidism -TSH WNL -Continue Synthroid 50 mcg PO qd Depression -Continue Lexapro 10 mg PO qd DVT prophylaxis -Warfarin Code Status -Level V, DO NOT RESUSCITATE Dispo -Return to for rehab per PT/OT recs. No bed available today, will have one tomorrow Continued [facility] stay due to: home environment unsafe for pt (Komal Garcia ., PA-C) Supervising Note Dr. Montelongo I performed a history and physical examination on the patient. I reviewed above note and agree with it. I discussed plan with APC and patient. During my face to face encounter with the patient, I answered all of the patient's questions. (Louis Montelongo M.D.)
--- NOTE | 2017-09-10 10:50 | Discharge Instructions ---
Discharge Instructions Date of Service Sep 10, 2017. Admission Reason for Admission: Fall,Weakness Discharge Discharge Diagnosis / Problem: Frequent falls, weakness Discharge Goals Goal(s): Decrease discomfort, Learn about illness, Diagnostic testing Activity Recommendations Activity Level: Assistance Required Therapies: Physical Therapy, Occupational Therapy . Additional Information Patient informed of condition: Yes Advance Directives: Yes DNR: Yes Level of Care: Skilled (skilled rehab) Communicable Disease: No Prognosis: Stable Voss Catheter: No Instructions / Follow-Up Instructions / Follow-Up The patient presented to the hospital following multiple falls at home, weakness and hypoxia. She had just recently been discharged from [facility] but began to slowly decline once returned home. The patient had presented with a mild exacerbation of her chronic CHF. She was treated with IV Lasix which did produce significant diuresis and resolved her hypoxia. She did have a Voss catheter in place due to significant diuresis, but her Voss was removed prior to discharge as her urine output has decreased. The patient does have a right adnexal mass that is concerning for ovarian cancer, but she does not wish to have this worked up further and does not want any aggressive treatment. She was found to have severe periodontal disease on CT and is being treated with Augmentin, and she reports scheduling to follow up with her dentist to have several teeth pulled as a result. Her vitamin D levels were also found to be low and she was given ergocalciferol. Her presenting weakness is likely multifactorial secondary to deconditioning, malignancy, infection and/ or CHF exacerbation. Medications: *Augmentin 875 mg PO BID for 7 more days. *Ergocalciferol 50,000 units PO once weekly x 7 more weeks. Can then reduce to maintenance dose. *Continue home medications as prescribed. Follow up: Pt was to follow up with dentist in a few days to have 6 teeth removed in regards to severe periodontal disease, please be sure pt follows up *Follow up with primary care provider. Please seek medical attention if patient experiences fevers, chills, sweats, dizziness/lightheadedness, loss of consciousness, chest pain, shortness of breath, nausea, vomiting, numbness or tingling. Current Hospital Diet Patient's current hospital diet: Regular Diet Discharge Diet Recommended Diet: AHA Diet (Heart Healthy), Low Sodium Diet (2gm Na) Pending Studies Studies pending at discharge: no Physician Orders On Transfer Special Precautions: Fall precautions Vital Signs: Routine Weigh: Daily Medical Emergencies . Who to Call and When: Medical Emergencies: If at any time you feel your situation is an emergency, please call 911 immediately. . Non-Emergent Contact Non-Emergency issues call your: Primary Care Provider . Past History Medical & Surgical History: (1) Multiple falls (2) Weakness . "Provider Documentation" section prepared by Komal Garcia. . Core Measure Problem Core Measures: None
--- NOTE | 2017-09-10 11:01 | Discharge Summary ---
Discharge Summary Date of Service Sep 10, 2017. Discharge Summary Admission Date: Sep 07, 2017 at 10:33 Discharge Date: Sep 10, 2017 Discharge Disposition: longterm facility (skilled rehab) Principal Diagnosis: Multiple falls, weakness, acute combined CHF Problems/Secondary Diagnoses: Right adnexal mass concerning for ovarian cancer, HTN, HLD, chronic combined systolic/diastolic CHF, a-fib/flutter on chronic AC, CKD stage III, hypothyroidism, depression, GERD Immunizations: Have You Had Influenza Vaccine: Yes Influenza Vaccine Date: Jul 09, 2010 History of Tetanus Vaccine?: No History of Pneumococcal: Yes Pneumococcal Date: Jul 09, 2010 History of Hepatitis B Vaccine: No Procedures: CT SCAN OF THE BRAIN WITHOUT IV CONTRAST CLINICAL HISTORY: Fall. Head injury. COMPARISON STUDY: CT of the brain dated 08/26/2017. TECHNIQUE: Unenhanced axial CT scan of the brain is performed from the vertex to the skull base. A dose lowering technique was utilized adhering to the principles of ALARA. The skull base was scanned twice due to motion artifact. FINDINGS: Brain parenchyma: There are age-related involutional changes noting mild to moderate subcortical and periventricular microangiopathic change. There is no hemorrhage, mass effect, or evidence of acute territorial ischemia by CT criteria. Chronic lacunar infarcts are identified in the right caudate head and the left cerebellar hemisphere. Vazquez-white matter is preserved. No extra-axial fluid collection is seen. Ventricles, sulci, cisterns: Prominent secondary to involutional change. Intracranial vasculature: There is atherosclerotic calcification of the cavernous carotid arteries. Calvarium: The skeletal structures are osteopenic. There is no depressed calvarial fracture. Soft tissues: There is a small right supraorbital scalp hematoma. Sinuses and mastoids: The visualized paranasal sinuses are clear. The mastoid air cells are well pneumatized. Orbits: The bony orbits are grossly intact. 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 IMPRESSION: 1. There is no hemorrhage, mass effect, or evidence of acute territorial ischemia by CT criteria. 2. Right supraorbital scalp hematoma. No depressed calvarial fracture is seen. CT SCAN OF THE FACIAL BONES WITHOUT IV CONTRAST CLINICAL HISTORY: Fall. Facial injury. COMPARISON STUDY: CT scan of the facial bones dated 08/26/2017. TECHNIQUE: High-resolution CT scan of the facial bones is performed. Images are reviewed in the axial, sagittal, and coronal planes. IV contrast was not administered for this examination. A dose lowering technique was utilized adhering to the principles of ALARA. FINDINGS: The skeletal structures are osteopenic. There is no evidence of facial bone fracture. The bony orbits are intact. 1.7 cm lobulated homogeneous hyperdense structure in the right orbit is seen image #78. 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 This is unchanged and has been intermittently present on prior studies. The orbital contents are otherwise within normal limits. The zygomatic arches, nasal bones, and pterygoid plates are preserved. Nasal bone deformity is unchanged from 08/26/2017 and likely related to remote fracture. The maxilla and mandible are intact. Arthritic change is present at the temporomandibular joints. There are no layering blood products within the paranasal sinuses. Trace mucosal thickening is seen within the maxillary antra and the tiny retention cyst is noted in the right. The paranasal sinuses are otherwise clear. The mastoid air cells are well pneumatized. The visualized calvarium and upper cervical spine are maintained. Partially imaged brain parenchyma is within normal limits. There is is right periorbital and superolateral scalp contusion as well as right supraorbital scalp hematoma. Numerous dental caries are identified. A large periapical lucency with cortical breakthrough is seen involving the right maxillary incisors. IMPRESSION: 1. There is no evidence of facial bone fracture. 2. Right facial soft tissue injury as above. 3. Periodontal disease as above with numerous dental caries and a large periapical lucency. Nonemergent follow-up with dentistry is recommended. SINGLE VIEW PELVIS CLINICAL HISTORY: Fall. Left hip pain. FINDINGS: An AP pelvic radiograph is correlated with pelvic CT dated 08/26/2017. The skeletal structures are osteopenic. No fracture is seen involving the hips or bony pelvis. Sclerotic change is noted at the sacroiliac joints. Mild arthritic change and joint space narrowing is seen in the hips. There is no bowel obstruction. Soft tissue edema overlies the right upper thigh, likely representing contusion/hematoma. A large right thigh hematoma was also seen on 08/26/2017. IMPRESSION: 1. No fracture is identified involving the hips or bony pelvis. 2. A large hematoma is identified in the right upper thigh. A large right thigh hematoma was also seen on 08/26/[address] SINGLE VIEW CHEST CLINICAL HISTORY: Weakness. Falls. FINDINGS: An AP, portable, upright chest radiograph is compared to study dated 08/26/2017. The examination is degraded by portable technique and patient rotation. A 3-lead cardiac AICD is unchanged in position and partially secures the left upper chest. The patient is status post midline sternotomy and cardiac valve surgery. The heart is markedly enlarged and there is atherosclerotic calcification of the thoracic ureter. There is mild congestion of the pulmonary vasculature. No airspace consolidation or large pleural effusion is identified. There is bibasilar atelectasis. No pneumothorax is seen. The skeletal structures are osteopenic. The bony thorax is grossly intact. IMPRESSION: 1. Cardiomegaly and AICD with evidence of mild congestive change. 2. No airspace consolidation or large pleural effusion is identified. ULTRASOUND RIGHT UPPER QUADRANT ABDOMEN CLINICAL HISTORY: Elevated hepatic transaminases. COMPARISON STUDY: Abdominal CT dated 07/27/2017. TECHNIQUE: Real-time, grayscale, and color flow sonography of the right upper quadrant of the abdomen was performed. Images are reviewed in the transverse and longitudinal planes. FINDINGS: Liver: The liver is normal in size and demonstrates heterogeneously increased echotexture consistent with hepatic steatosis. There is no intrahepatic biliary ductal dilatation. The main portal vein is patent. No hepatic lesion is identified. Gallbladder: The gallbladder is normal in appearance. There is a large shadowing calcified gallstone which measures up to 2.7 cm. There is no gallbladder wall thickening or pericholecystic fluid. A sonographic Patel's sign is reportedly absent. The common bile duct measures up to 0.3 cm in diameter. Pancreas: Visualized portions of the pancreatic head and body are normal in appearance. There are 2 small hypodensities in the pancreas measure up to 1.5 cm. These were also seen by CT on 07/27/2017 and likely represent small sidebranch IPMN's. The splenic vein is patent. Right kidney: Survey images of the right kidney demonstrate mild cortical atrophy. There is no hydronephrosis. Small cortical and parapelvic cysts are noted. These measure up to 1.5 cm. Ascites: None. IMPRESSION: 1. Hepatic steatosis. 2. Cholelithiasis without sonographic evidence of acute cholecystitis. Medication Reconciliation New Medications: Ergocalciferol (Vitamin D 12096 Unit) 50,000 Unit Cap 1 CAP PO WK for 49 Days, #7 CAP 5 Refills Next dose due 09/15/17 Amoxicillin & Pot Clavulanate (Amoxicillin/Clavulanate P) 1 Tab Tab 875 MG PO BIDM for 7 Days, #14 TAB Continued Medications: Acetaminophen (Tylenol) 325 Mg Tab 650 MG PO DIRECTED PRN for Pain or Fever, TAB Atorvastatin (Atorvastatin Calcium) 20 Mg Tab 20 MG PO HS B Complex W/ C (Vitamin B Complex-C) 1 Cap Cap 1 TAB PO DAILY Clopidogrel Bisulfate (Clopidogrel) 75 Mg Tab 75 MG PO DAILY Digoxin (Digoxin) 0.125 Mg Tab 0.125 MG PO Q2D AT 1600 Escitalopram Oxalate (Escitalopram Oxalate) 10 Mg Tab 10 MG PO QAM for 30 Days, #30 TAB Levothyroxine Sodium (Levothyroxine Sodium) 50 Mcg Tab 50 MCG PO QAM Lisinopril (Prinivil) 5 Mg Tab 5 MG PO BID, TAB Melatonin (Kp Melatonin) 3 Mg Tab 1 TAB PO HS, TAB Metoprolol Succinate (Metoprolol Succinate ER) 100 Mg Tabcr 100 MG PO BID Warfarin Sodium (Warfarin Sodium) 2 Mg Tab 2 MG PO DAILY Discharge Exam The patient reports feeling better. She states that she still does occasionally have brief, sharp RLQ pain, but this is occurring less and less frequently. Her low back pain is also improving and occurring less frequently. She denies any other complaints currently. The patient denies fevers, chills , sweats, chest pain, palpitations, claudication, cough, wheezing, shortness of breath, nausea, vomiting, abdominal pain, dysuria, hematuria, urinary retention , paralysis, weakness, numbness and tingling. Constitutional: No fever, No chills, No sweats Eyes: No worsening of vision, No eye pain, No diplopia ENT: No hearing loss, No nasal symptoms, No trouble swallowing Respiratory: No cough, No wheezing, No shortness of breath Cardiovascular: No chest pain, No claudication, No palpitations Abdomen: +Intermittent RLQ pain improving. No nausea, No vomiting Musculoskeletal: +Intermittent low back pain following fall improving. No muscle pain, No swelling Genitourinary - Female: No dysuria, No urinary retention, No hematuria Neurologic: No paralysis, No weakness, No numbness/tingling Integumentary: No rash, No itch, No color change General appearance: +Fatigued. Well-developed, well-nourished, no apparent distress Head: Normocephalic, atraumatic Eyes: Normal inspection, PERRL, EOMI ENT: Normal ENT inspection, hearing grossly normal, pharynx normal Neck: Supple, no JVD, trachea midline Respiratory/Chest: Lungs clear to auscultation, normal breath sounds, no respiratory distress Cardiovascular: +Irregularly irregular, rate controlled. Systolic murmur. No gallop Abdomen/GI: +Mild diffuse tenderness. Abdomen softer today. Normal bowel sounds Extremities/Musculoskeletal: Normal inspection, no calf tenderness, no pedal edema Neurological/Psych: Alert, normal mood/affect, oriented x 3 Skin: Normal color, warm/dry, no rash Hospital Course 82 y/o female with a history of right adnexal mass concerning for ovarian cancer , HTN, HLD, chronic combined systolic/diastolic CHF, a-fib/flutter on chronic AC , CKD stage III, hypothyroidism, depression and GERD who presents with worsening weakness and multiple falls at home. Weakness, falls--pt had been at [facility], discharged to home about 1 week ago. Had another mechanical fall just prior to arrival -Admit to med/surg -Head CT with scalp hematoma, otherwise no acute abnormality -Maxillofacial CT with periodontal disease -Pelvis x-ray with right thigh hematoma that is stable from previous CT in August -Right shoulder x-ray, cervical spine CT, and left femur x-ray show osteopenia, negative for fracture or dislocation -Due to deconditioning vs malignancy vs infection vs acute CHF -B12 level 625, TSH WNL, vitamin D low at 23.3 -Start ergocalciferol weekly x 8 weeks. First dose given while inpatient -PT/OT evaluate and treat, pt will likely need SNF again. Accepted to [facility]. Mild acute on chronic combined CHF--resolved -CXR with mild congestive change -Given IV Lasix on admission, hypoxia resolved, now on room air -UO 4300 cc with IV Lasix -Hold off on further diuresis for now, does not take diuretics chronically. -D/C [place] -Last echo 07/29/17 showed mild to moderate LV systolic dysfunction. Mild to moderate global hypokinesis of left ventricle. Biatrial dilatation. Moderate tricuspid regurg. Moderate pulmonary hypertension. Right adnexal mass concerning for ovarian cancer -Recent pelvis CT 08/26/17 re-demonstrates 9.6 x 6.3 cm right adnexal mass, likely malignant -Pt states she does not want any aggressive treatment, surgery, or chemo -Elevated LFTs concerning for possible liver mets -Abdominal U/S negative for mets -LFTs trending down, much improved. Pt states she has been taking a lot of Tylenol at home for her back pain Periodontal disease--ongoing. Pt states she has a dentist appt soon to pull 6 teeth -Found on CT -Continue Augmentin 875 mg PO BID. Total of 3 days completed while inpatient, will continue at discharge for total 10 day course -Leukocytosis resolved Possible UTI POA -UA positive for 4+ bacteria -Urine culture positive for alpha strep, likely contamination HTN, HLD--stable -Continue Plavix, Toprol XL 100 mg PO BID, lisinopril 5 mg PO BID, Lipitor 20 mg PO qd A-fib, a-flutter on chronic anticoagulation--stable, rate controlled -Continue digoxin 125 mcg PO q2d, metoprolol as above, warfarin 2 mg PO qd -INR therapeutic CKD stage III--stable Macrocytic anemia--stable -Hgb remains stable -B12 as above Hypothyroidism -TSH WNL -Continue Synthroid 50 mcg PO qd Depression -Continue Lexapro 10 mg PO qd DVT prophylaxis -Warfarin Code Status -Level V, DO NOT RESUSCITATE Dispo -Return to for rehab per PT/OT recs Supervising Note Dr. Montelongo I performed a history and physical examination on the patient. I reviewed above discharge summary note and agree with it. I discussed discharge plan with APC and patient. During my face to face encounter with the patient, I answered all of the patient's questions. Total Time Spent: Greater than 30 minutes This includes examination of the patient, discharge planning, medication reconciliation, and communication with other providers. Discharge Instructions Please refer to the electronic Patient Visit Report (Discharge Instructions) for additional information. Follow-Up Follow up with dentist regarding periodontal disease. Pt reports needing 6 teeth pulled *F/u with PCP Additional Copies To Mary Hardwick M.D.
[2017-09-10 11:14] VITALS: BP 139/75; PULSE 86; TEMP 36.4; O2SAT 96
--- NOTE | 2017-09-10 13:09 | NUR ---
Case Management- Met with patient in room. [facility]. Updated patients daughter on pick pulling machine operator time. [place] [facility] is picking patient up at 1600 updated physician nursing and [facility] faxed discharge to [facility]. CM following
[2017-09-10] MEDS: WARFARIN SOD 2 MG TAB PO SCH (15:47)
[2017-09-10] MEDS: DIGOXIN 0.125 MG TAB PO SCH (15:48)
--- NOTE | 2017-09-10 17:05 | NUR ---
Patient discharged to [facility] per MD order. Removed IV site from R WAN DO - dressing c/d/i. Pt's daughter took most belongings. Daughter to meet her at [facility]. On discharge patient had glasses, shoes and heavy coat. Transport provided by [facility]. This RN gave the day haul or farm charter bus driver the dsicharge instructions, copied chart and medications last given sheet. Glazing Department Supervisor transported patient via wheelchair. No further needs assessed at this time. Addendum: 09/10/17 at 1907 by Charlee Salmon RN Report called to Soraya SIERRA. Gave floor phone # in case she had any further questions.
[2017-09-16] MEDS ORDERED: ENOX30IN4 SQ (07:38)
[2017-09-22] MEDS ORDERED: ERGO500037 PO (09:58)
[2017-09-22] MEDS ORDERED: DOCU-94 PO (09:58)
== END 2017-09-10 17:05 | DRG 291 ==
LOC: EDBD 07:32 → C.EDA 07:33 → C.MS2W 10:33 → ENRESERV 10:58
PROVIDERS: ADMIT Family Medicine; ATTEND Internal Medicine Sports Medicine
DX: I13.0 Hypertensive heart and chronic kidney disease with heart failure and stage 1 through stage 4 chronic kidney disease, or unspecified chronic kidney disease (principal); I50.23 Acute on chronic systolic (congestive) heart failure; C56.9 Malignant neoplasm of unspecified ovary; N39.0 Urinary tract infection, site not specified; I48.92 Unspecified atrial flutter; E78.5 Hyperlipidemia, unspecified; I48.91 Unspecified atrial fibrillation; Z66 Do not resuscitate; S70.11XA Contusion of right thigh, initial encounter; K21.9 Gastro-esophageal reflux disease without esophagitis; E03.9 Hypothyroidism, unspecified; G25.81 Restless legs syndrome; N18.3 Chronic kidney disease, stage 3 (moderate); K05.6 Periodontal disease, unspecified; D53.9 Nutritional anemia, unspecified; M85.80 Other specified disorders of bone density and structure, unspecified site; W19.XXXA Unspecified fall, initial encounter; Z86.73 Personal history of transient ischemic attack (TIA), and cerebral infarction without residual deficits; Z79.01 Long term (current) use of anticoagulants; Z80.3 Family history of malignant neoplasm of breast; Z82.49 Family history of ischemic heart disease and other diseases of the circulatory system

== ENCOUNTER → 2017-09-17 | Outpatient (CLI) | payer OTHER, BC ==
[~2017-09-17] MED LIST changes: +AMOX1TAB43 PO; +DOCU-94 PO; +ENOX30IN4 SQ; +ERGO500037 PO; +OPTIRAY 320 IV PRN; -WARF4TAB43 PO
--- NOTE | 2017-09-17 08:46 | DIAGNOSTIC IMAGING REPORT ---
RIGHT HIP CT CT DOSE: 893.97 mGy.cm HISTORY: R HIP HEMATOMA COMPARISON TECHNIQUE: Multiaxial CT images of the right hip were performed and reformatted in the sagittal and coronal plane without the use of contrast. A dose lowering technique was utilized adhering to the principles of ALARA. COMPARISON: Right hip CT 08/26/2017. FINDINGS: There is again noted a 15 x 15 x 7 cm heterogeneous subcutaneous fluid collection within the right lateral hip. This demonstrates areas of increased density internally and likely represents a hematoma. This also demonstrates thin peripheral enhancement and surrounding subcutaneous fat stranding. No soft tissue gas identified at this time. This does not extend to the muscular compartments. No fracture or dislocation within the right hip. No areas of bony destruction to suggest osteomyelitis. There is an irregular and heterogeneous enhancing mass which appears to extend from the right side of the uterine fundus. This measures 9.3 x 7.0 cm. Gas within the bladder. IMPRESSION: 1. No giving an change in the 15 x 15 x 7 cm heterogeneous subcutaneous fluid collection within the right lateral hip. This demonstrates areas of increased density and favors a subcutaneous hematoma. There is thin peripheral enhancement and surrounding subcutaneous fat stranding. Therefore, superimposed infection cannot be excluded. However, there is no gas identified within the suspected hematoma at this time. 2. No fracture or dislocation within the right hip. 3. Redemonstration of the exophytic 9.3 x 7.0 cm mass involving the right side of the uterine fundus. This is consistent with a uterine malignancy. Electronically signed by: Tony Medina M.D. 09/17/2017 8:44 AM Dictated Date/Time: 09/17/2017 8:31 AM
== END | disposition home or self-care (01) ==
LOC: C.CTS 07:54
PROVIDERS: ATTEND Emergency Medicine
DX: S70.01XD Contusion of right hip, subsequent encounter (principal); R19.09 Other intra-abdominal and pelvic swelling, mass and lump; X58.XXXD Exposure to other specified factors, subsequent encounter

== ENCOUNTER 2017-10-21 16:45 | Emergency (ER) | payer OTHER, BC ==
[~2017-10-21] VITALS: Ht 170.2 cm; Wt 57.0 kg
[~2017-10-21 16:45] MED LIST changes: -OPTIRAY 320 IV PRN
[2017-10-21 17:00] VITALS: TEMP 36.4; Ht 170.2 cm; Wt 57.0 kg
[2017-10-21] MEDS ORDERED: CMD/25 PO (17:00)
[2017-10-21] MEDS ORDERED: VANC1SOL3 PO (17:00)
[2017-10-21] MEDS ORDERED: SODIUM CHLORIDE 0.9% 1000ML 1,000 ML IV STA (17:01)
[2017-10-21] MEDS ORDERED: MoRPHine SULFATE 2 MG/ML CARP IV STA (17:01)
[2017-10-21] MEDS ORDERED: ONDANSETRON INJ 2 MG/ML 2 ML VIAL IV STA (17:01)
[2017-10-21] MEDS ORDERED: ONDANSETRON 4MG OD TAB ONE (17:04)
[2017-10-21 17:10] VITALS: O2SAT 97
[2017-10-21 17:23] LABS: BASO % 0.3 %; BASO ABS # 0.03 K/uL (0-0.2); EOS % 1.8 %; EOS ABS # 0.17 K/uL (0-0.5); HEMATOCRIT 28.8 % (37-47); IG# 0.04 K/uL (0.00-0.02); LYMPH % 11.1 %; LYMPH ABS # 1.05 K/uL (1.2-3.4); MEAN CELL VOLUME 88.3 fL (80-100); MEAN CORPUSCULAR HEMOGLOBIN 27.6 pg (25-34); MEAN CORPUSCULAR HGB CONC 31.3 g/dl (32-36); MONO % 6.7 %; MONO ABS # 0.64 K/uL (0.11-0.59); NEUT % 79.7 %; NEUT ABS # 7.57 K/uL (1.4-6.5); PLATELET COUNT 199 K/uL (130-400); RED CELL DISTRIBUTION WIDTH CV 16.4 % (11.5-14.5); RED CELL DISTRIBUTION WIDTH SD 51.9 fL (36.4-46.3)
[2017-10-21 17:38] LABS: CREATININE 1.21 mg/dl (0.60-1.20); POTASSIUM 4.4 mmol/L (3.5-5.1); PTT PATIENT 40.8 SECONDS (21.0-31.0)
[2017-10-21 17:50] LABS: INR 3.9 (0.9-1.1)
--- NOTE | 2017-10-21 18:02 | DIAGNOSTIC IMAGING REPORT ---
HEAD WITHOUT CONTRAST (CT) CT DOSE: HISTORY: Trauma Fall/headache/patient on Coumadin TECHNIQUE: Multiaxial CT images of the head were performed without the use of intravenous contrast. A dose lowering technique was utilized adhering to the principles of ALARA. Comparison: 09/07/2017 Findings: The paranasal sinuses and mastoid air cells are clear. Potential nondisplaced cortical fracture superior left orbital margin. Localized subcutaneous soft tissue edematous change. Evidence for parenchymal and subarachnoid hemorrhage throughout both cerebral hemispheres. Blood is present within the suprasellar and basilar cisterns, the major fissures as well as pattern. Tentorial region. Small parenchymal component potentially is located at the anterior frontal lobe regions. There is no midline shift. Impression: 1. Rather extensive subarachnoid hemorrhage throughout the basilar cisterns and basilar subarachnoid spaces, as well as peritentorial regions.. 2. Less prominent parenchymal and subarachnoid hemorrhagic components over the frontal lobe regions bilaterally. 3. No midline shift at this time. 4. Probable nondisplaced cortical fracture left superior orbital margin. The above report was generated using voice recognition software. It may contain grammatical, syntax or spelling errors. Electronically signed by: Ke Hdz M.D. 10/21/2017 6:01 PM Dictated Date/Time: 10/21/2017 5:55 PM
[2017-10-21] MEDS ORDERED: PROTHROMBIN COMP CONC- KCENTRA 1,500 UNIT in SYRINGE 0 ML IV STA (18:03)
--- NOTE | 2017-10-21 18:08 | DIAGNOSTIC IMAGING REPORT ---
FACIAL BONES-MXILLOFAC WITHOUT CLINICAL HISTORY: 82 years-old Female presenting with Fall/facial trauma. TECHNIQUE: Multidetector CT of the face was performed without the use of intravenous contrast. IV contrast: None. A dose lowering technique was used consistent with the principles of ALARA (as low as reasonably achievable). COMPARISON: 09/07/2017. CT DOSE (mGy.cm): The estimated cumulative dose is 623.19 mGy.cm. FINDINGS: Egg Worker topogram: Unremarkable. Mild polypoid mucosal thickening in the maxillary sinuses. Remainder of the paranasal sinuses and mastoid air cells are clear. Nasofrontal ethmoidal recesses patent. Ostiomeatal units patent. Mild leftward bony nasal septal deviation superiorly. No significant anatomic variant. No dehiscence of the bony optic canals or the carotid siphons. No sclerosis of the maxillary sinus mehta to suggest chronic sinusitis. Periapical lucency at the right mandibular lateral incisor with associated extension to the right central incisor and overlying cortical defect. Minimal periapical lucency at the left mandibular posterior most molar. Several left mandibular premolar/molar are absent. Extensive amalgam. Orbits intact. No post septal infiltration. 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 This measures 1.2 cm in diameter. Mild soft tissue swelling over the lateral left periorbital region. No subjacent osseous injury. Temporal mandibular joints intact. Mandible intact. Upper cervical spine intact. IMPRESSION: 1. Mild soft tissue contusion over the lateral left periorbital region. No acute osseous injury of the face. 2. Multiple sites of periapical lucencies, which raises concern for periapical abscesses further detailed above. 3. 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 This is incompletely characterized without intravenous contrast. This is of uncertain clinical significance. Electronically signed by: Jose Alejandro Marshall M.D. 10/21/2017 6:07 PM Dictated Date/Time: 10/21/2017 5:58 PM
[2017-10-21] MEDS ORDERED: PHYTONADIONE INJ 10 MG in SODIUM CHLORIDE 0.9% 50ML 50 ML IV ONE (18:15)
[2017-10-21] MEDS ORDERED: PROTHROMBIN COMP CONC- KCENTRA 1,500 UNIT in SYRINGE 0 ML IV ONE (18:30)
--- NOTE | 2017-10-21 18:53 | EMERGENCY ROOM VISIT NOTE ---
ED Visit Note First contact with patient: 16:50 I have personally seen and evaluated the patient with the physician personnel security assistant. I agree with the diagnostic/management decisions and have personally been involved in these decisions and agree with the diagnosis. CT scan was reviewed. The patient appears to be comfortable in no acute distress at this time. She was treated with IV K Centra and IV vitamin K. Transport is being arranged to [facility].
[2017-10-21 20:35] VITALS: BP 109/58; PULSE 76; O2SAT 95
--- NOTE | 2017-11-09 10:49 | EMERGENCY ROOM VISIT NOTE ---
History First contact with patient: 16:50 Chief Complaint: FALL Stated Complaint: FALL History of Present Illness The patient is a 82 year old female who presents to the Emergency Room via EMS with complaints of fall. Patient's only complaint is that she has a headache and points to the forehead as the area of pain. Patient denies any associated dizziness, nausea, vomiting or any visual changes. Patient denies any chest pain or shortness of breath or any back pain. The patient denies any arm or leg pain. The patient was found on the floor at [place]. They do not know how long she was on the floor. They think she had loss of consciousness. The patient does not remember falling. The patient is on Coumadin. The EMT stated that her last INR was greater than 4. I spoke with the patient's daughter who arrived at the ER. She states that the patient is demented. She does have frequent falls. She was at [facility] for therapy and just went to [facility] yesterday. She had some dental work done the end of September but started having some bleeding yesterday so she went to the dentist for them to cauterize the areas that were bleeding. Review of Systems 10 system review was performed and was negative unless stated otherwise history of present illness. Past Medical/Surgical History Medical Problems: (1) Acute pulmonary edema (2) Atrial Fibrillation (3) Cerebrovascular accident (CVA) (4) Chronic atrial fibrillation with RVR (5) Congestive Heart Failure Nos (6) Demand ischemia of myocardium (7) Diplopia (8) Fall (9) Generalized weakness (10) Hyperlipidemia Nec/Nos (11) Hypertension Nos (12) Stroke-like symptoms (13) TIA (transient ischemic attack) (14) Traumatic hematoma of right lower leg (15) Weakness Surgical Problems: (1) Mitral valve replaced (2) Status post heart valve replacement with mechanical valve Family History Breast Cancer Cancer FHx: heart disease Heart disease Hypertension Social History Smoking Status: Unknown if Ever Smoked Alcohol Use: none Drug Use: none Marital Status: Housing Status: retirement Occupation Status: retired Current/Historical Medications Scheduled Atorvastatin (Lipitor), 20 MG PO HS B Complex W/ C (Vitamin B Complex-C), 1 TAB PO DAILY Clopidogrel Bisulfate (Clopidogrel), 75 MG PO DAILY Digoxin (Digoxin), 0.125 MG PO Q2D AT 1600 Ergocalciferol (Vitamin D 44013 Unit), 1 CAP PO WK Escitalopram Oxalate (Escitalopram Oxalate), 10 MG PO QAM Levothyroxine Sodium (Levothyroxine Sodium), 50 MCG PO QAM Lisinopril (Prinivil), 5 MG PO BID Metoprolol Succinate (Metoprolol Succinate ER), 100 MG PO BID Vancomycin HCl (First-Vancomycin 50), 2.5 ML PO QID Warfarin Sod (Coumadin), 2.5 MG PO DAILY Scheduled PRN Acetaminophen (Tylenol), 650 MG PO DIRECTED PRN for Pain or Fever Physical Exam Vital Signs Date Time Temp Pulse Resp B/P (MAP) Pulse Ox O2 Delivery O2 Flow Rate FiO2 10/21/17 20:35 76 16 109/58 95 10/21/17 19:30 76 121/62 96 Room Air 10/21/17 19:00 76 16 114/68 95 Room Air 10/21/17 18:31 124/67 10/21/17 18:30 76 13 96 10/21/17 18:01 132/61 10/21/17 18:00 77 12 97 10/21/17 18:00 75 13 132/61 96 Room Air 10/21/17 17:58 76 15 146/72 96 Room Air 10/21/17 17:31 91 14 122/62 97 Room Air 10/21/17 17:10 97 Room Air 10/21/17 17:03 93 10/21/17 17:00 36.4 79 14 144/73 97 Room Air Physical Exam GENERAL: 82-year-old white female appears in no acute distress. MENTAL STATUS: Patient is alert and is answering questions appropriately. HEAD: The patient has some ecchymosis noted on the right frontal region as well as a large hematoma on the left frontal area just at the hairline laterally of the temporal region. Remainder head is unremarkable. EYES: PERRLA. EOMs intact. EARS: Canals clear. TMs without hemotympanum noted. NECK: Supple, no lymphadenopathy noted. No carotid bruits noted. LUNGS: Clear auscultation without wheezes rales or rhonchi. CARDIAC: Irregular irregular rhythm without murmur. Pulses is full and equal throughout. ABDOMEN: Positive bowel sounds all 4 quadrants. Soft, nontender to palpation without organomegaly or masses. NEURO: Grossly intact. SPINE: Entire spine nontender to palpation. Full range of motion no cervical and lumbar without pain. EXTREMITIES: Patient is able to move bilateral upper and lower extremities without difficulty or pain elicited. Medical Decision & Procedures ER Provider Diagnostic Interpretation: FACIAL BONES-MXILLOFAC WITHOUT CLINICAL HISTORY: 82 years-old Female presenting with Fall/facial trauma. TECHNIQUE: Multidetector CT of the face was performed without the use of intravenous contrast. IV contrast: None. A dose lowering technique was used consistent with the principles of ALARA (as low as reasonably achievable). COMPARISON: 09/07/2017. CT DOSE (mGy.cm): The estimated cumulative dose is 623.19 mGy.cm. FINDINGS: Network Support Engineer topogram: Unremarkable. Mild polypoid mucosal thickening in the maxillary sinuses. Remainder of the paranasal sinuses and mastoid air cells are clear. Nasofrontal ethmoidal recesses patent. Ostiomeatal units patent. Mild leftward bony nasal septal deviation superiorly. No significant anatomic variant. No dehiscence of the bony optic canals or the carotid siphons. No sclerosis of the maxillary sinus mehta to suggest chronic sinusitis. Periapical lucency at the right mandibular lateral incisor with associated extension to the right central incisor and overlying cortical defect. Minimal periapical lucency at the left mandibular posterior most molar. Several left mandibular premolar/molar are absent. Extensive amalgam. Orbits intact. No post septal infiltration. 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 This measures 1.2 cm in diameter. Mild soft tissue swelling over the lateral left periorbital region. No subjacent osseous injury. Temporal mandibular joints intact. Mandible intact. Upper cervical spine intact. IMPRESSION: 1. Mild soft tissue contusion over the lateral left periorbital region. No acute osseous injury of the face. 2. Multiple sites of periapical lucencies, which raises concern for periapical abscesses further detailed above. 3. 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 This is incompletely characterized without intravenous contrast. This is of uncertain clinical significance. Electronically signed by: Jose Alejandro Marshall M.D. 10/21/2017 6:07 PM HEAD WITHOUT CONTRAST (CT) CT DOSE: HISTORY: Trauma Fall/headache/patient on Coumadin TECHNIQUE: Multiaxial CT images of the head were performed without the use of intravenous contrast. A dose lowering technique was utilized adhering to the principles of ALARA. Comparison: 09/07/2017 Findings: The paranasal sinuses and mastoid air cells are clear. Potential nondisplaced cortical fracture superior left orbital margin. Localized subcutaneous soft tissue edematous change. Evidence for parenchymal and subarachnoid hemorrhage throughout both cerebral hemispheres. Blood is present within the suprasellar and basilar cisterns, the major fissures as well as pattern. Tentorial region. Small parenchymal component potentially is located at the anterior frontal lobe regions. There is no midline shift. Impression: 1. Rather extensive subarachnoid hemorrhage throughout the basilar cisterns and basilar subarachnoid spaces, as well as peritentorial regions.. 2. Less prominent parenchymal and subarachnoid hemorrhagic components over the frontal lobe regions bilaterally. 3. No midline shift at this time. 4. Probable nondisplaced cortical fracture left superior orbital margin. The above report was generated using voice recognition software. It may contain grammatical, syntax or spelling errors. Electronically signed by: Ke Hdz M.D. 10/21/2017 6:01 PM Laboratory Results 10/21/17 17:05 Red Blood Count 3.26, Mean Corpuscular Volume 88.3, Mean Corpuscular Hemoglobin 27.6, Mean Corpuscular Hemoglobin Concent 31.3, Mean Platelet Volume 11.0, Neutrophils (%) (Auto) 79.7, Lymphocytes (%) (Auto) 11.1, Monocytes (%) (Auto) 6.7, Eosinophils (%) (Auto) 1.8, Basophils (%) (Auto) 0.3, Neutrophils # (Auto) 7.57, Lymphocytes # (Auto) 1.05, Monocytes # (Auto) 0.64, Eosinophils # (Auto) 0.17, Basophils # (Auto) 0.03 10/21/17 17:05 Test 10/21/17 17:05 White Blood Count 9.50 K/uL (4.8-10.8) Red Blood Count 3.26 M/uL (4.2-5.4) Hemoglobin 9.0 g/dL (12.0-16.0) Hematocrit 28.8 % (37-47) Mean Corpuscular Volume 88.3 fL (80-100) Mean Corpuscular Hemoglobin 27.6 pg (25-34) Mean Corpuscular Hemoglobin Concent 31.3 g/dl (32-36) Platelet Count 199 K/uL (130-400) Mean Platelet Volume 11.0 fL (7.4-10.4) Neutrophils (%) (Auto) 79.7 % Lymphocytes (%) (Auto) 11.1 % Monocytes (%) (Auto) 6.7 % Eosinophils (%) (Auto) 1.8 % Basophils (%) (Auto) 0.3 % Neutrophils # (Auto) 7.57 K/uL (1.4-6.5) Lymphocytes # (Auto) 1.05 K/uL (1.2-3.4) Monocytes # (Auto) 0.64 K/uL (0.11-0.59) Eosinophils # (Auto) 0.17 K/uL (0-0.5) Basophils # (Auto) 0.03 K/uL (0-0.2) RDW Standard Deviation 51.9 fL (36.4-46.3) RDW Coefficient of Variation 16.4 % (11.5-14.5) Immature Granulocyte % (Auto) 0.4 % Immature Granulocyte # (Auto) 0.04 K/uL (0.00-0.02) Prothrombin Time 39.9 SECONDS (9.0-12.0) Prothromb Time International Ratio 3.9 (0.9-1.1) Activated Partial Thromboplast Time 40.8 SECONDS (21.0-31.0) Partial Thromboplastin Ratio 1.6 Anion Gap 5.0 mmol/L (3-11) Est Creatinine Clear Calc Drug Dose 32.3 ml/min Estimated GFR () 48.3 Estimated GFR (Non- 41.6 BUN/Creatinine Ratio 19.3 (10-20) Calcium Level 9.0 mg/dl (8.5-10.1) Troponin I 0.238 ng/ml (0-0.045) Pro-B-Type Natriuretic Peptide 5079 pg/ml (0-1800) Medications Administered Medications (Trade) Dose Ordered Sig/Elsi Route Start Time Stop Time Status Last Admin Dose Admin Sodium Chloride 1,000 ml @ 999 mls/hr Q1H1M STAT IV 10/21/17 17:01 10/21/17 18:01 DC 10/21/17 17:01 999 MLS/HR Morphine Sulfate (MoRPHine SULFATE INJ) 2 mg NOW STAT IV 10/21/17 17:01 10/21/17 17:06 DC 10/21/17 17:31 2 MG Ondansetron HCl (Zofran Inj) 4 mg NOW STAT IV 10/21/17 17:01 10/21/17 17:06 DC 10/21/17 17:30 4 MG Phytonadione 10 mg/Sodium Chloride 51 ml @ 102 mls/hr ONE ONCE IV 10/21/17 18:15 10/21/17 18:44 DC 10/21/17 18:35 102 MLS/HR Prothrombin Complex Concent (Human) 1500 unit/ Syringe 60 ml @ 10 mls/min NOW ONCE IV 10/21/17 18:30 10/21/17 18:35 DC 10/21/17 18:21 10 MLS/MIN ED Course The patient was evaluated by myself and Dr. Guerra The patient was placed on a monitor and continuous pulse ox. EKG was ordered and interpreted by myself as above without any significant change from prior of September 24, 2017.. IV access was obtained. The patient was given 1 L normal saline wide open. She was given morphine 2 mg IV for headache and Zofran 4 mg IV push for associated nausea. CBC differential, renal profile, LFTs and lipase levels were ordered. Coags, CK-MB, troponin and BNP were also ordered. Labs are reviewed. The patient's hemoglobin and hematocrit were low at 9 and 28.1 but this is baseline for the patient. The patient's troponin was bumped at 0.238. INR was 3.9. Urinalysis was ordered. CT of the head and facial bones was ordered and interpreted by the radiologist as above with extensive subarachnoid hemorrhage. The patient was given vitamin K 10 mg IV and K Centra 1500 mg IV. I spoke with Dr. Tate from [facility] who will accept the patient in transfer. I spoke with Pascale, radiology employee relations advisor who stated she would send the images directly to [facility] via computer. He tried to arrange [employer] with the weather prohibited him from flying. I have personally spent greater than 30 minutes of critical care time in the direct management of this patient. This includes bedside care, interpretation of diagnostic studies, and testing, discussion with consultants, patient, and family members, and other required patient management activities. This 30 minutes is in excess of all separately billable procedures. Medical Decision Differential diagnosis includes skull fracture, intracranial bleed, subarachnoid hemorrhage, neoplasm [place] Drug Monitoring Program Search Results: patient reviewed within database Head Trauma GCS Score: 12 Medication Reconcilliation Current Medication List: was personally reviewed by me Blood Pressure Screening Patient's blood pressure: Elevated blood pressure Impression Primary Impression: Subarachnoid hemorrhage following injury Additional Impressions: Anemia Elevated troponin Departure Information Dispostion Transfer Acute Care Facility Condition GOOD Referrals Alvin Guevara M.D. (PCP) Patient Instructions [facility] Problem Qualifiers Primary Impression: Subarachnoid hemorrhage following injury Encounter type: initial encounter Loss of consciousness presence/duration: with LOC of 30 min or less Qualified Codes: S06.6X1A - Traumatic subarachnoid hemorrhage with loss of consciousness of 30 minutes or less, initial encounter Additional Impressions: Anemia Anemia type: unspecified type Qualified Codes: D64.9 - Anemia, unspecified
== END 2017-10-21 20:38 | disposition short-term general hospital (02) ==
LOC: EDBD 16:45 → C.EDA 16:49
DX: S06.6X1A Traumatic subarachnoid hemorrhage with loss of consciousness of 30 minutes or less, initial encounter (principal); W19.XXXA Unspecified fall, initial encounter; Y92.199 Unspecified place in other specified residential institution as the place of occurrence of the external cause; D64.9 Anemia, unspecified; R79.89 Other specified abnormal findings of blood chemistry; Z79.01 Long term (current) use of anticoagulants; I48.91 Unspecified atrial fibrillation; Z86.73 Personal history of transient ischemic attack (TIA), and cerebral infarction without residual deficits; E78.5 Hyperlipidemia, unspecified; I11.0 Hypertensive heart disease with heart failure; I50.9 Heart failure, unspecified; Z95.2 Presence of prosthetic heart valve; Z79.899 Other long term (current) drug therapy; Z80.3 Family history of malignant neoplasm of breast; Z82.49 Family history of ischemic heart disease and other diseases of the circulatory system